=== PATIENT | male | born 1980 | race Caucasian/White ===

== ENCOUNTER 2019-05-16 14:43 | Emergency (ER) | payer MEDICAID, SELFPAY ==
[2019-05-16 14:51] VITALS: BP 101/88; PULSE 78; RESP 18; TEMP 36.2; O2SAT 99
--- NOTE | 2019-05-16 15:18 | W.ED.GENAD ---
Discharge Plan Disposition Patient Disposition: HOME Condition: Stable Discharge Details Chief Complaint: Laceration Clinical Impression: Avulsion of nail Primary Care Provider: Philipp Mcrae ED Provider: Raoul Nguyen Home Meds and New Rx's Prescriptions: No Action No Known Home Meds RF: 0 Discharge Instructions Additional Instructions: Remove dressing in 72 hours. Then may do daily soap and water gentle wash, pat dry and replace dressing. The nail may not grow back. Tylenol if needed for pain. Return to the ER for fever, redness, discharge from the wound or any other acute concern. Medical Decision Making 38-year-old male presents from home with complaint of left fifth digit nail avulsion when it was caught by the plate of the saws-all he was using. For x-ray which does not show displaced fracture. There is a subtle distal avulsion fracture. Placed in Xeroform gauze dressing with AlumaFoam splint for comfort. Discussed with him anticipated course of resolution. He is stable for discharge to home. HPI General Mode of arrival: ambulatory. Date/Time Provider Initiated Documentation: 05/16/19 15:01. Limitations to Documentation: no limitations. Information obtained by: patient. History of Present Illness 38 year old M presents to the emergency department with the chief complaint of Left fifth finger injury by saws all, described as moderate, and is localized to the upper extremity. Patient reports no radiation. Patient started experiencing this minute(s) and it has been constant. No relieving factors improve symptom(s), No exacerbating factors reported . Patient notes no other symptoms.. Patient did receive the following treatments prior to arrival, other (Tetanus up to date) Related Data Home Medications Medication Instructions Recorded Confirmed Unknown [No Known Home Meds] 05/16/19 05/16/19 Allergies Allergy/AdvReac Type Severity Reaction Status Date / Time No Known Allergies Allergy Unverified 05/16/19 14:52 General Stated Complaint: Laceration ANTONIO: 4 Review of Systems Narrative: 6 systems reviewed and otherwise negative [facility] Surgical History Repair, Tendon or Muscle right little and ring fingers Social History Smoking/Tobacco Use Status: Current every day Alcohol Intake: never Drug use: Occasionally Substance use type: marijuana Do you feel safe at home: Yes Do you feel safe in your relationship?: Yes Exam Narrative Exam Narrative: GEN: awake, alert, oriented 3. Pleasant, well groomed, interactive. HEAD: Normocephalic, atraumatic EYES: PERRL, EOMI NECK: Full ROM, no CORAL, no menigismus EXT: Full ROM, no edema, no rash. Left fifth digit with avulsed nail, tender and bloody, no laceration. Sensation is intact. Range of motion intact. Neuro: Grossly normal neurologic exam, conversant, interactive. Psych: Speech fluent, thoughts congruent, affect normal Course Vital Signs Vital signs: Vital Signs Temperature 36.2 C L 05/16/19 14:51 Pulse 78 05/16/19 14:51 Respiratory Rate 18 05/16/19 14:51 Blood Pressure 101/88 05/16/19 14:51 Pulse Oximetry 99 05/16/19 14:51 Temperature 36.2 C L 05/16/19 14:51 Temperature Source Temporal Artery Scan 05/16/19 14:51 Pulse 78 05/16/19 14:51 Respiratory Rate 18 05/16/19 14:51 Respiratory Effort Non-Labored 05/16/19 14:51 Blood Pressure 101/88 05/16/19 14:51 Pulse Oximetry 99 05/16/19 14:51 Oxygen Delivery Method Room Air 05/16/19 14:51 Oxygen Flow Rate 0 05/16/19 14:51 Pain Level 10 05/16/19 14:51
--- NOTE | 2019-05-16 15:53 | DI.RAD_ITS ---
EXAM: XR FINGER LT LITTLE INDICATION: pain and avulsed nail after trauma. COMPARISON: No exams were available for comparison TECHNIQUE: 2D digital imaging was performed. FINDINGS: There is a minimally displaced tiny fracture of the terminal tuft of the left little finger. Associa felicia soft tissue swelling is present. No radiopaque foreign bodies are seen in the soft tissues. IMPRESSION: Tiny, minimally displaced fracture of the terminal tuft of the left little finger.
[2019-05-16] MEDS: Acetaminophen 500 MG TAB 1000 MG PO (16:02)
--- NOTE | 2019-05-16 16:25 | DI.VRAD_ITS ---
PROCEDURE INFORMATION: Exam: XR Left Finger(s) Exam date and time: 05/16/2019 3:51 PM Clinical history: 38 years old, male; Other: Pain and avulsed nail after trauma TECHNIQUE: Imaging protocol: XR Left fingers. Views: Minimum 2 views. COMPARISON: No relevant prior studies available. FINDINGS: Bones/joints: There is a 3 x 1.5 mm chip fracture from the tip of the distal phalanx that appears to be acute. Soft tissues: There is irregularity near the base of the nail of the fifth digit. There is no radiopaque foreign body. IMPRESSION: Tiny acute chip fracture of the distal phalanx. Dictated and Authenticated by: Griffin Ruth MD. Ordering:RADHA Silveira MD
== END 2019-05-16 16:36 | disposition home or self-care (01) ==
PROVIDERS: Emergency Provider Emergency Medicine; PCP Family Medicine
DX: S61.307A Unspecified open wound of left little finger with damage to nail, initial encounter (principal); W31.2XXA Contact with powered woodworking and forming machines, initial encounter
CPT/HCPCS: 99283; 73140; 99282

== ENCOUNTER 2021-08-12 15:40 | Outpatient (CLI) | payer MEDICAID, SELFPAY ==
--- NOTE | 2021-08-12 | DI.RAD_ITS ---
Exam(s) XR HIP RT COMPLETE AP PELVIS EXAM: XR HIP RT COMPLETE AP PELVIS CLINICAL HISTORY: fall on rock. TECHNIQUE: 2D digital imaging was performed of the right hip. Two images were obtained. AP pelvis a nd lateral right hip views were obtained. COMPARISON: No exams were available for comparison FINDINGS: BONES: No acute fracture is present. No bony destructive lesion is seen. JOINTS: No dislocation present. SOFT TISSUE: Normal. IMPRESSION: Unremarkable radiographs of the right hip. Unremarkable radiographs of the pelvis. DATA REPOSITORY: RADIATION DOSE DELIVERED:
--- NOTE | 2021-08-12 16:06 | DI.VRAD_ITS ---
PROCEDURE INFORMATION: Exam: XR Right Hip Exam date and time: 08/12/2021 3:45 PM Age: 41 years old Clinical indication: Injury or trauma; Fall; Blunt trauma (contusions or hematomas); Right; Hip TECHNIQUE: Imaging protocol: XR Right hip. Views: 2 or 3 views hip with pelvis when performed. COMPARISON: No relevant prior studies available. FINDINGS: Bones/joints: Minimal Degenerative arthritis lower lumbar facets and sacroiliac joints. Soft tissues: Unremarkable. IMPRESSION: No acute findings Dictated and Authenticated by: Sarah Mensah MD. Ordering:RUSLAN Clements MD
== END 2021-08-12 16:00 ==
PROVIDERS: PCP Family Medicine; Visit Provider Nurse Practitioner Family
DX: M25.551 Pain in right hip (principal); W19.XXXA Unspecified fall, initial encounter
CPT/HCPCS: 73502

== ENCOUNTER 2022-05-18 15:23 | Outpatient (REF) | payer MEDICAID, SELFPAY ==
[2022-05-18 16:10] LABS: HCT 42.9 % (40.0-50.0); HGB 14.9 g/dL (13.5-17.5); MCH 32.5 pg (27.0-33.0); MCHC 34.7 % (32.0-36.0); MCV 94 fL (80-95); MPV 9.3 fL (8.0-11.0); Platelet Count 381 10^3/uL (130-400); RBC 4.58 10^6/uL (4.36-5.78); RDW 11.8 % (11.8-14.1); RDW-SD 40.9 fL; WBC 8.84 10^3/uL (4.4-10.8)
[2022-05-18 16:50] LABS: ALT 45 U/L (16-63); AST 30 U/L (15-37); Albumin 4.3 g/dL (3.4-5.0); Alkaline Phosphatase 66 U/L (46-116); Anion Gap 7.2 mmol/L (3-11); BUN 7 mg/dL (7-18); Bilirubin, Total 1.2 mg/dL (0.2-1.0); CO2 26.8 mmol/L (21.0-32.0); CREATININE 1.1 mg/dL (0.70-1.30); Calcium 9.3 mg/dL (8.5-10.1); Chloride 102 mmol/L (98-107); Estimated GFR 87.03 (mL/min/1.73m2); Glucose 102 mg/dL (74-106); Potassium 4.5 mmol/L (3.5-5.1); Sodium 136 mmol/L (136-145); Total Protein 7.6 g/dL (6.4-8.2)
== END 2022-05-18 15:24 | disposition home or self-care (01) ==
LOC: NCHCN 15:23
PROVIDERS: PCP Family Medicine; Visit Provider Nurse Practitioner Family
DX: Z13.0 Encounter for screening for diseases of the blood and blood-forming organs and certain disorders involving the immune mechanism (principal); Z13.228 Encounter for screening for other metabolic disorders; Z00.00 Encounter for general adult medical examination without abnormal findings
CPT/HCPCS: 80053; 85027

== ENCOUNTER 2023-02-07 17:21 | Outpatient (REF) | payer MEDICAID, SELFPAY ==
[2023-02-07 16:38] LABS: Abs Immature Grans 0.04 10^3/uL (0.0-0.06); Absolute Basophil Count 0.06 10^3/uL (0.0-0.2); Absolute Eosinophil Count 0.14 10^3/uL (0.0-0.7); Absolute Lymphocyte Count 2.24 10^3/uL (1.2-3.4); Absolute Monocyte Count 0.59 10^3/uL (0.1-0.8); Absolute Neutrophil Count 3.47 10^3/uL (1.2-6.7); Basophils % 0.9; Eosinophils % 2.1; HCT 42.6 % (40.0-50.0); HGB 14.6 g/dL (13.5-17.5); Immature Grans % 0.6; Lymphocytes % 34.3; MCH 31.7 pg (27.0-33.0); MCHC 34.3 % (32.0-36.0); MCV 92 fL (80-95); MPV 8.6 fL (8.0-11.0); Neutrophils % 53.1; Platelet Count 379 10^3/uL (130-400); RBC 4.61 10^6/uL (4.36-5.78); RDW 11.7 % (11.8-14.1); RDW-SD 39.8 fL; WBC 6.54 10^3/uL (4.4-10.8)
[2023-02-07 16:42] LABS: Prothrombin Time 9.9 sec (9.3-11.0)
[2023-02-07 16:58] LABS: Anion Gap 4.7 mmol/L (3-11); BUN 13 mg/dL (7-18); CO2 31.3 mmol/L (21.0-32.0); CREATININE 1.2 mg/dL (0.70-1.30); Calcium 8.8 mg/dL (8.5-10.1); Chloride 103 mmol/L (98-107); Estimated GFR 77.92 (mL/min/1.73m2); Glucose 95 mg/dL (74-106); Potassium 4.6 mmol/L (3.5-5.1); Sodium 139 mmol/L (136-145)
== END 2023-02-07 17:22 | disposition home or self-care (01) ==
LOC: LBN 17:21
PROVIDERS: PCP Family Medicine; Visit Provider Orthopaedic Surgery
DX: M50.13 Cervical disc disorder with radiculopathy, cervicothoracic region (principal)
CPT/HCPCS: 80048; 85025; 85610

== ENCOUNTER 2024-06-12 16:33 | Outpatient (REF) | payer MEDICAID, SELFPAY ==
[2024-06-12 19:12] LABS: Abs Immature Grans 0.02 10^3/uL (0.0-0.06); Absolute Basophil Count 0.07 10^3/uL (0.0-0.2); Absolute Eosinophil Count 0.08 10^3/uL (0.0-0.7); Absolute Lymphocyte Count 1.88 10^3/uL (1.2-3.4); Absolute Monocyte Count 0.65 10^3/uL (0.1-0.8); Absolute Neutrophil Count 5.53 10^3/uL (1.2-6.7); Basophils % 0.9 %; HCT 40.9 % (40.0-50.0); HGB 14.2 g/dL (13.5-17.5); Immature Grans % 0.2 %; Lymphocytes % 22.8 %; MCH 32.4 pg (27.0-33.0); MCHC 34.7 % (32.0-36.0); MCV 93 fL (80-95); MPV 8.6 fL (8.0-11.0); Monocytes % 7.9 %; Neutrophils % 67.2 %; Platelet Count 411 10^3/uL (130-400); RBC 4.38 10^6/uL (4.36-5.78); RDW 11.7 % (11.8-14.1); WBC 8.23 10^3/uL (4.4-10.8)
[2024-06-12 19:24] LABS: ALT 38 U/L (16-63); AST 24 U/L (15-37); Albumin 4.3 g/dL (3.4-5.0); Alkaline Phosphatase 76 U/L (46-116); Anion Gap 8.9 mmol/L (3-11); BUN 7 mg/dL (7-18); Bilirubin, Total 0.75 mg/dL (0.2-1.0); CO2 27.1 mmol/L (21.0-32.0); CREATININE 1.1 mg/dL (0.70-1.30); Calcium 9.1 mg/dL (8.5-10.1); Calculated LDL 107 mg/dL (<100); Chloride 100 mmol/L (98-107); Cholesterol 195 mg/dL (<200); Estimated GFR 85.95 (mL/min/1.73m2); Glucose 117 mg/dL (74-106); HDL Cholesterol 80 mg/dL (40-60); Potassium 4.3 mmol/L (3.5-5.1); Sodium 136 mmol/L (136-145); Total Protein 8.1 g/dL (6.4-8.2); Triglyceride 40 mg/dL (<150)
== END 2024-06-12 16:34 | disposition home or self-care (01) ==
LOC: NCHCN 16:33
PROVIDERS: PCP Family Medicine; Visit Provider Nurse Practitioner Family
DX: K92.0 Hematemesis (principal); Z13.220 Encounter for screening for lipoid disorders
CPT/HCPCS: 80053; 80061; 85025

== ENCOUNTER 2024-07-03 00:28 | Outpatient (CLI) | payer MEDICAID, SELFPAY ==
--- NOTE | 2024-07-03 | DI.CT_ITS ---
Exam(s) CT ABDOMEN PELVIS W EXAM: CT ABDOMEN PELVIS W CLINICAL HISTORY: LUQ PAIN R10.12. TECHNIQUE: Imaging Protocol: Axial computed tomography images with coronal and sagittal reformatted images were created and reviewed CONTRAST MATERIAL: Intravenous: Omnipaque 350 Contrast volume:75 ml Oral: yes COMPARISON: No exams were available for comparison FINDINGS: ABDOMEN and PELVIS: Lung Bases: No acute findings. Liver: Normal density. No suspicious mass. Gallbladder and biliary tract: No radiodense calculus. No biliary dilation. Pancreas: Normal density. No abnormal calcifications or inflammatory process. No evidence of mass. Spleen: Normal. Kidneys: Normal size, contour and axis. No radiodense stones. No obstructive uropathy. No suspicious masses seen. Adrenal glands: No masses seen. Vasculature: Abdominal aorta non-dilated. Soft tissues: Tiny fat containing umbilical hernia. Bladder: No gross wall thickening. No calculi.No focal mass. Bowel: The small bowel and colon are well opacified with the administered oral contrast. No obstruct ion. No bowel wall thickening. Appendix normal. Normal quantity of stool. Peritoneal cavity: No ascites. No focal collection. No mesenteric inflammatory response. No free air . Bones: Unremarkable for age. Reproductive organs: Unremarkable. Lymph nodes: No pathologically enlarged lymph nodes. IMPRESSION:: No acute abnormality in the abdomen or pelvis. RADIATION DOSE DELIVERED: Total DLP DATA REPOSITORY: All CT scans at this facility are submitted to the National Radiology Data Registry (NRDR) Dose Index Registry (DIR) with the [employer] (ACR). RADIATION OPTIMIZATION: All CT scans at this facility use at least one of these dose optimization te chniques: automated exposure control; mA and/or kV adjustment per patient size (includes targeted exa ms where dose is matched to clinical indication); or iterative reconstruction.
--- OUTSIDE RECORDS SUMMARY | 2024-07-03 00:31 | XMS_ITS | Encounter Summary ---
[facility] Organization [facility] [place] [address] Care Team Providers Care Pacs Specialist Name Role Phone Delaney Kwok APRN Primary Care Provider [phone] Reason for Visit * Reason Comments Follow-up S/P C4-C7 ACDF Encounter Details Date Type Department Care Team ([facility] Contact Info) Description 06/27/2023 11:30 AM EST Office Visit [place] [address] Chana Fields CORPORATE GENERAL MANAGER [facility] [place] [address] S/p C4-C7 ACDF 02/18/23 (Dr. Prince) Social History Tobacco Use Types Packs/Day Years Used Date Smoking Tobacco: Former Cigarettes 1.5 15 0 02/16/2008 - 02/15/2023 Smokeless Tobacco: Former Chew Alcohol Use Standard Drinks/Week Comments Yes 9 (1 standard drink = 0.6 oz pur e alcohol) last drink saturday [facility] Inpatient Questions Answer Date Recorded Does Anyone Try to Keep You From Having Contact with Others or Doing Things Outside Your Home? unable to answer (comment required) 02/18/2023 Feels Threatened by Someone unable to an swer (comment required) 02/18/2023 Feels Unsafe at Home or Work/School unab le to answer (comment required) 02/18/2023 Physical Signs of Abuse Present no 02/18/2023 Sex and Gender Information Value Date Recorded Sex Assigned at Not on file Gender Identity Not on file Sexual Orientation Not on file documented as of this encounter Last Filed Vital Signs Vital Sign Reading Time Taken Comments Blood Pressure - - Pulse - - Temperature - - Respiratory Rate - - Oxygen Saturation - - Inhaled Oxygen Concentration - - Weight 77.1 kg (170 lb) 06/27/2023 11:22 AM EST Height 185.4 cm (6' 1) 06/27/2023 11:22 AM EST Body Mass Index 22.43 06/27/2023 11:22 AM EST documented in this encounter Progress Notes * Chana Fields, CORPORATE GENERAL MANAGER - 06/27/2023 11:30 AM EST [facility] Medical Decision Making: Diallo Barker is a pleasant 42 y.o. male seen today about 6 months s/p ACDF spanning C4-7. He is doing well. I recommended continued use of the bone stimulator for the next 3 months as recommended. I would also recommend that he see us back for his 1 year post-op visit with repeat Xrays. Heis aware that he can return sooner if there are any concerns or issues. Diagnosis: ICD-10-CM 1. S/p C4-C7 ACDF 02/18/23 (Dr. Prince) Z98.1 XR Cervical Spine AP Flexion & Extension Only Plan Follow up 01/2024 for 1 year post-op visit with repeat Xrays HPI Surgery: ACDF C4-7 for bilateral upper extremity radiculopathy Date of Surgery: 02/08/2023 Surgeon: Dr. Arnoldo Prince MD Diallo Barker is a 42 y.o. male here for a routine 6 months post- operative visit. he was last seen by Dr. Arnoldo Prince MD on 04/25/2023 and at that time, he was 10 weeks out from surgery. He was doing well reporting minimal neck discomfort. He also reported resolution of his upper extremityradicular symptoms. Swallowing was back to normal. He was counseled at that time to wean from the cervical collar and advance activities as tolerated. He is following up with me today for a routine postop visit Today, he continues to report that he is doing well. He continue to report that his upper extremities are doing well and is slowly but surely improving. He has returned to work, working 20-30 hours per week. He continues to report that he is not smoking. He is using the cervical bone stimulator daily. ROS A five point review of systems was completed today and, of note, pertinent positives and negatives are indicated in the HPI reports that he quit smoking about 4 months ago. His smoking use included cigarettes. He has a 22.50 pack-year smoking history. He has quit using smokeless tobacco. His smokeless tobacco use includedchew. Physical Examination: Wt Readings from Last 1 Encounters: 06/27/23 77.1 kg (170 lb) BMI Readings from Last 1 Encounters: 06/27/23 22.43 kg/m?? Pain: 4 (last 7 days pain lvl at lowest 0, highest 4) General: Pleasant, cooperative, Mood and affect are appropriate Posture: upright Gait: Non-antalgic Palpation: There are no masses, lesions, or deformities. Skin: There is a healing left anterior cervical incision without redness, drainage or signs if infection. Sensation: Grossly intact throughout all dermatomes Neuro: Strength: 5/5 throughout all muscle groups Reflexes: 2+ at the biceps triceps brachioradialis bilaterally Imaging and Test Review: On the day of this encounter, I independently reviewed xrays of the cervical spine completed today demonstrating intact anterior hardware spanning C4-5 without evidence of loosening of hardware failure. Bone graft is not fully incorporated, but progressed from previous xrays CC: Delaney Kwok APRN Referring Provider: Delaney Fields APRN 06/27/2023 [facility] documented in this encounter Plan of Treatment Not on file documented as of this encounter Results * XR Cervical Spine AP Flexion & Extension Only (05/08/2024 1:00 PM EDT) WORKSTATION ID [id number] [facility] Anatomical Region Laterality Modality C-spine N/A Digital Radiogra phy Impressions 05/08/2024 2:27 PM EDT ACDF C4-C7. ??Similar degree of subsidence of intervertebral disc spacers. ??There is decreased conspicuity of disc spacers, which may indicate progressive incorporation. ??The hardware including the plate and screws alignment are unchanged. Thank you for letting us participate in the care of this patient. ??If you are a health care provider and have any questions regarding this report, please contact the number below. ??For patients who have questions please contact the health animal care attendant that requested your imaging first. ? Narrative 05/08/2024 2:27 PM EDT EXAMINATION: XR CERVICAL SPINE AP FLEXION AND EXTENSION ONLY CLINICAL HISTORY: Neck pain Z98.1, Arthrodesis status TECHNIQUE: AP lateral, flexion and extension COMPARISON: Radiographs 06/27/2023, 04/25/2023. FINDINGS: C1 through C7 are visualized on the lateral view. Status post ACDF C4-C7. ??Similar degree of subsidence of intervertebral disc spacers across these levels. ??The disc spacers are less distinct which may indicate incorporation. ??The cortical plate and screw alignment are unchanged. ?? Spinal listhesis or dynamic susceptibility.Vertebral body heights are preserved. Disc height loss at C3-C4. Unremarkable prevertebral soft tissues and lung apices. Procedure Note Pardeep Rudd MD - 05/08/2024 EXAMINATION: XR CERVICAL SPINE AP FLEXION AND EXTENSION ONLY CLINICAL HISTORY: Neck pain Z98.1, Arthrodesis status TECHNIQUE: AP lateral, flexion and extension COMPARISON: Radiographs 06/27/2023, 04/25/2023. FINDINGS: C1 through C7 are visualized on the lateral view. Status post ACDF C4-C7. Similar degree of subsidence of intervertebraldisc spacers across these levels. The disc spacers are less distinct whichmay indicate incorporation. The cortical plate and screw alignment areunchanged. Spinal listhesis or dynamic susceptibility.Vertebral body heights arepreserved. Disc height loss at C3-C4. Unremarkable prevertebral soft tissues and lung apices. IMPRESSION ACDF C4-C7. Similar degree of subsidence of intervertebral disc spacers.There is decreased conspicuity of disc spacers, which may indicate progressive incorporation. The hardware including the plate and screws alignmentare unchanged. Thank you for letting us participate in the care of this patient. If youare a health care provider and have any questions regarding this report,please contact the number below. For patients who have questions please contactthe health animal care attendant that requested your imaging first. Chana Fields APRN IMG DX ORDERABLES documented in this encounter Visit Diagnoses Diagnosis S/p C4-C7 ACDF 02/18/23 (Dr. Prince) Arthrodesis status S/p C4-C7 ACDF 02/18/23 (Dr. Prince) Arthrodesis status documented in this encounter Care Teams Pacs Specialist Relationship Specialty Start Date End Date Delaney Kwok APRN [address] [place] [address] PCP - General Family Medicine 02/18/23 documented as of this encounter
--- OUTSIDE RECORDS SUMMARY | 2024-07-03 00:31 | XMS_ITS | Encounter Summary ---
Author Organization [facility] [place] [address] Care Team Providers Care Horse Riding Coach Or Instructor Name Role Phone Delaney Kwok APRN Primary Care Provider [phone] Encounter Details Date Type Department Care Team (Latest Contact Info) Description 05/08/2024 Travel Social History Tobacco Use Types Packs/Day Years Used Date Smoking Tobacco: Former Cigarettes 1.5 15 0 02/16/2008 - 02/15/2023 Smokeless Tobacco: Former Chew Alcohol Use Standard Drinks/Week Comments Yes 9 (1 standard drink = 0.6 oz pur e alcohol) last drink saturday [facility] Inpatient Questions Answer Date Recorded Does Anyone [...] on file documented as of this encounter Plan of Treatment Not on file documented as of this encounter Visit Diagnoses Not on filedocumented in this encounter Care Teams Horse Riding Coach Or Instructor Relationship Specialty Start Date End Date Delaney Kwok [place] [address] [place] [address] PCP - General Family Medicine 02/18/23 documented as of this encounter
--- OUTSIDE RECORDS SUMMARY | 2024-07-03 00:31 | XMS_ITS | Encounter Summary ---
Author Organization [facility] Address [facility] [place] [address] Care Team Providers Care Cash Posting Representative Name Role Phone Delaney Kwok APRN Primary Care Provider [phone] Encounter Details Date Type Department Care Team (Latest Contact Info) Description 06/27/2023 10:27 AM EST - 06/27/2023 11:59 PM [facility] Hospital Encounter XRay at [facility] [place] [address] Arnoldo Prince MD [facility] [place] [address] Cervical disc disorder with radiculopathy of cervicothoracic region Discharge Disposition: Home Social History Tobacco Use Types Packs/Day Years Used Date Smoking Tobacco: Former Cigarettes 1.5 15 0 02/16/2008 - 02/15/2023 Smokeless Tobacco: Former Chew Alcohol Use Standard Drinks/Week Comments Yes 9 (1 standard drink = 0.6 oz pur e alcohol) last drink saturday [facility] Inpatient Questions Answer Date Recorded Does [...] on file documented as of this encounter Medications at Time of Discharge Medication Sig Dispensed Refills Start Date End Date acetaminophen (Tylenol) 500 mg tablet Take 2 tablets by mouth every 6 hours as needed for Pain. 30 tablet 1 02/19/2023 documented as of this encounter Plan of Treatment Not on file documented as of this encounter Procedures Procedure Name Priority Date/Time Associated Diagnosis Comments XR CERVICAL SPINE 1 VIEW Routine 06/27/2023 10:35 AM EST Cervical disc disorder with radiculopathy of cervicothoracic region documented in this encounter Results * XR Cervical Spine 1 View (06/27/2023 10:35 AM EST) Anatomical Region Laterality Modality C-spine N/A Digital Radiogra phy Impressions 06/27/2023 1:37 PM EST Status post C4-7 ACDF. Progressive subsidence of all of the intervertebral spacers. Otherwise, hardware is intact on this limited lateral projection. Thank you for letting us participate in the care of this patient. ??If you are a health care provider and have any questions regarding this report, please contact the number below. ??For patients who have questions please contact the health child care centre director that requested your imaging first. ? Electronically signed by: Joanna Luis MD, [facility] ([phone]), at 06/27/2023 1:37 PM Narrative 06/27/2023 1:37 PM EST EXAMINATION: XR CERVICAL SPINE 1 VIEW CLINICAL HISTORY: ??S/p ACDF follow up ?? (as entered by ordering provider in the order requisition) TECHNIQUE: ??Single lateral view of the cervical spine. COMPARISON: Cervical spine radiograph 04/25/2023. FINDINGS: On the lateral view, spinal levels are seen down to T1. Status post ACDF at C4-C7. Hardware is intact on this limited lateral projection. There has been progressive subsidence of the intervertebral spacers at all levels. The anterior atlantodental interval is normal. No focal vertebral body height loss. ??No listhesis. No prevertebral soft tissue swelling. Disc spaces at the unfused levels are preserved. Procedure Note Joanna Luis MD - 06/27/2023 EXAMINATION: XR CERVICAL SPINE 1 VIEW CLINICAL HISTORY: S/p ACDF follow up (as entered by orderingprovider in the order requisition) TECHNIQUE: Single lateral view of the cervical spine. COMPARISON: Cervical spine radiograph 04/25/2023. FINDINGS: On the lateral view, spinal levels are seen down to T1. Status post ACDF at C4-C7. Hardware is intact on this limited lateral projection. There has been progressive subsidence of the intervertebralspacers at all levels. The anterior atlantodental interval is normal. No focal vertebral body height loss. No listhesis. No prevertebral soft tissue swelling. Disc spaces at the unfused levels are preserved. IMPRESSION Status post C4-7 ACDF. Progressive subsidence of all of theintervertebral spacers. Otherwise, hardware is intact on this limited lateralprojection. Thank you for letting us participate in the care of this patient. If youare a health care provider and have any questions regarding this report,please contact the number below. For patients who have questions please contactthe health child care centre director that requested your imaging first. Electronically signed by: Joanna Luis MD, [facility]([phone]), at 06/27/2023 1:37 PM Arnoldo Prince MD IMG DX ORDERABLES documented in this encounter Visit Diagnoses Diagnosis Cervical disc disorder with radiculopathy of cervicothoracic region Brachial neuritis or radiculitis nos documented in this encounter Care Teams Cash Posting Representative Relationship Specialty Start Date End Date Delaney Kwok APRN [address] [place] [address] PCP - General Family Medicine 02/18/23 documented as of this encounter
--- OUTSIDE RECORDS SUMMARY | 2024-07-03 00:31 | XMS_ITS | Encounter Summary ---
[place] [address] Care Team Providers Care Field Counsel Name Role Phone Delaney Kwok APRN Primary Care Provider [phone] Encounter Details Date Type Department Care Team (Late st Contact Info) Description 04/05/2023 Telephone [facility] [place] [id number] Christine Levy Social History Tobacco Use Types Packs/Day Years [...] on file documented as of this encounter Miscellaneous Notes * Telephone Encounter - Christine Levy - 04/05/2023 12:03 PM EDT LVM on 04/05/23 in regards to rescheduling an appointment with Dr. Prince & xray prior from 03/18/23.Please call [phone]. documented in this encounter Plan of Treatment Not on file documented as of this encounter Visit Diagnoses Not on filedocumented in this encounter Care Teams Field Counsel Relationship Specialty Start Date End Date Delaney Kwok, N[place] [address] [place] [address] PCP - General Family Medicine 02/18/23 documented as of this encounter
--- OUTSIDE RECORDS SUMMARY | 2024-07-03 00:31 | XMS_ITS | Encounter Summary ---
Author Organization [facility] [place] [address] Care Team Providers Care Tape Calender Name Role Phone Delaney Kwok APRN Primary Care Provider [phone] Reason for Visit * Reason Comments Follow-up C4-7 ACDF Encounter Details Date Type Department Care Team (Latest Contact Info) Description 04/25/2023 4:40 PM EDT Office Visit [facility] [place] [address] Arnoldo Prince MD [facility] [place] [address] Cervical disc disorder with radiculopathy of cervicothoracic region Social History Tobacco Use Types Packs/Day Years Used Date Smoking Tobacco: Former Cigarettes 1.5 15 0 02/16/2008 - 02/15/2023 Smokeless Tobacco: Former Chew Alcohol Use Standard Drinks/Week Comments Yes 9 (1 standard drink = 0.6 oz pur e alcohol) last drink saturday [facility] Inpatient Questions Answer Date Recorded Does Anyone [...] - Inhaled Oxygen Concentration - - Weight 79.4 kg (175 lb) 04/25/2023 4:46 PM EDT Height 182.9 cm (6') 04/25/2023 4:46 PM EDT Body Mass Index 23.73 04/25/2023 4:46 PM EDT documented in this encounter Progress Notes * Arnoldo Prince MD - 04/25/2023 4:40 PM EDT Date of surgery: 02/08/2023 Surgery: C4-C7 ACDF for bilateral upper extremity pain Interval history: Mr. Barker returns today about 10 weeks out from surgery. He has been doing well. He reports mild neck pain and resolution of his upper extremity pain, numbness, weakness. He is taking Lyrica and Tylenol as needed. His swallowing is back to normal. He is continue to avoid any nicotine or cigarettes. He has not yet returned to work. He denies any fevers, chills, or drainage fromthe incision. Overall, he is quite pleased with how he is doing. Physical exam General: Patient is comfortable, no acute distress Neck: He has a well-healed anterior incision. There is no drainage surrounding erythema. Neurological exam: He has 5/5 strength of all upper extreme motors. He has a normal sensory exam. Assessment/plan: Mr. Barker is about 10 weeks out from his ACDF, and his radicular symptoms are resolved. I encouraged him to come out of the collar and gradually advance his activities as tolerated. He will let us know if he needs any note about return to work. He will follow-up with my PA or INTERNAL COMMUNICATIONS MANAGER in 2 months with repeat x-rays at that time. I sent him to x-ray today as he did not get an x-ray prior to his visit. documented in this encounter Plan of Treatment [...] who have questions please contact the health resident care assistant that requested your imaging first. ? Electronically signed by: Joanna Luis MD, [facility] ([phone]), at 06/27/2023 1:37 PM Narrative 06/27/2023 1:37 [...] patients who have questions please contactthe health resident care assistant that requested your imaging first. Electronically signed by: Joanna Luis MD, [facility]([phone]), at 06/27/2023 1:37 PM Arnoldo Prince MD IMG DX ORDERABLES * XR Cervical Spine 2 or 3 Views (04/25/2023 5:33 PM EDT) Anatomical Region Laterality Modality C-spine N/A Digital Radiogra phy Impressions 04/26/2023 12:34 PM EDT 1. ??Stable ACDF of C4-C7, with no hardware complication or malalignment 2. No acute osseous abnormality, or spinal malalignment Thank you for letting us participate in the care of this patient. ??If you are a health care provider and have any questions regarding this report, please contact the number below. ??For patients who have questions please contact the health resident care assistant that requested your imaging first. ? Electronically signed by: [facility] ([phone]), at 04/26/2023 12:34 PM Narrative 04/26/2023 12:34 PM EDT EXAMINATION: XR CERVICAL SPINE 2 OR 3 VIEWS CLINICAL HISTORY: Please do lat flex-ext films, s/p acdf TECHNIQUE: 4 views of the cervical spine, with flexion and extension. COMPARISON: 02/18/2023 cervical spine radiograph FINDINGS: Stable ACDF changes of C4-C7, with anterior cortical plate, and intervertebral disc spacers at C4-C5, C5-C6 and C6-C7. The orthopedic hardware are intact, and stable in alignment. No perihardware lucency. No periprosthetic fracture. Stable spinal alignment, with straightening of the cervical lordosis. No focal vertebral compression deformity. No evidence of spondylolisthesis. Additionally, no malalignment is detected on the extension and flexion maneuvers. The prevertebral soft tissues are unremarkable. The lung apices are clear. Procedure Note Pardeep Rudd MD - 04/26/2023 EXAMINATION: XR CERVICAL SPINE 2 OR 3 VIEWS CLINICAL HISTORY: Please do lat flex-ext films, s/p acdf TECHNIQUE: 4 views of the cervical spine, with flexion and extension. COMPARISON: 02/18/2023 cervical spine radiograph FINDINGS: Stable ACDF changes of C4-C7, with anterior cortical plate, andintervertebral disc spacers at C4-C5, C5-C6 and C6-C7. The orthopedic hardware areintact, and stable in alignment. No perihardware lucency. No periprostheticfracture. Stable spinal alignment, with straightening of the cervical lordosis. Nofocal vertebral compression deformity. No evidence of spondylolisthesis.Additionally, no malalignment is detected on the extension and flexion maneuvers. The prevertebral soft tissues are unremarkable. The lung apices are clear. IMPRESSION 1. Stable ACDF of C4-C7, with no hardware complication or malalignment 2. No acute osseous abnormality, or spinal malalignment Thank you for letting us participate in the care of this patient. If youare a health care provider and have any questions regarding this report,please contact the number below. For patients who have questions please contactthe health resident care assistant that requested your imaging first. Arnoldo Prince MD IMG DX ORDERABLES documented in this encounter Visit Diagnoses Diagnosis Cervical disc disorder with radiculopathy of cervicothoracic region Brachial neuritis or radiculitis nos Cervical disc disorder with radiculopathy of cervicothoracic region Brachial neuritis or radiculitis nos Cervical disc disorder with radiculopathy of cervicothoracic region Brachial neuritis or radiculitis nos documented in this encounter Care Teams Tape Calender Relationship Specialty Start Date End Date Delaney Kwok, NEVILLE [facility] [place] [address] PCP - General Family Medicine 02/18/23 documented as of this encounter
--- OUTSIDE RECORDS SUMMARY | 2024-07-03 00:31 | XMS_ITS | Encounter Summary ---
[place] [address] Care Team Providers Care Cage Cashier Name Role Phone Delaney Kwok APRN Primary Care Provider [phone] Encounter Details Date Type Department Care Team (Late st Contact Info) Description 03/27/2023 Telephone [facility] [place] [phone] Christine Levy Social History Tobacco Use Types [...] * Telephone Encounter - Christine Levy - 03/27/2023 10:11 AM EDT LVM on 03/27/23 on both lines in regards to scheduling an appointment with Dr. Prince from 03/18/23 with xray prior. Please call [phone]. documented in this encounter Plan of Treatment Not on file documented as of this encounter Visit Diagnoses Not on filedocumented in this encounter Care Teams Cage Cashier Relationship Specialty Start Date End Date Delaney Kwok, [place] [address] [place] [address] PCP - General Family Medicine 02/18/23 documented as of this encounter
--- OUTSIDE RECORDS SUMMARY | 2024-07-03 00:31 | XMS_ITS | Encounter Summary ---
[place] [address] Care Team Providers Care Appliance Repair Technician Name Role Phone Delaney Kwok APRN Primary Care Provider [phone] Encounter Details Date Type Department Care Team (Late st Contact Info) Description 03/11/2023 Telephone [facility] [place] [phone] Tatum Sunshine Social History Tobacco Use Types Packs/Day Years [...] encounter Miscellaneous Notes * Telephone Encounter - Tatum Sunshine - 03/11/2023 10:29 AM EDT Lvm for patient to call us to reschedule his appt with Dr. Prince on 03/18. Please schedule to nextavailable due to Dr. Prince will be in the OR. documented in this encounter Plan of Treatment Not on file documented as of this encounter Visit Diagnoses Not on filedocumented in this encounter Care Teams Appliance Repair Technician Relationship Specialty Start Date End Date Delaney Kwok, FOLDER TAPER [place] [address] [place] [address] PCP - General Family Medicine 02/18/23 documented as of this encounter
--- OUTSIDE RECORDS SUMMARY | 2024-07-03 00:31 | XMS_ITS | Encounter Summary ---
[place] [address] Care Team Providers Care Embossing Machine Operator Name Role Phone Delaney Kwok APRN Primary Care Provider Encounter Details Date Type Department Care Team (Late st Contact Info) Description 04/30/2023 Telephone [facility] [place] [phone] Doris Scott Social History Tobacco Use Types Packs/Day Years [...] encounter Miscellaneous Notes * Telephone Encounter - Doris Scott - 04/30/2023 4:18 PM EDT 04/30/2023 Per SC from [facility] LVM to schedule f/u 2 mo from 04/26 w/ AB or SLB Please sched Cervical XR's same day prior CB# [phone] Appt Note: 6 mo surg FU; s/p C4-C7 ACDF on 02/08/[address] Prince ( XR on arrival) documented in this encounter Plan of Treatment Not on file documented as of this encounter Visit Diagnoses Not on filedocumented in this encounter Care Teams Embossing Machine Operator Relationship Specialty Start Date End Date Delaney Kwok, NEVILLE [facility] [address] [place] [address] PCP - General Family Medicine 02/18/23 documented as of this encounter
--- OUTSIDE RECORDS SUMMARY | 2024-07-03 00:31 | XMS_ITS | Encounter Summary ---
[place] [address] Care Team Providers Care Chief Projectionist Name Role Phone Delaney Kwok APRN Primary Care Provider [phone] Encounter Details Date Type Department Care Team (Late st Contact Info) Description 03/15/2023 Telephone [facility] [place] [phone] Christine Levy Social History Tobacco Use Types [...] * Telephone Encounter - Christine Levy - 03/15/2023 2:57 PM EDT LVM on 03/15/23 in regards to rescheduling appointment on 03/18/[address] Prince with xray prior. Please call [phone]. documented in this encounter Plan of Treatment Not on file documented as of this encounter Visit Diagnoses Not on filedocumented in this encounter Care Teams Chief Projectionist Relationship Specialty Start Date End Date Delaney Kw[place] [address] [place] [address] PCP - General Family Medicine 02/18/23 documented as of this encounter
--- OUTSIDE RECORDS SUMMARY | 2024-07-03 00:31 | XMS_ITS | Encounter Summary ---
Author Organization [facility] [place] [place] [address] Care Team Providers Care Airline Managerial Supervisor Name Role Phone Delaney Kwok APRN Primary Care Provider [phone] Reason for Visit * Reason Comments Follow-up 1 year follow up C4- C7 ACDF Encounter Details Date Type Department Care Team (Late st Contact Info) Description 05/08/2024 2:45 PM EDT Office Visit [place] [address] Chana Fields LABEL REMOVER [facility] [place] [address] S/p C4-C7 ACDF 02/18/23 (Dr. Prince) Social History Tobacco Use Types Packs/Day Years Used Date Smoking Tobacco: Former Cigarettes 1.5 15 0 02/16/2008 - 02/15/2023 Smokeless Tobacco: Former Chew Alcohol Use Standard Drinks/Week Comments Yes 9 (1 standard drink = 0.6 oz pur e alcohol) last drink saturday [facility] Inpatient Questions Answer Date Recorded Does Anyone [...] - Inhaled Oxygen Concentration - - Weight 90.7 kg (200 lb) 05/08/2024 2:38 PM EDT Height 182.9 cm (6') 05/08/2024 2:38 PM EDT Body Mass Index 27.12 05/08/2024 2:38 PM EDT documented in this encounter Progress Notes * Chana Fields, LABEL REMOVER - 05/08/2024 2:45 PM EDT [facility] Medical Decision Making: Diallo Barker is a pleasant and straightforward 43 y.o. male seen today now over 1 year status post ACDF spanning C4-C7. He is doing reasonably well. He denies any radicular symptoms and reports resolution of the radicular complaints that were present preoperatively. He does feel occasionalthroat tightness when it is hot but this is improved when returning to a cooler climate. He also rep orts that he can feel residual thumbprints, inside his neck from the people doing his surgery which is more disconcerting than bothersome. Overall, symptoms are tolerable and he is happy with his surgical results. Subsequently, I counseled the patient that he does not need any further follow-up and can see us back on an as-needed basis. Diagnosis: ICD-10-CM 1. S/p C4-C7 ACDF 02/18/23 (Dr. Prince) Z98.1 Plan Follow-up as needed HPI Surgery: ACDF C4-7 for bilateral upper extremity radiculopathy Date of Surgery: 02/08/2023 Surgeon: Dr. Arnoldo Prince MD Diallo Barker is a 43 y.o. male here for a routine 1 year post-operative visit. he was lastseen by me on 06/27/2023 at which point, he was 6 months postop. He was doing well without any significant complaints and was counseled to follow-up here in January 2024 for a 1 year postop visit. He hasmissed several appointments since January 2024. Today, he reports that he continues to have resolution of the upper extremity radicular symptoms. He does have some neck stiffness generally when the weather is colder damp but this is overall, manageable. ROS A five point review of systems was completed today and, of note, pertinent positive and negatives are indicated in the HPI. reports that he quit smoking about 14 months ago. His smoking use included cigarettes. He started smoking about 16 years ago. He has a 22.5 pack-year smoking history. He has quit using smokeless tobacco. His smokeless tobacco use included chew. Physical Examination Wt Readings from Last 1 Encounters: 05/08/24 90.7 kg (200 lb) BMI Readings from Last 1 Encounters: 05/08/24 27.12 kg/m?? Pain: 0 - No pain General: Pleasant, cooperative, Mood and affect are appropriate Posture: Upright Gait: Nonantalgic Palpation: There are no masses, lesions, or deformities. Skin: There is a well-healed left anterior cervical incision without redness, drainage or signs of infection. Sensation: Grossly intact throughout all dermatomes Neuro: Strength: 5/5 throughout all muscle groups Imaging and Test Review: On the day of this encounter, I independently reviewed x-rays of the cervical spine completed on 05/08/2024 demonstrating intact anterior plate spanning C4-C7 without evidence of loosening or hardware failure. CC: Delaney Kwok APRN Referring Provider: Delaney Fields APRN 05/08/2024 [facility] documented in this encounter Plan of Treatment Not on file documented as of this encounter Visit Diagnoses Diagnosis S/p C4-C7 ACDF 02/18/23 (Dr. Prince) Arthrodesis status documented in this encounter Care Teams Airline Managerial Supervisor Relationship Specialty Start Date End Date Delaney Kwok [place] [address] PCP - General Family Medicine 02/18/23 documented as of this encounter
--- OUTSIDE RECORDS SUMMARY | 2024-07-03 00:31 | XMS_ITS | Encounter Summary ---
Author Organization [facility] [place] [address] Care Team Providers Care Insurance Customer Service Specialist Name Role Phone Delaney Kwok APRN Primary Care Provider [phone] Encounter Details Date Type Department Care Team (Latest Contact Info) Description 04/25/2023 Travel Social History Tobacco Use Types Packs/Day [...] on filedocumented in this encounter Care Teams Insurance Customer Service Specialist Relationship Specialty Start Date End Date Delaney Kwok [place] [address] [place] [address] PCP - General Family Medicine 02/18/23 documented as of this encounter
--- OUTSIDE RECORDS SUMMARY | 2024-07-03 00:31 | XMS_ITS | Encounter Summary ---
[place] [address] Care Team Providers Care Meter Reader Chief Name Role Phone Delaney Kwok APRN Primary Care Provider [phone] Encounter Details Date Type Department Care Team (Late st Contact Info) Description 03/14/2023 Telephone [place] [phone] Angelia Vera Social History Tobacco Use Types Packs/Day Years [...] encounter Miscellaneous Notes * Telephone Encounter - Angelia Vear - 03/14/2023 8:46 AM EDT LVM to reschedule appt with Dr. Prince on 03/19 as he is not avl that day. Please schedule to next avl time along with Xrays documented in this encounter Plan of Treatment Not on file documented as of this encounter Visit Diagnoses Not on filedocumented in this encounter Care Teams Meter Reader Chief Relationship Specialty Start Date End Date Delaney Kwok, DELPHI DEVELOPER [facility] [place] [address] PCP - General Family Medicine 02/18/23 documented as of this encounter
--- OUTSIDE RECORDS SUMMARY | 2024-07-03 00:31 | XMS_ITS | Encounter Summary ---
Author Organization [facility] Address [facility] [place] [address] Care Team Providers Care Learning Services Coordinator Name Role Phone Sundar Delaney Sifuentes APRN Primary Care Provider [phone] Encounter Details Date Type Department Care Team (Latest Contact Info) Description 04/25/2023 5:25 PM EDT - 04/25/2023 11:59 PM EDT Hospital Encounter XRay at [address] [place] [address] Arnoldo Prince MD [facility] [place] [address] Cervical disc disorder with radiculopathy of cervicothoracic [...] needed for Pain. 30 tablet 1 02/19/2023 oxyCODONE (Roxicodone) 5 mg tablet Take 1 tablet by mouth every 4 hours as needed for Pain. 40 tablet 02/19/2023 06/27/2023 polyethylene glycoL (Miralax) 17 gram oral powder packet Take 17 g by mouth 2 times daily. 14 each 02/19/2023 06/27/2023 senna-docusate (Pericolace) 8.6-50 mg Tablet Take 2 tablets by mouth 2 times daily. 60 tablet 02/19/2023 06/27/2023 pregabalin (Lyrica) 100 mg capsule Take 100 mg by mouth 3 times daily. 06/27/2023 documented as of this encounter Plan of Treatment Not on file documented as of this encounter Procedures Procedure Name Priority Date/Time Associated Diagnosis Comments XR CERVICAL SPINE 2 OR 3 VIEWS Routine 04/25/2023 5:33 PM EDT Cervical disc disorder with radiculopathy of cervicothoracic region documented in this encounter Results * XR Cervical Spine 2 or 3 [...] who have questions please contact the health patient care provider that requested your imaging first. ? Electronically signed by: Pardeep Rudd MD, [facility] ([phone]), at 04/26/2023 12:34 PM Narrative 04/26/2023 12:34 [...] patients who have questions please contactthe health patient care provider that requested your imaging first. Electronically signed by: Pardeep Rudd MD, [facility]([phone]), at 04/26/2023 12:34 PM Arnoldo Prince MD IMG DX ORDERABLES documented in this encounter Visit Diagnoses Diagnosis Cervical disc disorder with radiculopathy of cervicothoracic region Brachial neuritis or radiculitis nos documented in this encounter Care Teams Learning Services Coordinator Relationship Specialty Start Date End Date Delaney Kwok, SAMPLE MAKER [address] [place] [address] PCP - General Family Medicine 02/18/23 documented as of this encounter
--- OUTSIDE RECORDS SUMMARY | 2024-07-03 00:31 | XMS_ITS | Encounter Summary ---
Author Organization [facility] [place] [address] Care Team Providers Care Brick Stacker Name Role Phone Delaney Kwok APRN Primary Care Provider [phone] Encounter Details Date Type Department Care Team (Latest Contact Info) Description 06/27/2023 Travel Social History Tobacco Use Types Packs/Day [...] on filedocumented in this encounter Care Teams Brick Stacker Relationship Specialty Start Date End Date Delaney Kwok [place] [address] [place] [address] PCP - General Family Medicine 02/18/23 documented as of this encounter
--- OUTSIDE RECORDS SUMMARY | 2024-07-03 00:31 | XMS_ITS | Encounter Summary ---
Author Organization [facility] Address [facility] [place] [address] Care Team Providers Care Vb Net Developer Name Role Phone Delaney Kwok APRN Primary Care Provider [phone] Encounter Details Date Type Department Care Team (Latest Contact Info) Description 05/08/2024 12:44 PM EDT - 05/08/2024 11:59 PM EDT Hospital Encounter XRay at [address] [place] [address] Chana Fields APRN [facility] [place] [address] S/p C4-C7 ACDF 02/18/23 (Dr. Prince) Discharge Disposition: Home Social History Tobacco Use Types Packs/Day Years Used Date Smoking Tobacco: Former Cigarettes 1.5 15 0 02/16/2008 - 02/15/2023 Smokeless Tobacco: Former Chew Alcohol Use Standard Drinks/Week Comments Yes 9 (1 standard drink = 0.6 oz pur e alcohol) last drink saturday [facility] Inpatient Questions Answer Date Recorded Does Anyone [...] Date/Time Associated Diagnosis Comments XR CERVICAL SPINE AP FLEXION AND EXTENSION ONLY Routine 05/08/2024 1:00 PM EDT S/p C4-C7 ACDF 02/18/23 (Dr. Prince) documented in this encounter Results * XR Cervical Spine AP Flexion & Extension Only (05/08/2024 1:00 PM EDT) [facility] Signature WORKSTATION ID [id number] RAD Anatomical Region Laterality Modality C-spine N/A Digital [...] who have questions please contact the health hospice care consultant that requested your imaging first. ? Narrative [...] patients who have questions please contactthe health hospice care consultant that requested your imaging first. Chana Fields APRN IMG DX ORDERABLES documented in this encounter Visit Diagnoses Diagnosis S/p C4-C7 ACDF 02/18/23 (Dr. Prince) Arthrodesis status documented in this encounter Care Teams Vb Net Developer Relationship Specialty Start Date End Date Delaney Kwok APRN [address] [place] [address] PCP - General Family Medicine 02/18/23 documented as of this encounter
--- OUTSIDE RECORDS SUMMARY | 2024-07-03 00:31 | XMS_ITS | Clinical Summary ---
Author Organization [facility] Address [facility] [place] [address] Care Team Providers Care Statistical Typist Name Role Phone Delaney Kwok APRN Primary Care Provider [phone] Allergies Active Allergy Reactions Criticality Noted Date Comments Milk Diarrhea 07/04/2018 Upset stomach Medications Medication Sig Dispensed Refills Start Date End Date Status acetaminophen (Tylenol) 500 mg tablet Take 2 tablets by mouth every 6 hours as needed for Pain. 30 tablet 1 02/19/2023 Active Active Problems Problem Noted Date Diagnosed Date S/p C4-C7 ACDF 02/18/23 (Dr. 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 Prince) 05/08/2024 12:44 PM EDT - 05/08/2024 11:59 PM EDT Hospital Encounter XRay at [address] [place] [address] Chana Fields APRN S/p C4-C7 ACDF 02/18/23 (Dr. Prince) Discharge Disposition: Home 05/08/2024 Travel from Last 3 Months Social History Tobacco Use Types Packs/Day Years Used Date Smoking Tobacco: Former Cigarettes 1.5 15 0 02/16/2008 - 02/15/2023 Smokeless Tobacco: Former Chew Tobacco Cessation:Counseling Given: Not Answered Alcohol Use Standard Drinks/Week Comments Yes 9 [...] on file Sexual Orientation Not on file Last Filed Vital Signs Vital Sign Reading Time Taken Comments Blood Pressure 133/65 02/19/2023 11:21 AM EDT Pulse 75 02/18/2023 1:15 PM EDT Temperature 37 ??C (98.6 ??F) 02/19/2023 11:21 AM EDT Respiratory Rate 16 02/19/2023 11:21 AM EDT Oxygen Saturation 96% 02/19/2023 11:21 AM EDT Inhaled Oxygen Concentration - - Weight 90.7 kg (200 lb) 05/08/2024 2:38 PM EDT Height 182.9 cm (6') 05/08/2024 2:38 PM EDT Body Mass Index 27.12 05/08/2024 2:38 PM EDT Plan of Treatment Health Maintenance Due Date Last Done Comments Pneumococcal Vaccine: At-Ris k 5-64yrs (1 of 2 - PCV) 1987 HIV screen 1999 Hepatitis C Screening 1999 Lipid Screening 1999 Hepatitis B vaccine (0-59 yrs) (1) 2000 Tetanus/Diphtheria/Pertussis Vaccines (1 - Tdap) 2000 Covid-19 Vaccine (1 - 2024-25 season) 2024 Influenza (Flu) vaccine (1 o f 1 - Influenza standard series) 03/22/2024 Diabetes Screening (HgbA1C o r Glucose) 02/19/2026 02/19/2023, 02/18/2023, 01/19/2017 Medical Devices Implanted Type Area Speech Pathologist Assistant Device Identifier Shelf Expiration Date Model / Serial / Lot Graft Bone Block [id number] Lordotic Asr Cortical-Canc ellous ([id number]) (Autoreq) - [id number] Implanted:Qty : 1 on 02/18/[address] [facility] IMPLANTS Spine Cervical [employer] - [employer] 08/30/2025 [id number] / [id number] / Graft Bone Block [id number] Lordotic Asr Cortical-Canc ellous ([id number]) (Autoreq) - [id number] Implanted:Qty : 1 on 02/18/[address] [facility] IMPLANT[employer] Spine Cervical [employer] 09/03/2025 [id number] / [id number] / Graft Bone Block [id number] Lordotic Asr Cortical-Canc ellous ([id number]) (Autoreq) - [id number] Implanted:Qty : 1 on 02/18/[address] [facility] IMPLANTS Spine Cervical [employer] 07/30/2025 [id number] / [id number] / Screw Spinal 4.2x14mm Posterior Cervical St Sld Ti ([id number]) (Autoreq) - [id number] Implanted:Qty : 4 on 02/18/2023 by Arnoldo Prince MD at [facility] IMPLANTS Spine Cervical [employer] 150.814 / / Plate Spinal Anterior Cervical 51mm Level 3 Ti ([id number]) (Autoreq) - [id number] Implanted:Qty : 1 on 02/18/2023 by Arnoldo Prince MD at [facility] IMPLANTS Spine Cervical [employer] 150.351 / / Screw Spinal 4.2x16mm Posterior Cervical St Sld Ti ([id number]) (Autoreq) - [id number] Implanted:Qty : 4 on 02/18/2023 by Arnoldo Prince MD at [facility] IMPLANTS Spine Cervical [employer] 150.816 / / Explanted Type Area Speech Pathologist Assistant Device Identifier Shelf Expiration Date Model / Serial / Lot Pin Distraction 14mm Ant Cerv Fusn Ti ([id number]) - [id number] Explanted:Qty: 1 on 02/18/[address] [facility] IMPLANTS Spine Cervical [employer] - MEDICAL DP-14-TY / / Pin Distraction 14mm Ant Cerv Fusn Ti ([id number]) - [id number] Explanted:Qty: 1 on 02/18/[address] [facility] IMPLANTS Spine Cervical [employer] - MEDICAL DP-14-TY / / Procedures Procedure Name Priority Date/Time Associated Diagnosis Comments XR CERVICAL SPINE AP FLEXION AND EXTENSION ONLY Routine 05/08/2024 1:00 PM EDT S/p C4-C7 ACDF 02/18/23 (Dr. Prince) BASIC METABOLIC PANEL Routine 02/19/2023 2:10 AM EDT from Last 3 Months or Most Recently Relevant to Health Maintenance Results * XR Cervical Spine AP Flexion & Extension Only (05/08/2024 1:00 PM EDT) [facility] WORKSTATION ID [id number] RAD Anatomical Region Laterality Modality C-spine N/A [...] who have questions please contact the health clinical care leader that requested your imaging first. ? Electronically signed by: Pardeep Rudd MD, [facility] ([phone]), at 05/08/2024 2:27 PM Narrative 05/08/2024 2:27 PM EDT EXAMINATION: XR [...] patients who have questions please contactthe health clinical care leader that requested your imaging first. Electronically signed by: Pardeep Rudd MD, [facility]([phone]), at 05/08/2024 2:27 PM Chana Fields [place] IMG DX ORDERABLES * (ABNORMAL) Basic Metabolic Panel (non-fasting) (02/19/2023 2:10 AM EDT) Glucose 122 65 - 199 mg/dL [facility] Comment:Diabetes: >=200 mg/d L plus symptoms Blood Urea Nitrogen 6(L) 10 - 20 mg/dL [facility] Creatinine 0.86 0.80 - 1.50 mg/dL [facility] Sodium 137 135 - 145 mmol/L [facility] Potassium 4.0 3.5 - 5.0 mmol/L [facility] Comment: Please note: ??Patients with WBC >100,000 may have falsely elevated Potassium levels. ??For accurate Potassium quantification in these patients send serum separator tube (gold top) for subsequent determinations. ??Contact the Clinical Chemistry Laboratory if there are any questions. Chloride 101 98 - 107 mmol/L [facility] Carbon Dioxide 23 22 - 31 mmol/L [facility] Anion Gap 13 5 - 15 mmol/L [facility] Calcium 9.0 8.5 - 10.5 mg/dL [facility] Est Glomerular Filtration Rate 112 >=60 mL/min/1. 73 m?? [facility] Comment: This patient's estimated GFR was calculated using the 2020 CKD-EPI equation. The estimated GFR can vary from the measured GFR by up to 30% in the absence of rapidly changing kidney function. Assessment of the estimated GFR is not appropriate when creatinine concentrations are rapidly changing. For clinical situations in which a more precise estimate of GFR is necessary, consider alternative methods of GFR estimation such as a 24-hour urine creatinine clearance. Assignment of CKD stage 1-5 for patients with an eGFR near the transition point between stages may be based on clinical assessment of muscle mass and symptoms in addition to eGFR. Blood 02/19/2023 2:10 AM EDT 02/19/2023 2:43 AM EDT Narrative Resulting Agency Comment Spec In Lab Arnoldo Prince MD CHEMISTRY ORDERABLES [facility] [place] [address] from Last 3 Months or Most Recently Relevant to Health Maintenance Advance Directives * Attempt Cardiopulmonary Resuscitation - Inpatient (Latest Code Status on File) Date Activated Date Inactivated Comments 02/18/2023 12:33 PM 02/19/2023 3:48 PM Question Answer Comments Code Status decision made by: Patient * Full Code Date Activated Date Inactivated Comments 01/19/2017 12:59 AM 01/20/2017 6:37 PM Question Answer Comments Does patient have capacity to make decision: Yes Care Teams Statistical Typist Relationship Specialty Start Date End Date Delaney Kwok, ANESTHESIOLOGY PHYSICIAN ASSISTANT [place] [address] [place] [address] PCP - General Family Medicine 02/18/23
--- OUTSIDE RECORDS SUMMARY | 2024-07-03 00:32 | XMS_ITS | Encounter Summary ---
[place] [address] Care Team Providers Care Youth Nutritional Monitor Name Role Phone Melissa Gill APRN Primary Care Provider [phone] Reason for Referral * Consultation (Routine) - Closed Specialty Diagnoses / Procedures Referred By Oxana sewell Referred To Contact [facility] Diagnoses Cervical spondylosis with radiculopathy Cervical disc disorder with radiculopathy, cervicothoracic region Spine- neck pain/ now with LE sx/ MRI 2018 in [facility]/ has done PT in the past Melissa Gill APRN [address] [place] [address] [facility] [address] Referral ID Status Reason Start Date Expiration Date V isits Requested Visits Authorized [id number] Closed Consult, Test & Treat PCP Updated and/or Approved 03/28/2022 03/28/2023 1 1 Encounter Details Date Type Department Care Team (Latest Contact Info) Description 03/28/2022 Transcribe Orders [facility] Incoming Referrals [phone] Melissa Gill APRN [address] [place], [place] [id number] Cervical spondylosis with radiculopathy; Cervical disc disorder with radiculopathy, cervicothoracic region Social History Tobacco Use Types Packs/Day Years Used Date Smoking Tobacco: Every Day Cigarettes 2 15 Smokeless Tobacco: Former Chew Alcohol Use Standard Drinks/Week Comments Yes 0 (1 standard drink = 0.6 oz pur e alcohol) occasionally Sex and Gender Information Value Date Recorded Sex Assigned at Not on file Gender Identity Not on file Sexual Orientation Not on file documented as of this encounter Plan of Treatment Scheduled Referrals Name Type Priority Associated Diagnoses Orde r Schedule Referral to Spine Center Outpatient Referral Routine Cervical spondylosis with radiculopathy Cervical disc disorder with radiculopathy, cervicothoracic region Ordered: 03/28/2022 documented as of this encounter Visit Diagnoses Diagnosis Cervical spondylosis with radiculopathy Cervical spondylosis with myelopathy Cervical disc disorder with radiculopathy, cervicothoracic region documented in this encounter Care Teams Youth Nutritional Monitor Relationship Specialty Start Date End Date Melissa Gill APRN [address] [place] [address] PCP - General Family Medicine 08/13/17 02/11/23 documented as of this encounter
--- OUTSIDE RECORDS SUMMARY | 2024-07-03 00:32 | XMS_ITS | Encounter Summary ---
[place] [address] Care Team Providers Care International Relations Professor Name Role Phone Melissa Gill APRN Primary Care Provider [phone] Reason for Visit * Reason Onset Date Comments Pre Procedure Call 08/11/2018 Encounter Details Date Type Department Care Team ([facility] Contact Info) Description 08/11/2018 Telephone [place] [id number] Treasure Quijano LNA Pre Procedure Call Social History Tobacco Use Types Packs/Day Years [...] encounter Miscellaneous Notes * Telephone Encounter - Treasure Quijano LNA - 08/11/2018 10:40 AM EST Diallo Lopez Shonsincere :1980 Contact made with patient: I spoke to Mr. Barker at 10:40 AM regarding his upcoming Neither cervical epidural steroid injection scheduled on 08/13/18 (date) scheduled at 11:45 (time) with Dr. Amber Ford MD. Medication and Allergy reconciliation: 1. Changes were made in the telephone encounter per patient; marked as reviewed, and closed. 2. Patient confirmed no IVP dye allergy. 3. Have you had any steroid injections anywhere in your body within the last two weeks? no Arrival time: The patient was instructed to arrive at 11:15 (30 minutes prior to procedure start time - 60 minutes prior for RF patients with a pacemaker) on 08/13/18 (date of procedure). Yoga Coordinator: The patient was reminded that they need to have a semi driver accompany them to his procedure who will remain onsite. Antibiotics/Skin assessment/Illness symptoms/Pain level assessment : 1. The patient confirmed that he is not taking antibiotics at this time. 2. The patient confirmed that he does not have any rashes, blisters, or skin breakdown on their body. 3. The patient confirmed that he does not have any active infections. 4. The patient confirmed that he does not have any symptoms of illness: fever, chills, cold, flu, nausea, vomiting. 5. The patient confirmed that he isstill experiencing significant pain. (Significant pain is defined as interfering with performing ADL.) Pain and Anti-anxiety Medications: 1. Nerve Block Procedure Patients: Patient was instructed NOT to take their pain medications on theday of the procedure and anti-anxiety medications are part of their daily medication regiment; theycan and should continue taking that medication. 2. All Other Procedure Patients: The patient was instructed that if they take daily pain or anti-anxiety medications, they can and should continue taking on the day of the procedure. Does patient have history of any diagnosed bleeding disorders: No Anticoagulants: No NSAIDs: Does the patient take Aspirin/ASA? No Does the patient take an NSAID? Yes The patient confirmed that he discontinued taking ibuprofen (Motrin) on 08/11/18 (date). NPO instructions given to patient: 1. Last solid food intake until 5:45 (6 hours prior to procedure). 2. Clear liquids (catherine marcos, tea, black coffee, water, grape juice, apple juice, or cranberry juice) only intake until 9:45 (2 hours prior to procedure). Diabetic instructions: Patient was advised to inform their PCP regarding safe fasting and the NPO requirements for their upcoming procedure and given the [facility] Nurse Triage Line . Implant: Patient has pacemaker/defibrillator: No Prior to checking in at [facility], please be sure to empty your bladder. Patient confirmed understanding that if they do not follow the above their instructions, their procedure is likely to be cancelled. LUISITO Darling documented in this encounter Plan of Treatment Not on file documented as of this encounter Visit Diagnoses Not on filedocumented in this encounter Care Teams International Relations Professor Relationship Specialty Start Date End Date Melissa Gill, [place] [address] [place] [address] PCP - General Family Medicine 08/13/17 02/11/23 documented as of this encounter
--- OUTSIDE RECORDS SUMMARY | 2024-07-03 00:32 | XMS_ITS | Encounter Summary ---
[place] [address] Care Team Providers Care Mail Clerk Name Role Phone Delaney Kwok APRN Primary Care Provider [phone] Reason for Visit * Auth/Cert (Routine) Specialty Diagnoses / Procedures Referred By Felipaac t Referred To Contact Diagnoses Cervical radiculopathy Cervical radiculopathy Procedures PRO ARTHRODESIS, ANT INTERBODY,DECOMPRESSION; CERVICAL BELOW C2 PRO ARTHRD ANT INTERDY CERVCL BELW C2 EA ADDL NTRSPC PRO ANTERIOR INSTRUMENTATION 4-7 VERTEBRAL SEGMENTS PRO ALLOGRAFT FOR SPINE SURGERY ONLY STRUCTURAL OPTIME, INTERSPINOUS PROCESS DISTRACTION DEVICE (IMPLANTABLE) OPTIME, ANCHOR/SCREW FOR OPPOSING BN-TO-BN OR SOFT [id number]-MG-[id number] (IMPLANTABLE) ARTHRODESIS, ANT INTERBODY,DECOMPRESSION; CERVICAL BELOW C2 (WRVU 25) ARTHRODESIS ANT INTERBDY CERVCL BELOW C2 EA ADDL INTRSPACE (WRVU 6.5) @ANT. SPINAL INSTRUMENTATION 4 TO 7 VERT.SEG. (WRVU 12.4) ALLOGRAFT FOR SPINE SURGERY ONLY; STRUCTUAL (WRVU 1.81) MODIFIER GLOBUS PROVIDENCE MODIFIER CORNERSTONE MODIFIER C4 MODIFIER C5 MODIFIER C6 MODIFIER C7 Arnoldo Reeves MD [facility] [place] [address] [facility] Referral ID Status Reason Start Date Expiration Date Visits Re quested Visits Authorized [id number] 1 1 Encounter Details Date Type Department Care Team (Late st Contact Info) Description 02/18/2023 7:30 AM EDT - 02/18/2023 11:45 AM EDT Surgery [place] [id number] Arnoldo Reeves MD [facility] [place] [address] ARTHRODESIS, ANT INTERBODY,DECOMPRESSIO N; CERVICAL BELOW C2 (WRVU 25) Social History Tobacco Use Types Packs/Day Years [...] Sign Reading Time Taken Comments Blood Pressure 123/89 02/18/2023 7:00 AM EDT Pulse 66 02/18/2023 7:00 AM EDT Temperature 36.8 ??C (98.2 ??F) 02/18/2023 7:00 AM ED T Respiratory Rate 20 02/18/2023 7:00 AM EDT Oxygen Saturation 99% 02/18/2023 7:00 AM EDT Inhaled Oxygen Concentration - - Weight 80.9 kg (178 lb 4.8 oz) 02/18/2023 7:00 A M EDT Height 182.9 cm (6') 02/18/2023 7:00 AM EDT Body Mass Index 24.18 02/18/2023 7:00 AM EDT documented in this encounter Discharge Summaries * Marci James PA - 02/19/2023 1:41 PM EDT Discharge Summary Patient Name: Diallo Barker Patient Age: 42 y.o. Language: Turkish Race: White Ethnicity: Not nor Admit date: 02/18/2023 Discharge date and time: 02/19/2023 Attending Physician: Arnoldo Reeves MD Discharge Physician: Arnoldo Reeves MD Follow-up Recommendations for Providers: An appt with you PCP's office has been requested for next week. Please call [phone] if you do not hear from them. See discharge instructions for additional details. Future Appointments Date Time Provider Department Center 03/18/2023 10:00 AM [facility] DX ROOM 2 Xray [facility] Rad 03/18/2023 10:40 AM Arnoldo Reeves MD [facility] Pain Sp [facility] Inpatient Provider Contact Information: Arnoldo Reeves MD Spine Center: [phone] After hours and weekends, call [facility] Business Intelligence Reporting Analyst, , and have the Orthopedic resident paged. Discharge Diagnoses (Hospital Problems) and Secondary Diagnoses (Chronic Problems): Active Hospital Problems Diagnosis S/p C4-C7 ACDF 02/18/23 (Dr. Reeves) Resolved Hospital Problems No resolved problems to display. Active Non-Hospital Problems Diagnosis Cervical disc disorder with radiculopathy of cervicothoracic region Neck pain Scrotal hematoma Operations/Major Procedures: 02/18/2023 Surgeon(s) and Role: * Arnoldo Reeves MD - Primary * Almas Martinez MD - Resident - Assisting Procedure(s): ARTHRODESIS, ANT INTERBODY,DECOMPRESSION; CERVICAL BELOW C2 (WRVU 25) ARTHRODESIS ANT INTERBDY CERVCL BELOW C2 EA ADDL INTRSPACE (WRVU 6.5) @ANT. SPINAL INSTRUMENTATION 4 TO 7 VERT.SEG. (WRVU 12.4) ALLOGRAFT FOR SPINE SURGERY ONLY; STRUCTUAL (WRVU 1.81) MODIFIER GLOBUS PROVIDENCE MODIFIER CORNERSTONE MODIFIER C4 MODIFIER C5 MODIFIER C6 MODIFIER C7 History of Presentation: Diallo Barker is a 42 y.o. male who presented with longstanding neck pain radiating to his upper extremities in the setting of cervical spondylosis with nerve root compression from C4-C7. He failed to improve despite nonoperative treatment and elected undergo surgery after full discussion of the potential risks and benefits thereof. Hospital Course: Diallo Barker was admitted for the above operation. Preoperatively, the patient had a syncopal episode in the preoperative area. During the surgery, Anesthesia noted some irregular heartbeatsand recommended Cardiology evaluation. Postoperative EKG was without abnormalities. On POD#1 patient was asymptomatic and given benign EKG it was recommended the patient have close follow up with hisPCP for further evaluation. He was allowed out of bed ad tawana, with no bending or twisting. The patient was instructed to wear a [place] J at all times. These parameters were reinforced by physical therapy. POD#1 and was transitioned to oral pain medications and was comfortable. The patient's tripp was removed and he was voiding without difficulty. On POD#1 the dressing was dry and intact and the wound was benign. He did not have a bowel movement prior to discharge but was passing flatus and eating and drinking well. Prior to discharge THOMAS drain was pulled without issue. The patient was afebrile,with stable vital signs and on POD#1, was deemed stable for discharge to home. Vital Signs at Discharge: Weight: Wt Readings from Last 1 Encounters: 02/18/ 80.9 kg (178 lb 4.8 oz) Height: Ht Readings from Last 1 Encounters: 02/18/23 182.9 cm (6') HC: HC Readings from Last 1 Encounters: No data found for HC BMI: Body mass index is 24.18 kg/m??. Last value Range last 24 hrs Temperature Temp: 37 ??C (98.6 ??F) Temp: [36.5 ??C (97.7 ??F)-37 ??C (98.6 ??F)] Heart Rate Heart Rate: 75 Heart Rate: -- Blood Pressure BP: 133/65 BP: (122-135)/(65-87) Respiratory Rate Resp: 16 Resp: [16] SpO2 SpO2: 96 % SpO2: [95 %-96 %] Art BP BP (Arterial Line): -- Functional and Cognitive Status: Patient mobilizing without an assistive device, cognitively intactat baseline mental status at time of discharge. Important Lab Data: Last 3 wbc, hgb, hct plt Recent Labs 02/19/23 0210 02/18/23 1230 WBC 12.7* 11.8* HGB 13.8 13.5* HCT 39.7* 39.1* PLATELET 343 325 Last 3 Lytes Recent Labs 02/19/23 0210 02/18/23 1230 NA 137 130* K 4.0 4.6 CL 101 97* CO2 BUN 6* 5* CREATININE 0.86 0.80 Studies: XR Cervical Spine 1 View Result Date: 02/18/2023 EXAMINATION: XR CERVICAL SPINE 1 VIEW CLINICAL HISTORY: intraoperative level confirmation TECHNIQUE: 1 views of the cervical spine, portable in OR at 0908 COMPARISON: Radiographs 09/28/2022 FINDINGS: Intraoperative radiographs demonstrate marker projecting over the C4 vertebral body. Vertebral body heights are maintained. Similar disc height loss concentrated at C4-C6 with uncovertebral and facet arthropathy. An endotracheal tube and esophageal wall temperature probe are in place. Intraoperative marker at the level of C4. I have personally reviewed the image(s) and the resident's interpretation and agree with the findings, Michelle Andrade MD at 02/18/2023 11:16 AM Thank you for letting us participate in the care of this patient. If you are a health care provider and have anyquestions regarding this report, please contact the number below. For patients who have questions please contact the health long term acute care registered nurse that requested your imaging first. Electronically signed by: Michelle Andrade MD, [facility] ([phone]), at 02/18/2023 11:16 AM SCAN DOC: ECG Result Date: 02/07/2023 Ordered by an unspecified provider. SCAN DOC: TELEMETRY STRIPS Result Date: 02/18/2023 Ordered by an unspecified provider. Pending Studies and Lab Data at Discharge: * No orders in the log * Transfusions: No Discharge Conditions/Prognosis: Stable, awake, and alert. Mobilizing as noted above, pain controlled on oral medications. Discharge to: Home No services indicated. Updated Allergies/ADRs: Allergies Allergen Reactions Milk Diarrhea Upset stomach Immunizations Given this Hospitalization: There is no immunization history on file for this patient. Discharge Medications: Your Medications New Medications Dose Details oxyCODONE 5 mg tablet Commonly known as: Roxicodone Take 1 tablet by mouth every 4 hours as needed for Pain. 5 mg Quantity: 40 tablet Refills: 0 polyethylene glycoL 17 gram oral powder packet Commonly known as: Miralax Take 17 g by mouth 2 times daily. 17 g Quantity: 14 each Refills: 0 senna-docusate 8.6-50 mg Tablet Commonly known as: Pericolace Take 2 tablets by mouth 2 times daily. 2 tablet Quantity: 60 tablet Refills: 0 Continued medications with new dosing Dose Details acetaminophen 500 mg tablet Commonly known as: Tylenol Take 2 tablets by mouth every 6 hours as needed for Pain. What changed: when to take this additional instructions 1,000 mg Quantity: 30 tablet Refills: 1 Continued medications, unchanged Dose Details pregabalin 100 mg capsule Commonly known as: Lyrica Take 100 mg by mouth 3 times daily. 100 mg Refills: 0 STOPPED Medications ibuprofen 800 mg tablet Commonly known as: Advil Smoking Status at Discharge: Social History Tobacco Use Smoking Status Former Packs/day: 1.50 Years: 15.00 Pack years: 22.50 Types: Cigarettes Quit date: 02/15/2023 Years since quittin.0 Smokeless Tobacco Former Types: Chew Instructions for Rehab Providers or PCP: See below. Instructions Given to Patient at Discharge: Patient Instructions Orthopaedic Spine Surgery Discharge Instructions Activity: Wear your cervical collar at all times, including showers and while sleeping. We recommend taking several walks every day and gradually increasing your distance and duration over the next 2-4 weeks. Diet: Eat your normal diet, with adequate amounts of protein and fiber. Narcotic medicationscan cause constipation, so increase your intake of fluids and fiber if you are taking them. You should also take an czyh-yyx-iwqpocz stool softener or laxative, such as Judith-colace or Miralax, to facilitate a bowel movement. Driving: You are not allowed to drive if you are still requiring narcotic pain medication to manage your discomfort. Since you are being sent home in a cervical collar, do not drive until you have been cleared by your physician at your follow-up appointment. Call the Spine Center or your Primary Care Physician if you have questions or concerns. Medication: You are being discharged on a narcotic pain medication. Common side effects of this medication include drowsiness, nausea, and constipation. You should only take the smallest amount of pain medication that adequately controls your pain. You may take Tylenol (acetaminophen) around the clock as directed on the package to help reduce theamount of narcotic medication you need. Do not take more than 3,000mg of acetaminophen in a 24 hourperiod. You have had a spinal fusion surgery. DO NOT take any nonsteroidal anti- inflammatory medication (NSAID) such as Aleve, Ibuprofen, Motrin, Naprosyn, or Advil. If you need a renewal of your pain medication, please contact the Spine Center Nursing staff at [phone]. Nursing staff will need to talk with you directly prior to refilling any postoperative medications. PRESCRIPTION RENEWAL REQUESTS CAN TAKE UP TO 2 BUSINESS DAYS TO PROCESS SO PLEASE PLAN ACCORDINGLY. Most pharmacies can now accept electronic narcotic pain medications prescriptions, but some do not. [place] J Collar Instructions: You are being sent home with a hard cervical collar. If you are required to wear the collar at all times, you may shower as usual with the collar in place. After showering your collar will need to be removed to dry your skin, check your skin integrity,and change the pads. To remove collar: sit upright, keep your head and neck steady in a neutral position (looking straight ahead). Your head should be maintained in a neutral position until the collar is back in position. After showers you should take care to remove any residual soap from your neckand to replace the wet pads with a clean, dry pair. You will be sent home from the hospital with extra pads and instructions on how to change them. Do not put powder or lotion underneath the pads. You should inspect your skin daily for redness or irritation caused by the collar. If you notice irritation or you see areas where the hard plastic from the collar is pressing against the skin, please call the Spine Center Nursing Line at the number below. Wash the extra pads with mild soap, rinse well, and allow to air dry. Wound Care & Bathing: Absorbable - Tegaderm Dressing You have absorbable sutures under your skin that do not need to be removed. They are covered by steri-strips, gauze, and a clear plastic Tegaderm dressing. This dressing should stay in place until 3 days after your surgery. After removal, leave the incision uncovered as long as there is no continued drainage. If there is drainage, you should replace thedressing with a clean, dry gauze held in place with tape. If you replace the dressing, you will need to cover the dressing/incision with a waterproof dressing prior to showering. Any bandage over theincision should be dry at all times and should be replaced if wet. If the incision continues to drain after the initial surgical dressing is removed, please call the Spine Center at the number below. After the dressing is removed, 3 days after surgery, the paper strips (steri- strips) should be keptin place. After 14 days you can remove the remaining steri-strips if they have not fallen off already. For the first 3 days after surgery, shower with the clear plastic Tegaderm dressing covering your incision to keep it dry. Do not allow the shower to spray directly on your dressing. After showering check dressing to make sure it remains dry and intact. After 3 days, once the dressing has been removed, you may allow water to run over the incision when you shower but do not scrub the surrounding skin. Gently pat dry with a clean, dry towel after showering. Do not soak the incision underwater (i.e. lakes, pools, hot tubs, bath tubs, etc.) for at least 4 weeks until the incision has completely healed. PLEASE CALL US AT [phone] TO SPEAK WITH A SPINE CENTER NURSE IF YOU EXPERIENCE THE FOLLOWING: ?? Fevers greater than 101.5 degrees Fahrenheit ?? Chills or night sweats ?? Nausea or vomiting ?? Wound Redness or drainage after the initial surgical dressing is removed ?? New numbness or tingling in your hands or feet ?? Incontinence of bowel or bladder ?? Any questions or concerns Important Phone Numbers: Clinical issues, nurse questions, medication renewals: [phone] Appointments for ARNOLDO Harrison M: [phone] Evenings after 5pm and weekends you may contact the Orthopaedic resident concrete block mason: [phone], askthe dielectric testing machine operator to page the Orthopaedic resident Follow Up Appointments: 1. You will have follow-up appointments at [facility] as indicated in the ???Future Appointments and Orders?? section of your discharge summary. If X-rays have been ordered for you prior to this appointment you will need to report to the Radiology department, desk 3T, 1 hour prior to your spine center appointment. 2. If you do not have a scheduled follow-up appointment listed at the time of discharge, you will be notified of your scheduled appointment on the next business day. Please call [phone] if you do not hear from us by that time, as your timely follow-up is very important to us. Future Appointments Date Time Provider Department Center 03/18/2023 10:00 AM [facility] DX ROOM 2 MH Xray [facility] Rad 03/18/2023 10:40 AM Arnoldo Reeves MD [facility] Pain Sp [facility] General Instructions None Future Appointments and Orders Future Appointments and Orders Future Appointments Provider Department Dept Phone 03/18/2023 10:00 AM [facility] DX ROOM 2 XRay at [facility] Arrive at: [facility] [phone] Please go to [facility] ([place] Location). 03/18/2023 10:40 AM Arnoldo Reeves MD [facility] at [facility] Arrive at: [facility] [phone] Primary Care Provider: Delaney Kwok APRN [phone] Discharge References/Attachments None documented in this encounter Discharge Instructions * Patient Instructions* Marci James PA - 02/18/2023 12:44 PM EDT Orthopaedic Spine Surgery Discharge Instructions Activity: Wear your cervical collar at all times, including showers and while sleeping. We recommend taking several walks every day and gradually increasing your distance and duration over the next 2-4 weeks. Diet: Eat your normal diet, with adequate amounts of protein and fiber. Narcotic medicationscan cause constipation, so increase your intake of fluids and fiber if you are taking them. You should also take an mdyi-kdv-ypastjs stool softener or laxative, such as Judith-colace or Miralax, to facilitate a bowel movement. Driving: You are not allowed to drive if you are still requiring narcotic pain medication to manage your discomfort. Since you are being sent home in a cervical collar, do not drive until you have been cleared by your physician at your follow-up appointment. Call the Spine Center or your Primary Care Physician if you have questions or concerns. Medication: You are being discharged on a narcotic pain medication. Common side effects of this medication include drowsiness, nausea, and constipation. You should only take the smallest amount of pain medication that adequately controls your pain. You may take Tylenol (acetaminophen) around the clock as directed on the package to help reduce theamount of narcotic medication you need. Do not take more than 3,000mg of acetaminophen in a 24 hourperiod. You have had a spinal fusion surgery. DO NOT take any nonsteroidal anti- inflammatory medication (NSAID) such as Aleve, Ibuprofen, Motrin, Naprosyn, or Advil. If you need a renewal of your pain medication, please contact the Spine Center Nursing staff at [phone]. Nursing staff will need to talk with you directly prior to refilling any postoperative medications. PRESCRIPTION RENEWAL REQUESTS CAN TAKE UP TO 2 BUSINESS DAYS TO PROCESS SO PLEASE PLAN ACCORDINGLY. Most pharmacies can now accept electronic narcotic pain medications prescriptions, but some do not. [place] J Collar Instructions: You are being sent home with a hard cervical collar. If you are required to wear the collar at all times, you may shower as usual with the collar in place. After showering your collar will need to be removed to dry your skin, check your skin integrity,and change the pads. To remove collar: sit upright, keep your head and neck steady in a neutral position (looking straight ahead). Your head should be maintained in a neutral position until the collar is back in position. After showers you should take care to remove any residual soap from your neckand to replace the wet pads with a clean, dry pair. You will be sent home from the hospital with extra pads and instructions on how to change them. Do not put powder or lotion underneath the pads. You should inspect your skin daily for redness or irritation caused by the collar. If you notice irritation or you see areas where the hard plastic from the collar is pressing against the skin, please call the Spine Center Nursing Line at the number below. Wash the extra pads with mild soap, rinse well, and allow to air dry. Wound Care & Bathing: Absorbable - Tegaderm Dressing You have absorbable sutures under your skin that do not need to be removed. They are covered by steri-strips, gauze, and a clear plastic Tegaderm dressing. This dressing should stay in place until 3 days after your surgery. After removal, leave the incision uncovered as long as there is no continued drainage. If there is drainage, you should replace thedressing with a clean, dry gauze held in place with tape. If you replace the dressing, you will need to cover the dressing/incision with a waterproof dressing prior to showering. Any bandage over theincision should be dry at all times and should be replaced if wet. If the incision continues to drain after the initial surgical dressing is removed, please call the Spine Center at the number below. After the dressing is removed, 3 days after surgery, the paper strips (steri- strips) should be keptin place. After 14 days you can remove the remaining steri-strips if they have not fallen off already. For the first 3 days after surgery, shower with the clear plastic Tegaderm dressing covering your incision to keep it dry. Do not allow the shower to spray directly on your dressing. After showering check dressing to make sure it remains dry and intact. After 3 days, once the dressing has been removed, you may allow water to run over the incision when you shower but do not scrub the surrounding skin. Gently pat dry with a clean, dry towel after showering. Do not soak the incision underwater (i.e. lakes, pools, hot tubs, bath tubs, etc.) for at least 4 weeks until the incision has completely healed. PLEASE CALL US AT [phone] TO SPEAK WITH A SPINE CENTER NURSE IF YOU EXPERIENCE THE FOLLOWING: ?? Fevers greater than 101.5 degrees Fahrenheit ?? Chills or night sweats ?? Nausea or vomiting ?? Wound Redness or drainage after the initial surgical dressing is removed ?? New numbness or tingling in your hands or feet ?? Incontinence of bowel or bladder ?? Any questions or concerns Important Phone Numbers: Clinical issues, nurse questions, medication renewals: [phone] Appointments for ARNOLDO Harrison: [phone] Evenings after 5pm and weekends you may contact the Orthopaedic resident concrete block mason: [phone], askthe dielectric testing machine operator to page the Orthopaedic resident Follow Up Appointments: 1. You will have follow-up appointments at [facility] as indicated in the ???Future Appointments and Orders?? section of your discharge summary. If X-rays have been ordered for you prior to this appointment you will need to report to the Radiology department, desk 3T, 1 hour prior to your spine center appointment. 2. If you do not have a scheduled follow-up appointment listed at the time of discharge, you will be notified of your scheduled appointment on the next business day. Please call [phone] if you do not hear from us by that time, as your timely follow-up is very important to us. Future Appointments Date Time Provider Department Center 03/18/2023 10:00 AM [facility] DX ROOM 2 Xray [facility] Rad 03/18/2023 10:40 AM Arnoldo Reeves MD [facility] Pain Sp [facility] documented in this encounter Medications at Time of Discharge [...] daily. 06/27/2023 documented as of this encounter Progress Notes * Arnoldo Addison, RN - 02/19/2023 1:42 PM EDT [facility] Short Stay Unit Discharge Note All relevant discharge milestones have been met by the patent. After Visit Summary and discharge teaching reviewed with the patient and a family member. IV access has been discontinued. All personal belongings have been returned to the patient/family upon their departure from the unit. Patient has been discharged to home The patient has been discharged without VNA services. * Sheeba Ventura, PT - 02/19/2023 9:08 AM EDT Physical Therapy Evaluation Patient profile: Diallo Barker is a 42 y.o. male 1 Day Post-Op s/p C4-C7 ACDF. Patient with the following active problems: Past Medical History: Diagnosis Date Depression Active Non-Hospital Problems Diagnosis Cervical disc disorder with radiculopathy of cervicothoracic region Neck pain Scrotal hematoma Past Surgical History: Procedure Laterality Date FINGER SURGERY 4th and 5th digit R hand PRO ALLOGRAFT FOR SPINE SURGERY ONLY STRUCTURAL Bilateral 02/18/2023 ALLOGRAFT FOR SPINE SURGERY ONLY; STRUCTUAL (WRVU 1.81) performed by Arnoldo Reeves MD at [facility] MAIN OR PRO ANTERIOR INSTRUMENTATION 4-7 VERTEBRAL SEGMENTS Bilateral 02/18/2023 @ANT. SPINAL INSTRUMENTATION 4 TO 7 VERT.SEG. (WRVU 12.4) performed by Arnoldo Reeves MD at [facility] MAIN OR PRO ARTHRD ANT INTERDY CERVCL BELW C2 EA ADDL NTRSPC Bilateral 02/18/2023 ARTHRODESIS ANT INTERBDY CERVCL BELOW C2 EA ADDL INTRSPACE (WRVU 6.5) performed by Arnoldo Reeves MD at [facility] MAIN OR PRO ARTHRODESIS, ANT INTERBODY,DECOMPRESSION; CERVICAL BELOW C2 Bilateral 02/18/2023 ARTHRODESIS, ANT INTERBODY,DECOMPRESSION; CERVICAL BELOW C2 (WRVU 25) performed by Arnoldo Reeves MD at [facility] MAIN OR Social History: Home set-up: Pt lives with his girlfriend in a 2nd floor apartment. Stairs: FOS to enter with B rails Baseline Mobility: Pt is typically independent at baseline. 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 Equipment at home: none reported Fall history: none reported Precautions/Special Considerations: at risk to fall, no bending, lifting >5#, twisting. THOMAS drain, tripp catheter Mobility and Positioning Recommendations: Pt. to utilize supervision for ambulation and transfers with nursing. Please encourage up to chair for meal times as able. Pt encouraged to ambulate frequently with staff, getting into the bathroom for toileting and walking out in the perez >/= 3 times daily as able. Subjective: ???Yeah, I want to be sure I can do the stairs?? Objective: Pt seen for evaluation today. Pain: Reports 8-9/10 pain at incision site, typically baseline pain is 10+ Vital Signs: VSS throughout on RA Mental Status: alert, oriented to person, place, and time; pleasant and cooperative Skin: incision covered by c-collar placement, THOMAS drain in place Musculoskeletal: ROM: WFL with exception of C-spine Strength: WFL Sensation: paraesthesias B hands, baseline numbness to tops of B feet Bed Mobility: Supine to Sit: mod indep with VCs for log roll Sit to Supine: indep Transfers: Sit to Stand: indep Stand to Sit: indep Gait: Distance: 150' Device used: none Level of assist: indep Gait mechanics: demo's dec gait speed, reciprocal pattern, equal step length, no overt LOB Stairs: negotiated FOS with B rails, reciprocal pattern, SBA Balance: Sitting Static: good Sitting Dynamic: good Standing Static:good Standing Dynamic / Gait: good Education: patient has been educated on Bed mobility, Transfers, Assistive device/technique, Stairs, Positioning, Safety , Precautions/protocol, Gait , Activity pacing/Energy conservation, Role of therapy, Balance, and Discharge planning and verbalizes and demonstrates understanding. Patient status, treatment, and mobility recommendations discussed with nursing. Assessment: Diallo Barker was seen today for physical therapy evaluation. Pt presents POD1 s/p C4-C7 ACDF. He reports significant pain, but that it is actually improved from baseline, and waspleasant and agreeable to participate in mobility assessment. Upon evaluation, patient presents with decreased ROM, impaired sensation, impaired balance, impaired activity tolerance, and pain, resulting in functional limitation. At this time, pt has met all functional milestones and is cleared for d/c home with support from girlfriend as needed. No further skilled inpatient PT needs. Discharge Recommendations: Based on the current findings, Anticipated Discharge Disposition (PT): home with supervision when medically ready for hospital discharge. Discharge recommendation is based on the patient's current physical impairments, prior functional status, potential to return to prior level of function, patient motivation, reported home support, potential for functional gains, current level of endurance, reported home environment and anticipated trajectory of progress and may change based on patient progress during this hospitalization. Consult Recommendations: No other consults recommended at this time. Equipment needs: Anticipated Equipment Needs at Discharge (PT): None Plan: Therapy Frequency (PT): evaluation only. Patient/family understand and agree with plan as stated above. 2017 PT Evaluation Code Rationale: Diagnosis & Pertinent Co-Morbidities, personal factors, and present illness affecting Plan of Care: (see above); Additional personal factors or co- morbidities that impact plan: Total # of Factors: 0 1-2 3+ X Examination of body system impairments, functional limitations and behaviors, and/or participation restrictions. Addressing 1-2 elements Addressing 3 + elements X Addressing 4 + elements Clinical presentation: See assessment above. Stable/Uncomplicated Evolving/Fluctuating Symptoms Unstable/Unpredictable X Clinical decision making of low complexity based on pt's functional performance as outlined in thisevaluation. Time IN / OUT: 8240-6397 Total Minutes, Physical Therapy: 13 Billing Code: min complexity eval Sheeba Ventura, PT Pager: [phone] Physical Therapy Inpatient Rehabilitation Department * Leland Ramos, OT - 02/19/2023 8:54 AM EDT Occupational Therapy Evaluation Patient profile: Pt seen for evaluation s/p C4-C7 ACDF. Past Medical History: Diagnosis Date Depression Past Surgical History: Procedure Laterality Date FINGER SURGERY 4th and 5th digit R hand PRO ALLOGRAFT FOR SPINE SURGERY ONLY STRUCTURAL Bilateral 02/18/2023 ALLOGRAFT FOR SPINE SURGERY ONLY; STRUCTUAL (WRVU 1.81) performed by Arnoldo Reeves MD at [facility] MAIN OR PRO ANTERIOR INSTRUMENTATION 4-7 VERTEBRAL SEGMENTS Bilateral 02/18/2023 @[facility]. SPINAL INSTRUMENTATION 4 TO 7 VERT.SEG. (WRVU 12.4) performed by Arnoldo Reeves MD at [facility] MAIN OR PRO ARTHRD ANT INTERDY CERVCL BELW C2 EA ADDL NTRSPC Bilateral 02/18/2023 ARTHRODESIS ANT INTERBDY CERVCL BELOW C2 EA ADDL INTRSPACE (WRVU 6.5) performed by Arnoldo Reeves MD at [facility] MAIN OR PRO ARTHRODESIS, ANT INTERBODY,DECOMPRESSION; CERVICAL BELOW C2 Bilateral 02/18/2023 ARTHRODESIS, ANT INTERBODY,DECOMPRESSION; CERVICAL BELOW C2 (WRVU 25) performed by Arnoldo Reeves MD at [facility] MAIN OR Social History: Patient lives with his girlfriend on the 2nd floor (FOS to enter). DME: none Baseline ADL/Mobility: independent with ADL, ambulates without a device, drives. 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 Precautions/Special Considerations: AAT in c-collar, no bending/twisting/lifting >5# Subjective: I'm hoping to go home today. Objective: Seen today for OT evaluation and education re: ADL/IADL manage post op. Cognitive Status/Behavior: alert, oriented to person, place, and time Range of motion, strength, coordination: BUE grossly WFL, unable to flex R digits 4-5 d/t prior nerve injury BLE grossly WFL Sensation: paresthesias B hands, baseline numbness tops of feet Activities of Daily Living: Self-feeding: N/A-Independent with set up Hygiene/grooming: independent Upper and lower body dressing: educated pt on LB dressing via figure 4 and pt demonstrated Bathing: educated pt re: routine of showering with c-collar and pt verbalizes understanding Toileting: tripp in place, anticipate mod I based on overall status Functional Mobility: Supine to sit: mod I via log roll (planning to sleep in his recliner initially) Sit to stand: mod I Ambulation: mod I >100 ft Stand to sit: mod I Sit to supine: mod I Balance: steady with use of walker. IADL???s: Assistance available to patient. Pain: 8-9/10, reports his baseline is >10/10 Education: family and patient have been educated on Role of occupational therapy/rehabilitation, Transfers, ADL, Safety, Precautions/Protocol, Functional Mobility, Activity pacing/Energy conservation, Home Management, Recommendations and Discharge planning and verbalizes understanding. Patient status, treatment, and mobility recommendations discussed with nursing. Assessment: Pt has been seen for occupational therapy evaluation. Diallo Barker presents with the following performance skill deficits and client factors: increased pain and precautions/bracing. 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 However, despite the deficits listed above pt demonstrates the ability to perform bADL and ambulate a household distance mod I. He will have support from his GF for IADL and collar care. Anticipate that pt will return home with assistance once medically ready. Do not anticipate further OT needs while hospitalized. Equipment needs at discharge: none Anticipated Discharge Disposition (OT): home with supervision Plan: Monitor pt until formal d/c. Eval Date: 02/19/2023 Therapy Frequency (OT): evaluation only Total Minutes, Occupational Therapy: 13 (eval [id number]) 2017 OT Evaluation Code Rationale: Diagnosis & Pertinent Co-Morbidities affecting Plan of Care: see PMHx Occupational Profile & Client History: Brief Expanded Extensive X Assessment of Occupational Performance: 1-3 performance deficits X 3-5 performance deficits 5 + performance deficits Clinical Decision Making: Low Moderate High X Clinical decision making of low complexity using standardized patient assessment instrument and measurable assessment of functional outcome. Pager: [phone] LELAND RAMOS OT 02/19/2023 Occupational Therapy Rehabilitation Department * Arnoldo Reeves MD - 02/19/2023 5:59 AM EDT ORTHOPAEDIC SURGERY INPATIENT POST OP NOTE Patient Name: Diallo Barker Age: 42 y.o. Surgery/Issue: C4-C7 ACDF Attending: Dr. Reeves Date of surgery: 02/18/2023 SUBJECTIVE / INTERVAL HISTORY: VSS. Hgb 13.8 Cramping pain at the base of the neck is the patient's main complaint. Patient denies numbness/weakness, chest pain, shortness of breath, dizziness, headache, nausea, vomiting, hoarseness, difficulty swallowing. Pre-op symptoms: Neck pain Pre-op symptoms currently present: Neck pain, subjectively improved per patient FOCUSED REVIEW OF SYSTEMS: as above. Active Hospital Problems Diagnosis S/P cervical spinal fusion Resolved Hospital Problems No resolved problems to display. Active Non-Hospital Problems Diagnosis Cervical disc disorder with radiculopathy of cervicothoracic region Neck pain Scrotal hematoma MEDICATIONS: BUpivacaine-EPINEPHrine (Marcaine-epiNEPHrine) 0.25 %-1:200,000 injection thrombin (Bovine) (Thrombinar) kit gelatin adsorbable 100 (Gelfoam) sponge pregabalin (Lyrica) capsule 100 mg sodium chloride 0.9 % (flush) (BD PosiFlush Normal Saline 0.9) flush 5 mL sodium chloride 0.9 % (flush) (BD PosiFlush Normal Saline 0.9) flush 5-20 mL lidocaine (Xylocaine) 1% (10 mg/mL) injection 3 mg polyethylene glycoL (Miralax) packet 17 g senna-docusate (Pericolace) 8.6-50 mg per tablet 2 tablet ondansetron (pf) (Zofran) (2 mg/mL) injection 4 mg oxyCODONE (Roxicodone) tablet 5 mg OR oxyCODONE (Roxicodone) tablet 10 mg OR oxyCODONE (Roxicodone) tablet 15 mg acetaminophen (Tylenol) tablet 1,000 mg OBJECTIVE: Temp: [36.5 ??C (97.7 ??F)-37.3 ??C (99.1 ??F)] Heart Rate: [66-97] Resp: [16-22] BP: (100-135)/(65-89) Intake/Output Summary (Last 24 hours) at 02/19/2023 0559 Last data filed at 02/19/2023 0400 Gross per 24 hour Intake 2300 ml Output 6690 ml Net -4390 ml Body mass index is 24.18 kg/m??. Drain output: 40cc charted since OR yesterday, overnight output not yet charted, 10 cc in bulb currently Exam: General: NAD, awake/alert, responds to questions Neck: No evidence of hematoma, dressing c/d/I. CV: RRR Resp: Breathing comfortably, lungs CTAB Motor: Segment Muscle Action R L C5 Deltoid Shoulder Abd 5 5 C5 Biceps Elbow flexion 5 5 C6 ECRL, ECRB Wrist extension 5 5 C7 Triceps Elbow extension 5 5 C8 Hand Grasp 5 5 T1 Hand intrinsics Finger abd/adduction 5 5 L2 Iliopsoas Hip flexion 5 5 L3 Quadriceps Knee extension 5 5 L4,5 Hamstring Knee Flexion 5 5 L4 Tibialis anterior Dorsiflexion 5 5 L5 Extensor hallucis Great toe extension 5 5 S1 Gastrocnemius, FHL Plantar flexion 5 5 Sensory: Sensation (light touch) (0=absent, 1=impaired, 2=normal) Segment location Right Left C4 top of AC joint 2 2 C5 lat side antecub fossa 2 2 C6 dorsal thumb 2 2 C7 dorsal middle finger 2 2 C8 dorsal small finger 2 2 T1 med side antecub fossa 2 2 T2 apex axilla 2 2 T3 3rd IS (intercostal space) 2 2 T4 nipple line 2 2 T5 5th IS 2 2 T6 6th IS 2 2 T7 7th IS 2 2 T8 8th IS 2 2 T9 9th IS 2 2 T10 10th iS 2 2 T11 11th iS 2 2 T12 mid inguinal ligament 2 2 L1 upper inner thigh 2 2 L2 mid-ant thigh 2 2 L3 med femoral condyle 2 2 L4 medial mal 2 2 L5 dorsum foot, 3rd MT 2 2 S1 lat heal 2 2 S2 Popliteal fossa 2 2 Lab Results Component Value Date NA 137 02/19/2023 K 4.0 02/19/2023 CL 101 02/19/2023 CO2 23 02/19/2023 BUN 6 (L) 02/19/2023 CREATININE 0.86 02/19/2023 GLUCOSE 122 02/19/2023 CALCIUM 9.0 02/19/2023 Lab Results Component Value Date WBC 12.7 (H) 02/19/2023 HGB 13.8 02/19/2023 HCT 39.7 (L) 02/19/2023 MCV 90.8 02/19/2023 PLATELET 343 02/19/2023 IMAGING: Intra-op lateral shows instrumentation in place at C4-C7. ASSESSMENT / PLAN: Diallo Barker is a 42 y.o. male 1 Day Post-Op s/p C4- C7 ACDF. Strength and sensation are equal in b/l extremities. Discharge pending evaluation by PT/OT on POD1. Will pull drain once mobilized and if discharging today. Activity: AAT no b/t/l>5lbs Closure: Resorbable sutures Dressinx4, Tegaderm Drain: 7 holes unsutured (remove when <30cc/shift) Anticoagulation: hold 72 hours post-op Antibiotics: Judith-op Consults: PT/OT Dispo:PT/OT Follow-up: Niki 03/18 Almas Martinez MD 02/19/2023 Future Appointments Date Time Provider Department Center 03/18/2023 10:00 AM [facility] DX ROOM 2 MH Xray [facility] Rad 03/18/2023 10:40 AM Arnoldo Reeves MD [facility] Pain Sp [facility] Spine Attending I have seen and examined the patient and agree with the resident's findings and plan. He reports expected surgical site pain, no UE pain. Swallowing OK. Neuro intact on exam. X-rays show appropriate position of hardware. Will mobilize with PT, likely home later today. I reiterated need for continued smoking cessation. * Andres Mcnamara MD - 02/18/2023 2:02 PM EDT ORTHOPAEDIC SURGERY INPATIENT POST OP NOTE Patient Name: Diallo Barker Age: 42 y.o. Surgery/Issue: C4-C7 ACDF Attending: Dr. Reeves Date of surgery: 02/18/2023 SUBJECTIVE / INTERVAL HISTORY: VSS. Cramping pain at the base of the neck is the patient's main complaint. Patient denies numbness/weakness, chest pain, shortness of breath, dizziness, headache, nausea, vomiting, hoarseness, difficulty swallowing. Pre-op symptoms: Neck pain Pre-op symptoms currently present: Neck pain, subjectively improved per patient FOCUSED REVIEW OF SYSTEMS: as above. Active Hospital Problems Diagnosis S/P cervical spinal fusion Resolved Hospital Problems No resolved problems to display. Active Non-Hospital Problems Diagnosis Cervical disc disorder with radiculopathy of cervicothoracic region Neck pain Scrotal hematoma MEDICATIONS: BUpivacaine-EPINEPHrine (Marcaine-epiNEPHrine) 0.25 %-1:200,000 injection thrombin (Bovine) (Thrombinar) kit gelatin adsorbable 100 (Gelfoam) sponge oxyCODONE (Roxicodone) tablet 5 mg OR oxyCODONE (Roxicodone) tablet 10 mg OR oxyCODONE (Roxicodone) tablet 15 mg acetaminophen (Tylenol) tablet 1,000 mg OBJECTIVE: Temp: [36.7 ??C (98.1 ??F)-37.3 ??C (99.1 ??F)] Heart Rate: [66-97] Resp: [17-22] BP: (100-123)/(65-89) Intake/Output Summary (Last 24 hours) at 02/18/2023 1402 Last data filed at 02/18/2023 1300 Gross per 24 hour Intake 1700 ml Output 1000 ml Net 700 ml Body mass index is 24.18 kg/m??. Drain output: Approximately 30cc Exam: General: NAD, awake/alert, responds to questions Neck: No evidence of hematoma, dressing c/d/I. CV: RRR Resp: Breathing comfortably, lungs CTAB Motor: Segment Muscle Action R L C5 Deltoid Shoulder Abd 5 5 C5 Biceps Elbow flexion 5 5 C6 ECRL, ECRB Wrist extension 5 5 C7 Triceps Elbow extension 5 5 C8 Hand Grasp 5 5 T1 Hand intrinsics Finger abd/adduction 5 5 L2 Iliopsoas Hip flexion 5 5 L3 Quadriceps Knee extension 5 5 L4,5 Hamstring Knee Flexion 5 5 L4 Tibialis anterior Dorsiflexion 5 5 L5 Extensor hallucis Great toe extension 5 5 S1 Gastrocnemius, FHL Plantar flexion 5 5 Sensory: Sensation (light touch) (0=absent, 1=impaired, 2=normal) Segment location Right Left C4 top of AC joint 2 2 C5 lat side antecub fossa 2 2 C6 dorsal thumb 2 2 C7 dorsal middle finger 2 2 C8 dorsal small finger 2 2 T1 med side antecub fossa 2 2 T2 apex axilla 2 2 T3 3rd IS (intercostal space) 2 2 T4 nipple line 2 2 T5 5th IS 2 2 T6 6th IS 2 2 T7 7th IS 2 2 T8 8th IS 2 2 T9 9th IS 2 2 T10 10th iS 2 2 T11 11th iS 2 2 T12 mid inguinal ligament 2 2 L1 upper inner thigh 2 2 L2 mid-ant thigh 2 2 L3 med femoral condyle 2 2 L4 medial mal 2 2 L5 dorsum foot, 3rd MT 2 2 S1 lat heal 2 2 S2 Popliteal fossa 2 2 Lab Results Component Value Date NA 130 (L) 02/18/2023 K 4.6 02/18/2023 CL 97 (L) 02/18/2023 CO2 23 02/18/2023 BUN 5 (L) 02/18/2023 CREATININE 0.80 02/18/2023 GLUCOSE 151 02/18/2023 CALCIUM 8.6 02/18/2023 Lab Results Component Value Date WBC 11.8 (H) 02/18/2023 HGB 13.5 (L) 02/18/2023 HCT 39.1 (L) 02/18/2023 MCV 90.5 02/18/2023 PLATELET 325 02/18/2023 IMAGING: Intra-op lateral shows instrumentation in place at C4-C7. ASSESSMENT / PLAN: Diallo Barker is a 42 y.o. male Day of Surgery s/p C4-C7 ACDF. Strength and sensation are equal in b/l extremities. Patient subjectively reports numbness in the dorsum of his R foot at baseline, but this appears normal on exam. Discharge pending evaluation by PT/OT on POD1. Activity: AAT no b/t/l>5lbs Closure: Resorbable sutures Dressinx4, Tegaderm Drain: 7 holes unsutured (remove when <30cc/shift) Anticoagulation: hold 72 hours post-op Antibiotics: Judith-op Consults: PT/OT Dispo:PT/OT Follow-up: Niki 03/18 Andres Mcnamara MD 02/18/2023 Future Appointments Date Time Provider Department Center 03/18/2023 10:00 AM [facility] DX ROOM 2 Xray [facility] Rad 03/18/2023 10:40 AM Arnoldo Reeves MD [facility] Pain Sp [facility] * Giovanna Davidson RN - 02/18/2023 12:06 PM EDT 1158 Pt arrived to PACU23 from OR. Connected to monitor, alarms set and reviewed. Airway maintained. Anterior cervical neck incision covered with a silver impregnated dressing and CDI. THOMAS coming fromsurgical site and to bulb suction. Tripp in place draining yellow urine adequately. 1207 Report given to AMANUEL Roblero to assume care of pt. documented in this encounter H&P Notes * Arnoldo Reeves MD - 02/18/2023 6:51 AM EDT Patient Name: Diallo Barker Patient Age: 42 y.o. Birthdate: 1980 Admit date: 02/18/2023 Attending Physician: Arnoldo Reeves MD Patient seen and examined. Agree with assessment by PCP. He cont to have neck pain radiating to BUE. On exam, ctab, rrr. Will proceed with surgery as planned (C4-C7 ACDF). I reiterated need for continued smoking cessation. Patient is a full-code. documented in this encounter Miscellaneous Notes * Initial Assessments - Briseyda Juarez RN - 02/19/2023 10:26 AM EDT Office of Care Management Initial Assessment Briseyda Juarez RN reviewed record and discussed patient with Care Team. Source of Information: Team, bedside nurse, medical record, and Patient Introduced self/reviewed role; services accepted. Admitted From: Home Reason for Hospitalization: s/p C4-C7 ACDF Covid Vaccination Status: 1st, 2nd & booster Past medical History: Past Medical History: Diagnosis Date Depression Hospitalizations Within the Past 30 Days: no previous admission in last 30 days Current Decision-Making Capacity: Self If AD's have not been completed the following surrogate would be surrogate decision maker per [place] surrogate decision making law. (Only good for 180 days) Any patient receiving care in [place] must abide by [place] law. The hierarchy for surrogate decision making is: (a) Patient???s spouse or civil union partner unless there is a divorce proceeding, separation agreement, or restraining order limiting that person???s relationship with the patient. (b) Any adult son or daughter of the patient. (c) Either parent of the patient. (d) Any adult brother or sister of the patient. (e) Any adult grandchild of the patient. (f) Any grandparent of the patient. (g) Any adult aunt, uncle, niece, or nephew of the patient. (h) A close friend of the patient. (i) The agent with financial power of disability attorney or a conservator appointed in accordance with RSA 464-A. (j) The guardian of the patient???s estate. Advance Care Planning: Attempt Cardiopulmonary Resuscitation - Inpatient <no information> -Advanced Directive: No, declines (Jeana Carrera/mother) Current Coping/Education/Information Needs: Pt coping well Current Functional Ability: Independent Functional Status Prior to Admission: Independent Prior ADLs & IADLs: Independent with all ADLs & IADLs Home Environment: Others in the home: significant other (girlfriend). Current Living Arrangements: home/apartment/condo. Accessibility Concerns:apartment on 2nd floor, FOS to enter. Resource / Environmental Concerns: Resource/Environmental Concerns: financial Financial Concerns: rent or mortgage, unable to afford (pt states he will be calling [place] Medicaid for short term disability) Current DME: none Home Address confirmed as: [address] [place] [address] Social & Family Supports: All names listed below confirmed with patient as current and correct Extended Emergency Contact Information Primary Emergency Contact: Jeana Carrera Address: [address] [place] [address] Relation: Mother Current Care Provided by: self Provides Primary Care For: no one, unable/limited ability to care for self Caregiver if needed: friend(s), significant other Quality of Family relationships: helpful, supportive, involved Community Resources being provided currently: none Behavioral Health History: none Substance Use/Abuse confirmed: Pt states he has stopped smoking - x's 5days Social History Tobacco Use Smoking Status Former Packs/day: 1.50 Years: 15.00 Pack years: 22.50 Types: Cigarettes Quit date: 02/15/2023 Years since quittin.0 Smokeless Tobacco Former 0 No problems reported 1-2 Low level 3-5 Moderate level 6-8 Substantial level 9- 10 Severe level 0 to 7 points: Low risk 8 to 15 points: Medium risk 16 to 19 points: High risk 20 to 40 points: Addiction likely Health/Prescription Coverage: Primary Insurance: [place]ICAID [place] Payor: [place] / Plan: [place] PRIMARY CARE PLUS / Product Type: *No Product type* / Secondary Insurance: N/A ; Prescription Coverage: Preferred Pharmacy: [facility] - [facility], [place] - [address] [facility] [address] Status: Patient is a : No Primary Care Provider confirmed: Pt states PCP is Delaney Kwok [employer] [employer], [facility] Patient/Caregiver Goals of Treatment: Return to home with family Potential Needs for Transition of Care: none Agency Referrals: Not Applicable Transportation: no concerns Transportation Anticipated: family or friend will provide (Jeana/mother) Concerns to be Addressed: no discharge needs identified Assessment: Pt is a 42yo male admitted to [facility] for C4-C7 ACDF. Pt has [place] Medicaid and uses [facility] for his medications. Pt lives with his girlfriend in an apartment which he willbe returning to. PT/OT has cleared pt for discharged and has recommended no services needed. Plan: Discharge today with no services needed. A member of the Care Management team will continue to monitor progress, follow for continuity of care and assist with transition of care planning. Briseyda Juarez RN * Brief Op Note - Arnoldo Reeves MD - 02/18/2023 11:57 AM EDT Brief Operative Note Patient Name: Diallo Barker : [id number] MR#: [id number] Case Date: 02/18/2023 Surgeon: Surgeon(s) and Role: * Arnoldo Reeves MD - Primary * Almas Martinez MD - Resident - Assisting Preoperative diagnosis: Cervical radiculopathy Postoperative diagnosis: Cervical radiculopathy Procedure: C4-C7 ACDF with anterior plate and structural allografts (09040, 75788 x 2, 89000, 23827l 3) Anesthesia: General Findings: There was hard disk material causing bilateral foraminal stenosis at C4-C5 and C5-C6. At C6-C7, there was soft disk material compressing primarily the anterior aspect of the cord on the right. At the conclusion of the case, bilateral C5, C6, and C7 roots and the spinal cord were fully decompressed. No CSF. Complications: None Intake: 1.6 L crystalloid Output: Estimated Blood Loss: 50 mL Urine Output:: 525 mL Drains: Anterior cervical x 1 Specimens removed during surgery: None Disposition: awakened from anesthesia, extubated and taken to the recovery room in a stable condition, having suffered no apparent untoward event. Condition: doing well without problems Attestation: Case Date: 02/18/2023 I was present and I participated during the entire procedure (does not need to include opening and closing). * Op Note - Arnoldo Reeves MD - 02/18/2023 8:26 AM EDT [facility] Operative Note Patient Name: Diallo Barker : [id number] MR#: [id number] Case Date: 02/18/2023 Surgeon: Surgeon(s) and Role: * Arnoldo Reeves MD - Primary * Almas Martinez MD - Resident - Assisting Preoperative diagnosis: Cervical radiculopathy Postoperative diagnosis: Cervical radiculopathy Procedure: 1. C4-C7 anterior cervical discectomy and fusion 2. Anterior cervical plating C4-C7 3. Structural allograft placement C4-C5, C5-C6, and C6-C7 Implants: [place] Anesthesia: General Operative findings: There was hard disk material causing bilateral foraminal stenosis at C4-C5 and C5-C6. At C6-C7, there was soft disk material compressing primarily the anterior aspect of the cord on the right. At the conclusion of the case, bilateral C5, C6, and C7 roots and the spinal cord werefully decompressed. Indications for procedure: Mr. Barker is a 42-year-old male who presented with longstanding neck pain radiating to his upper extremities in the setting of cervical spondylosis with nerve root compression from C4-C7. He failed to improve despite nonoperative treatment and elected undergo surgery after full discussion of the potential risks and benefits thereof. Description of procedure: The patient was taken to the operating room, and general anesthesia was administered. He was positioned supine on the operating room table with his neck slightly extended and his arms tucked by his side. A timeout was performed to identify the patient and the planned procedure. He received preoperative antibiotics. The neck was prepped with Hibiclens and DuraPrep and draped in the usual sterile fashion. A transverse incision was made from midline to the medial border of the left sternocleidomastoid atapproximately the C5-C6 level. The electrocautery was used to dissect down to the level of the platysma, which was divided in line with the incision. Cranial and caudal platysmal flaps were raised. The deep cervical fascia was incised along the medial border of the left sternocleidomastoid, and theplane between the sternocleidomastoid laterally and the trachea and esophagus medially was developed. Deeper dissection between the carotid sheath laterally and the trachea and esophagus medially brought us to the prevertebral fascia. This was divided and bluntly elevated off the C4-C7 vertebrae. Adistraction pin was placed in C4, and a lateral x-ray was obtained demonstrating our level. The longus coli muscles were elevated from the C4-C7 vertebrae. The self- retaining retractor bladeswere placed. The endotracheal balloon was deflated and then reinflated to decrease pressure on the recurrent laryngeal nerve. Additional distraction pins were placed in C6 and C7. Distraction was initially applied across the C4-C6 vertebrae. We then turned our attention to the discectomies. We started at C4-C5. An annulotomy was created, and a complete discectomy was then performed using a combination of the curettes and pituitary. The posterior osteophytes were thinned with the high-speed bur. The PLL was divided in line with its fibers and taken down the [place]. The posterior osteophytes were removed. Foraminotomies were performed bilaterally. Following discectomy, we confirmed that the spinal cord and bilateral exiting nerve roots were fully decompressed. Hemostasis was achieved in the epidural space using Floseal. Similar discectomies were performed at C5-C6 and C6-C7. We found that a 5 mm lordotic trial was fit appropriately at C4-C5 and C5-C6 and a 6 mm lordotic trial fit appropriately at C6-C7. The wound was copiously irrigated. The allografts were positioned within the disc spaces. The distraction pins were removed, and the holes were bone waxed. An appropriate sized plate was placed along the anterior aspect of the spine. [employer] holes were created using drills, and self-tapping, variable angle screws were then placed and locked to the plate using the torque-limited screwdriver. A lateral x-ray was obtained and demonstrating appropriate position of the grafts and hardware. Hemostasis was achieved. A drain was placed on the anterior aspect of the spine, exiting through the incision. The platysma and subcutaneous tissues were closed using interrupted 3-0 Vicryl. The skinwas closed using a 4-0 Monocryl in a running, subcuticular fashion. The incision was dressed with Mastisol, Steri- Strips, sterile gauze, and a Tegaderm. A hard collar was applied. He was awakened from general anesthesia and taken to the recovery room in stable condition. There were no evident complications. Attestation: Case Date: 02/18/2023 I was present and I participated during the entire procedure (does not need to include opening and closing). ARNOLDO REEVES MD 02/18/2023 documented in this encounter Plan of Treatment Not on file documented as of this encounter Procedures Procedure Name Priority Date/Time Associated Diagnosis Comments HEMOGRAM Routine 02/19/2023 2:10 AM EDT DIFFERENTIAL, AUTOMATED Routine 02/19/2023 2:10 AM EDT CBC (WITH DIFF) Routine 02/19/2023 2:10 AM EDT BASIC METABOLIC PANEL Routine 02/19/2023 2:10 AM EDT XR CERVICAL SPINE 2 OR 3 VIEWS Routine 02/18/2023 2:05 PM EDT HEMOGRAM STAT 02/18/2023 12:30 PM EDT DIFFERENTIAL, AUTOMATED STAT 02/18/2023 12:30 PM EDT CBC (WITH DIFF) STAT 02/18/2023 12:30 PM EDT PHOSPHORUS STAT 02/18/2023 12:30 PM EDT MAGNESIUM STAT 02/18/2023 12:30 PM EDT BASIC METABOLIC PANEL STAT 02/18/2023 12:30 PM EDT EKG 12-LEAD STAT 02/18/2023 12:25 PM EDT Vasovagal syncope XR CERVICAL SPINE 1 VIEW Routine 02/18/2023 11:22 AM EDT XR CERVICAL SPINE 1 VIEW Routine 02/18/2023 9:09 AM EDT MODIFIER C7 02/18/2023 7:36 AM EDT Cervical disc disorder with radiculopathy of cervicothoracic region MODIFIER C6 02/18/2023 7:36 AM EDT Cervical disc disorder with radiculopathy of cervicothoracic region MODIFIER C5 02/18/2023 7:36 AM EDT Cervical disc disorder with radiculopathy of cervicothoracic region MODIFIER C4 02/18/2023 7:36 AM EDT Cervical disc disorder with radiculopathy of cervicothoracic region MODIFIER CORNERSTONE 02/18/2023 7:36 AM EDT Cervical disc disorder with radiculopathy of cervicothoracic region MODIFIER GLOBUS PROVIDENCE 02/18/2023 7:36 AM EDT Cervical disc disorder with radiculopathy of cervicothoracic region Allograft For Spine Surgery Only Structural ([id number]) 02/18/2023 7:36 AM EDT Cervical disc disorder with radiculopathy of cervicothoracic region Anterior Instrumentation 4-7 Vertebral Segments ([id number]) 02/18/2023 7:36 AM EDT Cervical disc disorder with radiculopathy of cervicothoracic region Arthrd Ant Interdy Cervcl Belw C2 Ea Addl Ntrspc ([id number]) 02/18/2023 7:36 AM EDT Cervical disc disorder with radiculopathy of cervicothoracic region Arthrodesis, Ant Interbody,Decompressio n; Cervical Below C2 ([id number]) 02/18/2023 7:36 AM EDT Cervical disc disorder with radiculopathy of cervicothoracic region POCT GLUCOSE Routine 02/18/2023 7:28 AM EDT ARTHRODESIS ANT INTERBDY CERVCL BELOW C2 EA ADDL INTRSPACE Routine 02/18/2023 6:36 AM EDT Cervical disc disorder with radiculopathy of cervicothoracic region ARTHRODESIS, ANT INTERBODY,DECOMPRESSIO N; CERVICAL BELOW C2 Routine 02/18/2023 6:36 AM EDT Cervical disc disorder with radiculopathy of cervicothoracic region ANT. SPINAL INSTRUMENTATION 4 TO 7 VERT.SEG. Routine 02/18/2023 6:36 AM EDT Cervical disc disorder with radiculopathy of cervicothoracic region ALLOGRAFT FOR SPINE SURGERY ONLY;STRUCTUAL Routine 02/18/2023 6:36 AM EDT Cervical disc disorder with radiculopathy of cervicothoracic region IMPLANTABLE DEVICES SCAN 02/18/2023 12:00 AM EDT documented in this encounter Results * (ABNORMAL) Differential, Automated (02/19/2023 2:10 AM EDT) Neutrophil % 74.8 % [facility] Neutrophil Absolute 9.52(H) 1.70 - 6.10 x10(3)/mc L [facility] Lymph % 15.0 % [facility] Lymphocytes Abs 1.9 0.9 - 3.2 x10(3)/mc L [facility] Monocyte % 9.6 % [facility] Monocyte Abs 1.2(H) 0.3 - 0.9 x10(3)/mc L [facility] Eos % 0.2 % [facility] Eosinophils Abs 0.0 0.0 - 0.4 x10(3)/mc L [facility] Basophil % 0.2 % [facility] Baso Absolute 0.0 0.0 - 0.1 x10(3)/mc L [facility] Immature Gran % 0.20 % [facility] Comment: Immature granulocytes(IG's)percentage and absolute count will include metamyelocytes, myelocytes, and promyelocytes. Blood smears from CBCs yielding IG's will be scanned manually for concordance. If this scan disagrees with the automated IG or if promyelocytes are noted, a manual differential will be performed. Immature Gran Absolute 0.03 0.00 - 0.04 x10(3)/mc L [facility] Blood 02/19/2023 2:10 AM EDT 02/19/2023 2:43 AM EDT Narrative Resulting Agency Comment Spec In Lab Almas Martinez MD HEMATOLOGY ORDERABLE S [facility] [place] [address] * (ABNORMAL) Hemogram (02/19/2023 2:10 AM EDT) White Blood Cell 12.7(H) 4.0 - 9.5 x10(3)/ L [facility] Red Blood Cell 4.37(L) 4.58 - 5.54 x10(6)/ L [facility] Hemoglobin 13.8 13.7 - 16.5 g/dL [facility] Hematocrit 39.7(L) 40.5 - 48.5 % [facility] Mean Cell Volume 90.8 82.9 - 93.1 fL [facility] Mean Cell Hemoglobin 31.6 27.5 - 32.1 pg [facility] Mean Cell Hemoglobin Concentration 34.8 32.0 - 35.7 g/dL [facility] Platelet 343 145 - 357 x10(3)/mc L [facility] RDW Standard Deviation 39.6 36.0 - 45.0 fL [facility] RDW coefficient of variation 11.9 11.4 - 13.8 % [facility] Mean Platelet Volume 8.9 7.6 - 12.9 fL [facility] NRBC% auto 0.0 % [facility] NRBC Absolute 0.000 0.000 - 0.000 x10(3)/mc L [facility] Blood 02/19/2023 2:10 AM EDT 02/19/2023 2:43 AM EDT Narrative Resulting Agency Comment Spec In Lab Almas Martinez MD HEMATOLOGY ORDERABLE S [facility] [place] [address] * (ABNORMAL) Basic Metabolic Panel (non-fasting) (02/19/2023 2:10 AM EDT) Glucose 122 65 - 199 mg/dL [facility] Comment:Diabetes: >=200 mg/d L plus symptoms Blood Urea Nitrogen 6(L) 10 - 20 mg/dL [facility] Creatinine 0.86 0.80 - 1.50 mg/dL [facility] Sodium 137 135 - 145 mmol/L [facility] Potassium 4.0 3.5 - 5.0 mmol/L [facility] Comment: Please note: ??Patients with WBC >100,000 may have falsely elevated Potassium levels. ??For accurate Potassium quantification in these patients send serum separator tube (gold top) for subsequent determinations. ??Contact the Clinical Chemistry Laboratory if there are any questions. Chloride 101 98 - 107 mmol/L [facility] Carbon Dioxide 23 22 - 31 mmol/L [facility] Anion Gap 13 5 - 15 mmol/L [facility] Calcium 9.0 8.5 - 10.5 mg/dL [facility] Est Glomerular Filtration Rate 112 >=60 mL/min/1. 73 m?? [facility] Comment: This patient's estimated GFR was [...] Resulting Agency Comment Spec In Lab Arnoldo Reeves MD CHEMISTRY ORDERABLES [facility] [place] [address] * XR Cervical Spine 2 or 3 Views (02/18/2023 2:05 PM EDT) Anatomical Region Laterality Modality C-spine N/A Digital Radiogra phy Impressions 02/19/2023 1:40 PM EDT Expected postoperative appearance status post C4-C7 ACDF without acute hardware complications. I have personally reviewed the image(s) and the resident's interpretation and agree with the findings, Joanna Luis MD at 02/19/2023 1:40 PM Thank you for letting us participate in the care of this patient. ??If you are a health care provider and have any questions regarding this report, please contact the number below. ??For patients who have questions please contact the health long term acute care registered nurse that requested your imaging first. ? Electronically signed by: Joanna Luis MD, [facility] ([phone]), at 02/19/2023 1:40 PM Narrative 02/19/2023 1:40 PM EDT EXAMINATION: XR CERVICAL SPINE 2 OR 3 VIEWS CLINICAL HISTORY: s/p ACDF C4-C7 (as entered by ordering provider in the order requisition) TECHNIQUE: AP and lateral views of the cervical spine. COMPARISON: Cervical spine radiograph dated 02/18/2023 at 11:15 AM FINDINGS: On the lateral projection, spinal levels are seen down to C7. There is been interval removal of multiple support lines and tubes with single remaining cervical drain. Status post C4-C7 ACDF as well as placement of C4-C5, C5-C6, C6-C7 intervertebral disc spacers. Hardware is in unchanged position without adjacent lucency or judith-hardware fracture. Vertebral body heights are unchanged. There is mild straightening of the normal cervical lordosis, but otherwise, alignment is normal. Multilevel degenerative changes throughout the cervical spine most prominent from C4 through C7 as evidenced by uncovertebral and facet arthropathy. Similar prevertebral soft tissue swelling and prevertebral soft tissue gas. Patient is a dentulous. Visualized lung apices are clear. Procedure Note Joanna Luis MD - 02/19/2023 EXAMINATION: XR CERVICAL SPINE 2 OR 3 VIEWS CLINICAL HISTORY: s/p ACDF C4-C7 (as entered by ordering provider in theorder requisition) TECHNIQUE: AP and lateral views of the cervical spine. COMPARISON: Cervical spine radiograph dated 02/18/2023 at 11:15 AM FINDINGS: On the lateral projection, spinal levels are seen down to C7. There is been interval removal of multiple support lines and tubes withsingle remaining cervical drain. Status post C4-C7 ACDF as well as placement of C4-C5, C5-C6, C6-C7 intervertebral disc spacers. Hardware is in unchanged position withoutadjacent lucency or judith-hardware fracture. Vertebral body heights are unchanged. There is mild straightening of thenormal cervical lordosis, but otherwise, alignment is normal. Multileveldegenerative changes throughout the cervical spine most prominent from C4 through C7as evidenced by uncovertebral and facet arthropathy. Similar prevertebralsoft tissue swelling and prevertebral soft tissue gas. Patient is a dentulous. Visualized lung apices are clear. IMPRESSION Expected postoperative appearance status post C4-C7 ACDF without acutehardware complications. I have personally reviewed the image(s) and the resident's interpretationand agree with the findings, Joanna Luis MD at 02/19/2023 1:40 PM Thank you for letting us participate in the care of this patient. If youare a health care provider and have any questions regarding this report,please contact the number below. For patients who have questions please contactthe health long term acute care registered nurse that requested your imaging first. Arnoldo Reeves MD IMG DX ORDERABLES * (ABNORMAL) Differential, Automated (02/18/2023 12:30 PM EDT) Neutrophil % 92.0 % [facility] Neutrophil Absolute 10.85(H) 1.70 - 6.10 x10(3)/mc L [facility] Lymph % 6.0 % [facility] Lymphocytes Abs 0.7(L) 0.9 - 3.2 x10(3)/mc L [facility] Monocyte % 1.2 % [facility] Monocyte Abs 0.1(L) 0.3 - 0.9 x10(3)/ L [facility] Eos % 0.1 % [facility] Eosinophils Abs 0.0 0.0 - 0.4 x10(3)/[facility] Basophil % 0.3 % [facility] Baso Absolute 0.0 0.0 - 0.1 x10(3)/ L [facility] Immature Gran % 0.40 % [facility] Comment: Immature granulocytes(IG's)percentage and absolute count will include metamyelocytes, myelocytes, and promyelocytes. Blood smears from CBCs yielding IG's will be scanned manually for concordance. If this scan disagrees with the automated IG or if promyelocytes are noted, a manual differential will be performed. Immature Gran Absolute 0.05(H) 0.00 - 0.04 x10(3)/ L [facility] Blood 02/18/2023 12:3 0 PM EDT 02/18/2023 12:48 PM EDT Narrative Resulting Agency Comment Spec In Lab Justen Quiros MD HEMATOLOGY ORDERABLE S [facility] [place] [address] * (ABNORMAL) Hemogram (02/18/2023 12:30 PM EDT) White Blood Cell 11.8(H) 4.0 - 9.5 x10(3)/ L [facility] Red Blood Cell 4.32(L) 4.58 - 5.54 x10(6)/ L [facility] Hemoglobin 13.5(L) 13.7 - 16.5 g/dL [facility] Hematocrit 39.1(L) 40.5 - 48.5 % [facility] Mean Cell Volume 90.5 82.9 - 93.1 fL [facility] Mean Cell Hemoglobin 31.3 27.5 - 32.1 pg [facility] Mean Cell Hemoglobin Concentration 34.5 32.0 - 35.7 g/dL [facility] Platelet 325 145 - 357 x10(3)/mc L [facility] RDW Standard Deviation 38.4 36.0 - 45.0 fL [facility] RDW coefficient of variation 11.6 11.4 - 13.8 % [facility] Mean Platelet Volume 8.5 7.6 - 12.9 fL [facility] NRBC% auto 0.0 % [facility] NRBC Absolute 0.000 0.000 - 0.000 x10(3)/mc L [facility] Blood 02/18/2023 12:3 0 PM EDT 02/18/2023 12:48 PM EDT Narrative Resulting Agency Comment Spec In Lab Justen Quiros MD HEMATOLOGY ORDERABLE S Performing Organization Address [facility] Co de Phone Number [facility] [place] [address] * Phosphorus (02/18/2023 12:30 PM EDT) Phosphorus 3.3 2.5 - 4.5 mg/dL [facility] Blood 02/18/2023 12:3 0 PM EDT 02/18/2023 12:48 PM EDT Narrative Resulting Agency Comment Spec In Lab Daniel Silverio MD CHEMISTRY ORDERABLES Performing Organization Address [facility] Co de Phone Number [facility] [place] [address] * Magnesium (02/18/2023 12:30 PM EDT) Magnesium 0.84 0.69 - 1.07 mmol/L [facility] Blood 02/18/2023 12:3 0 PM EDT 02/18/2023 12:48 PM EDT Narrative Resulting Agency Comment Spec In Lab Daniel Silverio MD CHEMISTRY ORDERABLES Performing Organization Address [facility] Co de Phone Number [facility] [place] [place] [address] * (ABNORMAL) Basic Metabolic Panel (non-fasting) (02/18/2023 12:30 PM EDT) Glucose 151 65 - 199 mg/dL [facility] Comment:Diabetes: >=200 mg/d L plus symptoms Blood Urea Nitrogen 5(L) 10 - 20 mg/dL [facility] Creatinine 0.80 0.80 - 1.50 mg/dL [facility] Sodium 130(L) 135 - 145 mmol/L [facility] Potassium 4.6 3.5 - 5.0 mmol/L [facility] Comment: Please note: ??Patients with WBC >100,000 may have falsely elevated Potassium levels. ??For accurate Potassium quantification in these patients send serum separator tube (gold top) for subsequent determinations. ??Contact the Clinical Chemistry Laboratory if there are any questions. Chloride 97(L) 98 - 107 mmol/L [facility] Carbon Dioxide 23 22 - 31 mmol/L [facility] Anion Gap 10 5 - 15 mmol/L [facility] Calcium 8.6 8.5 - 10.5 mg/dL [facility] Est Glomerular Filtration Rate 114 >=60 mL/min/1. 73 m?? [facility] Comment: This patient's estimated GFR was [...] and symptoms in addition to eGFR. Blood 02/18/2023 12:3 0 PM EDT 02/18/2023 12:48 PM EDT Narrative Resulting Agency Comment Spec In Lab Daniel Silverio MD CHEMISTRY ORDERABLES [facility] [place] [address] * EKG 12 Lead (02/18/2023 12:25 PM EDT) Ventricular rate 88 BPM MUSE SYSTEM Atrial Rate 88 BPM MUSE SYSTEM P-R Interval 138 ms MUSE SYSTEM QRS Duration 80 ms MUSE SYSTEM Q-T Interval 390 ms MUSE SYSTEM QTC Calculated (Bezet) 471 ms MUSE SYSTEM Calculated P Weems 73 degrees MUSE SYSTEM Calculated R Weems 66 degrees MUSE SYSTEM Calculated T Weems 61 degrees MUSE SYSTEM INTERPRETATION Normal sinus rhythm Normal ECG No previous ECGs available Confirmed by MD Angie, Gordy ([id number]) on 02/18/2023 2:26:41 PM MUSE SYSTEM 02/18/2023 12:2 5 PM EDT 02/18/2023 2:26 PM EDT Daniel Silverio MD ECG ORDERABLES MUSE SYSTEM * XR Cervical Spine 1 View (02/18/2023 11:22 AM EDT) Anatomical Region Laterality Modality C-spine N/A Digital Radiogra phy Impressions 02/18/2023 4:18 PM EDT Interval placement of anterior cervical fusion hardware extending from C4-C7. I have personally reviewed the image(s) and the resident's interpretation and agree with the findings, Michelle Andrade MD at 02/18/2023 4:18 PM Thank you for letting us participate in the care of this patient. ??If you are a health care provider and have any questions regarding this report, please contact the number below. ??For patients who have questions please contact the health long term acute care registered nurse that requested your imaging first. ? Electronically signed by: Michelle Andrade MD, [facility] ([phone]), at 02/18/2023 4:18 PM Narrative 02/18/2023 4:18 PM EDT EXAMINATION: XR CERVICAL SPINE 1 VIEW CLINICAL HISTORY: intraoperative level confirmation TECHNIQUE: AP views of the cervical spine COMPARISON: Cervical spine radiograph 02/18/2023 FINDINGS: Interval placement of anterior cervical fixation hardware. While the dens is excluded from the [id number], fixation hardware starts at the level of the hyoid bone, C4 on prior radiograph. By this convention fusion hardware extends from C4-C7 with interbody spacers. Normal alignment on single lateral view. Endotracheal tube, esophageal temperature probe and prevertebral soft tissue air are consistent with the ongoing surgery. Procedure Note Michelle Andrade MD - 02/18/2023 EXAMINATION: XR CERVICAL SPINE 1 VIEW CLINICAL HISTORY: intraoperative level confirmation TECHNIQUE: AP views of the cervical spine COMPARISON: Cervical spine radiograph 02/18/2023 FINDINGS: Interval placement of anterior cervical fixation hardware. While the densis excluded from the [id number], fixation hardware starts at the level ofthe hyoid bone, C4 on prior radiograph. By this convention fusion hardwareextends from C4-C7 with interbody spacers. Normal alignment on single lateralview. Endotracheal tube, esophageal temperature probe and prevertebral softtissue air are consistent with the ongoing surgery. IMPRESSION Interval placement of anterior cervical fusion hardware extending fromC4-C7. I have personally reviewed the image(s) and the resident's interpretationand agree with the findings, Michelle Andrade MD at 02/18/2023 4:18 PM Thank you for letting us participate in the care of this patient. If youare a health care provider and have any questions regarding this report,please contact the number below. For patients who have questions please contactthe health long term acute care registered nurse that requested your imaging first. Electronically signed by: Michelle Andrade MD, [facility]([phone]), at 02/18/2023 4:18 PM Arnoldo Reeves MD IMG DX ORDERABLES * XR Cervical Spine 1 View (02/18/2023 9:09 AM EDT) Anatomical Region Laterality Modality C-spine N/A Digital Radiogra phy Impressions 02/18/2023 11:16 AM EDT Intraoperative marker at the level of C4. I have personally reviewed the image(s) and the resident's interpretation and agree with the findings, Michelle Andrade MD at 02/18/2023 11:16 AM Thank you for letting us participate in the care of this patient. ??If you are a health care provider and have any questions regarding this report, please contact the number below. ??For patients who have questions please contact the health long term acute care registered nurse that requested your imaging first. ? Electronically signed by: Michelle Andrade MD, [facility] ([phone]), at 02/18/2023 11:16 AM Narrative 02/18/2023 11:16 AM EDT EXAMINATION: XR CERVICAL SPINE 1 VIEW CLINICAL HISTORY: intraoperative level confirmation TECHNIQUE: 1 views of the cervical spine, portable in OR at 0908 COMPARISON: Radiographs 09/28/2022 FINDINGS: Intraoperative radiographs demonstrate marker projecting over the C4 vertebral body. Vertebral body heights are maintained. ??Similar disc height loss concentrated at C4-C6 with uncovertebral and facet arthropathy. An endotracheal tube and esophageal wall temperature probe are in place. Procedure Note Michelle Andrade MD - 02/18/2023 EXAMINATION: XR CERVICAL SPINE 1 VIEW CLINICAL HISTORY: intraoperative level confirmation TECHNIQUE: 1 views of the cervical spine, portable in OR at 0908 COMPARISON: Radiographs 09/28/2022 FINDINGS: Intraoperative radiographs demonstrate marker projecting over the [id number] body. Vertebral body heights are maintained. Similar disc height loss concentrated at C4-C6 with uncovertebral and facet arthropathy. Anendotracheal tube and esophageal wall temperature probe are in place. IMPRESSION Intraoperative marker at the level of C4. I have personally reviewed the image(s) and the resident's interpretationand agree with the findings, Michelle Andrade MD at 02/18/2023 11:16 AM Thank you for letting us participate in the care of this patient. If youare a health care provider and have any questions regarding this report,please contact the number below. For patients who have questions please contactthe health long term acute care registered nurse that requested your imaging first. Arnoldo Reeves MD IMG DX ORDERABLES * POCT Glucose (02/18/2023 7:28 AM EDT) Glucose, POC 115 65 - 199 mg/dL [facility] Comment: Supplemental ranges: <140 mg/dL before meals <180 mg/dL all other times of the day Blood 02/18/2023 7:28 AM EDT 02/18/2023 7:28 AM EDT Arnoldo Reeves MD POINT OF CARE TEST O RDERABLES [facility] [place] [address] * SCAN DOC: IMPLANTABLE DEVICES (02/18/2023 12:00 AM EDT) Narrative 02/18/2023 12:00 AM EDT Ordered by an unspecified provider. Scanning Provider MEDIA MGR SCAN EXT O RDR/RSLT documented in this encounter Visit Diagnoses Diagnosis Cervical disc disorder with radiculopathy of cervicothoracic region Brachial neuritis or radiculitis nos Vasovagal syncope Syncope and collapse Cervical disc disorder with radiculopathy of cervicothoracic region Brachial neuritis or radiculitis nos documented in this encounter Admitting Diagnoses Diagnosis S/P cervical spinal fusion Arthrodesis status documented in this encounter Administered Medications Inactive Administered Medications - up to 3 most recent administrations Medication Order MAR Action Action Date Dose Rate Site acetaminophen (Tylenol) tablet 1,000 mg 1,000 mg, Oral, EVERY 6 HOURS PRN, Starting on Sat02/18/23 at 1645, Until Sat02/19/23 at 1548, Pain, Maximum dose of acetaminophen is 4,000 mg from all sources in 24 hours. When ordered for pain, acetaminophen should be given even when other ordered pain medications are indicated. , Routine Given 02/19/2023 9:31 AM EDT 1,000 mg Given 02/18/2023 6:30 PM EDT 1,000 mg BUpivacaine-EPINEPHrine (Marcaine-epiNEPHrine) 0.25 %-1:200,000 injection PRN, Starting on Sat02/18/23 at 0826, Until Sat02/19/23 at 1548, Intra-Operative (Intra-Procedure), Routine Given 02/18/2023 8:26 AM EDT 19 mLs 19- Surgical Site gelatin adsorbable 100 (Gelfoam) sponge PRN, Starting on Sat02/18/23 at 1000, Until Sat02/19/23 at 1548, Intra-Operative (Intra-Procedure), Routine Given 02/18/2023 10:00 AM EDT 1 each 19- Surgical Site oxyCODONE (Roxicodone) tablet 10 mg 10 mg, Oral, EVERY 4 HOURS PRN, Starting on Sat02/18/23 at 1237, Until Sat02/19/23 at 1548, Pain, moderate pain (4-6), For moderate pain (4-6). Do not exceed 15 mg in 4 hours. If pain not relieved, call provider., Routine Given 02/18/2023 4:26 PM EDT 10 mg Given 02/18/2023 12:59 PM EDT 10 mg oxyCODONE (Roxicodone) tablet 15 mg 15 mg, Oral, EVERY 4 HOURS PRN, Starting on Sat02/18/23 at 1237, Until Sat02/19/23 at 1548, Pain, severe pain (7-10), For severe pain (7-10). Do not exceed 15 mg in 4 hours. If pain not relieved, call provider., Routine Given 02/19/2023 12: 40 PM EDT 15 mg Given 02/19/2023 6:08 AM EDT 15 mg Given 02/19/2023 1:05 AM EDT 15 mg oxyCODONE (Roxicodone) tablet 5 mg 5 mg, Oral, EVERY 4 HOURS PRN, Starting on Sat02/18/23 at 1237, Until Sat02/19/23 at 1548, Pain, mild pain (1-3), For mild pain (1-3). Do not exceed 15 mg in 4 hours. If pain not relieved, call provider., Routine pregabalin (Lyrica) capsule 100 mg 100 mg, Oral, 3 TIMES DAILY, First dose on Sat02/18/23 at 1500, Until Discontinued, Routine Given 02/19/2023 8:17 AM EDT 100 mg Given 02/18/2023 8:40 PM EDT 100 mg Given 02/18/2023 2:33 PM EDT 100 mg senna-docusate (Pericolace) 8.6-50 mg per tablet 2 tablet 2 tablet, Oral, 2 TIMES DAILY, First dose on Sat02/18/23 at 2100, Until Discontinued, Routine Given 02/18/2023 8:40 PM EDT 2 tablets sodium chloride 0.9 % (flush) (BD PosiFlush Normal Saline 0.9) flush 5 mL 5 mL, Intravenous, 2 TIMES DAILY, First dose on Sat02/18/23 at 2100, Until Discontinued, Recovery (Recovery-Hospital Unit), Routine Given 02/19/2023 8:17 AM EDT 5 mLs Given 02/18/2023 8:41 PM EDT 5 mLs thrombin (Bovine) (Thrombinar) kit PRN, Starting on Sat02/18/23 at 1000, Until Sat02/19/23 at 1548, Intra-Operative (Intra-Procedure) Given 02/18/2023 10:00 AM EDT 20,000 Units 19- Surgical Site documented in this encounter Active and Recently Administered Medications Times are shown in EDT. Scheduled Medication Order 02/17/2023 02/18/2023 02/19/2023 acetaminophen (Tylenol) tablet 1,000 mg (CANCELED) 1,000 mg, Oral, EVERY 8 HOURS SCHEDULED, First dose on Sat02/18/23 at 1400, Until Discontinued, Maximum dose of acetaminophen is 4,000 mg from all sources in 24 hours. When ordered for pain, acetaminophen should be given even when other ordered pain medications are indicated. , Routine 1305 (Given - Provider: Annika Garrido RN) acetaminophen (Tylenol) tablet 975 mg (COMPLETED) 975 mg, Oral, ONCE, 1 dose, On Sat02/18/23 at 0715, Administer with a SIP of water only. Maximum dose of acetaminophen is 4,000 mg from all sources in 24 hours., Day of Surgery (Day of Procedure), Routine 0658 (Given - Provider: Laurita Castañeda RN) polyethylene glycoL (Miralax) packet 17 g 17 g, Oral, 2 TIMES DAILY, First dose on Sat02/18/23 at 2100, Until Discontinued, Routine 2100 (Not Given - Provider: Sheree Cameron RN - Reason: Patient/family refused) 0900 (Not Given - Provider: Arnoldo Addison RN - Reason: Patient/family refused) pregabalin (Lyrica) capsule 100 mg 100 mg, Oral, 3 TIMES DAILY, First dose on Sat02/18/23 at 1500, Until Discontinued, Routine 1433 (Given - Provider: Sheree Cameron RN)2040 (Given - Provider: Sheree Cameron RN) 0817 (Given - Provider: Arnoldo Addison, RN) senna-docusate (Pericolace) 8.6-50 mg per tablet 2 tablet 2 tablet, Oral, 2 TIMES DAILY, First dose on Sat02/18/23 at 2100, Until Discontinued, Routine 204 (Given - Provider: Sheree Cameron RN) 0900 (Not Given - Provider: Arnoldo Addison, AMANUEL - Reason: Patient/family refused) sodium chloride 0.9 % (flush) (BD PosiFlush Normal Saline 0.9) flush 5 mL 5 mL, Intravenous, 2 TIMES DAILY, First dose on Sat02/18/23 at 2100, Until Discontinued, Recovery (Recovery-Hospital Unit), Routine 204 (Given - Provider: Sheree Cameron RN) 0817 (Given - Provider: Arnoldo Addison, RN) Continuous Medication Order 02/17/2023 02/18/2023 02/19/2023 lactated ringers infusion (CANCELED) 1,000 mL, at 100 mL/hr, Intravenous, CONTINUOUS, Starting on Sat02/18/23 at 0715, Until Sat02/18/23 at 1343, Day of Surgery (Day of Procedure) 0718 (New Bag - Provider: Chica Castañeda RN)1002 (Paused - Provider: Justen Quiros MD - Comment: Switch to gravity)1003 (New Bag - Provider: Justen Quiros MD)1118 (Anesthesia Volume Adjustment - Provider: Justen Quiros MD)1206 (Anesthesia Volume Adjustment - Provider: Justen Quiros MD) PRN Medication Order 02/17/2023 02/18/2023 02/19/2023 acetaminophen (Tylenol) tablet 1,000 mg 1,000 mg, Oral, EVERY 6 HOURS PRN, Starting on Sat02/18/23 at 1645, Until Sat02/19/23 at 1548, Pain, Maximum dose of acetaminophen is 4,000 mg from all sources in 24 hours. When ordered for pain, acetaminophen should be given even when other ordered pain medications are indicated. , Routine 1830 (Given - Provider: Saira Mendez RN) 0931 (Given - Provider: Arnoldo Addison RN) BUpivacaine-EPINEPHrine (Marcaine-epiNEPHrine) 0.25 %-1:200,000 injection (CANCELED) PRN, Starting on Sat02/18/23 at 0826, Until Sat02/19/23 at 1548, Intra-Operative (Intra-Procedure), Routine 0826 (Given - Provider: Almas Martinez MD) gelatin adsorbable 100 (Gelfoam) sponge (CANCELED) PRN, Starting on Sat02/18/23 at 1000, Until Sat02/19/23 at 1548, Intra-Operative (Intra-Procedure), Routine 1000 (Given - Provider: Arnoldo Reeves MD - Comment: combined with 20,000 units of thrombin) lidocaine (Xylocaine) 1% (10 mg/mL) injection 3 mg 3 mg (0.3 mL), Subcutaneous, ONCE PRN, 1 dose, Starting on Sat02/18/23 at 1409, Until Sat02/19/23 at 1548, for discomfort with PIV insertion, Recovery (Recovery-Hospital Unit), Routine ondansetron (pf) (Zofran) (2 mg/mL) injection 4 mg 4 mg, Intravenous, EVERY 8 HOURS PRN, Starting on Sat02/18/23 at 1409, Until Sat02/19/23 at 1548, Nausea, If multiple antiemetics are ordered, use ondansetron first, prochlorperazine second, metoclopramide third. oxyCODONE (Roxicodone) tablet 10 mg(Linked Group 1) 10 mg, Oral, EVERY 4 HOURS PRN, Starting on Sat02/18/23 at 1237, Until Sat02/19/23 at 1548, Pain, moderate pain (4-6), For moderate pain (4-6). Do not exceed 15 mg in 4 hours. If pain not relieved, call provider., Routine 1259 (Given - Provider: Annika Garrido RN)1626 (Given - Provider: Cindy Velez RN - Comment: Per MD Munoz: Ok to give early)2039 (See Alternative - Provider: Sheree Cameron, AMANUEL) 0105 (See Alternative - Provider: Edil Tejada, AMANUEL)0608 (See Alternative - Provider: Angela Summers RN)1240 (See Alternative - Provider: Arnoldo Addison, AMANUEL) oxyCODONE (Roxicodone) tablet 15 mg(Linked Group 1) 15 mg, Oral, EVERY 4 HOURS PRN, Starting on Sat02/18/23 at 1237, Until Sat02/19/23 at 1548, Pain, severe pain (7-10), For severe pain (7-10). Do not exceed 15 mg in 4 hours. If pain not relieved, call provider., Routine 1259 (See Alternative - Provider: Annika Garrido RN)1626 (See Alternative - Provider: Cindy Velez RN)2039 (Given - Provider: Sheree Cameron, AMANUEL) 0105 (Given - Provider: Edil Tejada RN)0608 (Given - Provider: Angela Summers, AMANUEL)1240 (Given - Provider: Arnoldo Addison, AMANUEL) oxyCODONE (Roxicodone) tablet 5 mg(Linked Group 1) 5 mg, Oral, EVERY 4 HOURS PRN, Starting on Sat02/18/23 at 1237, Until Sat02/19/23 at 1548, Pain, mild pain (1-3), For mild pain (1-3). Do not exceed 15 mg in 4 hours. If pain not relieved, call provider., Routine 1259 (See Alternative - Provider: Annika Garrido RN)1626 (See Alternative - Provider: Cindy Velez RN)204 (See Alternative - Provider: Sheree Cameron, AMANUEL) 0105 (See Alternative - Provider: Edil Tejada, AMANUEL)0608 (See Alternative - Provider: Angela Summers RN)1240 (See Alternative - Provider: Arnoldo Addison RN) sodium chloride 0.9 % (flush) (BD PosiFlush Normal Saline 0.9) flush 5-20 mL 5-20 mL, Intravenous, EVERY 1 MIN PRN, Starting on Sat02/18/23 at 1409, Until Sat02/19/23 at 1548, flush, Flush pertains to all indwelling lines. Flush per protocol found in the job aid using the link provided on this medication record., Recovery (Recovery-Hospital Unit), Routine thrombin (Bovine) (Thrombinar) kit (CANCELED) PRN, Starting on Sat02/18/23 at 1000, Until Sat02/19/23 at 1548, Intra-Operative (Intra-Procedure) 1000 (Given - Provider: Arnoldo Reeves MD - Comment: combined with patties and gelfoam) Linked Groups Order Group 1: oxyCODONE (Roxicodone) tablet 5 mgJump to med 5 mg, Oral, EVERY 4 HOURS PRN, Starting on Sat02/18/23 at 1237, Until Sat02/19/23 at 1548, Pain, mild pain (1-3), For mild pain (1-3). Do not exceed 15 mg in 4 hours. If pain not relieved, call provider., Routine Or oxyCODONE (Roxicodone) tablet 10 mgJump to med 10 mg, Oral, EVERY 4 HOURS PRN, Starting on Sat02/18/23 at 1237, Until Sat02/19/23 at 1548, Pain, moderate pain (4-6), For moderate pain (4-6). Do not exceed 15 mg in 4 hours. If pain not relieved, call provider., Routine Or oxyCODONE (Roxicodone) tablet 15 mgJump to med 15 mg, Oral, EVERY 4 HOURS PRN, Starting on Sat02/18/23 at 1237, Until Sat02/19/23 at 1548, Pain, severe pain (7-10), For severe pain (7-10). Do not exceed 15 mg in 4 hours. If pain not relieved, call provider., Routine documented in this encounter Care Teams Mail Clerk Relationship Specialty Start Date End Date Delaney Kwok, [place] [address] PCP - General Family Medicine 02/18/23 documented as of this encounter
--- OUTSIDE RECORDS SUMMARY | 2024-07-03 00:32 | XMS_ITS | Encounter Summary ---
Author Organization [facility] [place] [address] Care Team Providers Care Economic Consultant Name Role Phone Melissa Gill APRN Primary Care Provider [phone] Reason for Visit * Reason Comments Neck And Arm Pain With Numbness * Physical Therapy (Routine) - Closed Specialty Diagnoses / Procedures Referred By Contact Referred To Contact Physical Therapy / Orthopaedics Diagnoses Cervical disc disorder with radiculopathy of cervicothoracic region Osteoarthritis of spine with radiculopathy, cervical region Sagar Jones MD [facility] [place] [address] [facility] [address] [place] [address] Referral ID Status Reason Start Date Expiration Date V isits Requested Visits Authorized [id number] Closed Evaluate and Treat 07/04/2018 07/04/2019 1 1 Encounter Details Date Type Department Care Team (Late st Contact Info) Description 07/21/2018 10:00 AM EST Office Visit [place] [address] [facility] Neck pain Social History Tobacco Use Types Packs/Day Years [...] on file documented as of this encounter Progress Notes * Sparkle Hanna, PT - 07/21/2018 10:00 AM EST PHYSICAL THERAPY INITIAL EXAMINATION Date of First Exam/ First Treatment: 07/21/2018 Referring Provider: Sagar Topete MD Diagnosis: 1. Neck pain 2. 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 He was seen with the expectation to see if there is anything that can be donefrom an exercise perspective to ease the pain and improve his ability to function. History of Present Illness: Mr. Barker reports 20 years ago while wrestling he was slammed into the ground landing on his neck and upper back and has struggled with gradually worsening neck pain since. He notes that the past 7 years the pain has been in tolerable. Past treatments directed to theneck have included physical therapy with traction, medications, and rest. He has an upcoming cervical epidural steroid injection on 08/13/2018. Recent imaging of the cervical spine has revealed C4-C5 and C5-C6 spondylosis with foraminal stenosis, left greater than right. Mr. Barker currently complains of neck pain radiating to bilateral shoulders and scapula and intermittently down the lateral and anterior aspect of the left arm to the dorsum of the forearm and hand, left greater than right, with intermittent occipital headaches. The pain is rated 6/10 at its least and 10/10 at its worst. He notes the left upper extremity feels weak and he has numbness in the center of the left upper extremity including all digits. Symptoms worsen when sitting looking down, looking up, turning, and lifting. Symptoms ease when keeping the neck in midline or lying in the supine position. Sleep is significantly disturbed due to his neck and left upper extremity symptoms. When asked about a gait or balance disturbance he reports feeling off balance at times. Mr. Barker's functional self care goal includes being able to turn and look over the shoulder. Diagnosis and Pertinent Co-morbidities affecting Plan of Care: History of EtOH abuse Patient Active Problem List Diagnosis Code ??? Scrotal hematoma S30.22XA ??? Neck pain M54.2 : Past Surgical History: Procedure Laterality Date ??? 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 He is vaping nicotine and is attempting to quit and is not using alcohol at the moment. He is not involved in a structured exercise program. Physical Exam: Mr. Barker is a very pleasant 38 y.o. male who moves about in the exam room withoutdifficulty keeping his neck in midline at all times. Sitting posture is poor and standing is good. Examination of the spine in a standing position reveals a protruded head posture with an exaggeratedupper thoracic kyphosis and rounded shoulders. Active range of motion of bilateral shoulder is fulland painless. Active range of motion of the cervical spine is limited to 60 degrees flexion, 50 degrees extension, 65 degrees right rotation, 70 degrees left rotation, 45 degrees right sidebending, and 50 degrees left sidebending. He has a 60% loss of retraction. Endrange flexion, extension, bilateral rotation, bilateral sidebending, and retraction all worsen the neck and upper extremity symptoms. Spurling maneuver to the right and left worsens the radicular pain. Slouched sitting worsens and peripheralizes the pain while sitting fully erect centralizes it. Repeated movement testing of the cervical spine did not seem to suggest a directional preference. His position of comfort is with that neck in retraction but he is no better when returning to neutral. Physical Therapy Assessment: Mr. Barker is a man with a long history of worsening neck and upper extremity pain which is interfering with his ability to function. The physical exam is significant for loss of cervical range of motion, poor sitting posture and no clear directional preference with movement testing. The history and exam is consistent with neck and upper extremity pain likely relatedto underlying spondylosis with foraminal narrowing. I believe that these deficits can improve with physical therapy treatments directed to the neck consisting of instruction in mechanical self-care, posture correction, and self mobilization exercises. Mr. Barker has a good rehabilitation potentialand I anticipate to meet with him for 6-8 additional visits over the next 6-8 weeks. Treatment Plan: The natural history of neck and upper extremity pain in the context of underlying spondylosis with foraminal stenosis and rational for exercise based treatment was reviewed. Mr. Barker was given a home exercise program consisting of sustained cervical retraction as needed throughout the day to relieve the pain. Along with the prescribed exercises, we discussed the principles of symptom self monitoring and posture correction of the sitting and lying position. Prior to leaving hewas given the Treat Your Own Neck booklet and encouraged to read it. He will call with any questions, concerns, or if the pain worsens. Mr. Barker will return to [facility] for a follow up appointment in 1 weeks time with the hope that he is ready to progress his home exercise program. Physical Therapy Goals in 4 weeks: 1. Independent with home exercise program 2. Able to sit without discomfort 3. Able to turn and look over the shoulder without discomfort The plan has been discussed with Diallo Lopez Shonsincere and he has agreed with the planned treatment. Expect with skilled physical therapy interventions he will be able to return to prior level of function. 50 minutes were spent interviewing, assessing, and instructing Diallo Barker in a home exercise program. Clinical Presentation: Stable Evolving Unstable x Notes: The patient's clinical presentation is Evolving due to gradually worsening neck and upper extremity pain. Clinical decision making of moderate complexity using standardized patient assessment instrument and measurable assessment of functional outcome. documented in this encounter Plan of Treatment Scheduled Referrals Name Type Priority Associated Diagnoses Orde r Schedule Referral to Physical Therapy Outpatient Referral Routine Cervical disc disorder with radiculopathy of cervicothoracic region Osteoarthritis of spine with radiculopathy, cervical region Ordered: 07/04/2018 documented as of this encounter Visit Diagnoses Diagnosis Neck pain Cervicalgia documented in this encounter Care Teams Economic Consultant Relationship Specialty Start Date End Date Melissa Gill, FILM TESTS CHECKER [address] [place] [address] PCP - General Family Medicine 08/13/17 02/11/23 documented as of this encounter
--- OUTSIDE RECORDS SUMMARY | 2024-07-03 00:32 | XMS_ITS | Encounter Summary ---
[place] [address] Care Team Providers Care City Route Driver Name Role Phone Delaney Kwok APRN Primary Care Provider [phone] Reason for Visit * Auth/Cert (Routine) Specialty [...] OPTIME, ANCHOR/SCREW FOR OPPOSING BN-TO-BN OR SOFT [id number] (IMPLANTABLE) ARTHRODESIS, ANT INTERBODY,DECOMPRESSION; CERVICAL BELOW C2 (WRVU 25) ARTHRODESIS ANT INTERBDY CERVCL BELOW C2 EA ADDL INTRSPACE (WRVU 6.5) @ANT. SPINAL INSTRUMENTATION 4 TO 7 VERT.SEG. (WRVU 12.4) ALLOGRAFT FOR SPINE SURGERY ONLY; STRUCTUAL (WRVU 1.81) MODIFIER GLOBUS PROVIDENCE MODIFIER CORNERSTONE MODIFIER C4 MODIFIER C5 MODIFIER C6 MODIFIER C7 Arnoldo Prince MD [facility] [place] [address] RUST Referral ID Status Reason Start Date Expiration Date Visits Re quested Visits Authorized [id number] 1 1 Encounter Details Date Type Department Care Team (Late st Contact Info) Description 02/18/2023 7:38 AM EDT Anesthesia Event [place] [address] Daniel Silverio MD [facility] [place] [address] Justen Quiros MD [facility] [place] [address] Anesthesia Record Procedure Summary Procedure Name Responsible Anesthesiologist Anesthesia Start Time Anesthesia Stop Time ARTHRODESIS, ANT INTERBODY,DECOMPRES JODI; CERVICAL BELOW C2 (WRVU 25) (Bilateral: Neck) Daniel Silverio MD 02/18/23 0738 02/18/23 1206 Events Date Time Event Comment 02/18/2023 0718 0733 Quick Note Prior to leavin g same-day patient experienced vagal-like episode without syncope but with +diaphoresis and nausea, vomiting x1 upon arrival to OR with improvement in symptoms. Small J-point elevation noted on city route driver, but unchanged when compared to EKG from earlier this month. Discussed concerns with patient and the need for RSI given recent vomiting episode, patient voiced understanding. 0738 AN Verify 0738 Start 0738 An Start Data 0751 An Induction 0755 An Intubation 0758 Anesthesia Ready 0824 Procedure Start local 0855 Quick Note Tracheal retrac tion in surgical field 0903 Break/Relief In I assumed ca re for Break Relief before which we: 1. Identified the patient 2. Identified the responsible provider(s) 3. Reviewed the pertinent medical history 4. Discussed the surgical plan and course 5. Reviewed intra-op anesthesia management and issues during anesthesia 6. Set expectations for the relief (and/or post-procedure) period 7. Allowed opportunity for questions and acknowledgement of understanding Hazel Landa, FUNDRAISING DIRECTOR 0910 An Data Art SedLine artifac t 0923 Break/Relief Out 1148 Procedure Stop 1150 Extubation/LMA Out 1151 an stop data 1206 Recovery or ICU Handoff Maria Alejandra ent care was transferred to the destination unit staff after review of the patient's medical history, current anesthetic/surgical status and plan, according to the Provider Handoff Checklist. 1206 Stop Meds Name Total fentaNYL 100 mcg Propofol 250 mg Rocuronium 120 mg PHENYLephrine 360 mcg ePHEDrine 5 mg Ondansetron 4 mg ceFAZolin (Ancef) 2 g vial a ttach to sodium chloride 0.9% 100 mL Mini-Bag Plus 0 g Succinylcholine 100 mg Dexmedetomidine 4 mcg Propofol INF 499.15 mg ceFAZolin 2 g PHENYLephrine INF 3,230 mcg Dexmedetomidine INF 87.64 mcg Glycopyrrolate 0.1 mg HYDROmorphone 2 mg/mL 1 mg Esmolol 80 mg lactated ringers infusion 1,700 mL * Agents Name O2 N2O * Blood No blood administrations on file. Lines, Drains, and Airways Type Details Placement Removal Closed/Suction Drain 02/18/23; Neck; 10 Bengali (1/8 inch silicone round drain. Drain sponge dressing.) 02/18/23 0000 by Christine Cornejo RN Incision 02/18/23; 08; anterior; neck 02/18/23 0826 by Catie Watt RN (RETIRED) Peripheral IV Line - Single Lumen 02/18/23; 717; basilic vein (medial side of arm), left; [id number] catheter system; Anatomical Landmarks; 18 gauge; distraction; removed per policy/procedure, catheter/device intact; 02/19/23; 1230 02/18/23 0718 by Laurita Castañeda RN 02/19/23 1230 by Trevon Lay, RN ETT Mask Ventilation: No t Attempted (0); ETT Type: Cuffed, Oral; ETT Size: 8 mm; Mac Blade: 4; Notes: Asleep; Attempts: 1; Laryngoscopy Grade: 1; ETT Placement Verified By: Capnometry, Visual; Secured at Teeth: 22 cm; Inserted by: guillermo quiros; Removal Date: 02/18/23; Removal Time: 1150 02/18/23 0800 by Justen Quiros MD 02/18/23 1150 by Justen Quiros MD Urethral Catheter 02/18/23; 0800; Surg letty longer than 2 hours, Physician order; indwelling double lumen catheter; latex, hydrophilic coated; 14; inserted at this facility; 1; 5; 10; other (see comments) (general anesthesia); urethral catheter removed, tubing intact; 02/19/23; 1241 02/18/23 0800 by Catie Watt RN 02/19/23 1241 by Trevon Lay, RN (RETIRED) Peripheral IV Line - Single Lumen 02/18/23; 08; basilic vein (medial side of arm), right; [id number] catheter system; Anatomical Landmarks; 16 gauge; removed per policy/procedure, catheter/device intact; 02/19/23; 1229 02/18/23 0806 by Justen Quiros MD 02/19/23 1229 by Trevon Lay, RN documented in this encounter Social History Tobacco Use Types Packs/Day Years [...] on file documented as of this encounter OR Notes * Anesthesia Postprocedure Evaluation - Justen Quiros MD - 02/18/2023 12:06 PM EDT Department of Anesthesiology Post-procedure Note Patient: Diallo Barker Procedure Summary Date: 02/18/23 Room / Location: [facility] OR [address] [place] [address] MAIN OR Anesthesia Start: 737 Anesthesia Stop: 1206 Procedures: ARTHRODESIS, ANT INTERBODY,DECOMPRESSION; CERVICAL BELOW C2 (WRVU 25) (Bilateral: Neck) ARTHRODESIS ANT INTERBDY CERVCL BELOW C2 EA ADDL INTRSPACE (WRVU 6.5) (Bilateral: Neck) @ANT. SPINAL INSTRUMENTATION 4 TO 7 VERT.SEG. (WRVU 12.4) (Bilateral: Neck) ALLOGRAFT FOR SPINE SURGERY ONLY; STRUCTUAL (WRVU 1.81) (Bilateral) MODIFIER GLOBUS PROVIDENCE MODIFIER CORNERSTONE MODIFIER C4 MODIFIER C5 MODIFIER C6 MODIFIER C7 Diagnosis: Cervical disc disorder with radiculopathy of cervicothoracic region (Cervical radiculopathy) Surgeons: Arnoldo Prince MD Responsible Provider: Daniel Silverio MD Anesthesia Type: general ASA Status: 2 All Anesthesia Providers: Anesthesiologist: Daniel Silverio MD Historical Manuscripts Curator: Justen Quiros MD Vitals Value Taken Time BP 100/70 02/18/23 1200 Temp 36.7 ??C (98.1 ??F) 02/18/23 1158 Pulse 100 02/18/23 1206 Resp 21 02/18/23 1206 SpO2 98 % 02/18/23 1206 Pain Level 0 02/18/23 1158 Vitals shown include unvalidated device data. Patient Location: PACU/[facility] Level of Consciousness: Awake and Alert Pain Management: Satisfactory Analgesia PONV: None Cardiovascular Status: At Baseline and Hemodynamically Stable Respiratory Status: At Baseline and Supplemental O2 (NC or FM) Postoperative Fluid Status: Possible Anesthetic Complications: NONE apparent at time of evaluation Final Primary Anesthesia Type: General (The anesthetic type performed was the same as planned.) Comments: Vasovagal syncope in same day prior to surgery. Normotensive, normocardic and without typical or atypical chest pain. Vasovagal episode has broad differential including worse than normal neck pain. Never had an episode like this prior. Dr. Silverio and I elected to proceed with surgery. Emesis in OR prior to induction. V5 lead J point elevation, amplitude dependent on HR consistent with element of demand ischemia. Tight hemodynamic control during surgery HR goal 50-70, MAP goal >75 mm Hg, SpO2 goal >96. Extubated and brought in PACU in comfortable condition. Vitals stable. [id number] lead EKG and basic labs for initial workup. Low to intermediate risk mostly undoctored patient who may benefit from cardiology consultation if EKG is positive for new ischemic changes. If no new changes detected, would benefit from PCP outpatient follow up for evaluation and treatment of risk factors. Page if new symptoms or telemetry findings in recovery. Justen Quiros MD Associated attestation - Daniel Silverio MD - 02/18/2023 12:29 PM EDT POCUS performed in PACU for further evaluation of ?demand ischemia without evidence of WMAs, EF approximately 60-65%. 12-lead EKG to be performed shortly, patient remains asymptomatic. * Anesthesia Preprocedure Evaluation - Daniel Silverio MD - 02/15/2023 4:46 PM EDT Pre-Anesthesia Evaluation for: Diallo Barker a 42 y.o. male. Procedure(s): ARTHRODESIS, ANT INTERBODY,DECOMPRESSION; CERVICAL BELOW C2 (WRVU 25) ARTHRODESIS ANT INTERBDY CERVCL BELOW C2 EA ADDL INTRSPACE (WRVU 6.5) @ANT. SPINAL INSTRUMENTATION 4 TO 7 VERT.SEG. (WRVU 12.4) ALLOGRAFT FOR SPINE SURGERY ONLY; STRUCTUAL (WRVU 1.81) MODIFIER GLOBUS PROVIDENCE MODIFIER CORNERSTONE MODIFIER C4 MODIFIER C5 MODIFIER C6 MODIFIER C7 Patient Active Problem List Diagnosis Date Noted ??? Cervical disc disorder with radiculopathy of cervicothoracic region 11/17/2018 ??? Neck pain 07/21/2018 ??? Scrotal hematoma 01/19/2017 Past Medical History: Diagnosis Date ??? Depression Past Surgical History: Procedure Laterality Date ??? FINGER SURGERY 4th and 5th digit R hand Social History Tobacco Use ??? Smoking status: Every Day Packs/day: 1.50 Years: 15.00 Pack years: 22.50 Types: Cigarettes ??? Smokeless tobacco: Former Types: Chew Substance Use Topics ??? Alcohol use: Yes Comment: occasionally Social History Substance and Sexual Activity Drug Use Yes ??? Types: Marijuana Allergies Allergen Reactions ??? Milk Diarrhea Upset stomach Medications: MAR and/or home medications have been reviewed. Physical Exam: Preprocedure Vitals Current as of 02/15/23 1646 No BP, pulse, respiration, SpO2, or temperature recorded. Height: 190.5 cm (6' 3) (10/04/22) Weight: 79.4 kg (175 lb) (10/04/22) BMI: 21.87 IBW: 84.5 kg (186 lb 4.6 oz) Airway Assessment: Mallampati: I TM distance: >3 FB Neck ROM: full Cardiovascular Assessment: system normal Pulmonary Assessment: unlabored breathing Dental Assessment: Misc Assessment: Last Filed Perioperative Cognitive Screening None Anesthesia Plan: ASA 2 general, with a(n) intravenous induction 42 yo male undergoing 4 level cervical ACDF with orthopedic surgery Pmhx: current smoker, otherwise unremarkable PMH Relevant home meds: none Anesthesia hx: not on file No cardiopulm hx Appropriately NPO No relevant allergies Plan: GETA Supine anesthesia Standard monitors 2x PIV Guillermo quiros md Pager [phone] Region - Other Informed Consent: Anesthetic plan and risks discussed with patient. Plan discussed with resident and attending. Anesthesia Screening documented in this encounter Plan of Treatment Not on file documented as of this encounter Visit Diagnoses Not on filedocumented in this encounter Administered Medications Inactive Administered Medications - up to 3 most recent administrations Medication Order MAR Action Action Date Dose Rate Site ceFAZolin (Ancef) 1 g in dextrose 5% 50 mL infusion Intravenous, PRN, Starting on Sat02/18/23 at 0808, Until Sat02/18/23 at 1206, Administer over 30 Minutes, Anesthesia Intra-op Given 02/18/2023 8:08 AM EDT 2 g dexmedeTOMIDine (Precedex) (4 mcg/mL) bolus injection (Anesthsia) Intravenous, PRN, Starting on Sat02/18/23 at 0758, Until Sat02/18/23 at 1206, Anesthesia Intra-op, Routine Given 02/18/2023 7:58 AM EDT 4 mcg dexmedeTOMIDine (Precedex) (4 mcg/mL) in sodium chloride 0.9% 50 mL infusion Intravenous, CONTINUOUS PRN, Starting on Sat02/18/23 at 0757, Until Sat02/18/23 at 1206, Anesthesia Intra-op Rate/Dose Change 02/18/2023 11:03 AM EDT 0.2 mcg/kg/hr 4.045 mL/hr Rate/Dose Change 02/18/2023 10:00 AM EDT 0.6 mcg/kg/hr 12. 135 mL/hr New Bag 02/18/2023 7:57 AM EDT 0.2 mcg/kg/hr 4.045 mL/h r ePHEDrine sulfate (5 mg/mL) multi-dose injection Intravenous, PRN, Starting on Sat02/18/23 at 0824, Until Sat02/18/23 at 1206, Anesthesia Intra-op, Routine Given 02/18/2023 8:24 AM EDT 5 mg esmoloL (Brevibloc) (10 mg/mL) injection Intravenous, PRN, Starting on Sat02/18/23 at 1009, Until Sat02/18/23 at 1206, Anesthesia Intra-op, Routine Given 02/18/2023 11:44 AM EDT 20 mg Given 02/18/2023 10:48 AM EDT 20 mg Given 02/18/2023 10:32 AM EDT 20 mg fentaNYL (pf) (50 mcg/mL) multi-dose injection Intravenous, PRN, Starting on Sat02/18/23 at 0751, Until Sat02/18/23 at 1206, Anesthesia Intra-op, Routine Given 02/18/2023 9:33 AM EDT 25 mcg Given 02/18/2023 8:55 AM EDT 50 mcg Given 02/18/2023 7:51 AM EDT 25 mcg glycopyrrolate (Robinul) (0.2 mg/mL) multi-dose injection Intravenous, PRN, Starting on Sat02/18/23 at 0827, Until Sat02/18/23 at 1206, Anesthesia Intra-op, Routine Given 02/18/2023 8:27 AM EDT 0.1 mg HYDROmorphone (Dilaudid) (2 mg/mL) multi-dose injection solution Intravenous, PRN, Starting on Sat02/18/23 at 0936, Until Sat02/18/23 at 1206, Anesthesia Intra-op, Routine Given 02/18/2023 11:40 AM EDT 0.2 mg Given 02/18/2023 11:23 AM EDT 0.2 mg Given 02/18/2023 11:19 AM EDT 0.2 mg lactated ringers infusion 1,000 mL, at 100 mL/hr, Intravenous, CONTINUOUS, Starting on Sat02/18/23 at 0715, Until Sat02/18/23 at 1343, Day of Surgery (Day of Procedure) New Bag 02/18/2023 10:03 AM EDT New Bag 02/18/2023 7:18 AM EDT 1,000 mLs 100 mL/hr ondansetron (pf) (Zofran) (2 mg/mL) injection Intravenous, PRN, Starting on Sat02/18/23 at 1119, Until Sat02/18/23 at 1206, Anesthesia Intra-op, Routine Given 02/18/2023 11:19 AM EDT 4 mg PHENYLephrine (Yobany-Synephrine) (80 mcg/mL) in sodium chloride 0.9% 250 mL infusion Intravenous, CONTINUOUS PRN, Starting on Sat02/18/23 at 0807, Until Sat02/18/23 at 1206, Anesthesia Intra-op, Routine Rate/Dose Change 02/18/2023 10:37 AM EDT 20 mcg/min 15 mL/hr Restarted 02/18/2023 8:48 AM EDT 10 mcg/min 7.5 mL/hr Rate/Dose Change 02/18/2023 8:27 AM EDT 30 mcg/min 22.5 mL /hr PHENYLephrine in NS (PF) (YOBANY-SYNEPHRINE) 0.8 mg/10 mL (80 mcg/mL) multi-dose injection Syringe Intravenous, PRN, Starting on Sat02/18/23 at 0753, Until Sat02/18/23 at 1206, Anesthesia Intra-op, Routine Given 02/18/2023 11:19 AM EDT 80 mcg Given 02/18/2023 11:01 AM EDT 40 mcg Given 02/18/2023 8:11 AM EDT 80 mcg propofoL (Diprivan) (10 mg/mL) infusion Intravenous, CONTINUOUS PRN, Starting on Sat02/18/23 at 0757, Until Sat02/18/23 at 1206, Anesthesia Intra-op, Routine Rate/Dose Change 02/18/2023 11:36 AM EDT 25 mcg/kg/min 12.135 mL/hr Rate/Dose Change 02/18/2023 11:10 AM EDT 125 mcg/kg/min 60 .675 mL/hr New Bag 02/18/2023 7:57 AM EDT 15 mcg/kg/min 7.281 mL/h r propofoL (Diprivan) 10 mg/mL bolus injection (Anesthesia) Intravenous, PRN, Starting on Sat02/18/23 at 0752, Until Sat02/18/23 at 1206, Anesthesia Intra-op Given 02/18/2023 8:03 AM EDT 50 mg Given 02/18/2023 7:52 AM EDT 200 mg rocuronium (Zemuron) (10 mg/mL) multi-dose injection Intravenous, PRN, Starting on Sat02/18/23 at 0805, Until Sat02/18/23 at 1206, Anesthesia Intra-op, Routine Given 02/18/2023 10:45 AM EDT 20 mg Given 02/18/2023 10:17 AM EDT 20 mg Given 02/18/2023 10:03 AM EDT 10 mg succinylcholine (Anectine;Quelicin) (20 mg/mL) injection Intravenous, PRN, Starting on Sat02/18/23 at 0753, Until Sat02/18/23 at 1206, Anesthesia Intra-op, Routine Given 02/18/2023 7:53 AM EDT 100 mg documented in this encounter Care Teams City Route Driver Relationship Specialty Start Date End Date Delaney Kwok, LATHE OPERATOR [address] [facility] [address] PCP - General Family Medicine 02/18/23 documented as of this encounter
--- OUTSIDE RECORDS SUMMARY | 2024-07-03 00:32 | XMS_ITS | Encounter Summary ---
[place] [address] Care Team Providers Care Project Scheduler Name Role Phone Melissa Gill APRN Primary Care Provider Encounter Details Date Type Department Care Team (Latest Contact Info) Description 09/28/2022 Travel Social History Tobacco Use Types Packs/Day Years Used Date Smoking Tobacco: Every Day Cigarettes 1.5 15 Smokeless Tobacco: Former Chew Alcohol Use [...] on filedocumented in this encounter Care Teams Project Scheduler Relationship Specialty Start Date End Date Melissa Gill APRN [address] [place], [place] [phone] PCP - General Family Medicine 08/13/17 02/11/23 documented as of this encounter
--- OUTSIDE RECORDS SUMMARY | 2024-07-03 00:32 | XMS_ITS | Encounter Summary ---
[place] [address] Care Team Providers Care Cutting Machine Operator Helper Name Role Phone Delaney Kwok APRN Primary Care Provider Reason for Visit * Auth/Cert (Routine) Specialty Diagnoses / Procedures Referred By Contac t Referred To Contact Diagnoses Cervical radiculopathy Cervical radiculopathy Procedures PRO ARTHRODESIS, ANT INTERBODY,DECOMPRESSION; CERVICAL BELOW C2 PRO ARTHRD ANT INTERDY CERVCL BELW C2 EA ADDL NTRSPC PRO ANTERIOR INSTRUMENTATION 4-7 VERTEBRAL SEGMENTS PRO ALLOGRAFT FOR SPINE SURGERY ONLY STRUCTURAL OPTIME, INTERSPINOUS PROCESS DISTRACTION DEVICE (IMPLANTABLE) OPTIME, ANCHOR/SCREW FOR OPPOSING BN-TO-BN OR SOFT EBUNOX-HD-GG (IMPLANTABLE) ARTHRODESIS, ANT INTERBODY,DECOMPRESSION; CERVICAL BELOW C2 (WRVU 25) ARTHRODESIS ANT INTERBDY CERVCL BELOW C2 EA ADDL INTRSPACE (WRVU 6.5) @ANT. SPINAL INSTRUMENTATION 4 TO 7 VERT.SEG. (WRVU 12.4) ALLOGRAFT FOR SPINE SURGERY ONLY; STRUCTUAL (WRVU 1.81) MODIFIER GLOBUS PROVIDENCE MODIFIER CORNERSTONE MODIFIER C4 MODIFIER C5 MODIFIER C6 MODIFIER C7 Arnoldo Reeves MD [facility] [address] [facility] Referral ID Status Reason Start Date Expiration Date Visits Re quested Visits Authorized [id number] 1 1 Encounter Details Date Type Department Care Team (Latest Contact Info) Description 02/18/2023 6:33 AM EDT - 02/19/2023 1:47 PM EDT Hospital Encounter [place] [address] Arnoldo Reeves MD [facility] [place] [address] Cervical disc disorder with radiculopathy of cervicothoracic region; Vasovagal syncope Discharge Disposition: Home Social History Tobacco Use [...] Diallo Barker Patient Age: 42 y.o. Language: Bruneian Race: White Ethnicity: Not nor Admit date: 02/18/2023 Discharge date and time: 02/19/2023 Attending Physician: Arnoldo Reeves MD Discharge Physician: Arnoldo Reeves MD Follow-up Recommendations for Providers: An appt with you PCP's office has been requested for next week. Please call [phone] if you do not hear from them. See discharge instructions for additional details. Future Appointments Date Time Provider Department Center 03/18/2023 10:00 AM [facility] DX ROOM 2 Xray [facility] Rad 03/18/2023 10:40 AM Arnoldo Reeves MD [facility] Pain Sp [facility] Inpatient Provider Contact Information: rAnoldo Reeves MD Spine Center: [phone] After hours and weekends, call [facility] Wet Pour Supervisor, , and have the Orthopedic resident paged. [...] The patient was instructed to wear a [place] at all times. These parameters were [...] who have questions please contact the health healthcare customer service that requested your imaging first. Electronically signed by: Michelle Andrade MD, [facility] ([phone]), at 02/18/2023 11:16 AM SCAN DOC: ECG [...] taking them. You should also take an mirh-nnp-yoexggb stool softener or laxative, such as Judith-colace [...] contact the Spine Center Nursing staff at [phone]. Nursing staff will need to talk with you directly prior to refilling any postoperative medications. PRESCRIPTION RENEWAL REQUESTS CAN TAKE UP TO 2 BUSINESS DAYS TO PROCESS SO PLEASE PLAN ACCORDINGLY. Most pharmacies can now accept electronic narcotic pain medications prescriptions, but some do not. [place] Collar Instructions: You are being sent [...] has completely healed. PLEASE CALL US AT [phone] TO SPEAK WITH A SPINE CENTER NURSE [...] Numbers: Clinical issues, nurse questions, medication renewals: [phone] Appointments for ARNOLDO Harrison M: [phone] Evenings after 5pm and weekends you may contact the Orthopaedic resident corrosion control engineer: [phone], askthe embossograph operator to page the Orthopaedic resident Follow Up Appointments: 1. You will have follow-up appointments at [facility] as indicated in the ???Future Appointments and [...] on the next business day. Please call [phone] if you do not hear from us by that time, as your timely follow-up is very important to us. Future Appointments Date Time Provider Department Center 03/18/2023 10:00 AM [facility] DX ROOM 2 MH Xray [facility] Rad 03/18/2023 10:40 AM Arnoldo Reeves MD [facility] Pain Sp [facility] General Instructions None Future Appointments and Orders Future Appointments and Orders Future Appointments Provider Department Dept Phone 03/18/2023 10:00 AM [facility] DX ROOM 2 XRay at [facility] Arrive at: Precipitator Supervisor Area 3T [phone] Please go to Precipitator Supervisor Area 3T ([place] Location). 03/18/2023 10:40 AM Arnoldo Reeves MD [facility] Spine Center at [facility] Arrive at: Precipitator Supervisor Area 3D [phone] Primary Care Provider: Delaney Kwok APRN [phone] Discharge References/Attachments None documented in this encounter [...] taking them. You should also take an pfoc-usr-aprarhs stool softener or laxative, such as Judith-colace [...] contact the Spine Center Nursing staff at [phone]. Nursing staff will need to talk with you directly prior to refilling any postoperative medications. PRESCRIPTION RENEWAL REQUESTS CAN TAKE UP TO 2 BUSINESS DAYS TO PROCESS SO PLEASE PLAN ACCORDINGLY. Most pharmacies can now accept electronic narcotic pain medications prescriptions, but some do not. [place] Collar Instructions: You are being sent [...] has completely healed. PLEASE CALL US AT [phone] TO SPEAK WITH A SPINE CENTER NURSE [...] Numbers: Clinical issues, nurse questions, medication renewals: [phone] Appointments for ARNOLDO Harrison: [phone] Evenings after 5pm and weekends you may contact the Orthopaedic resident corrosion control engineer: [phone], askthe embossograph operator to page the Orthopaedic resident Follow Up Appointments: 1. You will have follow-up appointments at [facility] as indicated in the ???Future Appointments and [...] on the next business day. Please call [phone] if you do not hear from us by that time, as your timely follow-up is very important to us. Future Appointments Date Time Provider Department Center 03/18/2023 10:00 AM [facility] DX ROOM 2 Xray [facility] Rad 03/18/2023 10:40 AM Arnoldo Reeves MD [facility] Pain Sp [facility] documented in this encounter Medications at Time [...] of this encounter Progress Notes * Arnoldo Addsion, RN - 02/19/2023 1:42 PM EDT [facility] Short Stay Unit Discharge Note All relevant [...] 1.81) performed by Arnoldo Reeves MD at [facility] MAIN OR PRO ANTERIOR INSTRUMENTATION 4-7 VERTEBRAL SEGMENTS Bilateral 02/18/2023 @ANT. SPINAL INSTRUMENTATION 4 TO 7 VERT.SEG. (WRVU 12.4) performed by Arnoldo Reeves MD at [facility] MAIN OR PRO ARTHRD ANT INTERDY CERVCL BELW C2 EA ADDL NTRSPC Bilateral 02/18/2023 ARTHRODESIS ANT INTERBDY CERVCL BELOW C2 EA ADDL INTRSPACE (WRVU 6.5) performed by Arnoldo Reeves MD at [facility] MAIN OR PRO ARTHRODESIS, ANT INTERBODY,DECOMPRESSION; CERVICAL BELOW C2 Bilateral 02/18/2023 ARTHRODESIS, ANT INTERBODY,DECOMPRESSION; CERVICAL BELOW C2 (WRVU 25) performed by Arnoldo Reeves MD at [facility] MAIN OR Social History: Home set-up: Pt [...] outlined in thisevaluation. Time IN / OUT: 0218-7665 Total Minutes, Physical Therapy: 13 Billing Code: min complexity eval Sheeba Ventura, PT Pager: [phone] Physical Therapy Inpatient Rehabilitation Department * Leland [...] 1.81) performed by Arnoldo Reeves MD at [facility] MAIN OR PRO ANTERIOR INSTRUMENTATION 4-7 VERTEBRAL SEGMENTS Bilateral 02/18/2023 @ANT. SPINAL INSTRUMENTATION 4 TO 7 VERT.SEG. (WRVU 12.4) performed by Arnoldo Reeves MD at [facility] MAIN OR PRO ARTHRD ANT INTERDY CERVCL BELW C2 EA ADDL NTRSPC Bilateral 02/18/2023 ARTHRODESIS ANT INTERBDY CERVCL BELOW C2 EA ADDL INTRSPACE (WRVU 6.5) performed by Arnoldo Reeves MD at [facility] MAIN OR PRO ARTHRODESIS, ANT INTERBODY,DECOMPRESSION; CERVICAL BELOW C2 Bilateral 02/18/2023 ARTHRODESIS, ANT INTERBODY,DECOMPRESSION; CERVICAL BELOW C2 (WRVU 25) performed by Arnoldo Reeves MD at [facility] MAIN OR Social History: Patient lives with [...] only Total Minutes, Occupational Therapy: 13 (eval [id number]) 2017 OT Evaluation Code Rationale: Diagnosis & [...] and measurable assessment of functional outcome. Pager: [phone] LELAND RAMOS OT 02/19/2023 Occupational Therapy Rehabilitation [...] Time Provider Department Center 03/18/2023 10:00 AM [facility] DX ROOM 2 MH Xray [facility] Rad 03/18/2023 10:40 AM Arnoldo Reeves MD [facility] Pain Sp [facility] Spine Attending I have seen and examined [...] Time Provider Department Center 03/18/2023 10:00 AM [facility] DX ROOM 2 Xray [facility] Rad 03/18/2023 10:40 AM Arnoldo Reeves MD [facility] Pain Sp [facility] * Giovanna Davidson RN - 02/18/2023 12:06 [...] surrogate would be surrogate decision maker per [place] surrogate decision making law. (Only good for 180 days) Any patient receiving care in [place] must abide by [place] law. The hierarchy for surrogate decision making [...] (i) The agent with financial power of civil litigation attorney or a conservator appointed in accordance [...] afford (pt states he will be calling [place] Medicaid for short term disability) Current DME: none Home Address confirmed as: [address] [place] [address] [facility] [address] Social & Family Supports: All names listed below confirmed with patient as current and correct Extended Emergency Contact Information Primary Emergency Contact: Jeana Carrera Address: [address] [place] [address] Relation: Mother Current Care Provided by: self [...] Insurance: N/A ; Prescription Coverage: Preferred Pharmacy: [id number] - [place], [place] - [address] [place] [address] [facility] [address] Status: Patient is a : No Primary Care Provider confirmed: Pt states PCP is Delaney JUDD, [facility] Patient/Caregiver Goals of Treatment: Return to home with family Potential Needs for Transition of Care: none Agency Referrals: Not Applicable Transportation: no concerns Transportation Anticipated: family or friend will provide (Jeana/mother) Concerns to be Addressed: no discharge needs identified Assessment: Pt is a 42yo male admitted to [facility] for C4-C7 ACDF. Pt has [place] Medicaid and uses [employer] [facility] [employer] [facility] for his medications. Pt lives with his [...] Operative Note Patient Name: Diallo Barker : [id number] MR#: [id number] Case Date: 02/18/2023 Surgeon: Surgeon(s) and Role: * Arnoldo Reeves MD - Primary * Almas Martinez MD - Resident - Assisting Preoperative diagnosis: Cervical radiculopathy Postoperative diagnosis: Cervical radiculopathy Procedure: C4-C7 ACDF with anterior plate and structural allografts (23553, 33573 x 2, 48771, 99389l 3) Anesthesia: General Findings: There was hard [...] Reeves MD - 02/18/2023 8:26 AM EDT [facility] Operative Note Patient Name: Diallo Barker : [id number] MR#: [id number] Case Date: 02/18/2023 Surgeon: Surgeon(s) and Role: * Arnoldo Reeves MD - Primary * Almas Martinez MD - Resident - Assisting Preoperative diagnosis: Cervical radiculopathy Postoperative diagnosis: Cervical radiculopathy Procedure: 1. C4-C7 anterior cervical discectomy and fusion 2. Anterior cervical plating C4-C7 3. Structural allograft placement C4-C5, C5-C6, and C6-C7 Implants: [employer] [place] Anesthesia: General Operative findings: There was hard [...] along the anterior aspect of the spine. Bridge Attacher holes were created using drills, and self-tapping, [...] region Allograft For Spine Surgery Only Structural ([id number]) 02/18/2023 7:36 AM EDT Cervical disc disorder with radiculopathy of cervicothoracic region Anterior Instrumentation 4-7 Vertebral Segments (36711) 02/18/2023 7:36 AM EDT Cervical disc disorder with radiculopathy of cervicothoracic region Arthrd Ant Interdy Cervcl Belw C2 Ea Addl Ntrspc ([id number]) 02/18/2023 7:36 AM EDT Cervical disc disorder with radiculopathy of cervicothoracic region Arthrodesis, Ant Interbody,Decompressio n; Cervical Below C2 (88981) 02/18/2023 7:36 AM EDT Cervical disc disorder [...] 2:10 AM EDT) Neutrophil % 74.8 % [facility] Neutrophil Absolute 9.52(H) 1.70 - 6.10 x10(3)/mc L [facility] Lymph % 15.0 % [facility] Lymphocytes Abs 1.9 0.9 - 3.2 x10(3)/mc L [facility] Monocyte % 9.6 % [facility] Monocyte Abs 1.2(H) 0.3 - 0.9 x10(3)/mc L [facility] Eos % 0.2 % [facility] Eosinophils Abs 0.0 0.0 - 0.4 x10(3)/mc L [facility] Basophil % 0.2 % [facility] Baso Absolute 0.0 0.0 - 0.1 x10(3)/mc L [facility] Immature Gran % 0.20 % [facility] Comment: Immature granulocytes(IG's)percentage and absolute count will include metamyelocytes, myelocytes, and promyelocytes. Blood smears from CBCs yielding IG's will be scanned manually for concordance. If this scan disagrees with the automated IG or if promyelocytes are noted, a manual differential will be performed. Immature Gran Absolute 0.03 0.00 - 0.04 x10(3)/mc L [facility] Blood 02/19/2023 2:10 AM EDT 02/19/2023 2:43 AM EDT Narrative Resulting Agency Comment Spec In Lab Almas Martinez MD HEMATOLOGY ORDERABLE S [facility] [place] [address] * (ABNORMAL) Hemogram (02/19/2023 2:10 AM EDT) White Blood Cell 12.7(H) 4.0 - 9.5 x10(3)/mc L [facility] Red Blood Cell 4.37(L) 4.58 - 5.54 x10(6)/ L [facility] Hemoglobin 13.8 13.7 - 16.5 g/dL [facility] Hematocrit 39.7(L) 40.5 - 48.5 % [facility] Mean Cell Volume 90.8 82.9 - 93.1 fL [facility] Mean Cell Hemoglobin 31.6 27.5 - 32.1 pg [facility] Mean Cell Hemoglobin Concentration 34.8 32.0 - 35.7 g/dL [facility] Platelet 343 145 - 357 x10(3)/mc L [facility] RDW Standard Deviation 39.6 36.0 - 45.0 fL [facility] RDW coefficient of variation 11.9 11.4 - 13.8 % [facility] Mean Platelet Volume 8.9 7.6 - 12.9 fL [facility] NRBC% auto 0.0 % [facility] NRBC Absolute 0.000 0.000 - 0.000 x10(3)/mc L [facility] Blood 02/19/2023 2:10 AM EDT 02/19/2023 2:43 AM EDT Narrative Resulting Agency Comment Spec In Lab Almas Martinez MD HEMATOLOGY ORDERABLE S [facility] [place] [address] * (ABNORMAL) Basic Metabolic Panel (non-fasting) (02/19/2023 2:10 AM EDT) Glucose 122 65 - 199 mg/dL [facility] Comment:Diabetes: >=200 mg/d L plus symptoms Blood Urea Nitrogen 6(L) 10 - 20 mg/dL [facility] Creatinine 0.86 0.80 - 1.50 mg/dL [facility] Sodium 137 135 - 145 mmol/L [facility] Potassium 4.0 3.5 - 5.0 mmol/L [facility] Comment: Please note: ??Patients with WBC >100,000 may have falsely elevated Potassium levels. ??For accurate Potassium quantification in these patients send serum separator tube (gold top) for subsequent determinations. ??Contact the Clinical Chemistry Laboratory if there are any questions. Chloride 101 98 - 107 mmol/L [facility] Carbon Dioxide 23 22 - 31 mmol/L [facility] Anion Gap 13 5 - 15 mmol/L [facility] Calcium 9.0 8.5 - 10.5 mg/dL [facility] Est Glomerular Filtration Rate 112 >=60 mL/min/1. 73 m?? [facility] Comment: This patient's estimated GFR was [...] In Lab Arnoldo Reeves MD CHEMISTRY ORDERABLES [facility] [place] [address] * XR Cervical Spine 2 or 3 [...] who have questions please contact the health healthcare customer service that requested your imaging first. ? Narrative 02/19/2023 1:40 PM EDT EXAMINATION: XR [...] patients who have questions please contactthe health healthcare customer service that requested your imaging first. Arnoldo Reeves MD IMG DX ORDERABLES * (ABNORMAL) Differential, Automated (02/18/2023 12:30 PM EDT) Neutrophil % 92.0 % [facility] Neutrophil Absolute 10.85(H) 1.70 - 6.10 x10(3)/mc L [facility] Lymph % 6.0 % [facility] Lymphocytes Abs 0.7(L) 0.9 - 3.2 x10(3)/ L [facility] Monocyte % 1.2 % [facility] Monocyte Abs 0.1(L) 0.3 - 0.9 x10(3)/ L [facility] Eos % 0.1 % [facility] Eosinophils Abs 0.0 0.0 - 0.4 x10(3)/[facility] Basophil % 0.3 % [facility] Baso Absolute 0.0 0.0 - 0.1 x10(3)/[facility] Immature Gran % 0.40 % [facility] Comment: Immature granulocytes(IG's)percentage and absolute count will include metamyelocytes, myelocytes, and promyelocytes. Blood smears from CBCs yielding IG's will be scanned manually for concordance. If this scan disagrees with the automated IG or if promyelocytes are noted, a manual differential will be performed. Immature Gran Absolute 0.05(H) 0.00 - 0.04 x10(3)/ L [facility] Blood 02/18/2023 12:3 0 PM EDT 02/18/2023 12:48 PM EDT Narrative Resulting Agency Comment Spec In Lab Justen Quiros MD HEMATOLOGY ORDERABLE S [facility] [place] [address] * (ABNORMAL) Hemogram (02/18/2023 12:30 PM EDT) White Blood Cell 11.8(H) 4.0 - 9.5 x10(3)/ L [facility] Red Blood Cell 4.32(L) 4.58 - 5.54 x10(6)/[facility] Hemoglobin 13.5(L) 13.7 - 16.5 g/dL [facility] Hematocrit 39.1(L) 40.5 - 48.5 % [facility] Mean Cell Volume 90.5 82.9 - 93.1 fL [facility] Mean Cell Hemoglobin 31.3 27.5 - 32.1 pg [facility] Mean Cell Hemoglobin Concentration 34.5 32.0 - 35.7 g/dL [facility] Platelet 325 145 - 357 x10(3)/mc L [facility] RDW Standard Deviation 38.4 36.0 - 45.0 fL [facility] RDW coefficient of variation 11.6 11.4 - 13.8 % [facility] Mean Platelet Volume 8.5 7.6 - 12.9 fL [facility] NRBC% auto 0.0 % [facility] NRBC Absolute 0.000 0.000 - 0.000 x10(3)/mc L [facility] Blood 02/18/2023 12:3 0 PM EDT 02/18/2023 12:48 PM EDT Narrative Resulting Agency Comment Spec In Lab Justen Quiros MD HEMATOLOGY ORDERABLE S Performing Organization Address [facility] Co de Phone Number [facility] [place] [address] * Phosphorus (02/18/2023 12:30 PM EDT) Phosphorus 3.3 2.5 - 4.5 mg/dL [facility] Blood 02/18/2023 12:3 0 PM EDT 02/18/2023 12:48 PM EDT Narrative Resulting Agency Comment Spec In Lab Daniel Silverio MD CHEMISTRY ORDERABLES Performing Organization Address [facility] Co de Phone Number [facility] [place] [address] * Magnesium (02/18/2023 12:30 PM EDT) Magnesium 0.84 0.69 - 1.07 mmol/L [facility] Blood 02/18/2023 12:3 0 PM EDT 02/18/2023 12:48 PM EDT Narrative Resulting Agency Comment Spec In Lab Daniel Silverio MD CHEMISTRY ORDERABLES Performing Organization Address [facility] Co de Phone Number [facility] [place] [address] * (ABNORMAL) Basic Metabolic Panel (non-fasting) (02/18/2023 12:30 PM EDT) Glucose 151 65 - 199 mg/dL [facility] Comment:Diabetes: >=200 mg/d L plus symptoms Blood Urea Nitrogen 5(L) 10 - 20 mg/dL [facility] Creatinine 0.80 0.80 - 1.50 mg/dL [facility] Sodium 130(L) 135 - 145 mmol/L [facility] Potassium 4.6 3.5 - 5.0 mmol/L [facility] Comment: Please note: ??Patients with WBC >100,000 may have falsely elevated Potassium levels. ??For accurate Potassium quantification in these patients send serum separator tube (gold top) for subsequent determinations. ??Contact the Clinical Chemistry Laboratory if there are any questions. Chloride 97(L) 98 - 107 mmol/L [facility] Carbon Dioxide 23 22 - 31 mmol/L [facility] Anion Gap 10 5 - 15 mmol/L [facility] Calcium 8.6 8.5 - 10.5 mg/dL [facility] Est Glomerular Filtration Rate 114 >=60 mL/min/1. 73 m?? [facility] Comment: This patient's estimated GFR was [...] In Lab Daniel Silverio MD CHEMISTRY ORDERABLES [facility] [place] [address] * EKG 12 Lead (02/18/2023 12:25 PM EDT) Ventricular rate 88 BPM MUSE SYSTEM Atrial Rate 88 BPM MUSE SYSTEM P-R Interval 138 ms MUSE SYSTEM QRS Duration 80 ms MUSE SYSTEM Q-T Interval 390 ms MUSE SYSTEM QTC Calculated (Bezet) 471 ms MUSE SYSTEM Calculated P Garfield 73 degrees MUSE SYSTEM Calculated R Garfield 66 degrees MUSE SYSTEM Calculated T Garfield 61 degrees MUSE SYSTEM INTERPRETATION Normal sinus [...] who have questions please contact the health healthcare customer service that requested your imaging first. ? Electronically signed by: Michelle Andrade MD, [facility] ([phone]), at 02/18/2023 4:18 PM Narrative 02/18/2023 4:18 PM EDT EXAMINATION: XR CERVICAL SPINE 1 VIEW CLINICAL HISTORY: intraoperative level confirmation TECHNIQUE: AP views of the cervical spine COMPARISON: Cervical spine radiograph 02/18/2023 FINDINGS: Interval placement of anterior cervical fixation hardware. While the dens is excluded from the [id number], fixation hardware starts at the level of [...] hardware. While the densis excluded from the pjvcv-[id number], fixation hardware starts at the level ofthe [...] patients who have questions please contactthe health healthcare customer service that requested your imaging first. Electronically signed by: Michelle Andrade MD, [facility]([phone]), at 02/18/2023 4:18 PM Arnoldo Reeves MD [...] who have questions please contact the health healthcare customer service that requested your imaging first. ? Electronically signed by: Michelle Andrade MD, [facility] ([phone]), at 02/18/2023 11:16 AM Narrative 02/18/2023 11:16 [...] Intraoperative radiographs demonstrate marker projecting over the [id number] body. Vertebral body heights are maintained. Similar [...] patients who have questions please contactthe health healthcare customer service that requested your imaging first. Arnoldo Reeves MD IMG DX ORDERABLES * POCT Glucose (02/18/2023 7:28 AM EDT) Glucose, POC 115 65 - 199 mg/dL [facility] Comment: Supplemental ranges: <140 mg/dL before meals <180 mg/dL all other times of the day Blood 02/18/2023 7:28 AM EDT 02/18/2023 7:28 AM EDT Arnoldo Reeves MD POINT OF CARE TEST O RDERABLES [facility] [place] [address] * SCAN DOC: IMPLANTABLE DEVICES (02/18/2023 12:00 AM EDT) Narrative 02/18/2023 12:00 AM EDT Ordered by an unspecified provider. Scanning Provider MEDIA MGR SCAN EXT O RDR/RSLT documented in this encounter Visit Diagnoses Diagnosis Cervical disc disorder with radiculopathy of cervicothoracic region Brachial neuritis or radiculitis nos Vasovagal syncope Syncope and collapse S/p C4-C7 ACDF 02/18/23 (Dr. Reeves) Arthrodesis status documented in this encounter Admitting Diagnoses Diagnosis S/P cervical spinal fusion Arthrodesis status documented in this encounter Administered Medications Inactive Administered Medications - up to 3 most recent administrations Medication Order MAR Action Action Date Dose Rate Site acetaminophen (Tylenol) tablet 1,000 mg 1,000 mg, Oral, EVERY 8 HOURS SCHEDULED, First dose on Sat02/18/23 at 1400, Until Discontinued, Maximum dose of acetaminophen is 4,000 mg from all sources in 24 hours. When ordered for pain, acetaminophen should be given even when other ordered pain medications are indicated. , Routine Given 02/18/2023 1:05 PM EDT 1,000 mg acetaminophen (Tylenol) tablet 1,000 mg 1,000 mg, [...] Given 02/18/2023 6:30 PM EDT 1,000 mg acetaminophen (Tylenol) tablet 975 mg 975 mg, Oral, ONCE, 1 dose, On Sat02/18/23 at 0715, Administer with a SIP of water only. Maximum dose of acetaminophen is 4,000 mg from all sources in 24 hours., Day of Surgery (Day of Procedure), Routine Given 02/18/2023 6:58 AM EDT 9 75 mg lactated ringers infusion 1,000 mL, at 100 mL/hr, Intravenous, CONTINUOUS, Starting on Sat02/18/23 at 0715, Until Sat02/18/23 at 1343, Day of Surgery (Day of Procedure) New Bag 02/18/2023 10:03 AM EDT New Bag 02/18/2023 7:18 AM EDT 1,000 mLs 100 mL/hr oxyCODONE (Roxicodone) tablet 10 mg 10 mg, [...] Given 02/18/2023 8:41 PM EDT 5 mLs documented in this encounter Active and Recently [...] Routine 1433 (Given - Provider: Sheree Cameron RN)204 (Given - Provider: Sheree Cameron RN) 0817 (Given - Provider: Arnoldo Addison, RN) senna-docusate (Pericolace) 8.6-50 mg per tablet 2 tablet 2 tablet, Oral, 2 TIMES DAILY, First dose on Sat02/18/23 at 2100, Until Discontinued, Routine 2039 (Given - Provider: Sheree Cameron RN) 0900 (Not Given - Provider: Arnoldo Addison RN - Reason: Patient/family refused) sodium chloride 0.9 % (flush) (BD PosiFlush Normal Saline 0.9) flush 5 mL 5 mL, Intravenous, 2 TIMES DAILY, First dose on Sat02/18/23 at 2100, Until Discontinued, Recovery (Recovery-Hospital Unit), Routine 2040 (Given - Provider: Sheree Cameron RN) 0817 (Given - Provider: Arnoldo Addison, AMANUEL) Continuous Medication Order 02/17/2023 02/18/2023 02/19/2023 lactated [...] , Routine 1830 (Given - Provider: Saira Mendez, RN) 0931 (Given - Provider: Arnoldo Addison [...] Cindy Velez RN)2039 (Given - Provider: Sheree Cameron RN) 0105 (Given - Provider: Edil Tejada RN)0608 (Given - Provider: Angela Summers RN)1240 (Given - Provider: Arnoldo Addison RN) oxyCODONE (Roxicodone) tablet 5 mg(Linked Group 1) 5 mg, Oral, EVERY 4 HOURS PRN, Starting on Sat02/18/23 at 1237, Until Sat02/19/23 at 1548, Pain, mild pain (1-3), For mild pain (1-3). Do not exceed 15 mg in 4 hours. If pain not relieved, call provider., Routine 1259 (See Alternative - Provider: Annika Garrido RN)1626 (See Alternative - Provider: Cindy R Beausoleil, RN)2040 (See Alternative - Provider: Sheree Cameron, AMANUEL) 0105 (See Alternative - Provider: Edil Tejada, RN)0608 (See Alternative - Provider: Angela Summers, RN)1240 (See Alternative - Provider: Arnoldo Addison, RN) sodium chloride 0.9 % (flush) (BD [...] Routine documented in this encounter Care Teams Cutting Machine Operator Helper Relationship Specialty Start Date End Date Delaney Kwok, [place] [address] PCP - General Family Medicine 02/18/23 documented as of this encounter
--- OUTSIDE RECORDS SUMMARY | 2024-07-03 00:32 | XMS_ITS | Encounter Summary ---
Author Organization [facility] [place] [address] Care Team Providers Care Manager Security Name Role Phone Melissa Gill APRN Primary Care Provider [phone] Reason for Referral * Consultation (Routine) - Closed Specialty Diagnoses / Procedures Referred By Oxana sewell Referred To Contact Orthopaedics Diagnoses Cervical radiculopathy/ MRI 06/23/18 in [facility] Sterling Preston MD [facility] [place] [address] [address] [place] [address] [address] Referral ID Status Reason Start Date Expiration Date V isits Requested Visits Authorized [id number] Closed Consult, Test & Treat 06/25/2018 06/25/2019 1 1 Encounter Details Date Type Department Care Team (Late st Contact Info) Description 06/24/2018 Telephone [place] [address] Pilar Melendez, RN Social History Tobacco Use Types Packs/Day Years [...] as of this encounter Miscellaneous Notes * Addendum Note - Pilar Melendez RN - 06/25/2018 2:54 PM ESTAddended by: PILAR MELENDEZ on: 06/25/2018 02:54 PM Modules accepted: Orders * Telephone Encounter - Pilar Melendez RN - 06/24/2018 2:03 PM EST Diallo can be reached on his cell phone [phone]. Not the # listed from the call center noted below. 06/25/18 Call to Diallo's cell # ,unable to leave voice message as this is not an option. Call to Diallo,per Dr Preston,discussed results of MRI (Multilevel degenerative changes in the cervical spine ) and recommendation to refer him to spine Center . Referral entered . * Telephone Encounter - Pilar Melendez RN - 06/24/2018 1:55 PM EST ----- Message from Willa Hadley sent at 06/24/2018 1:10 PM EST ----- Regarding: CT Results Contact: He would like to get the results from the CT scan. documented in this encounter Plan of Treatment Scheduled Referrals Name Type Priority Associated Diagnoses Orde r Schedule Referral to Spine Center Outpatient Referral Routine Bilateral arm pain Ordered: 06/25/2018 documented as of this encounter Visit Diagnoses Diagnosis Bilateral arm pain Pain in limb documented in this encounter Care Teams Manager Security Relationship Specialty Start Date End Date Melissa Gill, [place] [address] [place] [address] PCP - General Family Medicine 08/13/17 02/11/23 documented as of this encounter
--- OUTSIDE RECORDS SUMMARY | 2024-07-03 00:32 | XMS_ITS | Encounter Summary ---
[place] [address] Care Team Providers Care Crosscutter Name Role Phone Melissa Gill APRN Primary Care Provider [phone] Encounter Details Date Type Department Care Team (Late st Contact Info) Description 01/28/2023 Orders Only [facility] [place] [address] Joy Green RN Cervical disc disorder with radiculopathy of cervicothoracic [...] as of this encounter Progress Notes * Joy Green RN - 01/28/2023 7:59 AM EDT Updated cervical bone stimulator pended to Dr Mclaughlin to replace the earlier order. New order needed by Vendor. Order and [place] Medicaid [facility] documented in this encounter Plan of Treatment Not on file documented as of this encounter Visit Diagnoses Diagnosis Cervical disc disorder with radiculopathy of cervicothoracic region Brachial neuritis or radiculitis nos documented in this encounter Care Teams Crosscutter Relationship Specialty Start Date End Date Melissa Gill, MANAGER [facility] HOME [address] [facility] [place] [address] PCP - General Family Medicine 08/13/17 02/11/23 documented as of this encounter
--- OUTSIDE RECORDS SUMMARY | 2024-07-03 00:32 | XMS_ITS | Encounter Summary ---
[facility] [place] [address] Care Team Providers Care Floor Surfacer Name Role Phone Melissa Gill APRN Primary Care Provider [phone] Reason for Visit * Auth/Cert Specialty Diagnoses / Procedures Referred By Oxana sewell Referred To Contact Diagnoses Cervical disc disorder with radiculopathy of cervicothoracic region Procedures PRO INJECTION DX/THER SBST INTRLMNR CRV/THRC W/IMG GDN INJECTION, EPIDURAL, CERVICAL OR THORACIC, WITH IMAGING GUIDANCE (WRVU 1.95) Referral ID Status Reason Start Date Expiration Date Visits Re quested Visits Authorized [id number] 1 1 Encounter Details Date Type Department Care Team (Late st Contact Info) Description 11/18/2018 11:45 AM EDT - 11/18/2018 12:30 PM EDT [place] [address] Amber Ford MD [facility] [place] [address] INJECTION, EPIDURAL, CERVICAL OR THORACIC, WITH IMAGING GUIDANCE (WRVU 1.95) Social History Tobacco Use Types Packs/Day Years [...] Sign Reading Time Taken Comments Blood Pressure 130/76 11/18/2018 12:20 PM EDT Pulse - - Temperature - - Respiratory Rate - - Oxygen Saturation 100% 11/18/2018 12:25 PM EDT Inhaled Oxygen Concentration - - Weight 77.1 kg (170 lb) 11/18/2018 12:06 PM EDT Height 185.4 cm (6' 1) 11/18/2018 12:06 PM EDT Body Mass Index 22.43 11/18/2018 12:06 PM EDT documented in this encounter Discharge Instructions * Discharge Instructions* Tracey Sher RN - 11/18/2018 12:35 PM EDT Pain Management Center Discharge Instructions: You were seen by Dr. Amber Ford MD and Jack Christopher MD who performed cervical epidural steroid injection. It is normal that the injection site will be sore for up to 48 hours. You may also experience mild stiffness in the joint near the injection site. [x] You may resume your normal activities: tomorrow. You may shower today. DO NOT tub bathe, use whirlpools, hot tubs or pool therapy for 2 days. RemoveBand-Aid(s) later today/tomorrow. Do not drive until tomorrow. Use caution walking/climbing stairs as you may be unsteady on your feet. You may use your usual medications, including pain medications, as directed, unless otherwise instructed. You may use an ice pack as needed for the first 24 hours, on for 20 minutes then off for 20 minutes. Do not apply heat today. [x] You received Midazolam 1 mg through an intravenous line, to lessen the anxiety/pain of your procedure. DO NOT operate heavy or dangerous equipment/tools, or sign important papers today. Attempt to empty your bladder 4-6 hours after your procedure. You received the following medications: Lidocaine, Omnipaque (contrast dye) and Dexamethasone Sodium Phosphate 10 mg. During regular business hours, please phone the Pain Management Center at with any questions or if the following or other troubling symptoms develop: 1) Prolonged dizziness or weakness (more than 1 day). 2) Localized swelling, redness or drainage at the injection site(s). 3) Temperature of 101 degrees that lasts for more than 4 hours. After 5 PM or on weekends, call and ask for Pain Clinic provider on-call. If you are unable to reach the Pain Management Center and have a complication, please call your Primary Care Provider or proceed to your local emergency department. Tracey Sher RN Special instructions IV anxiolysis: Yes IV placement: ??? Location of IV Insertion: left [ x ] hand [ ] anterior forearm [ ] posterior forearm [ ] AC [ ] upper arm [ ] other: ??? IV Gauge: [ x ??? x] 24G [ ] 22G [ ] 20G After IV insertion completed, IV was secured with occlusive transparent dressing. IV site is patentand intact. Patient is without complaint upon completion of IV insertion. ??? Started by: Tracey Sher RN ? Initiated by John Sher RN ??? IV Solution: LR 1000ml - rate as directed by proceduralist ??? Total Volume Intravenous Fluid infused documented in the Medication Administration Record (MAR) Site condition at IV removal: [ x ] Clear [ ] Bruised [ ] other: Administration of IV anxiolysis procedural medications documented in MAR as ordered by proceduralist documented in this encounter Medications at Time of Discharge Medication Sig Dispensed Refills Start Date End Date gabapentin (NEURONTIN) 100 mg Capsule Take 200 mg by mouth as needed. Patient takes 6-12 tablets daily prn 09/07/2022 acetaminophen (TYLENOL) 500 mg Tablet Take 2 tablets by mouth every 6 hours as needed for Pain. 30 tablet 1 01/20/2017 02/19/2023 ibuprofen (ADVIL;MOTRIN) 800 mg Tablet Take 1 tablet by mouth every 6 hours as needed for Pain. 30 tablet 3 01/20/2017 02/19/2023 documented as of this encounter H&P Notes * Jack Christopher MD - 11/17/2018 3:56 PM EDT PREPROCEDURE HISTORY AND PHYSICAL Date of Visit: November 18, 2018 Chief Complaint: Neck and BUE pain, L>R HPI: Subjective Diallo Barker is a 38 y.o. male who presents today for cervical epidural steroid injection.He underwent prior STACEY at T1-T2 with catheter to the C4-5 towards the left. He reports about 10% relief for approx 2 weeks. We've elected to proceed with interlaminar STACEY at C7-T1. The history is obtained from the patient, and I have reviewed medical records provided by the referring physician and located in the electronic medical record to fill in gaps in the patient's recollection of events, treatments and outcomes. LOCATION: Neck and bilateral upper extremities, L>R PAIN LEVEL AT REST 02/28 PAST MEDICAL HISTORY: Past Medical History: Diagnosis Date ??? Depression PAST SURGICAL HISTORY: Past Surgical History: Procedure Laterality Date ??? FINGER SURGERY 4th and 5th digit R hand FAMILY HISTORY: No family history on file. SOCIAL HISTORY: Social History Socioeconomic History ??? Marital status: Single Spouse name: Not on file ??? Number of children: Not on file ??? Years of education: Not on file ??? Highest education level: Not on file Occupational History ??? Not on file Social Needs ??? Financial resource strain: Not on file ??? Food insecurity: Worry: Not on file Inability: Not on file ??? Transportation needs: Medical: Not on file Non-medical: Not on file Tobacco Use ??? Smoking status: Current Every Day Smoker Packs/day: 2.00 Years: 15.00 Pack years: 30.00 ??? Smokeless tobacco: Former User Types: Chew Substance and Sexual Activity ??? Alcohol use: Yes Comment: occasionally ??? Drug use: Yes Types: Marijuana ??? Sexual activity: Not Currently Lifestyle ??? Physical activity: Days per week: Not on file Minutes per session: Not on file ??? Stress: Not on file Relationships ??? Social connections: Talks on phone: Not on file Gets together: Not on file Attends pentecostal service: Not on file Active member of club or organization: Not on file Attends meetings of clubs or organizations: Not on file Relationship status: Not on file ??? Intimate partner violence: Fear of current or ex partner: Not on file Emotionally abused: Not on file Physically abused: Not on file Forced sexual activity: Not on file Other Topics Concern ??? Do You live alone? Not Asked ??? Tobacco in Home Not Asked Social History Narrative ??? Not on file ALLERGIES: Milk MEDICATIONS: No current facility-administered medications on file prior to encounter. Current Outpatient Medications on File Prior to Encounter Medication Sig Dispense Refill ??? gabapentin (NEURONTIN) 100 mg Capsule Take 200 mg by mouth as needed. Patient takes 6-12 tablets daily prn ??? acetaminophen (TYLENOL) 500 mg Tablet Take 2 tablets by mouth every 6 hours as needed for Pain.30 tablet 1 ??? ibuprofen (ADVIL;MOTRIN) 800 mg Tablet Take 1 tablet by mouth every 6 hours as needed for Pain.(Patient taking differently: Take 800 mg by mouth every 4 hours as needed for Pain. Patient takes up to 5 tablets) 30 tablet 3 ROS: Pt denies recent fever, chills, infection, wounds, hospitalizations, ED visits, use of antibiotics.Otherwise, as described above. PHYSICAL EXAM: BP 130/76 Ht 185.4 cm (6' 1) Wt 77.1 kg (170 lb) SpO2 100% BMI 22.43 kg/m?? General: patient well developed and is non-distressed Head: normocephalic and atraumatic CV: normal rate, normal rhythm Pulmonary: effort and breath sounds normal, no wheezing Skin: non-diaphoretic and no rashes noted MSK: neck and bilateral upper extremity pain, L>R RADIOLOGIC DATA: MRI reviewed LABS/DX RESULTS: No new labs pertinent to today's procedure. ASSESSMENT: Left cervical radiculopathy Assessment Diallo Barker is a 38 y.o. male who presents today for the above procedure. Risks and benefits were discussed with the patient and all questions answered. There are no contraindications to proceed. PLAN: Proceed with STACEY. Jack Christopher MD Pain Medicine Fellow documented in this encounter Miscellaneous Notes * Op Note - Amber Ford MD - 11/18/2018 12:11 PM EDT Pain Management Operative Note Patient Name: Diallo Barker : [id number] MR#: [id number] Case Date: 11/18/2018 Surgeon: Surgeon(s) and Role: * Amber Ford MD - Primary Present on Admission: ??? Cervical disc disorder with radiculopathy of cervicothoracic region Postoperative diagnosis: SAME Procedure(s) (LRB): INJECTION, EPIDURAL, CERVICAL OR THORACIC, WITH IMAGING GUIDANCE (WRVU 1.95) (N/A) Diallo Barker is a 38 y.o. male who presents today for STACEY referred by Dr. Jones. The patient had about 10% relief for 2 weeks after STACEY 08/13/18. PROCEDURE NOTE: Cervical Epidural Steroid Injection with Fluoroscopic Guidance C7-T1 Chief Complaint: NECK PAIN , LEFT UE PAIN Diallo Barker has been referred to the Pain Management Center for cervical epidural steroidinjection. Mr. Barker was interviewed and the medical record reviewed. MRI was reviewed. There were no medical, pharmacologic, radiographic or other structural contraindications to attempting fluoroscopically guided epidural steroid injection. Risks and expected side effects as well as potential benefit of the procedure were reviewed with Mr. Barker, and his voiced concerns were addressed. The printed consent form was signed and witnessed. Standard time-out procedure was performed. Diallo Barker was greeted by the nurse who verified patients name and . Patient was thentaken to the fluoroscopy suite. Technique After informed written consent was obtained, the patient was placed in the prone position. The cervical spine was prepped with chloraprep and draped. Sterile technique was used, vital signs (blood pressure cuff and pulse oximeter) were monitored,cap, glove, mask were worn ,time out was done. Using fluoroscopic guidance, the C7-T1 interspace was identified. The skin and subcutaneous structures were anesthetized with lidocaine 1% to a total volume of 5_ml. An 18 g tuohy needle was advancedto the medial aspect of the lamina of T1 until os was contacted. The needle was then advanced toward midiline to the epidural space using the loss of resistance technique with saline and fluoroscopicguidance. The needle was advanced into the epidural space under 55 DEGREE OFFSET with spot checks to AP view. There was no blood or CSF. Under 55 degree offset view and AP view 1 cc's of Omnipaque 240 while visualized with digital subtraction. There was no evidence of intravascular uptake, the epidural space was delineated. The patient then received Decadron (preservative free, non particulate) 10 mg to a total volume of 1 ml after negative aspiration for blood or CSF. There was not any unusual discomfort expressed by Diallo Barker. If given, dosages of intravenous drugs for anxiolysis and analgesia were documented in MAR. Radiographs were archived in radiology. Outcome: The patient tolerated the procedure well and had stable vital signs. Follow up plans and appointments were discussed with Diallo Barker. The patient was observed in the pain clinic and then discharged after having met discharge criteria to the care of a powder truck driver. The patient receivedwritten instructions as documented in nursing records. COMMENTS: Jack Christopher MD, Pain Fellow I was the attending physician supervising the fellow or resident in the above care and I was present with the resident for the entire procedure. Amber Ford MD Director Index of Anesthesiology [facility] [address] [address] / [facility] CC: Melissa Gill APRN @[email or web address]@ documented in this encounter Plan of Treatment Scheduled Orders Name Type Priority Associated Diagnoses Order Schedule Film Library- Storage Only Pain Clinic Ultrasound Imaging Storage Only Routine Once PRN (for Radiant use) for 1 Occurrences starting 11/18/2018 until 11/18/2018 documented as of this encounter Visit Diagnoses Not on filedocumented in this encounter Administered Medications Inactive Administered Medications - up to 3 most recent administrations Medication Order MAR Action Action Date Dose Rate Site dexamethasone(PF) (DECADRON) 10 mg/mL injection ONCE PRN, Starting on Sat11/18/18 at 1236, Until Sat11/18/18 at 1442, Intra-Operative (Intra-Procedure), Routine Given 11/18/2018 12:36 PM EDT 10 mg iohexol (OMNIPAQUE) 240 mg/mL solution ONCE PRN, Starting on Sat11/18/18 at 1236, Until Sat11/18/18 at 1442, Intra-Operative (Intra-Procedure), Routine Given 11/18/2018 12:36 PM EDT 1 mL documented in this encounter Active and Recently Administered Medications Times are shown in EDT. PRN Medication Order 11/16/2018 11/17/2018 11/18/2018 dexamethasone(PF) (DECADRON) 10 mg/mL injection (CANCELED) ONCE PRN, Starting on Sat11/18/18 at 1236, Until Sat11/18/18 at 1442, Intra-Operative (Intra-Procedure), Routine 1236 (Given - Provid er: Amber Ford MD) iohexol (OMNIPAQUE) 240 mg/mL solution (CANCELED) ONCE PRN, Starting on Sat11/18/18 at 1236, Until Sat11/18/18 at 1442, Intra-Operative (Intra-Procedure), Routine 1236 (Given - Provid er: Amber Ford MD) documented in this encounter Care Teams Floor Surfacer Relationship Specialty Start Date End Date Melissa Gill APRN [address] [place] [address] PCP - General Family Medicine 08/13/17 02/11/23 documented as of this encounter
--- OUTSIDE RECORDS SUMMARY | 2024-07-03 00:32 | XMS_ITS | Encounter Summary ---
[place] [address] Care Team Providers Care Help Desk Support Specialist Name Role Phone Melissa Gill APRN Primary Care Provider [phone] Encounter Details Date Type Department Care Team (Late st Contact Info) Description 07/28/2018 2:00 PM EST Office [place] [address] Sparkle Hanna, PT [facility] Neck pain Social History [...] this encounter Progress Notes * Sparkle Hanna, ERICA - 07/28/2018 2:00 PM EST [facility] Physical Therapy Note Referring Provider: Sagar Topete MD Diagnosis: 1. Neck pain 2. 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 Barker reports his neck pain has improved by 5-10%. The home exercise program has been going well. Mr. Barker currently complains of neck pain [...] extremity including all digits. Symptoms worsen when sitting, looking down, looking up, turning, and lifting. Symptoms ease when keeping the neck in midline orlying in the supine position. Sleep continues to be significantly disturbed due to his neck and left upper extremity symptoms. Objective: Mr. Barker returns today for a scheduled follow up appointment. He moves about in the exam room without difficulty and tends to keep the neck in midline at all times. Sitting and standingposture is good. Active range of motion of bilateral shoulder full and painless. Active range of motion of the cervical spine is limited to 60 degrees flexion, 70 degrees extension, 65 degrees right rotation, 70 degrees left rotation, 45 degrees right sidebending, and 45 degrees left sidebending. He has a 50% loss of retraction. Endrange flexion, extension, bilateral rotation, bilateral side bending, and retraction all worsen the neck and upper extremity symptoms. Spurling maneuver to the right and left worsens the radicular pain. Repeated movement testing of the cervical spine once again didnot suggest a directional preference. His position of comfort is with the neck in retraction but heis no better once returning to neutral. Treatment Received: Discussed the natural history of neck and upper extremity pain in the context of foraminal stenosis and the rational for exercise based treatment. Patient Education/ Home Exercise Program: Reviewed and modified Mr. Barker's home exercise program. The home exercise program now includes sustained cervical retraction as needed throughout the day to relieve the pain. Assessment: Mr. Neal pain continues to interfere with his ability to function. He wishes to proceed with a cervical epidural steroid injection as discussed with Dr. Jones. Goals: 1. Independent with home exercise program 2. Able to sit without discomfort 3. Able to turn and look over the shoulder without discomfort Plan: Follow up 1 week after the cervical epidural steroid injection with the hope that Mr. Arechiga be ready to progress the home exercise program. He was encouraged to call with any questions or concerns regarding todays visit or the home exercise program. Length of visit: A total of 25 minutes was spent re-assessing, treating, and instructing Christopher J Newhook in a home exercise program. documented in this encounter Plan of Treatment Not on file documented as of this encounter Visit Diagnoses Diagnosis Neck pain Cervicalgia documented in this encounter Care Teams Help Desk Support Specialist Relationship Specialty Start Date End Date Melissa Gill, [employer] [address] [place] [address] PCP - General Family Medicine 08/13/17 02/11/23 documented as of this encounter
--- OUTSIDE RECORDS SUMMARY | 2024-07-03 00:32 | XMS_ITS | Encounter Summary ---
[place] [address] Care Team Providers Care Bi Tri Operator Name Role Phone Melissa Gill APRN Primary Care Provider [phone] Encounter Details Date Type Department Care Team (Latest Contact Info) Description 09/07/2022 Travel Social History Tobacco Use Types Packs/Day [...] on filedocumented in this encounter Care Teams Bi Tri Operator Relationship Specialty Start Date End Date Melissa Gill APRN [address] [place], [place] [id number] PCP - General Family Medicine 08/13/17 02/11/23 documented as of this encounter
--- OUTSIDE RECORDS SUMMARY | 2024-07-03 00:32 | XMS_ITS | Encounter Summary ---
[place] [address] Care Team Providers Care Layer Up Name Role Phone Melissa Gill APRN Primary Care Provider Encounter Details Date Type Department Care Team (Late st Contact Info) Description 07/25/2018 Telephone [place] [phone] Joanna Buckley Social History Tobacco Use Types Packs/Day Years [...] encounter Miscellaneous Notes * Telephone Encounter - Joanna Buckley - 07/25/2018 9:09 AM EST Patient called stating that [facility] requested another transportation referral. Physician referral for medicaid transportation faxed to [phone]. Confirmation received and filed at exit desk. documented in this encounter Plan of Treatment Not on file documented as of this encounter Visit Diagnoses Not on filedocumented in this encounter Care Teams Layer Up Relationship Specialty Start Date End Date Melissa Gill APRN [address] [place], [place] [id number] PCP - General Family Medicine 08/13/17 02/11/23 documented as of this encounter
--- OUTSIDE RECORDS SUMMARY | 2024-07-03 00:32 | XMS_ITS | Encounter Summary ---
[place] [address] Care Team Providers Care Tire Finisher Name Role Phone Melissa Gill APRN Primary Care Provider Encounter Details Date Type Department Care Team (Late st Contact Info) Description 08/31/2022 Telephone [facility] [place] [id number] Vicenta Reed LNA Social History Tobacco Use Types Packs/Day Years [...] encounter Miscellaneous Notes * Telephone Encounter - Vicenta Reed LNA - 08/31/2022 8:02 AM EST LVM to call us back to [facility] his appt documented in this encounter Plan of Treatment Not on file documented as of this encounter Visit Diagnoses Not on filedocumented in this encounter Care Teams Tire Finisher Relationship Specialty Start Date End Date Melissa Gill APRN [address] [place], [place] [phone] PCP - General Family Medicine 08/13/17 02/11/23 documented as of this encounter
--- OUTSIDE RECORDS SUMMARY | 2024-07-03 00:32 | XMS_ITS | Encounter Summary ---
[place] [address] Care Team Providers Care Knocker Off Name Role Phone Melissa Gill APRN Primary Care Provider [phone] Reason for Referral * Diagnostic Test (Routine) - Closed Specialty Diagnoses / Procedures Referred By Oxana sewell Referred To Contact Radiology Diagnoses Neck pain Radiculopathy of cervical region Procedures MRI Cervical Spine wo Contrast (Generic) Lars Montenegro PA [facility] [place] [address] [place] [address] Referral ID Status Reason Start Date Expiration Date V isits Requested Visits Authorized [id number] Closed Specialty Service Requested 09/07/2022 03/07/2024 1 1 Reason for Visit * Reason Comments Pain Neck pain/ LE sx * Consultation (Routine) - Closed Specialty Diagnoses / Procedures Referred By Contac t Referred To Contact [facility] Diagnoses Cervical spondylosis with radiculopathy Cervical disc disorder with radiculopathy, cervicothoracic region Spine- neck pain/ now with LE sx/ MRI 2018 in [facility]/ has done PT in the past Melissa Gill APRN [address] [place] [address] [facility] [place] [address] Referral ID Status Reason Start Date Expiration Date V isits Requested Visits Authorized [id number] Closed Consult, Test & Treat PCP Updated and/or Approved 03/28/2022 03/28/2023 1 1 Encounter Details Date Type Department Care Team (Late st Contact Info) Description 09/07/2022 9:30 AM EST Office Visit [facility] [place] [phone] Lars Montenegro PA [facility] [place] [address] Neck pain; Radiculopathy of cervical region Social History Tobacco Use Types Packs/Day [...] - - Weight 79.4 kg (175 lb) 09/07/2022 9:32 AM EST Height 190.5 cm (6' 3) 09/07/2022 9:32 AM EST Body Mass Index 21.87 09/07/2022 9:32 AM EST documented in this encounter Progress Notes * Lars Montenegro PA - 09/07/2022 9:30 AM EST Images from the original note were not included. [facility] Lars Montenegro PA-C Dear Colleagues, I had the pleasure of seeing this patient at the [facility] for evaluation. Chief Complaint: Neck pain HPI: Nabor is a 42 year old male who presents to clinic for evaluation of neck pain. [facility] with Dr. Ford without any relief. He reports that his symptoms remain similar but worsened. He reports primarily neck pain that radiates down to hisscapula bilaterally with occasional pain numbness and tingling that will travel down the left upperextremity to the elbow and occasionally to the fingers. He also reports new right leg numbness and tingling that involves the dorsum of the right foot. He feels that his hands are at times clumsy andhis balance has changed. He was prescribed Lyrica but he stopped taking this due to side effects. He has been using marijuana and OTC medications for pain control. He does not report bowel/bladder changes or constitutional symptoms. Medications and allergies: reviewed and can be found in [facility] Social: Tobacco use: current 1.5 ppd and uses vape Alcohol use: daily 6 pack per day. Occupation: manual labor Review of systems: As above in HPI Physical exam: Resting comfortably in no acute distress. Ambulates without assistive device. Able to toe, heel, and tandem gait. He has good functional ROM of the cervical spine with minor limitations with rightward rotation and side-bending. He has normal sensation throughout bilateral upper extremities. Motor exam shows 5/5 strength throughout bilateral upper extremities. Reflexes are 1+ bilateral biceps, brachioradialis, and triceps. 1+ patella. No clonus. Negative mcgee. Imaging: No new imaging available for review. Prior XR and MRI of cervical spine from 2018 demonstrate significant degenerative changes of the cervical spine which results in central stenosis and foramina stenosis worst at C4-5 and C5-6. No definitive cord signal change is appreciated. Assessment Diagnosis: -Cervical spondylosis with radiculopathy Diallo is a 42 year old male who presents to clinic for evaluation of neck pain with intermittent radicular symptoms in what is more of C6 pattern. A dated MRI shows extensive degenerative changes with central and foraminal stenosis at C4-5 and C5-6. We discussed possible causes of his symptoms and next steps for evaluation and treatment. He has done PT without significant relief. He has had side effects to medications. We discussed obtaining an updated MRI and XR films to help dictate next steps. He does not have myelopathic symptoms and is generally neuro intact. We will follow up after imaging. Plan: 1) MRI cervical spine 2) Follow up after MRI completed. XR to be obtained prior to follow up visit.. Thank you for letting me participate in this patient's care. Sincerely, Lars Montenegro PA-C [facility] documented in this encounter Plan of Treatment Not on file documented as of this encounter Results * XR Cervical Spine AP Flexion & Extension Only (09/28/2022 9:10 AM EST) Anatomical Region Laterality Modality C-spine N/A Digital Radiogra phy Impressions 09/28/2022 1:35 PM EST 1. ??New right paracentral disc extrusion at C6-C7 focally effaces the ventral CSF space and mildly flattens the spinal cord. 2. ??Worsening neural foraminal narrowing at C4-C5 and C5-C6 as described above. 3. ??Slight interval worsening of spinal canal narrowing at C5-C6. 4. ??Flexion and extension x-ray views unchanged compared to prior x-rays dated 07/04/2018. Thank you for letting us participate in the care of this patient. ??If you are a health care provider and have any questions regarding this report, please contact the number below. ??For patients who have questions please contact the health special needs child caregiver that requested your imaging first. ? Electronically signed by: Vinny Martinez [facility] ([phone]), at 09/28/2022 1:35 PM Narrative 09/28/2022 1:35 PM EST EXAMINATION: MRI CERVICAL SPINE WO CONTRAST (GENERIC), XR CERVICAL SPINE AP FLEXION AND EXTENSION ONLY CLINICAL HISTORY: Neck pain, chronic; Neck pain, chronic, degenerative changes on xray TECHNIQUE: MRI of the cervical spine performed without intravenous contrast administration. Radiculopathy protocol. Extensive flexion x-ray views of the cervical spine. COMPARISON: Cervical spine x-rays 07/04/2018 and cervical spine MRI 06/23/2018. FINDINGS: Cervical spine MRI: Mild disc space narrowing at C4-C5 and C5-C6 with trace retrolisthesis. Normal craniocervical junction. No aggressive marrow lesions. Visualized posterior fossa structures are unremarkable. Following disc levels are outlined below: At C2-C3 spinal canal and neural foramen are patent. At C3-C4 small posterior disc osteophyte complex with patency of the spinal canal. Uncovertebral and facet arthropathy result in worsening mild to moderate left-sided neural foraminal narrowing. The right-sided foramen is patent. At C4-C5 is a posterior disc osteophyte complex that partially effaces the ventral CSF space similar compared to prior. Uncovertebral and facet arthropathy with worsening moderate right and stable severe left-sided neural foraminal narrowing. At C5-C6 a posterior disc osteophyte complex effaces the ventral CSF space slightly worse compared to prior. Uncovertebral and facet arthropathy result in worsening severe bilateral neural foraminal narrowing. At C6-7 is a new right paracentral disc extrusion that focally effaces the ventral CSF space and minimally flattens the spinal cord. Neural foramen are patent. At C7-T1 no significant canal or neural foraminal narrowing. Cervical spine x-rays: The several millimeters of retrolisthesis at C4-C5 and C5-C6 reduces with flexion. The predental interval widens to approximately 3 mm with flexion similar compared to prior study. Mild disc space narrowing at C4-C5 and C5-C6 as described above. Procedure Note Vinny Martinez MD - 09/28/2022 EXAMINATION: MRI CERVICAL SPINE WO CONTRAST (GENERIC), XR CERVICAL SPINEAP FLEXION AND EXTENSION ONLY CLINICAL HISTORY: Neck pain, chronic; Neck pain, chronic, degenerativechanges on xray TECHNIQUE: MRI of the cervical spine performed without intravenous contrastadministration. Radiculopathy protocol. Extensive flexion x-ray views of the cervicalspine. COMPARISON: Cervical spine x-rays 07/04/2018 and cervical spine MRI 06/23/2018. FINDINGS: Cervical spine MRI: Mild disc space narrowing at C4-C5 and C5-C6 withtrace retrolisthesis. Normal craniocervical junction. No aggressive marrowlesions. Visualized posterior fossa structures are unremarkable. Following disc levels are outlined below: At C2-C3 spinal canal and neural foramen are patent. At C3-C4 small posterior disc osteophyte complex with patency of thespinal canal. Uncovertebral and facet arthropathy result in worsening mild tomoderate left-sided neural foraminal narrowing. The right-sided foramen ispatent. At C4-C5 is a posterior disc osteophyte complex that partially effacesthe ventral CSF space similar compared to prior. Uncovertebral and facetarthropathy with worsening moderate right and stable severe left-sided neuralforaminal narrowing. At C5-C6 a posterior disc osteophyte complex effaces the ventral CSFspace slightly worse compared to prior. Uncovertebral and facet arthropathyresult in worsening severe bilateral neural foraminal narrowing. At C6-7 is a new right paracentral disc extrusion that focally effacesthe ventral CSF space and minimally flattens the spinal cord. Neural foramenare patent. At C7-T1 no significant canal or neural foraminal narrowing. Cervical spine x-rays: The several millimeters of retrolisthesis at C4-C5and C5-C6 reduces with flexion. The predental interval widens to approximately3 mm with flexion similar compared to prior study. Mild disc space narrowing atC4-C5 and C5-C6 as described above. IMPRESSION 1. New right paracentral disc extrusion at C6-C7 focally effaces theventral CSF space and mildly flattens the spinal cord. 2. Worsening neural foraminal narrowing at C4-C5 and C5-C6 as describedabove. 3. Slight interval worsening of spinal canal narrowing at C5-C6. 4. Flexion and extension x-ray views unchanged compared to prior x-raysdated 07/04/2018. Thank you for letting us participate in the care of this patient. If youare a health care provider and have any questions regarding this report,please contact the number below. For patients who have questions please contactthe health special needs child caregiver that requested your imaging first. Electronically signed by: Vinny Martinez [facility]([phone]), at 09/28/2022 1:35 PM Sagar Jones MD IMG DX ORDERABLES * MRI Cervical Spine wo Contrast (Generic) (09/28/2022 8:05 AM EST) Anatomical Region Laterality Modality C-spine Magnetic Resonan ce Impressions 09/28/2022 1:35 PM EST 1. ??New right paracentral disc extrusion at C6-C7 focally effaces the ventral CSF space and mildly flattens the spinal cord. 2. ??Worsening neural foraminal narrowing at C4-C5 and C5-C6 as described above. 3. ??Slight interval worsening of spinal canal narrowing at C5-C6. 4. ??Flexion and extension x-ray views unchanged compared to prior x-rays dated 07/04/2018. Thank you for letting us participate in the care of this patient. ??If you are a health care provider and have any questions regarding this report, please contact the number below. ??For patients who have questions please contact the health special needs child caregiver that requested your imaging first. ? Electronically signed by: Vinny Martinez [facility] ([phone]), at 09/28/2022 1:35 PM Narrative 09/28/2022 1:35 PM EST EXAMINATION: MRI CERVICAL SPINE WO CONTRAST (GENERIC), XR CERVICAL SPINE AP FLEXION AND EXTENSION ONLY CLINICAL HISTORY: Neck pain, chronic; Neck pain, chronic, degenerative changes on xray TECHNIQUE: MRI of the cervical spine performed without intravenous contrast administration. Radiculopathy protocol. Extensive flexion x-ray views of the cervical spine. COMPARISON: Cervical spine x-rays 07/04/2018 and cervical spine MRI 06/23/2018. FINDINGS: Cervical spine MRI: Mild disc space narrowing at C4-C5 and C5-C6 with trace retrolisthesis. Normal craniocervical junction. No aggressive marrow lesions. Visualized posterior fossa structures are unremarkable. Following disc levels are outlined below: At C2-C3 spinal canal and neural foramen are patent. At C3-C4 small posterior disc osteophyte complex with patency of the spinal canal. Uncovertebral and facet arthropathy result in worsening mild to moderate left-sided neural foraminal narrowing. The right-sided foramen is patent. At C4-C5 is a posterior disc osteophyte complex that partially effaces the ventral CSF space similar compared to prior. Uncovertebral and facet arthropathy with worsening moderate right and stable severe left-sided neural foraminal narrowing. At C5-C6 a posterior disc osteophyte complex effaces the ventral CSF space slightly worse compared to prior. Uncovertebral and facet arthropathy result in worsening severe bilateral neural foraminal narrowing. At C6-7 is a new right paracentral disc extrusion that focally effaces the ventral CSF space and minimally flattens the spinal cord. Neural foramen are patent. At C7-T1 no significant canal or neural foraminal narrowing. Cervical spine x-rays: The several millimeters of retrolisthesis at C4-C5 and C5-C6 reduces with flexion. The predental interval widens to approximately 3 mm with flexion similar compared to prior study. Mild disc space narrowing at C4-C5 and C5-C6 as described above. Procedure Note Vinny Martinez MD - 09/28/2022 EXAMINATION: MRI CERVICAL SPINE WO CONTRAST (GENERIC), XR CERVICAL SPINEAP FLEXION AND EXTENSION ONLY CLINICAL HISTORY: Neck pain, chronic; Neck pain, chronic, degenerativechanges on xray TECHNIQUE: MRI of the cervical spine performed without intravenous contrastadministration. Radiculopathy protocol. Extensive flexion x-ray views of the cervicalspine. COMPARISON: Cervical spine x-rays 07/04/2018 and cervical spine MRI 06/23/2018. FINDINGS: Cervical spine MRI: Mild disc space narrowing at C4-C5 and C5-C6 withtrace retrolisthesis. Normal craniocervical junction. No aggressive marrowlesions. Visualized posterior fossa structures are unremarkable. Following disc levels are outlined below: At C2-C3 spinal canal and neural foramen are patent. At C3-C4 small posterior disc osteophyte complex with patency of thespinal canal. Uncovertebral and facet arthropathy result in worsening mild tomoderate left-sided neural foraminal narrowing. The right-sided foramen ispatent. At C4-C5 is a posterior disc osteophyte complex that partially effacesthe ventral CSF space similar compared to prior. Uncovertebral and facetarthropathy with worsening moderate right and stable severe left-sided neuralforaminal narrowing. At C5-C6 a posterior disc osteophyte complex effaces the ventral CSFspace slightly worse compared to prior. Uncovertebral and facet arthropathyresult in worsening severe bilateral neural foraminal narrowing. At C6-7 is a new right paracentral disc extrusion that focally effacesthe ventral CSF space and minimally flattens the spinal cord. Neural foramenare patent. At C7-T1 no significant canal or neural foraminal narrowing. Cervical spine x-rays: The several millimeters of retrolisthesis at C4-C5and C5-C6 reduces with flexion. The predental interval widens to approximately3 mm with flexion similar compared to prior study. Mild disc space narrowing atC4-C5 and C5-C6 as described above. IMPRESSION 1. New right paracentral disc extrusion at C6-C7 focally effaces theventral CSF space and mildly flattens the spinal cord. 2. Worsening neural foraminal narrowing at C4-C5 and C5-C6 as describedabove. 3. Slight interval worsening of spinal canal narrowing at C5-C6. 4. Flexion and extension x-ray views unchanged compared to prior x-raysdated 07/04/2018. Thank you for letting us participate in the care of this patient. If youare a health care provider and have any questions regarding this report,please contact the number below. For patients who have questions please contactthe health special needs child caregiver that requested your imaging first. Electronically signed by: Vinny Martinez [facility]([phone]), at 09/28/2022 1:35 PM Sagar Jones MD IMG MRI ORDERABLES documented in this encounter Visit Diagnoses Diagnosis Neck pain Cervicalgia Radiculopathy of cervical region Brachial neuritis or radiculitis nos Neck pain Cervicalgia Radiculopathy of cervical region Brachial neuritis or radiculitis nos Neck pain Cervicalgia Radiculopathy of cervical region Brachial neuritis or radiculitis nos documented in this encounter Care Teams Knocker Off Relationship Specialty Start Date End Date Melissa Gill, NEVILLE [address] [place] [address] PCP - General Family Medicine 08/13/17 02/11/23 documented as of this encounter
--- OUTSIDE RECORDS SUMMARY | 2024-07-03 00:32 | XMS_ITS | Encounter Summary ---
[place] [address] Care Team Providers Care Director Of Casework Department Name Role Phone Melissa Gill APRN Primary Care Provider Reason for Referral * Diagnostic Test (Routine) - Closed Specialty Diagnoses / Procedures Referred By Contac t Referred To Contact Radiology Diagnoses Neck pain Radiculopathy of cervical region Procedures MRI Cervical Spine wo Contrast (Generic) Lars Montenegro PA [facility] [place] [address] [place] [address] [place] [address] Referral ID Status Reason Start Date Expiration Date V isits Requested Visits Authorized [id number] Closed Specialty Service Requested 09/07/2022 03/07/2024 1 1 Reason for Visit * Diagnostic Test (Routine) - Closed Specialty Diagnoses / Procedures Referred By Contac t Referred To Contact Radiology Diagnoses Neck pain Radiculopathy of cervical region Procedures MRI Cervical Spine wo Contrast (Generic) Lars Montenegro PA [facility] [place] [address] [place] [address] Referral ID Status Reason Start Date Expiration Date V isits Requested Visits Authorized [id number] Closed Specialty Service Requested 09/07/2022 03/07/2024 1 1 Encounter Details Date Type Department Care Team (Latest Contact Info) Description 09/28/2022 7:17 AM EST - 09/28/2022 8:59 AM EST Hospital Encounter MRI at [facility] [place] [address] Sagar Jones MD [facility] [place] [address] Neck pain; Radiculopathy of cervical region Discharge Disposition: Home Social History Tobacco [...] Dispensed Refills Start Date End Date acetaminophen (TYLENOL) 500 mg Tablet Take 2 tablets by mouth every 6 hours as needed for Pain. 30 tablet 1 01/20/2017 02/19/2023 ibuprofen (ADVIL;MOTRIN) 800 mg Tablet Take 1 tablet by mouth every 6 hours as needed for Pain. 30 tablet 3 01/20/2017 02/19/2023 documented as of this encounter Plan of Treatment Not on file documented as of this encounter Procedures Procedure Name Priority Date/Time Associated Diagnosis Comments MRI CERVICAL SPINE WO CONTRAST Routine 09/28/2022 8:05 AM EST Neck pain Radiculopathy of cervical region documented in this encounter Results * MRI Cervical Spine wo Contrast (Generic) [...] who have questions please contact the health critical care specialist that requested your imaging first. ? Electronically signed by: Vinny Martinez [facility] ([phone]), at 09/28/2022 1:35 PM Narrative 09/28/2022 1:35 [...] patients who have questions please contactthe health critical care specialist that requested your imaging first. Electronically signed by: Vinny Martinez [facility]([phone]), at 09/28/2022 1:35 PM Sagar Jones MD IMG MRI ORDERABLES documented in this encounter Visit Diagnoses Diagnosis Neck pain Cervicalgia Radiculopathy of cervical region Brachial neuritis or radiculitis nos documented in this encounter Care Teams Director Of Casework Department Relationship Specialty Start Date End Date Melissa Gill, NATURAL RESOURCE TECHNICIAN [address] [place] [address] PCP - General Family Medicine 08/13/17 02/11/23 documented as of this encounter
--- OUTSIDE RECORDS SUMMARY | 2024-07-03 00:32 | XMS_ITS | Encounter Summary ---
Author Organization Formerly [facility] [place] [address] Care Team Providers Care Artificial Log Machine Operator Name Role Phone Melissa Gill APRN Primary Care Provider [phone] Reason for Visit * Auth/Cert Specialty Diagnoses / Procedures Referred By Oxana t Referred To Contact Diagnoses Cervical disc disorder with radiculopathy of cervicothoracic region Procedures PRO INJECTION DX/THER SBST INTRLMNR CRV/THRC W/IMG GDN INJECTION, EPIDURAL, CERVICAL OR THORACIC, WITH IMAGING GUIDANCE (WRVU 1.95) Referral ID Status Reason Start Date Expiration Date Visits Re quested Visits Authorized [id number] 1 1 Encounter Details Date Type Department Care Team (Latest Contact Info) Description 11/18/2018 11:07 AM EDT - 11/18/2018 12:42 PM EDT Hospital [place] [address] Amber Ford MD [facility] [place] [address] Discharge Disposition: Home Social History Tobacco Use [...] upper extremities, L>R PAIN LEVEL AT REST 8/10 PAST MEDICAL HISTORY: Past Medical History: Diagnosis [...] file Gets together: Not on file Attends quaker service: Not on file Active member of [...] Operative Note Patient Name: Diallo Barker : [id number] MR#: [id number] Case Date: 11/18/2018 Surgeon: Surgeon(s) and Role: [...] was not any unusual discomfort expressed by Christopher J Newhook. If given, dosages of intravenous drugs for anxiolysis and analgesia were documented in MAR. Radiographs were archived in radiology. Outcome: The patient tolerated the procedure well and had stable vital signs. Follow up plans and appointments were discussed with Diallo Barker. The patient was observed in the pain clinic and then discharged after having met discharge criteria to the care of a reefer truck driver. The patient receivedwritten instructions as documented in nursing records. COMMENTS: Jack Christopher MD, Pain Fellow I was the attending physician supervising the fellow or resident in the above care and I was present with the resident for the entire procedure. Amber Ford MD Reinforced Ironworker of Anesthesiology [facility] [address] [address] / [email or web address] CC: Melissa Gill APRN @[email or web address] documented in [...] or radiculitis nos documented in this encounter Active and Recently Administered Medications Times are shown in EDT. PRN Medication Order 11/16/2018 11/17/2018 11/18/2018 dexamethasone(PF) (DECADRON) 10 mg/mL injection (CANCELED) ONCE PRN, Starting on 11/18/18 at 1236, Until Sat11/18/18 at 1442, Intra-Operative (Intra-Procedure), Routine 1236 (Given - Provid er: Amber Ford MD) iohexol (OMNIPAQUE) 240 mg/mL solution (CANCELED) ONCE PRN, Starting on 11/18/18 at 1236, Until 11/18/18 at 1442, Intra-Operative (Intra-Procedure), Routine 1236 (Given - Provid er: Amber Ford MD) documented in this encounter Care Teams Artificial Log Machine Operator Relationship Specialty Start Date End Date Melissa Gill, CLASSROOM AIDE [address] [place] [address] PCP - General Family Medicine 08/13/17 02/11/23 documented as of this encounter
--- OUTSIDE RECORDS SUMMARY | 2024-07-03 00:32 | XMS_ITS | Encounter Summary ---
[place] [address] Care Team Providers Care Amf Mechanic Name Role Phone Melissa Gill APRN Primary Care Provider Encounter Details Date Type Department Care Team (Late st Contact Info) Description 07/16/2018 Telephone [place] [phone] Joanna Buckley Social History Tobacco Use Types [...] * Telephone Encounter - Joanna Buckley - 07/16/2018 2:36 PM EST Physician referral for medicaid transportation faxed to [phone]. Confirmation received and filed at exit desk. documented in this encounter Plan of Treatment Not on file documented as of this encounter Visit Diagnoses Not on filedocumented in this encounter Care Teams Amf Mechanic Relationship Specialty Start Date End Date Melissa Gill APRN [address] [place], [place] [id number] PCP - General Family Medicine 08/13/17 02/11/23 documented as of this encounter
--- OUTSIDE RECORDS SUMMARY | 2024-07-03 00:32 | XMS_ITS | Encounter Summary ---
[place] [address] Care Team Providers Care Certified Master Safe Technician Name Role Phone Melissa Glil APRN Primary Care Provider [phone] Encounter Details Date Type Department Care Team (Late st Contact Info) Description 02/11/2023 Telephone [facility] [place] [phone] Joy Green, RN Social History Tobacco Use Types Packs/Day [...] encounter Miscellaneous Notes * Telephone Encounter - Joy Green RN - 02/11/2023 10:01 AM EDT Received call from Juanita who was prepping for upcoming surgery. Diallo is scheduled for surgery with Dr Prince Saturday02/18/23. Caller reports that she can see the preoperative H&P has been scanned but there is no record of the requested pre-op labs or EKG. Caller indicated they could perform the labs the day of surgery if need be, but the EKG order has . Called Mary Kay OR production planner scheduler; left detailed VM asking her to call PCP's office to seek the lab results. Explained in VM message that Cristofer had understood he had them scheduled for a separate day (possiblythis past Saturday) so there might just be a delay in them being faxed and uploaded tot he chart. Requested Mary Kay notify us if there was any testing outstanding so we could pend any orders to Dr Prince (if not active) to be used day of surgery. documented in this encounter Plan of Treatment Not on file documented as of this encounter Visit Diagnoses Not on filedocumented in this encounter Care Teams Certified Master Safe Technician Relationship Specialty Start Date End Date Melissa Gill, FRESH FOODS TECHNICIAN [address] [place] [address] PCP - General Family Medicine 08/13/17 02/11/23 documented as of this encounter
--- OUTSIDE RECORDS SUMMARY | 2024-07-03 00:32 | XMS_ITS | Encounter Summary ---
[place] [address] Care Team Providers Care Urban Forester Name Role Phone Delaney Kwok APRN Primary Care Provider [phone] Encounter Details Date Type Department Care Team (Late st Contact Info) Description 02/11/2023 Telephone [facility] [place] [phone] Joy Green, RN Social History Tobacco Use Types Packs/Day Years Used Date Smoking Tobacco: Every Day Cigarettes 1.5 15 Smokeless Tobacco: Former Chew Alcohol Use Standard Drinks/Week Comments Yes 0 (1 standard drink = 0.6 oz pur e alcohol) occasionally [facility] Inpatient Questions Answer Date Recorded [...] on filedocumented in this encounter Care Teams Urban Forester Relationship Specialty Start Date End Date Delaney Kw[place] [address] [place] [address] PCP - General Family Medicine 02/18/23 documented as of this encounter
--- OUTSIDE RECORDS SUMMARY | 2024-07-03 00:32 | XMS_ITS | Encounter Summary ---
Author Organization [facility] Address [facility] [place] [address] Care Team Providers Care Chicken Handler Name Role Phone Melissa Gill APRN Primary Care Provider [phone] Reason for Referral * Routine Exam (Routine) - Specialty Diagnoses / Procedures Referred By Oxana sewell Referred To Contact Diagnoses Cervical disc disorder with radiculopathy of cervicothoracic region Procedures Epidural steroid injection Amber Ford MD [facility] [place] [address] Referral ID Status Reason Start Date Expiration Date Visits Requested Visits Authorized [id number] Specialty Service Requested 08/13/2018 08/13/2019 1 1 Reason for Visit * Reason Comments Neck Pain Left shoulder pain * Consultation (Routine) - Closed Specialty Diagnoses / Procedures Referred By Oxana sewell Referred To Contact Pain Management Diagnoses Cervical disc disorder with radiculopathy of cervicothoracic region Osteoarthritis of spine with radiculopathy, cervical region Procedures PRO INJECTION DX/THER SBST INTRLMNR CRV/THRC W/IMG Sagar Vaughan MD [facility] [place] [address] [facility] [address] [place] [address] Referral ID Status Reason Start Date Expiration Date V isits Requested Visits Authorized [id number] Closed Consult, Test & Treat 07/04/2018 07/04/2019 1 1 Encounter Details Date Type Department Care Team (Latest Contact Info) Description 08/13/2018 11:45 AM EST Procedure visit Pain Management at [facility] [place] [address] Amber Ford MD [facility] [place] [address] Cervical disc disorder with radiculopathy of cervicothoracic [...] Sign Reading Time Taken Comments Blood Pressure 124/73 08/13/2018 11:46 AM EST Pulse 64 08/13/2018 11:46 AM EST Temperature - - Respiratory Rate 16 08/13/2018 11:46 AM EST Oxygen Saturation 95% 08/13/2018 11:46 AM EST Inhaled Oxygen Concentration - - Weight 77.1 kg (170 lb) 08/13/2018 11:08 AM EST Height 190.5 cm (6' 3) 08/13/2018 11:08 AM EST Body Mass Index 21.25 08/13/2018 11:08 AM EST documented in this encounter Patient Instructions * Patient Instructions* Natalie Pollack LPN - 08/13/2018 11:45 AM EST Pain Management Center Discharge Instructions: You were seen by Dr. Amber Ford MD and Frankie Melendez MD who performed cervical epidural steroid injection. [...] 20 minutes. Do not apply heat today. Attempt to empty your bladder 4-6 hours after your procedure. You received the following medications: Depo-Medrol 80 mg, Lidocaine and Omnipaque (contrast dye). During regular business hours, please phone the [...] or proceed to your local emergency department. Natalie Pollack LPN Special instructions documented in this encounter Progress Notes * Natalie Pollack LPN - 08/13/2018 11:45 AM EST Pre-Procedure Screening Questions: 1. Status: No 2. 3. Patient states they have a nascar driver to transport after procedure? Yes 4. Patient taking antibiotics at present? No 5. NPO per Pain Management Center protocol? No 6. 7. Patient diabetic: No __ borderline (not treated with medications) __ managed with oral medications __ managed with injected medications 8. Patient routinely taking anticoagulants ? No Date stopped Current INR Patient Vital Signs documented in Doc Flowsheets associated with this encounter. Patient Discharge Instructions were reviewed with patient and copy provided to patient. * Frankie Melendez MD - 08/13/2018 11:45 AM EST PREPROCEDURE HISTORY AND PHYSICAL Date of Visit: August 13, 2018 Chief Complaint: Neck and bilateral L>R shoulder pain HPI: Subjective Diallo Barker is a 38 y.o. male who presents today for cervical interlaminar epidural steroid injection with catheter. [facility] by Dr. Jones and referred for this procedure The history is obtained from the patient, and I have reviewed medical records provided by the referring physician and located in the electronic medical record to fill in gaps in the patient's recollection of events, treatments and outcomes. LOCATION: Neck and bilateral L>R shoulder PAIN LEVEL AT REST 01/28 PAST MEDICAL HISTORY: Past Medical History: Diagnosis Date ??? Depression PAST SURGICAL HISTORY: Past Surgical History: Procedure Laterality Date ??? FINGER SURGERY 4th and 5th digit R hand FAMILY HISTORY: History reviewed. No pertinent family history. SOCIAL HISTORY: Social History Socioeconomic History ??? Marital status: Single Spouse name: Not on file ??? Number of children: Not on file ??? Years of education: Not on file ??? Highest education level: Not on file Social Needs ??? Financial resource strain: Not on file ??? Food insecurity - worry: Not on file ??? Food insecurity - inability: Not on file ??? Transportation needs - medical: Not on file ??? Transportation needs - non-medical: Not on file Occupational History ??? Not on file Tobacco Use ??? Smoking status: Current Every Day Smoker Packs/day: 2.00 Years: 15.00 Pack years: 30.00 ??? Smokeless tobacco: Former User Types: Chew Substance and Sexual Activity ??? Alcohol use: Yes Comment: occasionally ??? Drug use: Yes Types: Marijuana ??? Sexual activity: Not Currently Other Topics Concern ??? Do You live alone? Not Asked ??? Tobacco in Home Not Asked Social History Narrative ??? Not on file ALLERGIES: Milk MEDICATIONS: Medications 08/13/18 1104 Medication Sig Taking? gabapentin (NEURONTIN) 100 mg Capsule Take 200 mg by mouth as needed. Patient takes 6-12 tablets daily prn acetaminophen (TYLENOL) 500 mg Tablet Take 2 tablets by mouth every 6 hours as needed for Pain. ibuprofen (ADVIL;MOTRIN) 800 mg Tablet Take 1 tablet by mouth every 6 hours as needed for Pain. Patient taking differently: Take 800 mg by mouth every 4 hours as needed for Pain. Patient takes upto 5 tablets ROS: Pt denies recent fever, chills, infection, wounds, hospitalizations, ED visits, use of antibiotics.Otherwise, as described above. PHYSICAL EXAM: There were no vitals taken for this visit. General: patient well developed and is non-distressed Head: normocephalic and atraumatic CV: normal rate, normal rhythm Pulmonary: effort and breath sounds normal, no wheezing Skin: non-diaphoretic and no rashes noted Physical Exam RADIOLOGIC DATA: MRI reviewed LABS/DX RESULTS: Labs reviewed and no new labs pertinent to today's procedure. ASSESSMENT: 1. Cervical disc disorder with radiculopathy of cervicothoracic region PLAN: Proceed with cervical interlaminar epidural steroid injection with catheter. Frankie Melendez MD Pain Management Fellow [address] [phone] / [facility] documented in this encounter Procedure Notes * Amber Ford MD - 08/13/2018 11:45 AM ESTAssociated Order(s): EPIDURAL STEROID INJECTION Procedure(s): EPIDURAL STEROID INJECTION Pre-Procedure Diagnose(s): Cervical disc disorder with radiculopathy of cervicothoracic region PROCEDURE NOTE: Cervical Epidural Steroid Injection with Fluoroscopic Guidance T1-2 (entry) with catheter Chief Complaint: neck, left greater than right shoulder pain Diallo Barker has been referred to the [...] ,time out was done. Using fluoroscopic guidance, a 19 g tuohy needle was advanced to the medial aspect of the lamina ofT2.. The needle was then advanced toward midiline to the epidural space using the loss of resistance technique with saline and fluoroscopic guidance. The needle was advanced into the epidural space under (55 degree offset view) with spot checks to AP view. There was no blood or CSF. Under Lateral and AP view 1 cc's of Omnipaque 240 while visualized with live fluoroscopy. There wasno evidence of intravascular uptake, the epidural space was delineated. A 19 g catheter was threaded toward the left to C4-5. Under AP view 1 cc's of Omnipaque 240 while visualized with live fluoroscopy. There was no evidence of intravascular uptake, the epidural space was delineated.The patient then received Decadron (preservative free, non particulate) 10 mg followed by preservative free normal saline to a total volume of 2 ml There was not any unusual discomfort expressed by Diallo Barker. The patient's HR decreasedinto the 50's immediately after the epidural injection. He moved onto his back and was placed in trendelenberg position. His HR promptly increased. If given, dosages of intravenous drugs for anxiolysis and analgesia were documented in MAR. Radiographs were archived in radiology. Outcome: The patient tolerated the procedure well and had stable vital signs. Follow up plans and appointments were discussed with Diallo Barker. The patient was observed in the pain clinic and then discharged after having met discharge criteria to the care of a nascar driver. The patient receivedwritten instructions as documented in nursing records. Preprocedure pain level: 7/10 Postprocedure pain level: 7/10 COMMENTS: The patient did not wish to receive anxiolysis. RECOMMEND THAT PATIENT HAVE AN IV WITH FUTURE PROCEDURES AND BE PRETREATED WITH GLYCOPYRROLATE. Contact Dr. Jones for follow up plans. Frankie Melendez MD Pain Fellow I was the attending physician supervising the fellow or resident in the above care and I was present with the resident for the entire procedure. Amber Ford MD [facility] Spot[facility] of Anesthesiology [facility] [address] [phone] / [facility] CC: Melissa Enriquezuk [employer] [email or web address] documented in this encounter Plan of Treatment Not on file documented as of this encounter Procedures Procedure Name Priority Date/Time Associated Diagnosis Comments EPIDURAL STEROID INJECTION Routine 08/13/2018 11:45 AM EST Cervical disc disorder with radiculopathy of cervicothoracic region documented in this encounter Results * EPIDURAL STEROID INJECTION (08/13/2018 11:45 AM EST) Narrative Amber Ford MD - 08/13/2018 11:45 AM EST Amber Ford MD ? 08/13/2018 ??5:13 PM ?? PROCEDURE NOTE: Cervical Epidural Steroid Injection with Fluoroscopic Guidance T1-2 (entry) with catheter Chief Complaint: neck, left greater than right shoulder pain Diallo Barker has been referred to the Pain Management Center for cervical epidural steroid injection. Mr. Barker was interviewed and the medical record reviewed. ??MRI was reviewed. There were no medical, pharmacologic, radiographic or other structural contraindications to attempting fluoroscopically guided epidural steroid injection. ??Risks and expected side effects as well as potential benefit of the procedure were reviewed with Mr. Barker, and his voiced concerns were addressed. ??The printed consent form was signed and witnessed. ??Standard time-out procedure was performed. Diallo Barker was greeted by the nurse who verified patients name and . ??Patient was then taken to the fluoroscopy suite. Technique After informed written consent was obtained, the patient was placed in the prone position. The cervical spine was prepped with chloraprep and draped. ??Sterile technique was used, ??vital signs (blood pressure cuff and pulse oximeter) were monitored,cap, glove, mask were worn ,time out was done. Using fluoroscopic guidance, a 19 g tuohy needle was advanced to the medial aspect of the lamina of T2.. ??The needle was then advanced toward midiline ??to the epidural space using the loss of resistance technique with saline and fluoroscopic guidance. The needle was advanced into the epidural space under (55 degree offset view) with spot checks to AP view. There was no blood or CSF. ?? Under Lateral and AP view ??1 cc's of Omnipaque 240 while visualized with live fluoroscopy. ??There was no evidence of intravascular uptake, the epidural space was delineated. ??A 19 g catheter was threaded toward the left to C4-5. Under ??AP view ??1 cc's of Omnipaque 240 while visualized with live fluoroscopy. ?? There was no evidence of intravascular uptake, the epidural space was delineated.The patient then received Decadron (preservative free, non particulate) ??10 mg ?? followed by preservative free normal saline to a total volume of 2 ml ?? There was not any unusual discomfort expressed by Diallo Barker. The patient's HR decreased into the 50's immediately after the epidural injection. He moved onto his back and was placed in trendelenberg position. His HR promptly increased. If given, dosages of intravenous drugs for anxiolysis and analgesia were documented in MAR. Radiographs were archived in radiology. Outcome: The patient tolerated the procedure well and had stable vital signs. ??Follow up plans and appointments were discussed with Diallo Barker. The patient was observed in the pain clinic and then discharged after having met discharge criteria ?? to the care of a nascar driver. ??The patient received written instructions as documented in nursing records. ?? Preprocedure pain level: 7/10 Postprocedure pain level: 7/10 COMMENTS: The patient did not wish to receive anxiolysis. RECOMMEND THAT PATIENT HAVE AN IV WITH FUTURE PROCEDURES AND BE PRETREATED WITH GLYCOPYRROLATE. Contact ??Robert for follow up plans. Frankie Melendez MD Pain Fellow I was the attending physician supervising the fellow or resident in the above care and I was present with the resident for the entire procedure. Amber Ford MD [facility] Anesthes[facility] [address] [phone] / [facility] CC: Melissa Gill APRN [email or web address]@ Amber Ford MD NEUROLOGY ORDERABLES documented in this encounter Visit Diagnoses Diagnosis Cervical disc disorder with radiculopathy of cervicothoracic region Brachial neuritis or radiculitis nos documented in this encounter Administered Medications Inactive Administered Medications - up to 3 most recent administrations Medication Order MAR Action Action Date Dose Rate Site dexamethasone(PF) (DECADRON) 10 mg/mL injection 10 mg 10 mg, Epidural, ONCE, 1 dose, On Sat08/13/18 at 1130, Routine Given 08/13/2018 11:30 AM EST 10 mg iohexol (OMNIPAQUE) 240 mg/mL solution 1 mL 1 mL, Epidural, ONCE, 1 dose, On Sat08/13/18 at 1130, Wasted 49 ml, Routine Given 08/13/2018 11:30 AM EST 1 mL documented in this encounter Care Teams Chicken Handler Relationship Specialty Start Date End Date Melissa Gill APRN [address] [place] [address] PCP - General Family Medicine 08/13/17 02/11/23 documented as of this encounter
--- OUTSIDE RECORDS SUMMARY | 2024-07-03 00:32 | XMS_ITS | Encounter Summary ---
[place] [address] Care Team Providers Care Laborer Prestressed Concrete Name Role Phone Melissa Gill APRN Primary Care Provider [phone] Encounter Details Date Type Department Care Team (Late st Contact Info) Description 09/24/2018 Telephone [place] [id number] Sarah Adkins, RN Social History Tobacco Use Types Packs/Day [...] encounter Miscellaneous Notes * Telephone Encounter - Sarah Adkins RN - 09/24/2018 11:03 AM EST Fluoroscopy Procedure Request Procedure Requested: cervical epidural steroid injection Date(s) of Last Procedure: 08/13/18 Did requested procedure relieve pain? __X_ Yes - For how long 2 weeks ? 10 % of relief received from previous injection. What is your current Pain Score (1-10 range)? 8/10 Have you had any steroid injections anywhere in your body within the last two weeks? no Patient taking any NSAIDs? __X_ Yes Patient taking Aspirin? _X__ No Patient taking anticoagulants? _X__ No Patient has pacemaker/defibrillator: No Changes in usual pain pattern or pertinent recent trauma or surgery? __X_ No, patient transferred or will be contacted by window decorator to make appointment for requested procedure. Patient's questions regarding requested procedure were answered and patient verbalized understanding. Patient knows how to contact the Pain Management Center and understands that they may do so at any time should they have further questions or concerns. Sarah Adkins RN documented in this encounter Plan of Treatment Not on file documented as of this encounter Visit Diagnoses Not on filedocumented in this encounter Care Teams Laborer Prestressed Concrete Relationship Specialty Start Date End Date Melissa Gill, [place] [address] [place] [address] PCP - General Family Medicine 08/13/17 02/11/23 documented as of this encounter
--- OUTSIDE RECORDS SUMMARY | 2024-07-03 00:32 | XMS_ITS | Encounter Summary ---
[place] [address] Care Team Providers Care Physician Coder Name Role Phone Melissa Gill APRN Primary Care Provider [phone] Reason for Visit * Reason Onset Date Comments Pre Procedure Call 10/04/2022 Collar fittin g, pre/post op teaching, pdmp, ort, opioid consent, non opioid pain mgmt, refill practices Encounter Details Date Type Department Care Team (Late st Contact Info) Description 10/04/2022 Telephone [place] [id number] Joy Green RN Pre Procedure Call (Collar fitting, pre/post op teaching, pdmp, ort, opioid consent, non opioid pain mgmt, refill practices) Social History Tobacco Use Types Packs/Day Years [...] Miscellaneous Notes * Telephone Encounter - Joy Grene RN - 10/04/2022 9:34 AM EDT Images from the original note were not included. Met with today following the surgical evaluation for purpose of providing pre and post operative instructions and to plan for any pre/post- operative discharge needs. Patient is being scheduled for an ACDF C4-7 on 02/18/[address] Niki Saldana Info: Fit patient for Craig J collar; Size needed: MJ 400 Reviewed expectations re collar provision and use postoperatively. Provided education & reviewed importance of daily skin assessment, and pad changes as needed. Advised pt that he could share information that I demonstrated about pad changes with the person that will be responsible, or alternatively, he could inform that individual that they could come down to clinic once he's taken to the OR; to ask to meet with spine nursing for a personal demonstration/education anabel. External Bone Stimulator Order pended to Dr Sandra to sign. Order and corresponding documents faxed to Devi Keller, to process. Kwaku to correspond directly with pt following insurancereview; authorization and to discuss provision plans. 10/11/22 ~ 3pm Order for cervical external bone stimulator and corresponding documents faxed to wang Keller fx at fax # [phone] Preop Medication Holds: Advised pt of need to hold anticoagulants, NSAIDs, ASA products, and Fish Oil for ~10 days preoperatively. Reviewed medication list. Pt agreed to hold NSAIDS for 10 days pre-op. Pt also advised that he will need to hold NSAIDS for multiple months postoperatively to facilitate a solid fusion. is not noted to be taking any prescription anticoagulants or biologics. Opioid Risks and Pain Management: Signed Consent Form passed to the [place] OR funeral prearrangement counselor for scanning. Reviewed with that he is likely to experience some incisional pain as well as throat discomfort and difficulty swallowing postoperatively. Reviewed some strategies to ease swallowing during the acute recovery period. Discussed with pt expectations re postoperative incisional and extremity pain, to include expectations re potential new or increased N/T. See PDMP query below. Reviewed current and historical opioid use. is not noted to be on opioids currently. Acute post-operative pain mgmt is expected to be ordered by Dr Sandra and his surgical team. Reviewed in detail non-opioid pain mgmt strategies that should be put in place. postoperatively to minimize opioid use. Strategies discussed included: rest and relaxation, activity modification, regular repositioning, regular Acetaminophen use, hourly ice application for local analgesia/inflammation. Explained that the non-opioid pain mgmt strategies are intended to be the first line of treatmentto assist with his postop pain. Instructed to Initiate the regular use of ice and OTC medication immediately upon return home, even if this was not documented in his discharge instructions. Reinforced with pt that he should contiue the non- opioid pain mgmt treatments for as long as he is requiring any opioids; that the opioid is the first treatment that should be discontinued. Advised that the opioid pain medication that will be prescribed is to be used to supplement the non-opioid methods. Advised pt that he is to take the least amt of opioid possible, and the expectation is that he will reduce use as the postoperative pain subsides. Advised pt that he shouldnever exceed the prescribed amt without obtaining authorization from someone on the surgical care team. Provided instructions and general expectations re prescription refill practices/timing. Acute Opioid Prescribin10/04/2022 01/19/2017 Opioid PDMP [place] PDMP Query Date 10/04/2022 01/20/2017 Comment 10/04/22 2 yr [place] performed, pt found but no report found. [place] Query Date 01/20/2017 [place] PD[place] Query Date 01/20/2017 Multiple values from one day are sorted in reverse-chronological order View : No data to display. 10/04/2022 Acute Opioid Specific Questions Date Acute Consent signed 10/04/2022 Comment 10/04/22 Acute opioid consent reviewed and signed. Signed consent passed to OR funeral prearrangement counselor to be scanned. Considered the risk of opioid misuse, abuse, diversion? Yes Comment 10/04/22 Considered options for non-pharmacological modalities and non-opioid therapy? Yes Comment 10/04/22 Reviewed in detail non opioid pain mgmt options/strategies. Discussed typical taperand refill process. Multiple values from one day are sorted in reverse-chronological order Activity: Reviewed with our expectations re activity postoperatively, to include use of good body mechanics, to relax when moving rather than tensing/guarding, and our expectations re progressive walking upon return home. Advised that he would not be able to drive while taking opioid pain medication and while wearing a cervical collar. Pt lives on a second story;; in a building with very shallow steep stairs. Climbing stairs in collar will be a safety hazard; so pt is expecting to virtually be homebound unless there is someone with him who could aid him in navigating the stairs maria e is required to heath down; position heal almost on his shoulders to visualize the shallow stairs. Informed pt to advise the inpt physical therapist of his stair situation so that caould be considered as part of inpt PT/discharge planing. Home Support/Services Expected: Discussed home environment and support available following discharge. Pt does not have transportation concerns. He has access to crutches and shower chair if needed postop. Patient does not live alone. He lives with his girlfriend who works outside the home. It's anticipated that pt will go home with the support of his girlfriend. She can check in with pt prior to goingto work. Pt understands now is the time to call on friends/favors- to have company and check-ins during the day while his girlfriend is working. Pt stated his mother lives locally and could be available to check-in and help as needed. The need for VNA services will be assessed and arranged when inpt. 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 Expected first day of disability: the day of surgery Length of time pt is expecting to be OOW: Unknown; pt does not have FMLA or disability benefits. 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 Given pt will loose access to his income for an unknown period of time; advised pt that I would askPatricia our SW to call him to discuss if there is any financial assitance/programs that might be available to him. Pt mentioned being on food stamps in the past but had given those up when working. A copy of Spine Center Pre/Post-Operative Reference sheet provided to pt; reviewed the content. Encouraged to review these instructions prior to coming into the hospital and then again upon return home so that the instructions will be recalled easily. verbalized understanding of the information reviewed. was given the contact information for the Spine Center Nursing staff; he was encouraged to call pre or postoperatively withany questions or concerns. 10/11/22 ~ 4pm Optimizatrion letter initiated and pended to Mary Kay mendieta to complete and process. documented in this encounter Plan of Treatment Not on file documented as of this encounter Visit Diagnoses Not on filedocumented in this encounter Care Teams Physician Coder Relationship Specialty Start Date End Date Melissa Gill, SALES CLERK SUPERVISOR [address] [facility] [address] PCP - General Family Medicine 08/13/17 02/11/23 documented as of this encounter
--- OUTSIDE RECORDS SUMMARY | 2024-07-03 00:32 | XMS_ITS | Encounter Summary ---
[place] [address] Care Team Providers Care Industrial Electrical Engineer Name Role Phone Melissa Gill APRN Primary Care Provider [phone] Reason for Visit * Reason Comments Neck And Arm Pain With Numbness Encounter Details Date Type Department Care Team (Late st Contact Info) Description 08/20/2018 10:00 AM EST Office [place] [address] Sparkle Hanna, PT [facility] Neck pain [...] of this encounter Progress Notes * Sparkle Hanna PT - 08/20/2018 10:00 AM EST Spine Center Physical Therapy Note Referring Provider: Sagar Topete MD Diagnosis: 1. Neck pain 2. 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 Barker reports his neck and upper extremity pain has improved by 10% since his recent STACEY on 08/13/2018. The home exercise program has been going well. Mr. Barker currently complains of neck pain radiating to bilateral shoulders and scapula and intermittently down the lateral and anterior aspect of the left arm to the dorsum of the forearm and hand, left greater than right, withintermittent occipital headaches. The pain is rated 5/10 at its least and 10/10 at its worst. He notes the left upper extremity sill feels weak and he has numbness in the center of the left upper extremity including all digits. Symptoms worsen when sitting, looking down, looking up, turning, and lifting. Symptoms ease when keeping the neck in midline or lying in the supine position. Sleep continues to [...] upper extremity symptoms. Spurling maneuver to the left worsens the left upper extremity radicular pain. Repeated movement testing of the cervical spine once again did not suggest a directional preference. His position of comfort is with the neck in retraction but he is no better once returning to neutral. Treatment [...] day to relieve the pain. Assessment: Mr. Tims pain continues to interfere with his ability to function. He wishes to proceed with a second cervical epidural steroid injection with the hope he will obtain further pain relief. Goals: 1. Independent with home exercise program 2. Able to sit without discomfort 3. Able to turn and look over the shoulder without discomfort Plan: Follow up 1 week after the next cervical epidural steroid injection with the hope that Mr. Barker will be ready to progress the home exercise program. He will also be scheduled for a WRAP to clarify his work capacity. He was encouraged to call with any questions or concerns regarding todays visit or the home exercise program. Length of visit: A total of 20 minutes was spent re-assessing, treating, and instructing Diallo Barker in a home exercise program. documented in this encounter Plan of Treatment Not on file documented as of this encounter Visit Diagnoses Diagnosis Neck pain Cervicalgia documented in this encounter Care Teams Industrial Electrical Engineer Relationship Specialty Start Date End Date Melissa Gill, VENEER GLUE SPREADER [address] [place] [address] PCP - General Family Medicine 08/13/17 02/11/23 documented as of this encounter
--- OUTSIDE RECORDS SUMMARY | 2024-07-03 00:32 | XMS_ITS | Encounter Summary ---
Author Organization [facility] Address [facility] [place] [address] Care Team Providers Care Pneumatic Tester Name Role Phone Melissa Gill APRN Primary Care Provider [phone] Encounter Details Date Type Department Care Team (Latest Contact Info) Description 09/28/2022 9:00 AM EST - 09/28/2022 11:59 PM [facility] Encounter XRay at [address] [place] [address] Sagar Jones MD [facility] [place] [address] Neck pain; Radiculopathy of cervical region Discharge [...] SPINE AP FLEXION AND EXTENSION ONLY Routine 09/28/2022 9:10 AM EST Neck pain Radiculopathy of cervical [...] who have questions please contact the health childcare attendant that requested your imaging first. ? Electronically signed by: Vinny Martinez [facility] ([phone]), at 09/28/2022 1:35 PM Narrative 09/28/2022 1:35 [...] patients who have questions please contactthe health childcare attendant that requested your imaging first. Electronically signed by: Vinny Martinez [facility]([phone]), at 09/28/2022 1:35 PM Sagar Jones MD IMG DX ORDERABLES documented in this encounter Visit Diagnoses Diagnosis Neck pain Cervicalgia Radiculopathy of cervical region Brachial neuritis or radiculitis nos documented in this encounter Care Teams Pneumatic Tester Relationship Specialty Start Date End Date Melissa Gill APRN [address] [place] [address] PCP - General Family Medicine 08/13/17 02/11/23 documented as of this encounter
--- OUTSIDE RECORDS SUMMARY | 2024-07-03 00:32 | XMS_ITS | Encounter Summary ---
Author Organization [facility] Address [facility] [place] [address] Care Team Providers Care Nailer Hand Name Role Phone Melissa Gill APRN Primary Care Provider [phone] Encounter Details Date Type Department Care Team (Latest Contact Info) Description 07/04/2018 8:39 AM EST - 07/04/2018 11:59 PM [facility] Encounter XRay at [address] [place] [address] Sagar Jones MD [facility] [place] [address] Cervical radiculopathy Discharge Disposition: Home Social History Tobacco Use [...] CERVICAL SPINE 2 OR 3 VIEWS Routine 07/04/2018 8:50 AM EST Cervical radiculopathy documented in this encounter Results * XR Cervical Spine 2 Or 3 Views (07/04/2018 8:50 AM EST) Anatomical Region Laterality Modality C-spine N/A Digital Radiogra phy Impressions 07/04/2018 9:40 AM EST 1. ??Degenerative disc disease of the cervical spine at C4-5 and C5-6. 2. ??2 mm retrolisthesis of C4 on C5 in extension reduces with flexion. 3. ??Less than 1 mm measurement of the predental interval on extension is borderline increased in flexion, measuring 3 mm. Narrative 07/04/2018 9:40 AM EST EXAMINATION: XR CERVICAL SPINE 2 OR 3 VIEWS CLINICAL HISTORY: AP, lat flex/ext (3 views) to evaluate cervical radiculopathy TECHNIQUE: 3 view(s) of the cervical spine. ??AP view the cervical spine. Flexion and extension views of cervical spine. COMPARISON: MR of the cervical spine 06/23/2018. FINDINGS: On the lateral view, cervical levels are seen down to the C7-T1 level. In extension, the predental interval measures less than 1 mm and increases to 3 mm in flexion. There is 2 mm retrolisthesis of C4 on C5 in extension which reduces with flexion. Vertebral body heights are maintained. There is disc space narrowing at C4-5 and C5-6. There is uncovertebral hypertrophy on the left at C4-5. No prevertebral soft tissue swelling. Procedure Note Joanna Luis MD - 07/04/2018 EXAMINATION: XR CERVICAL SPINE 2 OR 3 VIEWS CLINICAL HISTORY: AP, lat flex/ext (3 views) to evaluate cervicalradiculopathy TECHNIQUE: 3 view(s) of the cervical spine. AP view the cervical spine. Flexionand extension views of cervical spine. COMPARISON: MR of the cervical spine 06/23/2018. FINDINGS: On the lateral view, cervical levels are seen down to the C7-T1 level.In extension, the predental interval measures less than 1 mm and increases to3 mm in flexion. There is 2 mm retrolisthesis of C4 on C5 in extension whichreduces with flexion. Vertebral body heights are maintained. There is disc space narrowing at C4-5 and C5-6. There is uncovertebral hypertrophy on the leftat C4-5. No prevertebral soft tissue swelling. IMPRESSION 1. Degenerative disc disease of the cervical spine at C4-5 and C5-6. 2. 2 mm retrolisthesis of C4 on C5 in extension reduces with flexion. 3. Less than 1 mm measurement of the predental interval on extension is borderline increased in flexion, measuring 3 mm. Sagar Jones MD IMG DX ORDERABLES documented in this encounter Visit Diagnoses Diagnosis Cervical radiculopathy Brachial neuritis or radiculitis nos documented in this encounter Care Teams Nailer Hand Relationship Specialty Start Date End Date Melissa Gill, NEVILLE [address] [facility] [place] [address] PCP - General Family Medicine 08/13/17 02/11/23 documented as of this encounter
--- OUTSIDE RECORDS SUMMARY | 2024-07-03 00:32 | XMS_ITS | Encounter Summary ---
Author Organization [facility] Address [place] [id number] Care Team Providers Care Pole Peeling Machine Operator Name Role Phone Melissa Gill APRN Primary Care Provider [phone] Reason for Referral * Consultation (Routine) - Closed Specialty Diagnoses / Procedures Referred By Contac t Referred To Contact Pain Management Diagnoses Cervical disc disorder with radiculopathy of cervicothoracic region Osteoarthritis of spine with radiculopathy, cervical region Procedures PRO INJECTION DX/THER SBST INTRLMNR CRV/THRC W/IMG GDN Sagar Jones MD [facility] [place] [address] [facility] [address] [place] [address] Referral ID Status Reason Start Date Expiration Date V isits Requested Visits Authorized [id number] Closed Consult, Test & Treat 07/04/2018 07/04/2019 1 1 * Physical Therapy (Routine) - Closed Specialty Diagnoses / Procedures Referred By Contact Referred To Contact Physical Therapy / Orthopaedics Diagnoses Cervical disc disorder with radiculopathy of cervicothoracic region Osteoarthritis of spine with radiculopathy, cervical region Sagar Jones MD [facility] [place] [place] [address] [facility] [address] [place] [phone] Referral ID Status Reason Start Date Expiration Date V isits Requested Visits Authorized [id number] Closed Evaluate and Treat 07/04/2018 07/04/2019 1 1 Reason for Visit * Reason Comments Neck Pain Bilateral Shoulder Pain * Consultation (Routine) - Closed Specialty Diagnoses / Procedures Referred By Oxana sewell Referred To Contact Orthopaedics Diagnoses Cervical radiculopathy/ MRI 06/23/18 in [facility] Sterling Preston MD [facility] [place] [address] [facility] [address] [place] [phone] Referral ID Status Reason Start Date Expiration Date V isits Requested Visits Authorized [id number] Closed Consult, Test & Treat 06/25/2018 06/25/2019 1 1 Encounter Details Date Type Department Care Team (Latest Contact Info) Description 07/04/2018 9:40 AM EST Office [place] [address] Sagar Jones MD [facility] [place] [address] Cervical disc disorder with radiculopathy of cervicothoracic region; Osteoarthritis of spine with radiculopathy, cervical region Social History Tobacco Use Types [...] as of this encounter Progress Notes * Sagar Jones MD - 07/04/2018 9:40 AM EST Spine Center @ [facility] Sagar Jones MD, MS. Director Sterling Preston MD [facility] [place] [address] Melissa Gill, CHEMICAL SUPERVISOR [address] [facility] [address] Dear Colleagues, I had the pleasure of seeing this patient at the [facility] for surgical evaluation. Chief complaint: Neck pain bilateral shoulder pain with radiation into the arms variable worse withactivity. Diagnosis: 1. C4-5 C5-6 spondylosis with left greater than right foraminal stenosis. Prognostic factors BMI 22.51.Heavy smoker. Significant alcohol use. Prior treatments: PT with traction formal as well as shoulder PT > 6 weeks. Medications including NSAIDs. Currently on Neurontin. Imaging: MRI was reviewed which shows findings as noted above. X-rays do not show significant degenerative changes. However CT of the chest does show posterior osteophytes. Symptoms: Worse with raising his arms. However thoracic outlet has been ruled out. Has numbness andweakness distally. Worse with activity and lifting. Duration of symptoms 2 years progressive. Physical examination: Alert and oriented male affect normal limits. Not hyper flexes. Negative shoulder exam. 5 out of 5 strength in bilateral upper and lower extremities. Romberg is negative. 1+ reflexes. Positive Spurling's negative Lhermitte's. No skin changes. Plan: The patient with foraminal stenosis and degenerative spondylosis at C4-5 and C5-6 with associated C5 radiculopathy primarily. The risks and benefits of surgical intervention were discussed onlybriefly as he has a high risk for nonunion given the amount of smoking he does. I think conservative options are better option at this point. He is done physical therapy as well as Neurontin other medications such as anti-inflammatories and Tylenol is been managed quite well. At this point cervicalepidural steroid injection would be warranted. Proceed with cervical epidural steroid injection. If patient does not have any long-term relief combining his physical therapy activities with that in consideration for surgical intervention but enough to significantly decrease his smoking. Patient request a work limitations letter. I requested a WRAP to determine his limitations. Sincerely, Sagar Jones MD MS Black Top Spreader Machine Operator - Orthopedic Spine Surgery / [facility] Blow Molding Machine Tender - Department of Orthopedic Surgery / [employer] Nuclear Waste Management Engineer - [facility] [employer] [employer] 07/04/2018 Spine Center Response Trends Patient-reported scores: No flowsheet data found. documented in this encounter Miscellaneous Notes * Addendum Note - Fallon Parsons LPN - 07/04/2018 9:40 AM ESTAddended by: FALLON PARSONS on: 07/04/2018 10:38 AM Modules accepted: Orders * Addendum Note - Fallon Parsons LPN - 07/04/2018 9:40 AM ESTAddended by: FALLON PARSONS on: 07/04/2018 10:52 AM Modules accepted: Orders documented in this encounter Plan of Treatment Scheduled Referrals Name Type Priority Associated Diagnoses Orde r Schedule Referral to Physical Therapy Outpatient Referral Routine Cervical disc disorder with radiculopathy of cervicothoracic region Osteoarthritis of spine with radiculopathy, cervical region Ordered: 07/04/2018 Referral to Pain Clinic Outpatient Referral Routine Cervical disc disorder with radiculopathy of cervicothoracic region Osteoarthritis of spine with radiculopathy, cervical region Ordered: 07/04/2018 documented as of this encounter Visit Diagnoses Diagnosis Cervical disc disorder with radiculopathy of cervicothoracic region Brachial neuritis or radiculitis nos Osteoarthritis of spine with radiculopathy, cervical region documented in this encounter Care Teams Pole Peeling Machine Operator Relationship Specialty Start Date End Date Melissa Gill APRN [address] [place] [address] PCP - General Family Medicine 08/13/17 02/11/23 documented as of this encounter
--- OUTSIDE RECORDS SUMMARY | 2024-07-03 00:32 | XMS_ITS | Encounter Summary ---
Author Organization [facility] [place] [address] Care Team Providers Care Independent Living Instructor Name Role Phone ZoeMelissa lockwood APRN Primary Care Provider [phone] Reason for Referral * Consultation (Routine) - Closed Specialty Diagnoses / Procedures Referred By Contkelvin t Referred To Contact [facility] Sp[facility] Diagnoses Neck pain Radiculopathy of cervical region Lars Montenegro PA [facility] [place] [address] [facility] [place] [address] Referral ID Status Reason Start Date Expiration Date V isits Requested Visits Authorized [id number] Closed Surgical 09/28/2022 09/28/2023 1 1 Reason for Visit * Reason Comments Follow-up F/U to MRI and Xray Encounter Details Date Type Department Care Team (Late st Contact Info) Description 09/28/2022 11:00 AM EST Office Visit [facility] [place] [address] Lars Montenegro PA [facility] [place] [address] Neck pain; Radiculopathy of cervical region Social History Tobacco Use Types Packs/Day Years Used Date Smoking Tobacco: Every Day Cigarettes 1.5 15 Smokeless Tobacco: Former Chew Tobacco Cessation:Ready to Q uit: Not Asked; Counseling Given: Not Answered Alcohol Use Standard Drinks/Week Comments Yes 0 [...] - - Weight 79.4 kg (175 lb) 09/28/2022 10:53 AM EST Height 190.5 cm (6' 3) 09/28/2022 10:53 AM EST Body Mass Index 21.87 09/28/2022 10:53 AM EST documented in this encounter Progress Notes * Lasr Montenegro PA - 09/28/2022 11:00 AM EST Images from the original note were not included. [facility] Lars Montenegro PA-C Dear Colleagues, I had the pleasure of seeing this patient at the [facility] for evaluation. Chief Complaint: F/u to review MRI HPI: Diallo is a 42 year old male who returns to clinic to review MRI and XR which was obtained to further assess neck pain radiating into right>left upper extremity. Patient was last seen by me on 09/07/22; see that note for more specifics. In brief summary: 42 year old male with chronic neck pain radiating into primarily left upper extremity who has had similar symptoms since 2019 where he had STACEY with no relief of symptoms. Pain begins at the neck andtravels to bilateral scapula and radiates down into the left shoulder, radial forearm and into the 1st-3rd digits. Social: Tobacco use: 1.5 ppd Alcohol use: 6 ppd Occupation: manual labor Review of systems: As above in HPI Imaging: Personally reviewed MRI and XR obtained today and compared to prior. There has been interval progression of foraminal narrowing at C4-5 and C5-6 bilaterally. At C6-7 there is new right paracentral disc extrusion focally effaceing ventral CSF. Slight worsening of central canal stenosis at C5-6. Assessment Diagnosis: -Cervical spondylosis with radiculopathy Diallo is a 42 year old male who presents to clinic in follow up to review imaging and discussnext steps. His MRI shows some progression of the spondylotic changes with worsening left C4-5 and C5-6 foraminal stenosis. His symptoms do follow more of a C6 pattern with pattern traveling to the radial digits. We discussed options including trial of repeat injection and surgical intervention. Hehad no relief with injection and would like to meet with surgeon for further discussion. We discussed smoking cessation which he is working on cutting back on. Explained this may impact ability to undergo surgery or impact his recovery and should continue to work towards complete cessation. We willhave him follow up with a surgeon for further discussion. Plan: 1) Follow up with surgeon for further discussion. Thank you for letting me participate in this patient's care. Sincerely, Lars Montenegro PA-C [facility] documented in this encounter Plan of Treatment Scheduled Referrals Name Type Priority Associated Diagnoses Orde r Schedule Referral to Pain and Spine Center (Internal only) Outpatient Referral Routine Neck pain Radiculopathy of cervical region Ordered: 09/28/2022 documented as of this encounter Visit Diagnoses Diagnosis Neck pain Cervicalgia Radiculopathy of cervical region Brachial neuritis or radiculitis nos documented in this encounter Care Teams Independent Living Instructor Relationship Specialty Start Date End Date Melissa Gill APRN [address] [place] [address] PCP - General Family Medicine 08/13/17 02/11/23 documented as of this encounter
--- OUTSIDE RECORDS SUMMARY | 2024-07-03 00:32 | XMS_ITS | Encounter Summary ---
[place] [address] Care Team Providers Care Supervising Architect Name Role Phone Melissa Gill APRN Primary Care Provider [phone] Reason for Visit * Reason Comments Neck Pain * Consultation (Routine) - Closed Specialty Diagnoses / Procedures Referred By Contac t Referred To Contact [facility] and Sp[facility] Center Diagnoses Neck pain Radiculopathy of cervical region Lars Montenegro PA [facility] [place] [address] [facility] [place] [address] Referral ID Status Reason Start Date Expiration Date V isits Requested Visits Authorized [id number] Closed Surgical 09/28/2022 09/28/2023 1 1 Encounter Details Date Type Department Care Team (Latest Contact Info) Description 10/04/2022 8:00 AM EDT Office Visit [place] [address] Arnoldo Prince MD [facility] [place] [address] Cervical disc disorder with radiculopathy of cervicothoracic [...] - - Weight 79.4 kg (175 lb) 10/04/2022 8:03 AM EDT Height 190.5 cm (6' 3) 10/04/2022 8:03 AM EDT Body Mass Index 21.87 10/04/2022 8:03 AM EDT documented in this encounter Progress Notes * Arnoldo Prince MD - 10/04/2022 8:00 AM EDT Chief complaint: Neck pain radiating to left greater than right upper extremity History of present illness: Mr. Barker is a 42-year-old raaow-lsdw-arofilyo male whom I am seeing in consultation for Lars Montenegro in regards to his neck pain that radiates to his left greaterthan right shoulder, lateral arm and forearm into the radial side of his hand. The symptoms came oninsidiously about 5 years ago. He describes some numbness predominantly in the radial side of his hands, though occasionally into the ulnar side as well. She also reports numbness on the dorsum of both feet. His hands feel weak to have. His neck pain is worse with neck motion and activity. Nothing gives him relief. It keeps him up at night. He describes mild changes in his gait and fine motor skills. He denies constitutional symptoms or change in his bowel or bladder function. He has taken ibuprofen, Tylenol, gabapentin, and Lyrica without much improvement. He has done over 3 months of physical therapy and continues to do home exercises with no improvement. He had 3 cervical epidural steroid injections that did not help. He has not had prior spinal surgery. Past medical history: None Past surgical history: Right hand surgery for laceration Medications and allergies were reviewed and are in E DH. 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 He has had to cut back his work some. He stopped sarah beth due to the symptoms. He quit smoking 6 weeks ago. He has a few beers at night. Review of systems: All negative except musculoskeletal as above. Physical exam Patient is 6 foot 3, 175 pounds, with a BMI of 21.9 General: Patient is comfortable, no acute distress Neck: His neck is tender to palpation in the midline. He can flex 40 degrees, extend 20 degrees, rotate 40 degrees, and side bend 20 degrees. Neurological exam: He walks with a normal gait. He can perform tandem gait. Motor exam reveals 5/5 strength in all upper extremity motors. He has normal upper extremity sensory exam. Reflexes are 1/4in the upper extremities and 2/4 in the lower extremities. He has a positive Spurling sign bilaterally, more pronounced on the left than the right. Cassia's negative bilaterally. He has no clonus. Shoulder exam: He has normal, painless range of motion of both shoulders. Vascular exam: He has palpable radial pulses bilaterally. Imaging: AP and lateral flexion/extension x-rays of the cervical spine from 09/28/2022 were reviewed. These show marked degenerative changes at C4-C5 and C5- C6. There is no instability. MRI of the cervical spine from 09/28/2022 was reviewed. This showed degenerative changes most pronounced from C4-C6. At C4-C5, there is mild central with severe left and moderate to severe right foraminal narrowing. At C5-C6, there is moderate central with severe bilateral foraminal narrowing. At C6-C7, there is a right paracentral disc herniation is compressing the right side of the cord. This does not cause much foraminal stenosis. Assessment/plan: Mr. Barker is a 42-year-old male who presents with approximately 5 years of cervical radiculopathy affecting his left greater than right upper extremity. He has cervical spondylosiswith varying degrees of spinal cord and nerve root compression from C4-C7. We discussed treatment options for this and that include continued medication, further physical therapy, repeat injection, and surgery. He feels as though he has failed to improve despite extensive nonoperative treatment andthat this is markedly compromising his quality of life. He wants to proceed with surgery. Surgery in his case will involve a C4-C7 ACDF. The planned surgery was demonstrated on the spinal. Consent was obtained. Risks were document on the consent form. The typical recovery was reviewed. He will needa history and physical from his primary care physician and preadmission testing. I told him to avoid any aspirin, anti- inflammatory medication, or fish oil within 1 week of surgery. I reinforced the need for continued smoking cessation to reduce the risk of pseudarthrosis. We will schedule surgery at his convenience. documented in this encounter Plan of Treatment Not on file documented as of this encounter Visit Diagnoses Diagnosis Cervical disc disorder with radiculopathy of cervicothoracic region Brachial neuritis or radiculitis nos documented in this encounter Care Teams Supervising Architect Relationship Specialty Start Date End Date Melissa Gill, STORE OPERATIONS MANAGER [address] [place] [address] PCP - General Family Medicine 08/13/17 02/11/23 documented as of this encounter
--- OUTSIDE RECORDS SUMMARY | 2024-07-03 00:32 | XMS_ITS | Encounter Summary ---
Author Organization [facility] [place] [address] Care Team Providers Care Appian Developer Name Role Phone Melissa Gill APRN Primary Care Provider [phone] Encounter Details Date Type Department Care Team (Late st Contact Info) Description 06/26/2018 Telephone [place] [id number] Jessica Russell MSW [facility] [place] [address] Social History Tobacco Use Types Packs/Day Years [...] encounter Miscellaneous Notes * Telephone Encounter - Jessica Russell MSW - 06/26/2018 2:12 PM EST In State out of Area Out of State Medicaid Physician Referral form completed and faxed to [place] [employer] fax [phone]. Copy held in Spine Center documented in this encounter Plan of Treatment Not on file documented as of this encounter Visit Diagnoses Not on filedocumented in this encounter Care Teams Appian Developer Relationship Specialty Start Date End Date Melissa Gill, CERTIFIED NURSES AIDE [address] [place] [address] PCP - General Family Medicine 08/13/17 02/11/23 documented as of this encounter
--- OUTSIDE RECORDS SUMMARY | 2024-07-03 00:32 | XMS_ITS | Encounter Summary ---
Author Organization [facility] [place] [address] Care Team Providers Care Frame Gate Mortiser Operator Name Role Phone Melissa Gill APRN Primary Care Provider [phone] Reason for Visit * Auth/Cert Specialty Diagnoses / Procedures Referred By Oxana sewell Referred To Contact Diagnoses Cervical disc disorder with radiculopathy of cervicothoracic region Procedures PRO INJECTION DX/THER SBST INTRLMNR CRV/THRC W/IMG GDN INJECTION, EPIDURAL, CERVICAL OR THORACIC, WITH IMAGING GUIDANCE (WRVU 1.95) Referral ID Status Reason Start Date Expiration Date Visits Re quested Visits Authorized [id number] 1 1 Encounter Details Date Type Department Care Team (Late st Contact Info) Description 11/18/2018 11:45 AM EDT Ancillary [place] [address] Amber Ford MD [facility] [place] [address] Pain Social History Tobacco Use Types Packs/Day Years [...] Procedure Name Priority Date/Time Associated Diagnosis Comments FILM LIBRARY STORAGE ONLY PAIN CLINIC C ARM Routine 01/13/2019 5:07 PM EDT Pain documented in this encounter Results * Film Library- Storage Only pain Clinic C-Arm (01/13/2019 5:07 PM EDT) Narrative [facility] - 01/13/2019 5:07 PM EDT See PACS for result report. Amber Ford MD IMG FILM LIBRARY ORD ERABLES Performing Organization Address City/State/[facility] Co de Phone Number [place], [place] documented in this encounter Visit Diagnoses Diagnosis Pain Generalized pain documented in this encounter Care Teams Frame Gate Mortiser Operator Relationship Specialty Start Date End Date Melissa Gill, NEVILLE [address] [place] [address] PCP - General Family Medicine 08/13/17 02/11/23 documented as of this encounter
--- OUTSIDE RECORDS SUMMARY | 2024-07-03 00:32 | XMS_ITS | Encounter Summary ---
[place] [address] Care Team Providers Care Dog Show Judge Name Role Phone Melissa Gill APRN Primary Care Provider [phone] Encounter Details Date Type Department Care Team (Late st Contact Info) Description 10/04/2022 Orders Only [facility] [place] [address] Joy Green RN Cervical disc disorder with radiculopathy of cervicothoracic region; Neck pain Social History Tobacco Use Types [...] Progress Notes * Joy Green RN - 10/04/2022 11:23 AM EDT [employer] External Bone Stim order pended to Dr Prince. Upon signature, will send order and corresponding documents to Kwaku Owen [employer] Rep to process. 10/11/22 ~ 3pm Order for cervical external bone stimulator and corresponding documents faxed to [facility] at fax # documented in this encounter Plan of Treatment Not on file documented as of this encounter Visit Diagnoses Diagnosis Cervical disc disorder with radiculopathy of cervicothoracic region Brachial neuritis or radiculitis nos Neck pain Cervicalgia documented in this encounter Care Teams Dog Show Judge Relationship Specialty Start Date End Date Melissa Gill, NEVILLE [address] [place] [address] PCP - General Family Medicine 08/13/17 02/11/23 documented as of this encounter
--- OUTSIDE RECORDS SUMMARY | 2024-07-03 00:32 | XMS_ITS | Encounter Summary ---
[place] [address] Care Team Providers Care A P Supervisor Name Role Phone Melsisa Gill APRN Primary Care Provider Encounter Details Date Type Department Care Team (Latest Contact Info) Description 10/04/2022 Travel Social History Tobacco Use Types Packs/Day [...] on filedocumented in this encounter Care Teams A P Supervisor Relationship Specialty Start Date End Date Melissa Gill APRN [address], [place] [id number] PCP - General Family Medicine 08/13/17 02/11/23 documented as of this encounter
--- OUTSIDE RECORDS SUMMARY | 2024-07-03 00:32 | XMS_ITS | Encounter Summary ---
Author Organization [facility] [place] [address] Care Team Providers Care Media Coordinator Name Role Phone Melissa Gill APRN Primary Care Provider [phone] Encounter Details Date Type Department Care Team (Late st Contact Info) Description 08/13/2018 11:45 AM EST Ancillary Procedure [place] [address] Amber Ford MD [facility] [place] [address] Pain Social History Tobacco Use Types Packs/Day [...] STORAGE ONLY PAIN CLINIC C ARM Routine 01/27/2019 5:17 PM EDT Pain documented in this encounter Results * Film Library- Storage Only pain Clinic C-Arm (01/27/2019 5:17 PM EDT) Narrative [facility] - 01/27/2019 5:17 PM EDT See PACS for result report. Amber Ford MD IMG FILM LIBRARY ORD ERABLES [place], [place] documented in this encounter Visit Diagnoses Diagnosis Pain Generalized pain documented in this encounter Care Teams Media Coordinator Relationship Specialty Start Date End Date Melissa Gill, WOOL FLEECE SORTER [address] [place] [address] PCP - General Family Medicine 08/13/17 02/11/23 documented as of this encounter
--- OUTSIDE RECORDS SUMMARY | 2024-07-03 00:32 | XMS_ITS | Encounter Summary ---
[place] [address] Care Team Providers Care Chicken Fancier Name Role Phone Melissa Gill APRN Primary Care Provider [phone] Reason for Visit * Reason Onset Date Comments Questions 06/26/2018 Referral to Spin e Center Encounter Details Date Type Department Care Team (Late st Contact Info) Description 06/26/2018 Telephone [place] [address] Deneen Hussein Questions (Referral to Spine Center) Social History Tobacco Use Types Packs/Day Years [...] encounter Miscellaneous Notes * Telephone Encounter - Deneen Campbell V RN - 06/26/2018 1:22 PM EST TC from [place] - questions about the Referral to Spine Center. MARYANA on 06/23/18. - Plan: Follow-up MRI results, likely image guided right anterior scalene block, smoking cessation Referral to Spine Center on 06/25/[address] & MRI done on 06/23/18. - Orders placed by Sagar Jones MD for Cervical Spine xray's and appointment in Spine Clinic on 07/04/18. 10/14/17 Initial visit -.Thoracic Outlet Syndrome. Bilateral arm pain - Referral to Physical Therapy. Questions about MRI results - Multilevel Degenerative Changes in Cervical Spine. Requesting information concerning the severity of these findings. Is it something that I should beworried about? IS THERE ANY ACTIVITY THAT WILL BE DANGEROUS FOR ME TO DO? Asking if there are any activity limitations that her should be aware of. Requesting a telephone call from Dr Preston. If able to call before 4:30 PM today, the call should be made to his cell phone # [phone]. If unable to call until after 4:30 PM today, the call may go to his Home phone # [phone]. Diallo is also requesting a letter or documentation form Dr Preston to show that he has been seen in Thoracic Surgery and had testing done. He has been out of work lately because of pain and numbness in his arms. [facility].His Court Date is scheduled for 07/03/18. He is scheduled to be seen in [facility] on 07/04/18. I'm afraid that I won't make it to the appointment because I'll be in Retirement for not paying Child Support. Request for phone call and letter or documentation from Dr Preston sent to his In Basket. * Telephone Encounter - Deneen Hussein - 06/26/2018 12:55 PM EST Diallo called to speak to either Dr. Preston himself or his nurse regarding the referral [facility]. He has more questions regarding the CT scan diagnosis. Please call him back at [phone]. Thank you documented in this encounter Plan of Treatment Not on file documented as of this encounter Visit Diagnoses Not on filedocumented in this encounter Care Teams Chicken Fancier Relationship Specialty Start Date End Date Melissa Gill, DIRECTOR FIELD SERVICES [address] [place] [address] PCP - General Family Medicine 08/13/17 02/11/23 documented as of this encounter
--- OUTSIDE RECORDS SUMMARY | 2024-07-03 00:32 | XMS_ITS | Encounter Summary ---
[place] [address] Care Team Providers Care Medical Dir Name Role Phone Melissa Gill APRN Primary Care Provider [phone] Encounter Details Date Type Department Care Team (Late st Contact Info) Description 08/26/2018 Notes Only [place] [address] Faith Morrissey Social History Tobacco Use Types Packs/Day Years [...] as of this encounter Progress Notes * Faith Morrissey - 08/26/2018 1:38 PM EST Medicaid transportation form filled out and faxed to [phone] per patient's request for his appointment with [facility] on , 08/28 and filed at exit desk. documented in this encounter Plan of Treatment Not on file documented as of this encounter Visit Diagnoses Not on filedocumented in this encounter Care Teams Medical Dir Relationship Specialty Start Date End Date Melissa Gill APRN [address] [place], [place] [id number] PCP - General Family Medicine 08/13/17 02/11/23 documented as of this encounter
--- OUTSIDE RECORDS SUMMARY | 2024-07-03 00:33 | XMS_ITS | Encounter Summary ---
Author Organization [facility] Address [facility] [place] [address] Care Team Providers Care Rim Roller Operator Name Role Phone Philipp Mcrae MD Primary Care Provider [phone] Encounter Details Date Type Department Care Team (Late st Contact Info) Description 04/22/2017 1:30 PM EDT - 04/22/2017 11:59 PM EDT Hospital Encounter [place] [address] Jessica Yoder MD [facility] [place] [address] Scrotal hematoma Discharge Disposition: Home Social History Tobacco Use [...] for Pain. 30 tablet 3 01/20/2017 02/19/2023 ketorolac (TORADOL) 10 mg Tablet Take 1 tablet by mouth every 6 hours as needed for Pain. Take for the first 1-4 days, then stop and switch to ibuprofen. 20 tablet 01/20/2017 07/04/2018 penicillin v potassium (VEETID) 500 mg tablet 500MG, PO, Four times daily 04/01/2005 07/04/2018 CIS Free Text Med - MSIR 30mg, PO, Q4-6H,PRN 05/06/2003 07/04/20 18 nicotine (NICODERM CQ) 21 mg/24 hr 21mg/24h, TD, QD 05/06/2003 07/04/2018 documented as of this encounter Plan of Treatment Not on file documented as of this encounter Procedures Procedure Name Priority Date/Time Associated Diagnosis Comments US SCROTUM Routine 04/22/2017 2:48 PM EDT Scrotal hematoma documented in this encounter Results * US Scrotum (04/22/2017 2:48 PM EDT) Anatomical Region Laterality Modality Pelvis Ultrasound 04/22/2017 2:49 PM EDT Impressions 04/22/2017 3:16 PM EDT ??1. ??Interval decrease in size of left scrotal hematoma.2. Normal appearance of the left testicle. No evidence of torsion.I have personally reviewed the image(s) and the residents interpretation andagree with the findings, Keerthi Mars at 04/22/2017 3:09 PM ?Keerthi Mars MD Electronically Signed Final Report ?? 04/22/2017 03:16 pm Narrative 04/22/2017 3:16 PM EDT Scrotal ? (Signed Final 04/22/2017 03:16 pm) PATIENT INFO: ID #: ? [id number] ?: ??[birth year] (36 yrs) Name: ? LOY Lopez ?Visit Date: 04/22/2017 02:49 pm ? YONG PERFORMED BY: Performed By: ? Brennan Bowling RDMS Attending: ?Jerad SARAVIA, Keerthi Pruitt Resident: ? Ruperto Thompson MD, Alondra Liu Referred By: ?JESSICA YODER Location: ? [place] SERVICE(S) PROVIDED: ??[facility] - Scrotum and Contents with Vascular - ?[id number], [id number] ??[id number] INDICATIONS: ??patient s/p injury to scrotum, large left ??hematoma, eval for testicular health/scrotal ??contents at 3 months COMPARISON: Ultrasound: SCROTAL 01/19/17 RIGHT TESTICLE: Measurement(cm) ? L: ??5.1 ?AP: ?? 2.8 ? TV: ??3.2 Vol (ml): ?23.9 Vascularity: ?Normal Doppler: Arterial: Visualized Venous: ?? Visualized Comment: ?Normal texture, no intratesticular mass. Arterial ? and venous doppler waveforms demonstrated. RIGHT EPIDIDYMIS: Head: ?Normal Body: ?Normal Tail: ?Normal Vascularity: ?? Normal Comment: ?Normal texture RIGHT OTHER: Hydrocele: ? No hydrocele seen Varicocele: ?Not visualized LEFT TESTICLE: Measurement(cm) ? L: ??4.2 ?AP: ?? 2.2 ? TV: ??3.2 Vol (ml): ?15.5 Vascularity: ?Mild hyperemia Doppler: Arterial: Visualized Venous: ?? Visualized Comment: ?Normal texture, no intratesticular mass.. Arterial ? and venous doppler waveforms demonstrated. LEFT EPIDIDYMIS: Head: ?Normal Body: ?Normal Tail: ?Normal Vascularity: ?? Normal Comment: ?Normal texture LEFT OTHER: Hydrocele: ? No hydrocele seen Varicocele: ?Not visualized ADDITIONAL FINDINGS: Complex collection seen lat/inf to left testicle measuring approx. 6.5 x 4.7 x 3.6 cm. Procedure Note Keerthi Mars MD - 04/22/2017 Scrotal (Signed Final 04/22/2017 03:16 pm) PATIENT INFO: ID #: [id number] : [birth year] (36 yrs) Name: LOY Lopez Visit Date: 04/22/2017 02:49 pm YONG PERFORMED BY: Performed By: Brennan Bowling RDMS Attending: Keerthi Mars MD Resident: Alondra Huerta MD Referred By: JESSICA YODER Location: [facility] [place] SERVICE(S) PROVIDED: [facility] - Scrotum and Contents with Vascular - [id number], [id number] INDICATIONS: patient s/p injury to scrotum, large left hematoma, eval for testicular health/scrotal contents at 3 months COMPARISON: Ultrasound: SCROTAL 01/19/17 RIGHT TESTICLE: Measurement(cm) L: 5.1 AP: 2.8 TV: 3.2 Vol (ml): 23.9 Vascularity: Normal Doppler: Arterial: Visualized Venous: Visualized Comment: Normal texture, no intratesticular mass. Arterial and venous doppler waveforms demonstrated. RIGHT EPIDIDYMIS: Head: Normal Body: Normal Tail: Normal Vascularity: Normal Comment: Normal texture RIGHT OTHER: Hydrocele: No hydrocele seen Varicocele: Not visualized LEFT TESTICLE: Measurement(cm) L: 4.2 AP: 2.2 TV: 3.2 Vol (ml): 15.5 Vascularity: Mild hyperemia Doppler: Arterial: Visualized Venous: Visualized Comment: Normal texture, no intratesticular mass.. Arterial and venous doppler waveforms demonstrated. LEFT EPIDIDYMIS: Head: Normal Body: Normal Tail: Normal Vascularity: Normal Comment: Normal texture LEFT OTHER: Hydrocele: No hydrocele seen Varicocele: Not visualized ADDITIONAL FINDINGS: Complex collection seen lat/inf to left testicle measuring approx. 6.5 x 4.7 x 3.6 cm. IMPRESSION 1. Interval decrease in size of left scrotal hematoma.2. Normal appearance of the left testicle. 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
--- OUTSIDE RECORDS SUMMARY | 2024-07-03 00:33 | XMS_ITS | Encounter Summary ---
[place] [address] Care Team Providers Care Fly Frame Tender Name Role Phone Melissa Gill APRN Primary Care Provider [phone] Reason for Visit * Reason Onset Date Comments Procedure 08/20/2017 Encounter Details Date Type Department Care Team (Late st Contact Info) Description 08/20/2017 Telephone [place] [id number] Leila Simpson Procedure Social History Tobacco Use Types Packs/Day Years [...] encounter Miscellaneous Notes * Telephone Encounter - Leila Simpson - 08/20/2017 2:46 PM EST Pt cancelled the am of his procedure on 05/02/17. Lola had left messages x3 then I have left message 05/09 and 06/20 and 07/09. Pt has not returned any calls. Removed from list to schedule. documented in this encounter Plan of Treatment Not on file documented as of this encounter Visit Diagnoses Not on filedocumented in this encounter Care Teams Fly Frame Tender Relationship Specialty Start Date End Date Melissa Gill APRN [address] [place] [address] PCP - General Family Medicine 08/13/17 02/11/23 documented as of this encounter
--- OUTSIDE RECORDS SUMMARY | 2024-07-03 00:33 | XMS_ITS | Encounter Summary ---
Author Organization [facility] [place] [address] Care Team Providers Care Android Platform Developer Name Role Phone Melissa Gill APRN Primary Care Provider [phone] Encounter Details Date Type Department Care Team (Late st Contact Info) Description 10/18/2017 Telephone [place] [address] Twila Ashraf Social History Tobacco Use Types Packs/Day Years [...] encounter Miscellaneous Notes * Telephone Encounter - Twila Ashraf - 10/18/2017 1:15 PM EDT Prior Authorization for Chest with Contrast & MRI Cervical Spine w/wo contrast ID# [id number] Call placed to [facility] ([phone]) for PA of CT of Chest with Contrast & MRI Cervical Spine w/wo contrast Rationale: Thoracic outlet syndrome (G54.0) Spoke w/ Catarino who states both scan need a proir auth through [employer] ([phone]) spoke w/Sheree state this prior auth need to go to review. I am faxing Dr. Preston note to ([phone]) with reference number [id number] Sheree states that the approval will take up to two business days PA Valid through: PA# documented in this encounter Plan of Treatment Not on file documented as of this encounter Visit Diagnoses Not on filedocumented in this encounter Care Teams Android Platform Developer Relationship Specialty Start Date End Date Melissa Gill, MANAGER OF DIGITAL [address] [place] [address] PCP - General Family Medicine 08/13/17 02/11/23 documented as of this encounter
--- OUTSIDE RECORDS SUMMARY | 2024-07-03 00:33 | XMS_ITS | Encounter Summary ---
[place] [address] Care Team Providers Care Law Professor Name Role Phone Melissa Gill APRN Primary Care Provider [phone] Reason for Visit * Reason Onset Date Comments Letter for School/Work 10/24/2017 Request f or out of work letter Encounter Details Date Type Department Care Team (Late Contact Info) Description 10/24/2017 Telephone [place] [phone] Tiffany Levine RN Letter for School/Work (Request for out of work letter) Social History Tobacco Use Types Packs/Day Years [...] encounter Miscellaneous Notes * Telephone Encounter - Tiffany Levine RN - 10/24/2017 3:20 PM EDT 10/24/2017 1:50PM Message from Willa Hadley, [facility]: Joaquinangelo Lucero called and requested a letter explaining why he can???t go to work. He would like one copy sent to his home addressand another sent to [facility] in [facility]. Call to patient to communicate response from Dr. Preston. States he has been in contact with other providers and is unable to get a note from them. Understands why we are unable to provide him with one. * Telephone Encounter - Tiffany Levine RN - 10/24/2017 3:20 PM EDT ----- Message from Sterling Preston MD sent at 10/24/2017 2:57 PM EDT ----- Regarding: RE: Out of work letter? I don't have a diagnosis for him and can't really say why he can't work. I guess his PCP? ----- Message ----- From: Tiffany Levine RN Sent: 10/24/2017 1:51 PM To: LUISITO Jaimes, # Subject: Out of work letter? 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 Would you like me to have him contact his referring provider for this note? Thank You, Tiffany documented in this encounter Plan of Treatment Not on file documented as of this encounter Visit Diagnoses Not on filedocumented in this encounter Care Teams Law Professor Relationship Specialty Start Date End Date Melissa Gill APRN [address] [place] [address] PCP - General Family Medicine 08/13/17 02/11/23 documented as of this encounter
--- OUTSIDE RECORDS SUMMARY | 2024-07-03 00:33 | XMS_ITS | Encounter Summary ---
[place] [address] Care Team Providers Care Analysis Specialist Name Role Phone Melissa Gill APRN Primary Care Provider [phone] Encounter Details Date Type Department Care Team (Late st Contact Info) Description 01/09/2018 Telephone [place] [phone] Twila Ashraf Social History Tobacco Use Types [...] * Telephone Encounter - Twila Ashraf - 01/09/2018 3:12 PM EDT Referral was faxed to [facility] in [facility] ([phone]) documented in this encounter Plan of Treatment Not on file documented as of this encounter Visit Diagnoses Not on filedocumented in this encounter Care Teams Analysis Specialist Relationship Specialty Start Date End Date Melissa Gill APRN [address] [place], [place] [id number] PCP - General Family Medicine 1/23/18 7/24/23 documented as of this encounter
--- OUTSIDE RECORDS SUMMARY | 2024-07-03 00:33 | XMS_ITS | Encounter Summary ---
Author Organization [facility] [place] [address] Care Team Providers Care Mechatronics Technologist Name Role Phone Melissa Gill APRN Primary Care Provider [phone] Reason for Visit * Reason Comments Follow-up Encounter Details Date Type Department Care Team (Late st Contact Info) Description 06/23/2018 11:15 AM EST Office Visit Thoracic [place] [address] Sterling Preston MD [facility] [place] [address] Pain in both upper extremities Social History Tobacco Use Types Packs/Day Years [...] Sign Reading Time Taken Comments Blood Pressure 133/75 06/23/2018 11:35 AM EST Pulse 71 06/23/2018 11:35 AM EST Temperature 36.4 ??C (97.5 ??F) 06/23/2018 11:[address] Respiratory Rate 17 06/23/2018 11:35 AM EST Oxygen Saturation 100% 06/23/2018 11:35 AM EST Inhaled Oxygen Concentration - - Weight 77.3 kg (170 lb 6.4 oz) 06/23/2018 11:35 AM EST Height 185.3 cm (6' 0.95) 06/23/2018 11:[address] Body Mass Index 22.51 06/23/2018 11:35 AM EST documented in this encounter Patient Instructions * Patient Instructions* Pilar Melendez RN - 06/23/2018 11:15 AM EST Thank you for visiting Dr. Murray in clinic 06/23/18 will be contacting you after assessing there results of your MRI. ?? Exercise each day for 30 minutes or longer. Daily aerobic exercise for at least 30 minutes will help improve your endurance and improve the breathing capacity of your lungs. This means that you are breathing hard, your heart is beating fast and that you are sweating. Examples of this include walking, biking, swimming, and using a treadmill or stationary bike. Please call Thoracic surgery at with any questions or concerns. documented in this encounter Progress Notes * Kellee Nava PA - 06/23/2018 11:15 AM EST Thoracic Surgery Attending Outpatient Follow Up Note MD Kellee Jameson PA [place] [address] FAX: ?? Chief complaint: Bilateral shoulder, neck and arm pain and extremity paresthesias; suspicion for thoracic outlet syndrome HPI: Mr. Barker is a 37 y.o. male with no significant past medical history who was initially referred to the thoracic surgery clinic on 10/14/17 for evaluation of possible thoracic outlet syndrome. He was last seen on 04/14/18, however did not undergo the recommended imaging for further evaluation. He presents today for re-evaluation. He reports his complaints including global hand paresthesias, significant neck pain and bilateral shoulder and arm pain have been worsening over the past 3 weeks. He describes recent inability to bend fingers at time, dropping items, and numbness. He is taking Mortin 800mg TID and admits to taking 15-20 tabs of 500mg Tylenol per day with mild relief. He denies f/c/n/v/SOB. Medications: Current Outpatient Medications on File Prior to Visit Medication Sig Dispense Refill ??? ibuprofen (ADVIL;MOTRIN) 800 mg Tablet Take 1 tablet by mouth every 6 hours as needed for Pain.30 tablet 3 ??? acetaminophen (TYLENOL) 500 mg Tablet Take 2 tablets by mouth every 6 hours as needed for Pain.(Patient not taking: Reported on 06/23/2018) 30 tablet 1 ??? ketorolac (TORADOL) 10 mg Tablet Take 1 tablet by mouth every 6 hours as needed for Pain. Take for the first 1-4 days, then stop and switch to ibuprofen. (Patient not taking: Reported on 10/08/2017) 20 tablet 0 ??? penicillin v potassium (VEETID) 500 mg tablet 500MG, PO, Four times daily (Patient not taking: No sig reported) ??? CIS Free Text Med - MSIR 30mg, PO, Q4-6H,PRN ??? nicotine (NICODERM CQ) 21 mg/24 hr 21mg/24h, TD, QD (Patient not taking: No sig reported) No current facility-administered medications on file prior to visit. Physical Exam: BP 133/75 (Patient Position: Sitting) Pulse 71 Temp 36.4 ??C (97.5 ??F) (Temporal) Resp 17 Ht 185.3 cm (6' 0.95) Wt 77.3 kg (170 lb 6.4 oz) SpO2 100% BMI 22.51 kg/m?? General Appearance: Alert, cooperative, no distress, appears stated age Nk: Supple, symmetrical, trachea midline Lungs: respirations unlabored Heart: Regular rate Abdomen: Soft, non-tender Extremities: Extremities normal, atraumatic, no cyanosis or edema Imaging: I have independently visualized the following studies: MRI Brachial plexus (06/23/18): pending MRI cervical spine (06/23/18): pending CTA Chest (06/23/18): Mild bilateral compression of the subclavian arteries in the axial plane with normal appearance on the coronal, in the craniocaudal dimension, images. ?? Assessment: Diallo Barker is a 37 y.o. male with complaints of global hand paresthesias, significant neck pain and bilateral shoulder and arm pain that is not fully consistent with neurogenic TOS. Plan: 1. Follow up on MRI reads 2. 30 minutes of exercise daily at a minimum 3. Scheduled right scalene block 4. Smoking cessation 5. Call with any questions JURGEN Mcclain 06/23/2018 Thoracic Surgery [facility] * Sterling Preston MD - 06/23/2018 11:15 AM EST Thoracic surgery follow-up visit I saw and examined Mr. Barker with JURGEN Hills, and agree with her findings, assessment and plan. In brief: Chief complaint: Bilateral shoulder, neck and arm pain with associated weakness and paresthesias History of present illness: Mr. Barker is a 37-year-old man without significant medical history initially referred to me in September for possible thoracic outlet syndrome. He comes in today having completed the recommended imaging workup including CT and MRI. He continues to complain of bilateral global hand paresthesias, somewhat favoring the ulnar aspect of the hand. He describes episodes of clumsiness and numbness leading to dropping objects. He also has significant neck, shoulder and arm painand is taking large amounts of Motrin and Tylenol. Physical exam: He is alert, oriented and in no distress. He has mild tenderness to deep palpation of the supraclavicular fossa bilaterally. His strength appears relatively symmetric bilaterally, but he does endorse subjective sensory derangement in the fingertips And ulnar aspect of the forearm bilaterally. Imaging: CT of the chest was obtained today which demonstrates relatively normal appearance of the subclavian vasculature. There is no cervical rib or apical lesion appreciated. MRI of the cervical spine and brachial plexus have been obtained but have not yet been interpreted. Assessment: 37-year-old man with paresthesias of the hands bilaterally as well as neck and shoulderpain. His presentation is not clear-cut evidence of neurologic thoracic outlet syndrome. We will follow-up on the reads for his MRI, and most likely proceed with a scalene block. He will also need towork on smoking cessation. Plan: Follow-up MRI results, likely image guided right anterior scalene block, smoking cessation documented in this encounter Plan of Treatment Not on file documented as of this encounter Visit Diagnoses Diagnosis Pain in both upper extremities documented in this encounter Care Teams Mechatronics Technologist Relationship Specialty Start Date End Date Melissa Gill APRN [address] [place] [address] PCP - General Family Medicine 08/13/17 02/11/23 documented as of this encounter
--- OUTSIDE RECORDS SUMMARY | 2024-07-03 00:33 | XMS_ITS | Encounter Summary ---
Author Organization [facility] [place] [address] Care Team Providers Care Manager Appointment Name Role Phone Melissa Gill APRN Primary Care Provider Encounter Details Date Type Department Care Team (Late st Contact Info) Description 06/03/2018 Telephone [place] [phone] Chana Simms MSW Social History Tobacco Use Types Packs/Day Years [...] encounter Miscellaneous Notes * Telephone Encounter - Chana Simms MSW - 06/03/2018 1:17 PM EST [facility]TER Update Received call back from Nabor and message following up from my previous message. Attempted to reach him again to offer support and guidance re Transportation. Requested call back to discuss. documented in this encounter Plan of Treatment Not on file documented as of this encounter Visit Diagnoses Not on filedocumented in this encounter Care Teams Manager Appointment Relationship Specialty Start Date End Date Melissa Gill APRN [address] [place], [place] [phone] PCP - General Family Medicine 08/13/17 02/11/23 documented as of this encounter
--- OUTSIDE RECORDS SUMMARY | 2024-07-03 00:33 | XMS_ITS | Encounter Summary ---
[place] [address] Care Team Providers Care Audio Visual Technician Name Role Phone Philipp Mcrae MD Primary Care Provider [phone] Encounter Details Date Type Department Care Team (Late st Contact Info) Description 01/21/2017 [place] [phone] Claudy Aburto MD [facility] [place] [address] Social History Tobacco Use Types Packs/Day Years [...] on filedocumented in this encounter Care Teams Audio Visual Technician Relationship Specialty Start Date End Date Philipp Mcrae MD PCP - General Family Medicine 01/18/17 08/12/17 documented as of this encounter
--- OUTSIDE RECORDS SUMMARY | 2024-07-03 00:33 | XMS_ITS | Encounter Summary ---
[place] [address] Care Team Providers Care Inspector Experimental Assembly Name Role Phone Melissa Gill APRN Primary Care Provider Encounter Details Date Type Department Care Team (Late st Contact Info) Description 03/25/2018 Telephone [place] [address] Rashmi Green Social History Tobacco Use Types Packs/Day Years [...] encounter Miscellaneous Notes * Telephone Encounter - Rashmi Green - 03/25/2018 1:57 PM EDT Safety questions documented in this encounter Plan of Treatment Not on file documented as of this encounter Visit Diagnoses Not on filedocumented in this encounter Care Teams Inspector Experimental Assembly Relationship Specialty Start Date End Date Melissa Gill APRN [address] [place], [place] [address] PCP - General Family Medicine 08/13/17 02/11/23 documented as of this encounter
--- OUTSIDE RECORDS SUMMARY | 2024-07-03 00:33 | XMS_ITS | Encounter Summary ---
[place] [address] Care Team Providers Care Antenna Specialist Name Role Phone Melissa Gill APRN Primary Care Provider Encounter Details Date Type Department Care Team (Late st Contact Info) Description 10/29/2017 Telephone [place] [phone] Twila Ashraf Social History Tobacco Use Types [...] * Telephone Encounter - Twila Ashraf - 10/29/2017 9:38 AM EDT Call made to Diallo to inform him that his insurance has denied imaging ordered by Dr. Preston. We will work on getting this approved documented in this encounter Plan of Treatment Not on file documented as of this encounter Visit Diagnoses Not on filedocumented in this encounter Care Teams Antenna Specialist Relationship Specialty Start Date End Date Melissa Gill APRN [address] [place], [place] [id number] PCP - General Family Medicine 08/13/17 02/11/23 documented as of this encounter
--- OUTSIDE RECORDS SUMMARY | 2024-07-03 00:33 | XMS_ITS | Encounter Summary ---
[place] [address] Care Team Providers Care General Manager Food Name Role Phone Melissa Gill APRN Primary Care Provider [phone] Reason for Referral * Diagnostic Test (Routine) - Closed Specialty Diagnoses / Procedures Referred By Contac t Referred To Contact Radiology Diagnoses Thoracic outlet syndrome Procedures MRI Brachial Plexus wo Contrast Right MRI Brachial Plexus wwo Contrast Right Jarvis Ventura PA [facility] [place] [address] [place] [address] Referral ID Status Reason Start Date Expiration Date V isits Requested Visits Authorized [id number] Closed Specialty Service Requested 04/11/2018 07/08/2018 1 1 * Diagnostic Test (Routine) - Specialty Diagnoses / Procedures Referred By Contac t Referred To Contact Radiology Diagnoses Thoracic outlet syndrome Procedures MRI Brachial Plexus wo Contrast Left MRI Brachial Plexus wwo Contrast Left Jarvis Ventura PA [facility] [place] [place] [address] [place] [address] Referral ID Status Reason Start Date Expiration Date Visits Requested Visits Authorized [id number] Specialty Service Requested 04/14/2018 07/13/2018 1 1 Encounter Details Date Type Department Care Team (Late st Contact Info) Description 04/11/2018 Orders Only [place] [address] Jarvis Ventura PA [facility] [place] [address] Thoracic outlet syndrome (Primary Dx) Social History Tobacco Use Types Packs/Day Years [...] documented as of this encounter Results * MRI Brachial Plexus wo Contrast Right (06/23/2018 9:28 AM EST) Anatomical Region Laterality Modality Neuro Plexus Right Magnetic Resonan ce Impressions 06/23/2018 5:49 PM EST 1. Multilevel degenerative changes in the cervical spine including moderate contouring of the ventral spinal cord at C4-5 and mild contouring of the spinal cord at C5-6, without definite cord compression at these levels. Normal cord signal. 2. Moderate to severe bilateral neural foraminal stenosis and nerve root compression as discussed at C4-5 and C5-6. 3. Aside from the neural foraminal portions of the brachioplexus, the remainder of the supraclavicular, retroclavicular, and infraclavicular portions of the brachial plexus show no abnormality. I have personally reviewed the image(s) and the residents interpretation and agree with the findings, Ronak Mariscal at 06/23/2018 5:49 PM Narrative 06/23/2018 5:49 PM EST EXAMINATION: MRI CERVICAL SPINE WO CONTRAST (GENERIC), MRI BRACHIAL PLEXUS WO CONTRAST RIGHT, MRI BRACHIAL PLEXUS WO CONTRAST LEFT CLINICAL HISTORY: thoracic outlet syndrome workup, bilateral hand/arm numbness, pain, tingling TECHNIQUE: MRI of the cervical spine and bilateral brachial plexus performed without intravenous contrast administration. COMPARISON: None. FINDINGS: MRI cervical spine: No spondylolisthesis in the cervical spine. Endplate edema and sclerosis at C4-C5, otherwise normal bone marrow signal. Decreased T2 bright disc signal in the C2-3 through C5-6 discs with mild loss of height of the C4-5 and C5-6 discs. No abnormal signal changes within the spinal cord. Soft tissues are unremarkable. Visualized part of the posterior fossa is within normal limits. C2-C3: No significant canal or foraminal stenosis. C3-C4: ??Left paracentral disc protrusion results in minimal narrowing of the spinal canal. No significant neural foraminal stenosis C4-C5: Disc osteophyte complex with posterior disc extrusion with minimal inferior migration. This results in moderate contouring of the ventral spinal cord without definite cord compression, moderate right neural foraminal stenosis with mild nerve root compression, and severe left neural foraminal stenosis with nerve root compression. C5-C6: Disc osteophyte complex with disc extrusion with inferior migration resulting in mild contouring of the ventral spinal cord, [id number] left neural foraminal stenosis, and moderate right neural foraminal stenosis with bilateral nerve root compression. C6-C7: No significant spinal canal or foraminal stenosis. C7-T1: Uncovertebral osteoarthropathy results in moderate left foraminal and mild right neural foraminal stenosis without nerve root compression bilaterally. No significant spinal canal stenosis. MRI left brachial plexus: Aside from the neural foraminal component of the brachioplexus dictated under the cervical spine MRI, the remainder of the supraclavicular, retroclavicular, and infraclavicular brachioplexus appears normal in signal. There is no extrinsic or intrinsic mass. Incidental edema in the medial aspect of the left humeral head, and moderate acromioclavicular joint arthropathy. MRI right brachial plexus: Aside from the neural foraminal component of the brachioplexus dictated under the cervical spine MRI, the remainder of the supraclavicular, retroclavicular, and infraclavicular brachioplexus appears normal in signal. There is no extrinsic or intrinsic mass. Incidental edema in the lateral aspect of the humeral head and moderate acromioclavicular joint arthropathy. Procedure Note Mariscal, Rihan, MD - 06/23/2018 EXAMINATION: MRI CERVICAL SPINE WO CONTRAST (GENERIC), MRI BRACHIAL PLEXUSWO CONTRAST RIGHT, MRI BRACHIAL PLEXUS WO CONTRAST LEFT CLINICAL HISTORY: thoracic outlet syndrome workup, bilateral hand/armnumbness, pain, tingling TECHNIQUE: MRI of the cervical spine and bilateral brachial plexus performedwithout intravenous contrast administration. COMPARISON: None. FINDINGS: MRI cervical spine: No spondylolisthesis in the cervical spine. Endplate edema and sclerosisat C4-C5, otherwise normal bone marrow signal. Decreased T2 bright discsignal in the C2-3 through C5-6 discs with mild loss of height of the C4-5 and C5-6discs. No abnormal signal changes within the spinal cord. Soft tissues are unremarkable. Visualized part of the posterior fossa is within normallimits. C2-C3: No significant canal or foraminal stenosis. C3-C4: Left paracentral disc protrusion results in minimal narrowing ofthe spinal canal. No significant neural foraminal stenosis C4-C5: Disc osteophyte complex with posterior disc extrusion withminimal inferior migration. This results in moderate contouring of the ventralspinal cord without definite cord compression, moderate right neural foraminalstenosis with mild nerve root compression, and severe left neural foraminalstenosis with nerve root compression. C5-C6: Disc osteophyte complex with disc extrusion with inferiormigration resulting in mild contouring of the ventral spinal cord,[id number] left neural foraminal stenosis, and moderate right neural foraminal stenosiswith bilateral nerve root compression. C6-C7: No significant spinal canal or foraminal stenosis. C7-T1: Uncovertebral osteoarthropathy results in moderate left foraminaland mild right neural foraminal stenosis without nerve root compressionbilaterally. No significant spinal canal stenosis. MRI left brachial plexus: Aside from the neural foraminal component of the brachioplexus dictatedunder the cervical spine MRI, the remainder of the supraclavicular,retroclavicular, and infraclavicular brachioplexus appears normal in signal. There is no extrinsic or intrinsic mass. Incidental edema in the medial aspect of the left humeral head, andmoderate acromioclavicular joint arthropathy. MRI right brachial plexus: Aside from the neural foraminal component of the brachioplexus dictatedunder the cervical spine MRI, the remainder of the supraclavicular,retroclavicular, and infraclavicular brachioplexus appears normal in signal. There is no extrinsic or intrinsic mass. Incidental edema in the lateral aspect of the humeral head and moderate acromioclavicular joint arthropathy. IMPRESSION 1. Multilevel degenerative changes in the cervical spine includingmoderate contouring of the ventral spinal cord at C4-5 and mild contouring of thespinal cord at C5-6, without definite cord compression at these levels. Normalcord signal. 2. Moderate to severe bilateral neural foraminal stenosis and nerve root compression as discussed at C4-5 and C5-6. 3. Aside from the neural foraminal portions of the brachioplexus, theremainder of the supraclavicular, retroclavicular, and infraclavicular portions ofthe brachial plexus show no abnormality. I have personally reviewed the image(s) and the residents interpretationand agree with the findings, Ronak Mariscal at 06/23/2018 5:49 PM Sterling Preston MD IMG MRI ORDERABL ES * MRI Brachial Plexus wo Contrast Left (06/23/2018 9:28 AM EST) Anatomical Region Laterality Modality Neuro Plexus Left Magnetic Resonan ce Impressions 06/23/2018 5:49 PM EST 1. Multilevel degenerative changes in the cervical spine including moderate contouring of the ventral spinal cord at C4-5 and mild contouring of the spinal cord at C5-6, without definite cord compression at these levels. Normal cord signal. 2. Moderate to severe bilateral neural foraminal stenosis and nerve root compression as discussed at C4-5 and C5-6. 3. Aside from the neural foraminal portions of the brachioplexus, the remainder of the supraclavicular, retroclavicular, and infraclavicular portions of the brachial plexus show no abnormality. I have personally reviewed the image(s) and the residents interpretation and agree with the findings, Ronak Mariscal at 06/23/2018 5:49 PM Narrative 06/23/2018 5:49 PM EST EXAMINATION: MRI CERVICAL SPINE WO CONTRAST (GENERIC), MRI BRACHIAL PLEXUS WO CONTRAST RIGHT, MRI BRACHIAL PLEXUS WO CONTRAST LEFT CLINICAL HISTORY: thoracic outlet syndrome workup, bilateral hand/arm numbness, pain, tingling TECHNIQUE: MRI of the cervical spine and bilateral brachial plexus performed without intravenous contrast administration. COMPARISON: None. FINDINGS: MRI cervical spine: No spondylolisthesis in the cervical spine. Endplate edema and sclerosis at C4-C5, otherwise normal bone marrow signal. Decreased T2 bright disc signal in the C2-3 through C5-6 discs with mild loss of height of the C4-5 and C5-6 discs. No abnormal signal changes within the spinal cord. Soft tissues are unremarkable. Visualized part of the posterior fossa is within normal limits. C2-C3: No significant canal or foraminal stenosis. C3-C4: ??Left paracentral disc protrusion results in minimal narrowing of the spinal canal. No significant neural foraminal stenosis C4-C5: Disc osteophyte complex with posterior disc extrusion with minimal inferior migration. This results in moderate contouring of the ventral spinal cord without definite cord compression, moderate right neural foraminal stenosis with mild nerve root compression, and severe left neural foraminal stenosis with nerve root compression. C5-C6: Disc osteophyte complex with disc extrusion with inferior migration resulting in mild contouring of the ventral spinal cord, [id number] left neural foraminal stenosis, and moderate right neural foraminal stenosis with bilateral nerve root compression. C6-C7: No significant spinal canal or foraminal stenosis. C7-T1: Uncovertebral osteoarthropathy results in moderate left foraminal and mild right neural foraminal stenosis without nerve root compression bilaterally. No significant spinal canal stenosis. MRI left brachial plexus: Aside from the neural foraminal component of the brachioplexus dictated under the cervical spine MRI, the remainder of the supraclavicular, retroclavicular, and infraclavicular brachioplexus appears normal in signal. There is no extrinsic or intrinsic mass. Incidental edema in the medial aspect of the left humeral head, and moderate acromioclavicular joint arthropathy. MRI right brachial plexus: Aside from the neural foraminal component of the brachioplexus dictated under the cervical spine MRI, the remainder of the supraclavicular, retroclavicular, and infraclavicular brachioplexus appears normal in signal. There is no extrinsic or intrinsic mass. Incidental edema in the lateral aspect of the humeral head and moderate acromioclavicular joint arthropathy. Procedure Note Ronak Mariscal MD - 06/23/2018 EXAMINATION: MRI CERVICAL SPINE WO CONTRAST (GENERIC), MRI BRACHIAL PLEXUSWO CONTRAST RIGHT, MRI BRACHIAL PLEXUS WO CONTRAST LEFT CLINICAL HISTORY: thoracic outlet syndrome workup, bilateral hand/armnumbness, pain, tingling TECHNIQUE: MRI of the cervical spine and bilateral brachial plexus performedwithout intravenous contrast administration. COMPARISON: None. FINDINGS: MRI cervical spine: No spondylolisthesis in the cervical spine. Endplate edema and sclerosisat C4-C5, otherwise normal bone marrow signal. Decreased T2 bright discsignal in the C2-3 through C5-6 discs with mild loss of height of the C4-5 and C5-6discs. No abnormal signal changes within the spinal cord. Soft tissues are unremarkable. Visualized part of the posterior fossa is within normallimits. C2-C3: No significant canal or foraminal stenosis. C3-C4: Left paracentral disc protrusion results in minimal narrowing ofthe spinal canal. No significant neural foraminal stenosis C4-C5: Disc osteophyte complex with posterior disc extrusion withminimal inferior migration. This results in moderate contouring of the ventralspinal cord without definite cord compression, moderate right neural foraminalstenosis with mild nerve root compression, and severe left neural foraminalstenosis with nerve root compression. C5-C6: Disc osteophyte complex with disc extrusion with inferiormigration resulting in mild contouring of the ventral spinal cord,[id number] left neural foraminal stenosis, and moderate right neural foraminal stenosiswith bilateral nerve root compression. C6-C7: No significant spinal canal or foraminal stenosis. C7-T1: Uncovertebral osteoarthropathy results in moderate left foraminaland mild right neural foraminal stenosis without nerve root compressionbilaterally. No significant spinal canal stenosis. MRI left brachial plexus: Aside from the neural foraminal component of the brachioplexus dictatedunder the cervical spine MRI, the remainder of the supraclavicular,retroclavicular, and infraclavicular brachioplexus appears normal in signal. There is no extrinsic or intrinsic mass. Incidental edema in the medial aspect of the left humeral head, andmoderate acromioclavicular joint arthropathy. MRI right brachial plexus: Aside from the neural foraminal component of the brachioplexus dictatedunder the cervical spine MRI, the remainder of the supraclavicular,retroclavicular, and infraclavicular brachioplexus appears normal in signal. There is no extrinsic or intrinsic mass. Incidental edema in the lateral aspect of the humeral head and moderate acromioclavicular joint arthropathy. IMPRESSION 1. Multilevel degenerative changes in the cervical spine includingmoderate contouring of the ventral spinal cord at C4-5 and mild contouring of thespinal cord at C5-6, without definite cord compression at these levels. Normalcord signal. 2. Moderate to severe bilateral neural foraminal stenosis and nerve root compression as discussed at C4-5 and C5-6. 3. Aside from the neural foraminal portions of the brachioplexus, theremainder of the supraclavicular, retroclavicular, and infraclavicular portions ofthe brachial plexus show no abnormality. I have personally reviewed the image(s) and the residents interpretationand agree with the findings, Ronak Mariscal at 06/23/2018 5:49 PM Sterling Preston MD IMG MRI ORDERABL ES documented in this encounter Visit Diagnoses Diagnosis Thoracic outlet syndrome- Primary Brachial plexus lesions Thoracic outlet syndrome Brachial plexus lesions documented in this encounter Care Teams General Manager Food Relationship Specialty Start Date End Date Melissa Gill, RADIO REPAIRMAN [phone] [facility] [place] [address] PCP - General Family Medicine 08/13/17 02/11/23 documented as of this encounter
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
--- OUTSIDE RECORDS SUMMARY | 2024-07-03 00:33 | XMS_ITS | Encounter Summary ---
[place] [address] Care Team Providers Care Dryer And Washer Mechanic Name Role Phone Philipp Mcrae MD Primary Care Provider Encounter Details Date Type Department Care Team (Late st Contact Info) Description 01/18/2017 [place] [address] Claudy Aburto MD [facility] [place] [address] Scrotal pain Social History Tobacco Use Types Packs/Day Years Used Date Smoking Tobacco: Never Assessed Sex and Gender Information Value Date Recorded Sex Assigned at Not on file Gender Identity Not on file Sexual Orientation Not on file documented as of this encounter Plan of Treatment Not on file documented as of this encounter Visit Diagnoses Diagnosis Scrotal pain Unspecified disorder of male genital organs documented in this encounter Care Teams Dryer And Washer Mechanic Relationship Specialty Start Date End Date Philipp Mcrae MD PCP - General Family Medicine 01/18/17 08/12/17 documented as of this encounter
--- OUTSIDE RECORDS SUMMARY | 2024-07-03 00:33 | XMS_ITS | Encounter Summary ---
[place] [address] Care Team Providers Care [employer] Name Role Phone Melissa Gill APRN Primary Care Provider [phone] Reason for Referral * Diagnostic Test (Routine) - Closed Specialty Diagnoses / Procedures Referred By Oxana sewell Referred To Contact Radiology Diagnoses Thoracic outlet syndrome Procedures CT Angiogram Chest (Non-Coronary) CT Chest w Contrast Sterling Preston MD [facility] [place] [address] [facility] [place] [address] Referral ID Status Reason Start Date Expiration Date V isits Requested Visits Authorized [id number] Closed Specialty Service Requested 06/11/2018 09/09/2018 1 1 Encounter Details Date Type Department Care Team (Late st Contact Info) Description 04/14/2018 10:00 AM EDT Office [place] [address] Sterling Preston MD [facility] [place] [address] Thoracic outlet syndrome Social History Tobacco Use Types Packs/Day Years [...] Sign Reading Time Taken Comments Blood Pressure 149/90 04/14/2018 10:38 AM EDT Pulse 75 04/14/2018 10:38 AM EDT Temperature 36.3 ??C (97.3 ??F) 04/14/2018 10:38 AM E DT Respiratory Rate 17 04/14/2018 10:38 AM EDT Oxygen Saturation 100% 04/14/2018 10:38 AM EDT Inhaled Oxygen Concentration - - Weight 79.6 kg (175 lb 6.4 oz) 04/14/2018 10:38 AM EDT Height 191 cm (6' 3.2) 04/14/2018 10:38 AM EDT Body Mass Index 21.81 04/14/2018 10:38 AM EDT documented in this encounter Patient Instructions * Patient Instructions* Tiffany Levine RN - 04/14/2018 10:00 AM EDT Thank you for visiting Dr. Preston in clinic 04/14/18 Dr. Preston would like to see you back in clinic on 05/12/18 after completing your MRI and CT scans. These scans were rescheduled during your visit today. ?? Exercise each day for 30 minutes [...] Progress Notes * Jarvis Ventura PA - 04/14/2018 10:00 AM EDT Thoracic Surgery Attending Outpatient Follow Up Note MD Jarvis Jameson PA-C [place] [address] FAX: Reason for Visit: Follow up for evaluation of possible thoracic outlet syndrome HPI: Diallo Barker is a 37 y.o. male with no significant past medical history who was initially referred to the thoracic surgery clinic on 10/14/17 for evaluation of possible thoracic outlet syndrome. He was scheduled to have MRI cervical spine and bilateral brachial plexus today, however hereports he was not informed of those appointments and just got a call yesterday saying to be here at 10:00. Patient reports that since his last visit his symptoms have remained essentially unchanged. He has been working with PT, however he feels that this only provides relief for about 30 minutesafterwards, then he resumes having his baseline symptoms. These symptoms include bilateral neck, shoulder, arm and hand pain, tingling, numbness and weakness. Medications: Current Outpatient Prescriptions on File Prior to [...] file prior to visit. Physical Exam: BP 149/90 (Patient Position: Sitting) Pulse 75 Temp 36.3 ??C (97.3 ??F) (Temporal) Resp 17 Ht 191 cm (6' 3.2) Wt 79.6 kg (175 lb 6.4 oz) SpO2 100% BMI 21.81 kg/m2 General Appearance: Alert, cooperative, no distress, appears stated age Nk: Supple, symmetrical, trachea midline Lungs: Clear to auscultation bilaterally, respirations unlabored, no wheezes, crackles or ronchi. Heart: Regular rate and rhythm, S1 and S2 normal, no murmur, rub, or gallop Abdomen: Soft, non-tender, non-distended, BS+ Extremities/ Musculoskeletal: Extremities normal, no cyanosis or edema, 5/5 strength throughout Imaging: No pertinent imaging to review at this visit. Assessment: Diallo Barker is a 37 y.o. male with no significant past medical history who was referred to the thoracic surgery clinic for evaluation of possible thoracic outlet syndrome. Will need to follow up after imaging is performed. Plan: 1. Our clinic will assist with rescheduling imaging studies for further evaluation and to rule out any prior injury, particularly considering the bilateral nature of his symptoms. 2. Pending imaging results will consider referring patient for botox injection to determine whetherit helps ameliorate his symptoms. 3. Recommend continuing to work with PT. 4. Return to clinic once imaging studies are completed. 5. Please call with any questions or concerns. JURGEN Velasco 04/14/2018 Thoracic Surgery [facility] * Sterling Preston MD - 04/14/2018 10:00 AM EDT Thoracic surgery follow-up visit I saw and examined Mr. Barker with JURGEN Calvo, and agree with his findings, assessment and plan. In brief: Chief complaint: Bilateral shoulder, neck and arm pain and extremity paresthesias; suspicion for thoracic outlet syndrome History of present illness: Mr. Barker is a 37-year-old man without past medical history who I initially saw on October 14 for suspicion of thoracic outlet syndrome. He has diffuse complaints including global hand paresthesias, significant neck pain and bilateral shoulder and arm pain which appearedto make a clinical diagnosis of neurogenic thoracic outlet syndrome less likely. We referred him for physical therapy, but he had only very transient improvement lasting less than an hour after physical therapy sessions. We scheduled imaging of the cervical spine and brachial plexus, but due to a communication mishap the patient did not present for these imaging studies this morning. BP 149/90 (Patient Position: Sitting) Pulse 75 Temp 36.3 ??C (97.3 ??F) (Temporal) Resp 17 Ht 191 cm (6' 3.2) Wt 79.6 kg (175 lb 6.4 oz) SpO2 100% BMI 21.81 kg/m2 Physical exam: This is unchanged. He is alert, oriented and in no distress. He endorses subjective tenderness in the neck, supraclavicular fossa, shoulders and arms. He has paresthesias but not loss of sensation globally on the hands bilaterally. Imaging: This was not obtained at today's visit Assessment: 37-year-old man with significant neck shoulder and arm pain, and paresthesias of the hand. The global location of his symptoms and the fact that they do not favor a C8/T1 distribution to me argue against neurogenic thoracic outlet syndrome. I would like to obtain the scheduled MRI imaging and we will try to reschedule this. Plan: MRI of neck and cervical spine, further plans to be determined STERLING PRESTON MD documented in this encounter Plan of Treatment Not on file documented as of this encounter Results * CT Angiogram Chest (Non-Coronary) (06/23/2018 11:14 AM EST) Anatomical Region Laterality Modality Chest Computed Tomogra phy Impressions 06/23/2018 11:44 AM EST Mild bilateral compression of the subclavian arteries in the axial plane with normal appearance on the coronal, in the craniocaudal dimension, images. Narrative 06/23/2018 11:44 AM EST EXAMINATION: CT ANGIOGRAM CHEST (NON-CORONARY) CLINICAL HISTORY: thoracic outlet syndrome workup, bilateral arm/hand numbness, tingling, and pain. Please follow thoracic outlet protocol. TECHNIQUE: Helical CT angiogram?of the chest was performed following intravenous administration of 120ml of Omnipaque 350.? 3D images were generated on an independent workstation. COMPARISON: None FINDINGS: VASCULAR Heart: Normal size. Aorta: No stenosis or aneurysm. Great vessels: On the axial images there is mild bilateral compression of the subclavian arteries (series 6, images 150 through 165). No evidence of aneurysm. However, on the coronal images the craniocaudal dimension is normal (series 19, image 92). NON-VASCULAR Lungs and large airways: Within normal limits, as visualized. Pleura: Within normal limits. Mediastinum and elder: Within normal limits. Osseous structures: Within normal limits. Procedure Note Griffin Vergara MD - 06/23/2018 EXAMINATION: CT ANGIOGRAM CHEST (NON-CORONARY) CLINICAL HISTORY: thoracic outlet syndrome workup, bilateral arm/handnumbness, tingling, and pain. Please follow thoracic outlet protocol. TECHNIQUE: Helical CT angiogram?of the chest was performed followingintravenous administration of 120ml of Omnipaque 350.? 3D images were generated cindy independent workstation. COMPARISON: None FINDINGS: VASCULAR Heart: Normal size. Aorta: No stenosis or aneurysm. Great vessels: On the axial images there is mild bilateral compression ofthe subclavian arteries (series 6, images 150 through 165). No evidence ofaneurysm. However, on the coronal images the craniocaudal dimension is normal(series 19, image 92). NON-VASCULAR Lungs and large airways: Within normal limits, as visualized. Pleura: Within normal limits. Mediastinum and elder: Within normal limits. Osseous structures: Within normal limits. IMPRESSION Mild bilateral compression of the subclavian arteries in the axial planewith normal appearance on the coronal, in the craniocaudal dimension, images. 11:44 AM Sterling Preston MD IMG CT ORDERABLE S documented in this encounter Visit Diagnoses Diagnosis Thoracic outlet syndrome Brachial plexus lesions Thoracic outlet syndrome Brachial plexus lesions documented in this encounter Care Teams [employer] Relationship Specialty Start Date End Date JairoMelissa, LOSS PREVENTION ASSOCIATE [address] [place] [place] [address] PCP - General Family Medicine 08/13/17 02/11/23 documented as of this encounter
--- OUTSIDE RECORDS SUMMARY | 2024-07-03 00:33 | XMS_ITS | Encounter Summary ---
Author Organization [facility] [place] [address] Care Team Providers Care Sales Representative Groceries Name Role Phone Melissa Gill APRN Primary Care Provider [phone] Encounter Details Date Type Department Care Team (Late st Contact Info) Description 06/16/2018 [place]phone [place] [phone] Chana Simms MSW Social History Tobacco Use [...] Telephone Encounter - Chana Simms MSW - 06/16/2018 3:48 PM EST [facility] [employer] DEVELOPER Update Called and spoke with Nabor about his transportation for his upcoming appointments on 06/23.He shared that he would like help arranging a ride. Called [facility] at and requested a ride. They shared that a physician referral needs to be sent to Medicaid office to cover this transportation. Called [facility] at and requested that they send referral to Medicaid office. Spoke with Mary Kay Pierre, triage nurse, and she shared she would send the referral over. I called Nabor and gave a verbal update and requested he let me know if there are any concerns/questions. Suggested he might want to call [facility] on Sat to make sure the referral went through okay. documented in this encounter Plan of Treatment Not on file documented as of this encounter Visit Diagnoses Not on filedocumented in this encounter Care Teams Sales Representative Groceries Relationship Specialty Start Date End Date Melissa Gill, MAGISTRATE JUDGE [address] [place] [address] PCP - General Family Medicine 08/13/17 02/11/23 documented as of this encounter
--- OUTSIDE RECORDS SUMMARY | 2024-07-03 00:33 | XMS_ITS | Encounter Summary ---
Author Organization [place] [address] Care Team Providers Care Market Gardener Name Role Phone Melissa Gill APRN Primary Care Provider [phone] Encounter Details Date Type Department Care Team (Late st Contact Info) Description 05/16/2018 [place] [phone] Chana Simms MSW Social History Tobacco Use [...] Telephone Encounter - Chana Simms MSW - 05/16/2018 1:29 PM EDT Attempted to reach pt on mobile and home number to Introduce myself and offer assistance with transportation. Message left on home number, mobile unable to leave message. Will attempt to contact again next week. documented in this encounter Plan of Treatment Not on file documented as of this encounter Visit Diagnoses Not on filedocumented in this encounter Care Teams Market Gardener Relationship Specialty Start Date End Date Melissa Gill APRN [address] [place], [place] [id number] PCP - General Family Medicine 08/13/17 02/11/23 documented as of this encounter
--- OUTSIDE RECORDS SUMMARY | 2024-07-03 00:33 | XMS_ITS | Encounter Summary ---
[place] [address] Care Team Providers Care Frequency Checker Name Role Phone Melissa Gill APRN Primary Care Provider [phone] Reason for Referral * Diagnostic Test (Routine) - Specialty Diagnoses / Procedures Referred By Contac t Referred To Contact Radiology Diagnoses Thoracic outlet syndrome Procedures MRI Brachial Plexus wo Contrast Left MRI Brachial Plexus wwo Contrast Left Jarvis Ventura PA [facility] [place] [address] [place] [address] Referral ID Status Reason Start Date Expiration Date Visits Requested Visits Authorized [id number] Specialty Service Requested 04/14/2018 07/13/2018 1 1 * Diagnostic Test (Routine) - Closed Specialty Diagnoses / Procedures Referred By Contac t Referred To Contact Radiology Diagnoses Thoracic outlet syndrome Procedures MRI Brachial Plexus wo Contrast Right MRI Brachial Plexus wwo Contrast Right Jarvis Ventura PA [facility] [place] [address] [place] [address] Referral ID Status Reason Start Date Expiration Date V isits Requested Visits Authorized [id number] Closed Specialty Service Requested 04/11/2018 07/08/2018 1 1 * Diagnostic Test (Routine) - Specialty Diagnoses / Procedures Referred By Contac t Referred To Contact Thoracic Diagnoses Thoracic outlet syndrome Procedures MRI Cervical Spine wo Contrast (Generic) MRI Cervical Spine wwo Contrast Sterling Preston MD [facility] [place]ACIC [place] [address] Sterling Preston MD [facility] [place]AC[place] [address] Referral ID Status Reason Start Date Expiration Date Visits Requested Visits Authorized [id number] Specialty Service Requested 04/10/2018 07/09/2018 1 1 Reason for Visit * Diagnostic Test (Routine) - Closed Specialty Diagnoses / Procedures Referred By Contac t Referred To Contact Radiology Diagnoses Thoracic outlet syndrome Procedures MRI Brachial Plexus wo Contrast Right MRI Brachial Plexus wwo Contrast Right Jarvis Ventura PA [facility] [place] [address] [place] [address] Referral ID Status Reason Start Date Expiration Date V isits Requested Visits Authorized [id number] Closed Specialty Service Requested 04/11/2018 07/08/2018 1 1 Encounter Details Date Type Department Care Team (Latest Contact Info) Description 06/23/2018 7:26 AM EST - 06/23/2018 9:59 AM EST [place] [phone] Sterling Preston MD [facility] [place]AC[place] [address] Thoracic outlet syndrome Discharge Disposition: Home Social History Tobacco Use [...] Name Priority Date/Time Associated Diagnosis Comments MRI BRACHIAL PLEXUS RIGHT WO CONTRAST Routine 06/23/2018 9:28 AM EST Thoracic outlet syndrome MRI BRACHIAL PLEXUS LEFT WO CONTRAST Routine 06/23/2018 9:28 AM EST Thoracic outlet syndrome MRI CERVICAL SPINE WO CONTRAST Routine 06/23/2018 9:28 AM EST Thoracic outlet syndrome documented in this encounter Results * MRI Brachial Plexus wo Contrast Left [...] mild contouring of the ventral spinal cord, topgxdwi-ni-[id number] left neural foraminal stenosis, and moderate right [...] in mild contouring of the ventral spinal cord,pujjdgic-dm-vlxfah left neural foraminal stenosis, and moderate right [...] at 06/23/2018 5:49 PM Sterling Preston MD [facility] * MRI Brachial Plexus wo Contrast Right [...] mild contouring of the ventral spinal cord, zwyjmnow-rs-zjyjto left neural foraminal stenosis, and moderate right [...] in mild contouring of the ventral spinal cord,ycuburnm-ml-tgcynb left neural foraminal stenosis, and moderate right [...] MD [facility] * MRI Cervical Spine wo Contrast (Generic) [...] mild contouring of the ventral spinal cord, hgwffxul-yt-[id number] left neural foraminal stenosis, and moderate right [...] in mild contouring of the ventral spinal cord,uhohmcun-sz-gzsppz left neural foraminal stenosis, and moderate right [...] Diagnosis Thoracic outlet syndrome Brachial plexus lesions documented in this encounter Care Teams Frequency Checker Relationship Specialty Start Date End Date Melissa Gill, AUTO MACHINIST [address] [facility] [place] [address] PCP - General Family Medicine 08/13/17 02/11/23 documented as of this encounter
--- OUTSIDE RECORDS SUMMARY | 2024-07-03 00:33 | XMS_ITS | Encounter Summary ---
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 Phone Philipp Mcrae MD Primary Care Provider [phone] Reason for Visit * Reason Comments Testicle Pain Left * Auth/Cert Specialty Diagnoses / Procedures Referred By Contac t Referred To Contact Diagnoses Scrotal hematoma Procedures EMERGENCY OBSVO Referral ID Status Reason Start Date Expiration Date Visits Re quested Visits Authorized [id number] 1 1 Encounter Details Date Type Department Care Team (Late st Contact Info) Description 01/19/2017 12:00 AM EDT - 01/20/2017 4:30 PM EDT Emergency [address] [place] [address] Susi Valle MD [facility] [place] [address] Jessica Yoder MD [facility] [place] [address] Scrotal hematoma Discharge Disposition: Home Social History [...] Sign Reading Time Taken Comments Blood Pressure 130/91 01/20/2017 12:08 PM EDT Pulse 76 01/20/2017 12:08 PM EDT Temperature 36.6 ??C (97.8 ??F) 01/20/2017 12:08 PM E DT Respiratory Rate 18 01/20/2017 12:08 PM EDT Oxygen Saturation 100% 01/20/2017 12:08 PM EDT Inhaled Oxygen Concentration - - Weight 83.9 kg (185 lb) 01/19/2017 2:50 AM EDT Height 190.5 cm (6' 3) 01/19/2017 2:50 AM EDT Body Mass Index 23.12 01/19/2017 2:50 AM EDT documented in this encounter Discharge Summaries * Claudy Crockett MD - 01/20/2017 1:48 PM EDT Discharge Summary Patient Name: Loy Barker Patient Age: 36 y.o. Language: Sri Lankan Race: White Ethnicity: Not nor Admit date: 01/19/2017 Discharge date: 01/20/17 Attending Physician: Jessica Yoder, * Discharge Diagnoses (Hospital Problems) and Secondary Diagnoses (Chronic Problems): Active Hospital Problems Diagnosis ??? Scrotal hematoma Resolved Hospital Problems Diagnosis Date Resolved No resolved problems to display. There are no active non-hospital problems to display for this patient. History of Presentation: Loy Barker is a 36 y.o. year old male who suffered a direct blow (2x4) at work to his left scrotum. This happened at about 3pm this afternoon. He originally felt pain but continued working. As the day went on he began to notice increasing pain and tremendous swelling. He waited for his ride to take him to [facility] and they were concerned for rupture. They did not have U/S capabilities so he was sent to [facility]. ?? He has had some orthopedic surgeries on his hand but otherwise has no medical or significant surgical history. Hospital Course: Patient was admitted electively to [facility] via the Emergency Department. He had an emergent ultrasoundwhich showed a hematoma but otherwise healthy testicles. He did not undergo surgery but was admitted for pain control. Patient's hospital course was uncomplicated. He remained afebrile, with stable vital signs throughout his hospital stay. Today, on HD#2 he has met all criteria for discharge home: his pain is well controlled with medications by mouth, he is tolerating a regular diet, is voiding spontaneously without difficulties, and is up and ambulating without complications. He has been deemed safe for discharge. Vital Signs at Discharge: Weight: Wt Readings from Last 1 Encounters: 01/19/17 83.9 kg (185 lb) Height: Ht Readings from Last 1 Encounters: 01/19/17 (!) 190.5 cm (6' 3) BMI: Body mass index is 23.12 kg/(m^2). Last value Range last 24 hrs Temperature Temp: 36.6 ??C (97.9 ??F) Temp: [36.4 ??C (97.5 ??F)-36.7 ??C (98.1 ??F)] Heart Rate Heart Rate: 62 Heart Rate: [56-81] Blood Pressure BP: 127/77 BP: (107-145)/(51-91) Respiratory Rate Resp: 18 Resp: [16-18] SpO2 SpO2: 100 % SpO2: [98 %-100 %] Exam at Discharge: General: NAD, resting comfortably CV: Regular rate Resp: Non labored breathing Abd: soft, non-tender : right testicle remains high-riding but normal, left scrotum remains edematous, black and blue, tender - bruising starting to track along shaft of penis Ext: warm and well perfused Functional and Cognitive Status: Ambulating and cognitively intact. Important Studies and Lab Data: Labs: Last 3 wbc, hgb, hct plt Recent Labs 01/20/17 1128 01/19/17 0035 WBC 9.3 15.8* HGB 14.4 13.3* HCT 43.9 38.5* PLATELET 338 316 Last 3 Lytes Recent Labs 01/19/17 0035 NA 139 K 4.0 CL 102 CO2 22 BUN 10 CREATININE 1.04 Studies: Scrotal Ultrasound 01/19 IMPRESSION Large left scrotal hematoma with small LEFT testicular laceration and/or possible small hematoma although the capsule appears to be intact and no evidence of devascularization. Pending Studies and Lab Data: The patient will need the following 3 tests completed on: 01/18/2017 1. CBC (with Diff) 3. Hemogram 2. Differential, Automated Diagnosis: Authorizing Provider: Jessica Yoder MD Discharge Conditions/Prognosis: stable Outpatient Services/Studies: No discharge procedures on file. Discharge to: Home Updated Allergies/ADRs: No Known Allergies Immunizations Given this Hospitalization: There is no immunization history on file for this patient. Discharge Medications: Your Medications New Medications Dose Details acetaminophen 500 mg Tab Commonly known as: TYLENOL Take 2 tablets by mouth every 6 hours as needed for Pain. 1000 mg Quantity: 30 tablet Refills: 1 docusate sodium 100 mg Cap Commonly known as: COLACE Take 1 capsule by mouth 2 times daily for 10 days. 100 mg Quantity: 20 capsule Refills: 0 HYDROmorphone 4 mg Tab Commonly known as: DILAUDID Take 1 tablet by mouth every 4 hours as needed for Pain. 4 mg Quantity: 30 tablet Refills: 0 ketorolac 10 mg Tab Commonly known as: TORADOL Take 1 tablet by mouth every 6 hours as needed for Pain. Take for the first 1-4 days, then stop andswitch to ibuprofen. 10 mg Quantity: 20 tablet Refills: 0 Continued medications with new dosing Dose Details ibuprofen 800 mg Tab Commonly known as: ADVIL;MOTRIN Take 1 tablet by mouth every 6 hours as needed for Pain. What changed: See the new instructions. 800 mg Quantity: 30 tablet Refills: 3 Continued medications, unchanged Dose Details CIS FREE TEXT MED 30mg, PO, Q4-6H,PRN Refills: 0 nicotine 21 mg/24 hr Pt24 Commonly known as: NICODERM CQ 21mg/24h, TD, QD Refills: 0 penicillin v potassium 500 mg Tab Commonly known as: VEETID 500MG, PO, Four times daily Refills: 0 STOPPED Medications NEURONTIN 600 mg Tab Generic drug: gabapentin nortriptyline 25 mg Cap Commonly known as: PAMELOR Smoking Status at Discharge: History Smoking Status ??? Current Every Day Smoker ??? Packs/day: 2.00 ??? Years: 15.00 Smokeless Tobacco ??? Former User ??? Types: Chew Instructions Given to Patient at Discharge: Patient Instructions Instructions following Scrotal Hematoma Wound Care: Your scrotum will appear bruised and enlarged for the next couple of weeks, maybe even months. Your body will absorb the blood clot and you will notice it getting softer and smaller as time goes on. You should ice your scrotum every 2 hours for 30min for the next 24hrs. Wear tight fitting underwear during the day. At night, place a wash cloth or towel under your scrotum to elevate. If you develop fevers, chills, or uncontrollable pain please contact the urology department. You should wear scrotal support for the next several weeks. Activity/Diet: As tolerated by your comfort level. Avoid lifting anything heavier than a gallon of milk for the next 5-7days. Please resume a regular healthy diet as suggested by your physician. Pain Medication: No driving for 8 hours after any dose of opioid pain medication if one was prescribed for you. For pain control you should take: 10mg of toradol every 6-8 hours. Do this for the first few days. 1000mg of tylenol every 6-8 hours as needed on top of the toradol. After a few days, decrease this dose to 650mg. Do not take more than 4000mg of tylenol in one 24 hour period. A 4mg hydromorphone (dilaudid) tablet for severe pain after the toradol and tylenol. Stool Stimulants: If you are requiring narcotic medications, please be sure to take a stool stimulant such as Senokot or Bisacodyl to help have a regular bowel movement without straining. Driving: No driving while still taking opioid pain medications (wait at least 6- 8 hours since last dose). Follow-Up: We will schedule you to come to our clinic in about 3 months with a scrotal ultrasound. We will call you with the date and time. If you have questions, our office can be reached at [phone]. You may be given a prescription for a narcotic medication immediately following your surgery. Narcotics are prescribed for short-term use to help treat your pain. Surgical pain requiring narcotics will usually be greatly decreased 2-3 days after surgery & should be mild to absent by 10-14 days. We will prescribe a narcotic pain reliever for no longer than 2 weeks following your surgery. This will be determined by your surgeon. Narcotics do not reduce inflammation and it is inflammation that is usually a major cause of pain after surgery. Narcotics have many side effects such as constipation, lightheadedness, dizziness, sedation, confusion, nausea and vomiting. Driving and the use of alcohol are not recommended while you are using narcotic pain medications. Non-steroidal anti-inflammatories (NSAIDS) such as aspirin, Aleve and ibuprofen (Advil, Motrin) aremedications that reduce pain and inflammation. If you find your pain is not adequately controlled with the prescribed dose of your narcotic pain medication, NSAIDS may be used 48 hours after surgery with your narcotic to help alleviate the pain caused by inflammation. As you progress through your post-operative period, your pain should decrease and the use of narcotic medications should be less necessary. To reduce your chance of side effects, it is recommended that you save your narcotic medication for nighttime use and switch to NSAIDS or Acetaminophen (Tylenol) during the day. Alternative means of pain relief such as rest and relaxation, positioning, as well as decreasing stimulants such as coffee, tea, soft drinks, and nicotine may also help to alleviate pain. If you continue to experience significant pain 4-5 days after your procedure, it may be necessary to be re-evaluated by your physician. PRESCRIPTION RENEWALS: Renewal requests should be called in to our prescription line at [phone]. Narcotic renewals may be requested from 8am-4pm Saturday through Saturday. Due to patient safety, narcotic renewals will not be honored after hours or on weekends. It is best to make your request 2-3 days before you run out of your medication as it will take at least 24 hours for physician approval and nurse follow-up. Note that certain prescriptions, such as Percocet, Oxycodone, Vicodin, & Hydrocodone can not becalled in to a pharmacy and must be picked up or mailed to you. If mailed to you, expect 2-5 business days prior to arrival. General Instructions None Follow-Up: No future appointments. Primary Care Provider: Philipp Mcrae MD [phone] Follow-up Recommendations for Providers: See discharge instructions Call your doctor if: Please call your doctor immediately or go to an Emergency Department if you notice worsening pain not controlled by pain medications, uncontrolled headache, vision changes, chest pain, difficulty breathing, persistent nausea and vomiting, new redness or swelling in any extremities, new onset weakness or changes in sensation, or for any fevers greater than 101.3 F. Your care was managed by the Urology Team at [facility]. If you have any questions or concerns, please feel free to contact us. Provider Contact Information: Urology Clinic: [facility] (after business hours): Discharge References/Attachments None documented in this encounter Discharge Instructions * Patient Instructions* Claudy Crockett MD - 01/20/2017 10:03 AM EDT Instructions following Scrotal Hematoma Wound Care: Your scrotum will appear bruised and enlarged for the next couple of weeks, maybe even months. Your body will absorb the blood clot and you will notice it getting softer and smaller as time goes on. You should ice your scrotum every 2 hours for 30min for the next 24hrs. Wear tight fitting underwear during the day. At night, place a wash cloth or towel under your scrotum to elevate. If you develop fevers, chills, or uncontrollable pain please contact the urology department. You should wear scrotal support for the next several weeks. Activity/Diet: As tolerated by your comfort level. Avoid lifting anything heavier than a gallon of milk for the next 5-7days. Please resume a regular healthy diet as suggested by your physician. Pain Medication: No driving for 8 hours after any dose of opioid pain medication if one was prescribed for you. For pain control you should take: 10mg of toradol every 6-8 hours. Do this for the first few days. 1000mg of tylenol every 6-8 hours as needed on top of the toradol. After a few days, decrease this dose to 650mg. Do not take more than 4000mg of tylenol in one 24 hour period. A 4mg hydromorphone (dilaudid) tablet for severe pain after the toradol and tylenol. Stool Stimulants: If you are requiring narcotic medications, please be sure to take a stool stimulant such as Senokot or Bisacodyl to help have a regular bowel movement without straining. Driving: No driving while still taking opioid pain medications (wait at least 6- 8 hours since last dose). Follow-Up: We will schedule you to come to our clinic in about 3 months with a scrotal ultrasound. We will call you with the date and time. If you have questions, our office can be reached at [phone]. You may be given a prescription for a narcotic medication immediately following your surgery. Narcotics are prescribed for short-term use to help treat your pain. Surgical pain requiring narcotics will usually be greatly decreased 2-3 days after surgery & should be mild to absent by 10-14 days. We will prescribe a narcotic pain reliever for no longer than 2 weeks following your surgery. This will be determined by your surgeon. Narcotics do not reduce inflammation and it is inflammation that is usually a major cause of pain after surgery. Narcotics have many side effects such as constipation, lightheadedness, dizziness, sedation, confusion, nausea and vomiting. Driving and the use of alcohol are not recommended while you are using narcotic pain medications. Non-steroidal anti-inflammatories (NSAIDS) such as aspirin, Aleve and ibuprofen (Advil, Motrin) aremedications that reduce pain and inflammation. If you find your pain is not adequately controlled with the prescribed dose of your narcotic pain medication, NSAIDS may be used 48 hours after surgery with your narcotic to help alleviate the pain caused by inflammation. As you progress through your post-operative period, your pain should decrease and the use of narcotic medications should be less necessary. To reduce your chance of side effects, it is recommended that you save your narcotic medication for nighttime use and switch to NSAIDS or Acetaminophen (Tylenol) during the day. Alternative means of pain relief such as rest and relaxation, positioning, as well as decreasing stimulants such as coffee, tea, soft drinks, and nicotine may also help to alleviate pain. If you continue to experience significant pain 4-5 days after your procedure, it may be necessary to be re-evaluated by your physician. PRESCRIPTION RENEWALS: Renewal requests should be called in to our prescription line at [phone]. Narcotic renewals may be requested from 8am-4pm Saturday through Saturday. Due to patient safety, narcotic renewals will not be honored after hours or on weekends. It is best to make your request 2-3 days before you run out of your medication as it will take at least 24 hours for physician approval and nurse follow-up. Note that certain prescriptions, such as Percocet, Oxycodone, Vicodin, & Hydrocodone can not becalled in to a pharmacy and must be picked up or mailed to you. If mailed to you, expect 2-5 business days prior to arrival. documented in this encounter Medications at Time of Discharge Medication Sig Dispensed Refills Start Date End Date acetaminophen (TYLENOL) 500 mg Tablet Take 2 tablets by mouth every 6 hours as needed for Pain. 30 tablet 1 01/20/2017 02/19/2023 ibuprofen (ADVIL;MOTRIN) 800 mg Tablet Take 1 tablet by mouth every 6 hours as needed for Pain. 30 tablet 3 01/20/2017 02/19/2023 docusate sodium (COLACE) 100 mg Capsule Take 1 capsule by mouth 2 times daily for 10 days. 20 capsule 01/20/2017 01/30/2017 ketorolac (TORADOL) 10 mg Tablet Take 1 [...] 05/06/2003 07/04/2018 documented as of this encounter Progress Notes * Delaney Rios RN - 01/20/2017 4:36 PM EDT Patient discharged off the floor at 1630 to meet friend to go home at [facility]. Able to ambulate without assistance. * Jessica Yoder MD - 01/20/2017 10:00 AM EDT Urology Inpatient Progress Note ID: Loy Barker is a 36 y.o. male admitted to Urology for scrotal hematoma. 24 hr Events/Subjective: - Still requiring IV pain medication - Otherwise ambulated x 1, tolerating diet - Voiding independently Objective: Last value Range last 24hrs Temperature Temp: 36.6 ??C (97.9 ??F) Temp: [36.4 ??C (97.5 ??F)-36.7 ??C (98.1 ??F)] Heart Rate Heart Rate: 62 Heart Rate: [56-81] Blood Pressure BP: 127/77 BP: (107-145)/(51-91) Respiratory Rate Resp: 18 Resp: [16-18] SpO2 SpO2: 100 % SpO2: [98 %-100 %] Body mass index is 23.12 kg/(m^2). I/O last 3 completed shifts: In: 668.2 [I.V.:668.2] Out: 6525 [Urine:6525] I/O this shift: In: 561 [P.O.:400; I.V.:161] Out: 900 [Urine:900] Physical Exam General: NAD, resting comfortably CV: Regular rate Resp: Non labored breathing Abd: soft, non-tender : right testicle remains high-riding but normal, left scrotum remains edematous, black and blue, tender - bruising starting to track along shaft of penis Ext: warm and well perfused Labs Recent Labs 01/19/17 0035 WBC 15.8* HGB 13.3* HCT 38.5* PLATELET 316 NA 139 K 4.0 CL 102 CO2 22 BUN 10 CREATININE 1.04 GLUCOSE 118 Lab Results Component Value Date CALCIUM 8.7 01/19/2017 No results for input(s): ALBUMIN in the last 168 hours. No results for input(s): INR in the last 168 hours. Imaging Scrotal U/S 01/19/17 IMPRESSION Large left scrotal hematoma with small LEFT testicular laceration and/or possible small hematoma although the capsule appears to be intact and no evidence of devascularization. Microbiology None Assessment/Management/Plan: Loy Barker is a 36 y.o. male admitted to Urology 01/19/17 for scrotal hematoma. He is doing well, pain control still an issue but improving. This is non-operative and he understands the treatment course is: scrotal support, NSAIDs, temporary use of narcotics, and outpatient u/s for monitoring Neuro: [employer], po pain meds with IV for breakthrough - d/c [employer] today CV: currently stable Resp: stable on room air GI: Bowel meds : Continue monitoring UOP FEN: HLIV, regular Diet Endo: glucose well controlled Heme: no issues ID: afebrile Prophylaxis: SCDs, no pharmacologic ppx indicated Dispo: goal is home this afternoon Claudy Crockett MD 01/20/17 [id number] I saw the patient with the resident on morning rounds. I examined his scrotum and there is a large hematoma on the Lt I agree with the above assessment and plan. documented in this encounter H&P Notes * Claudy Crockett MD - 01/19/2017 12:55 AM EDT See Consult Note. Admitting to Urology Service for scrotal hematoma. documented in this encounter ED Notes * Flor Lee MD - 01/19/2017 11:15 AM EDT ED Transfer Note: Patient accepted in transfer by urology due to concern for testicular torsion. A brief history was elicited from the patient and the transfer documents. Briefly, Loy Barker is a 36 y.o. male who presented to outside hospital for testicular pain. 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 On my examination, his left testicle is significantly enlarged, approximately the size of a grapefruit. It is purple and discolored. There are no obvious abrasions, and his tetanus is up-to-date. He is not having difficulty urinating and he denies blood in his urine. His right testicle is fine. I contacted the accepting team, and have ordered a scrotal ultrasound per their request. Additional lab work / imaging/ medications was ordered. They will evaluate the patient, please see their notes. ED Course and Disposition: Scrotal ultrasound: Large left scrotal hematoma with small LEFT testicular laceration and/or possible small hematoma although the capsule appears to be intact and no evidence of devascularization. Patient received 1 L LR bolus due to NPO status as well as 1 mg of Dilaudid with good relief of hispain.Urinalysis without blood. Urology to admit for pain control. Flor Lee MD 01/19/2017 Flor Lee MD Resident 01/19/17 1120 Associated attestation - Susi Valle MD - 02/06/2017 12:39 PM EDT ED ATTENDING ATTESTATION The patient was seen in conjunction with the resident physician. I have independently performed thekey portions of the history and physical exam. I have personally reviewed nursing notes, vital signs, and diagnostic studies including labs, imaging studies and EKGs. I have discussed the details of the case with the resident and agree with the assessment and plan as described in the resident's note, unless stated otherwise in my separate note. * Izabella Fernández RN - 01/19/2017 1:55 AM EDT Report given to floor Dr Pope informed of increasing pain level * Izabella Fernández RN - 01/19/2017 1:47 AM EDT Report given to Anjel VITAL. Patient pending transport * Izabella Fernández RN - 01/19/2017 1:42 AM EDT Patient reports pain increasing testicles elevated MD to be notified. Patient requesting nicotine patch * Izabella Fernández RN - 01/19/2017 12:38 AM EDT Patient sent for US documented in this encounter Miscellaneous Notes * Plan of Care - [place] RN - 01/19/2017 11:09 PM EDT Problem: Patient Care Overview Goal: Plan of Care Review Outcome: Ongoing (Interventions Implemented as Appropriate) 01/19/17 0647 01/19/172003 Coping/Psychosocial Plan Of Care Reviewed With -- patient Plan of Care Review Progress improving -- OUTCOME EVALUATION NOTE: OUTCOME SUMMARY: Patient A&O x4. VSS. Pain controlled w/ [employer], PO dilaudid, Ibuprofen, and ice. Patient voiding independently. No worsening pain or symptoms. Will CTM and notify of any changes. PLAN MOVING FORWARD: -Pain management -I/O -Bladder scan for no urine output in 4 hrs INDIVIDUALIZED FALL PREVENTION INTERVENTIONS: Patient-specific fall risk factors per assessment: [current deficits]: Iv tubing, pain Assistance [level of assistance required for transfers and ambulation]: SBA Supervision [direct monitoring required during toileting and ADLs]: SBA Surveillance [continuous indirect monitoring]: [place], purposeful rounding Patient-specific fall prevention interventions for sensory deficits provided, if applicable: N/a CPG GOAL OUTCOME EVALUATION: Goal: Fall Prevention-Safe Patient Handling Outcome: Ongoing (Interventions Implemented as Appropriate) 01/19/172003 Sunshine Fall Risk History of Falling 0 Secondary Diagnosis 0 Ambulatory Aids 0 Intravenous Therapy/Heparin/Saline Lock 20 Gait/Transferring 0 Mental Status 0 Score 20 OTHER [place] Fall Risk Low Restraint Interventions Safety Promotion/Fall Prevention safety round/check completed Positioning Body Position independent Goal: Infection Control Outcome: Ongoing (Interventions Implemented as Appropriate) 01/19/172003 Safety Interventions Isolation Precautions standard precautions maintained Infection Prevention single patient room provided Coping Strategies Supportive Measures verbalization of feelings encouraged Goal: Discharge Needs Assessment Outcome: Ongoing (Interventions Implemented as Appropriate) 01/19/17 0356 01/19/17 3929 Discharge Needs Assessment Concerns To Be Addressed -- no discharge needs identified Equipment Needed After Discharge -- none Activity/Self Care Review of Systems Equipment Currently Used at Home -- none Living Environment Transportation Available family or friend will provide -- * Plan of Care - Juanita Nicholas RN - 01/19/2017 4:57 PM EDT Problem: Patient Care Overview Goal: Plan of Care Review Outcome: Ongoing (Interventions Implemented as Appropriate) 01/19/17 0647 01/19/17 0743 Coping/Psychosocial Plan Of Care Reviewed With -- patient Plan of Care Review Progress improving -- OUTCOME EVALUATION NOTE: OUTCOME SUMMARY: 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 Cold compression maintained. Vitals stable. Will continue to monitor. PLAN MOVING FORWARD: D/C when able to tolerate just PO pain meds INDIVIDUALIZED FALL PREVENTION INTERVENTIONS: Patient-specific fall risk factors per assessment: [current deficits]: Medium risk related to IV therapy Assistance [level of assistance required for transfers and ambulation]: Independent Supervision [direct monitoring required during toileting and ADLs]: Eyes on Surveillance [continuous indirect monitoring]: Purposeful hourly rounding, Masimo Patient-specific fall prevention interventions for sensory deficits provided, if applicable: [X] N/A CPG GOAL OUTCOME EVALUATION: * Plan of Care - Anjel Cannon RN - 01/19/2017 6:51 AM EDT Problem: Patient Care Overview Goal: Plan of Care Review Outcome: Ongoing (Interventions Implemented as Appropriate) 01/19/17 0647 Coping/Psychosocial Plan Of Care Reviewed With patient Plan of Care Review Progress improving OUTCOME EVALUATION NOTE: OUTCOME SUMMARY: Pt AO, VSS. Able to make needs known appropriately. Up in room w/ standby assist. Repositioning independently in bed. 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 Ice packs utilized for pain control as well. Maintenance fluids infusing as ordered, NPO maintained. Will continue to monitor and notify MD of acute changes. PLAN MOVING FORWARD: Pain control Monitor scrotal edema INDIVIDUALIZED FALL PREVENTION INTERVENTIONS: Patient-specific fall risk factors per assessment: [current deficits]: Pain medication, Masimo Assistance [level of assistance required for transfers and ambulation]: none Supervision [direct monitoring required during toileting and ADLs]: Independent/standby Surveillance [continuous indirect monitoring]: Room near nurses station, hourly rounding, call light w/ in reach Patient-specific fall prevention interventions for sensory deficits provided, if applicable: N/A CPG GOAL OUTCOME EVALUATION: * Consult Note - Jessica Yoder MD - 01/19/2017 12:31 AM EDT UROLOGY CONSULTATION H&P I have been asked to see the patient by SUSI Terrazas for evaluation and recommendations of possible testicular injury. HPI: Loy Barker is a 36 y.o. year old male who suffered a direct blow (2x4) at work to his left scrotum. This happened at about 3pm this afternoon. He originally felt pain but continued working. As the day went on he began to notice increasing pain and tremendous swelling. He waited for his ride to take him to [facility] and they were concerned for rupture. They did not have U/S capabilities so he was sent to [facility]. He has had some orthopedic surgeries on his hand but otherwise has no medical or significant surgical history. Past Medical History Past Medical History: Diagnosis Date ??? Depression Past Surgical History Past Surgical History: Procedure Laterality Date ??? FINGER SURGERY 4th and 5th digit R hand Social History Social History Social History ??? Marital status: Single Spouse name: N/A ??? Number of children: N/A ??? Years of education: N/A Occupational History ??? Not on file. Social History Main Topics ??? Smoking status: Current Every Day Smoker Packs/day: 2.00 Years: 15.00 ??? Smokeless tobacco: Not on file ??? Alcohol use Not on file Comment: occasionally ??? Drug use: Yes Special: Marijuana ??? Sexual activity: Not on file Other Topics Concern ??? Not on file Social History Narrative ??? No narrative on file Family History No family history on file. Allergies No Known Allergies Home Medications Nortriptyline Review of Systems ROS: As above and GEN: No fevers, chills, malaise, night sweats NEURO: No headache, change in vision CARDS: No chest pain, palpitations PULM: No SOB,URI GI: No nausea, vomiting, constipation, diarrhea : See HPI MSK: No back/spine pain ENDO: No increased thirst SKIN: No new rashes EXT: No numbness/tingling in extremities, No swelling EXAMINATION: Temp: [37.1 ??C (98.8 ??F)] Heart Rate: [93] Resp: [14] BP: (138)/(90) General: Oriented to person, place and time. NAD Cardio: Regular rate and rhythm Pulm: Non labored breathing Abdomen: benign without masses, rebound, guarding, or tenderness Genitalia: Circumcised penis; right testicle and scrotum normal - testicle shifted due to significant edema of left brenna-scrotum; left brenna-scrotum exquisitely tender, black and blue, size of a grapefruit - testicle not palpable Musculoskeletal: good strength in bilateral upper and lower extremities Neurologic: grossly normal EXT: moves all 4, no edema, no calf tenderness Labs No results for input(s): WBC, HGB, HCT, PLATELET, NA, K, CL, CO2, BUN, CREATININE, INR in the last 72 hours. Imaging: Scrotal Ultrasound 01/19/17 - formal read pending; I observed and reviewed the images as they were obtained - both testicles are healthy, viable, tunica intact; large left sided scrotal hematoma Assessment: Loy Barker is a 36 y.o. male with blunt force trauma to the left brenna-scrotum resulting in a large hematoma but no testicular damage. Recommendations - No need for OR as both testicles are healthy; large hematoma will resorb on its own - Will admit to Urology for observation and pain control, NPO in case anything happens in the next few hours Discussed with the resident. I personally reviewed the images which show a Large Lt scrotal hematoma with an intact testicle. Agree with assessment and plan. * ED Triage - Izabella Fernández RN - 01/19/2017 12:17 AM EDT L testicle swollen and ecchymotic documented in this encounter Plan of Treatment Not on file documented as of this encounter Procedures Procedure Name Priority Date/Time Associated Diagnosis Comments HEMOGRAM Routine 01/20/2017 11:28 AM EDT DIFFERENTIAL, AUTOMATED Routine 01/20/2017 11:28 AM EDT CBC (WITH DIFF) Routine 01/20/2017 11:28 AM EDT US SCROTUM STAT 01/19/2017 1:46 AM EDT URINE HOLD STAT 01/19/2017 1:23 AM EDT URINALYSIS WITH REFLEX CULTURE STAT 01/19/2017 1:23 AM EDT HEMOGRAM STAT 01/19/2017 12:35 AM EDT DIFFERENTIAL, AUTOMATED STAT 01/19/2017 12:35 AM EDT GOLD TUBE HOLD STAT 01/19/2017 12:35 AM EDT CBC (WITH DIFF) STAT 01/19/2017 12:35 AM EDT BASIC METABOLIC PANEL STAT 01/19/2017 12:35 AM EDT documented in this encounter Results * US [...] 03:16 pm) PATIENT INFO: ID #: ? [id number] ?: ??[birth year] (36 yrs) Name: ? ASHANTIQAMAR John ?Visit Date: 04/22/2017 02:49 pm ? [facility] PERFORMED BY: Performed By: ? Brennan Bowling RDMS Attending: ?Jerad SARAVIA, Keerthi Pruitt Resident: ? Ruperto Thompson MD, Alondra Liu Referred By: ?JESSICA YODER Location: ? [place] SERVICE(S) PROVIDED: ??[facility] - Scrotum and Contents with Vascular - ?[id number], [id number] ??[id number] INDICATIONS: ??patient s/p injury to scrotum, large [...] 04/22/2017 03:16 pm) PATIENT INFO: ID #: [id number] : [birth year] (36 yrs) Name: LOY Lopez Visit Date: 04/22/2017 02:49 pm [facility] PERFORMED BY: Performed By: Brennan Bowling RDMS Attending: Keerthi Mars MD Resident: Alondra Huerta MD Referred By: JESSICA YODER Location: [place] SERVICE(S) PROVIDED: [facility] - Scrotum and Contents with Vascular - [id number] INDICATIONS: patient s/p injury to scrotum, large [...] Report 04/22/2017 03:16 pm Jessica Yoder MD [facility] GEN ALYSSA KENDRICK * Differential, Automated (01/20/2017 11:28 AM EDT) Neutrophil % 62.5 % [facility] Neutrophil Absolute 5.78 1.70 - 6.10 x10(3)/[facility] Lymph % 26.2 % [facility] Lymphocytes Abs 2.4 0.9 - 3.2 x10(3)/[facility] Monocyte % 9.1 % [facility] Monocyte Abs 0.8 0.3 - 0.9 x10(3)/[facility] Eos % 1.5 % [facility] Eosinophils Abs 0.1 0.0 - 0.4 x10(3)/[facility] Basophil % 0.5 % [facility] Baso Absolute 0.0 0.0 - 0.1 x10(3)/[facility] Immature Gran % 0.20 % [facility] Comment: Immature granulocytes(IG's)percentage and absolute count will include metamyelocytes, myelocytes, and promyelocytes. Blood smears from CBCs yielding IG's will be scanned manually for concordance. If this scan disagrees with the automated IG or if promyelocytes are noted, a manual differential will be performed. Immature Gran Absolute 0.02 0.00 - 0.04 x10(3)/[facility] Blood specimen (specimen) 01/20/2017 11:28 AM EDT 01/20/2017 11:45 AM EDT Narrative Resulting Agency Comment Spec In Lab Jessica Yoder MD HEMATOLOGY ALYSSA KENDRICK [facility] [place] [address] * (ABNORMAL) Hemogram (01/20/2017 11:28 AM EDT) White Blood Cell 9.3 4.0 - 9.5 x10(3)/mc L [facility] Red Blood Cell 4.55(L) 4.58 - 5.54 x10(6)/mc L [facility] Hemoglobin 14.4 13.7 - 16.5 gm/dL [facility] Hematocrit 43.9 40.5 - 48.5 % [facility] Mean Cell Volume 96.5(H) 82.9 - 93.1 fL [facility] Mean Cell Hemoglobin 31.6 27.5 - 32.1 pg [facility] Mean Cell Hemoglobin Concentration 32.8 32.0 - 35.7 gm/dL [facility] Platelet 338 145 - 357 x10(3)/[facility] RDW Standard Deviation 41.5 36.0 - 45.0 [facility] RDW coefficient of variation 11.7 11.4 - 13.8 % [facility] Mean Platelet Volume 8.9 7.6 - 12.9 fL [facility] NRBC% auto 0.0 % [facility] NRBC Absolute 0.000 0.000 - 0.000 x10(3)/[facility] Blood specimen (specimen) 01/20/2017 11:28 AM EDT 01/20/2017 11:45 AM EDT Narrative Resulting Agency Comment Spec In Lab Jessica Yoder MD HEMATOLOGY ALYSSA KENDRICK [facility] [place] [address] * US Scrotum (01/19/2017 1:46 AM EDT) Anatomical Region Laterality Modality Pelvis Ultrasound Impressions 01/19/2017 2:42 AM EDT Large left scrotal hematoma with small LEFT testicular laceration and/or possible small hematoma although the capsule appears to be intact and no evidence of devascularization. Findings were discussed with Dr. Claudy Crockett at time of imaging (approximately 12:45 AM). I have personally reviewed the image(s) and the residents interpretation and agree with the findings, Oni Yuan at 01/19/2017 2:42 AM Narrative 01/19/2017 2:42 AM EDT EXAMINATION: ??US SCROTUM CLINICAL HISTORY: ??Pt was struck by wood 2x4 in left testicle, now with considerable swelling, pain, and ecchymosis. Pls eval blood flow TECHNIQUE: Ultrasound of the scrotum COMPARISON: ??None FINDINGS: The left testicle demonstrates normal size and blood flow, with intact tunica albuginea throughout. There is a linear/wedge-shaped hypoechoic region in the mid and inferior testicle, possibly due to fracture or hematoma. There is a nonspecific punctate calcification within the left testis. Left testicular size: 2.9 cm x 2.6 cm x 4.4 cm, 17 cc volume. Left epididymal head and body have normal morphology and blood flow. The epididymal tail is not well seen due to extensive surrounding hematoma. There is a small left hydrocele and extensive left scrotal hematoma. Marked skin thickening of the left scrotum. Right testicle demonstrates normal morphology and blood flow. Right testicular size: 3.2 x 2.5 x 4.6 cm, 19 cc volume. Right epididymis is normal. Procedure Note Oni Yuan MD - 01/19/2017 EXAMINATION: US SCROTUM CLINICAL HISTORY: Pt was struck by wood 2x4 in left testicle, now with considerable swelling, pain, and ecchymosis. Pls eval blood flow TECHNIQUE: Ultrasound of the scrotum COMPARISON: None FINDINGS: The left testicle demonstrates normal size and blood flow, with intacttunica albuginea throughout. There is a linear/wedge-shaped hypoechoic region inthe mid and inferior testicle, possibly due to fracture or hematoma. There kalyn nonspecific punctate calcification within the left testis. Left testicular size: 2.9 cm x 2.6 cm x 4.4 cm, 17 cc volume. Left epididymal head and body have normal morphology and blood flow. The epididymal tail is not well seen due to extensive surrounding hematoma. There is a small left hydrocele and extensive left scrotal hematoma.Marked skin thickening of the left scrotum. Right testicle demonstrates normal morphology and blood flow. Right testicular size: 3.2 x 2.5 x 4.6 cm, 19 cc volume. Right epididymis is normal. IMPRESSION Large left scrotal hematoma with small LEFT testicular laceration and/or possible small hematoma although the capsule appears to be intact and no evidence of devascularization. Findings were discussed with Dr. Claudy Crockett at time of imaging (approximately 12:45 AM). I have personally reviewed the image(s) and the residents interpretationand agree with the findings, Oni Yuan at 01/19/2017 2:42 AM Susi Valle MD IM US GEN ORDERABLE S * Urine Hold (01/19/2017 1:23 AM EDT) Hold, Urine Sample in lab. [facility] Urine specimen (specimen) Urine / Unknown 01/19/2017 1:23 AM EDT 01/19/2017 1:32 AM EDT Susi Valle MD URINE ORDERABLES [facility] [place] [address] * Urinalysis with reflex Culture (01/19/2017 1:23 AM EDT) Glucose, Urine Dipstick Negative Negative mg/dL [facility] Protein, Urine Dipstick Negative Negative mg/dL [facility] Bilirubin, Urine Dipstick Negative Negative mg/dL [facility] Comment: Clinical correlation required for positive Urine Bilirubin results as false positive may occur with some drugs and drug related products. If a false positive is suspected a serum total bilirubin should be considered if clinically indicated. Urobilinogen, Urine Dipstick Normal Normal mg/dL [facility] pH, Urn (dipstick) 7.0 5.0 - 8.0 [facility] Blood, Urine Dipstick Negative Negative mg/dL [facility] Ketone, Urine Dipstick Negative Negative mg/dL [facility] Nitrite, Urine Dipstick Negative Negative [facility] Leukocytes, Urine Dipstick Negative Negative [facility] Appearance, Urine Dipstick Clear Clear [facility] Specific [place] Urine Automated 1.003 1.002 - 1.030 [facility] Color, Urine Dipstick Straw Yellow [facility] RBC, Urine Not Present 0 - 3 /HPF [facility] WBC, Urine Not Present 0 - 3 /HPF [facility] Squamous Epithelial Cells Raw Data, Urine <1 <=4 /HPF [facility] Reflex to Culture No [facility] Urine specimen obtained by clean catch procedure (specimen) 01/19/2017 1:23 AM EDT 01/19/2017 1:31 AM EDT Narrative Resulting Agency Comment Spec In Lab Susi Valle MD URINE ORDERABLES [facility] [place] [address] * Basic Metabolic Panel (non-fasting) (01/19/2017 12:35 AM EDT) Glucose 118 65 - 199 mg/dL [facility] Comment:Diabetes: >=200 mg/d L plus symptoms Blood Urea Nitrogen 10 10 - 20 mg/dL [facility] Creatinine 1.04 0.80 - 1.50 mg/dL [facility] Comment: Please note that the pediatric reference intervals supplied above were not validated at [facility]. Results from pediatric patients should be interpreted in conjunction to the patient's age, height and muscle mass. Sodium 139 135 - 145 mmol/L [facility] Potassium 4.0 3.5 - 5.0 mmol/L [facility] Comment: Please note: ??Patients with WBC >100,000 may have falsely elevated Potassium levels. ??For accurate Potassium quantification in these patients send serum separator tube (gold top) for subsequent determinations. ??Contact the Clinical Chemistry Laboratory if there are any questions. Chloride 102 98 - 107 mmol/L [facility] Carbon Dioxide 22 22 - 31 mmol/L [facility] Anion Gap 15 5 - 15 mmol/L [facility] Calcium 8.7 8.5 - 10.5 mg/dL [facility] Est Glomerular Filtration Rate >60 >=60 [facility] Comment: This estimated GFR (eGFR) value was calculated using the MDRD equation which has been validated on patients between the ages of 18 and 70. The MDRD should not be used to assess kidney function in patients < 18 years of age or in patients with extremes of body mass, or in patients with acute kidney failure. This value should be multiplied by 1.2 for patients. For further information please copy and paste the following links into your internet browser. [email or web address]://[email or web address]/DHnkdep [email or web address] Blood specimen (specimen) Venous Draw / Unknown 01/19/2017 12:35 AM EDT 01/19/2017 1:14 AM EDT Narrative Resulting Agency Comment Spec In Lab Susi Valle MD CHEMISTRY ORDERABLES [facility] [place] [address] * Gold Tube HOLD (01/19/2017 12:35 AM EDT) Gold Hold Sample in lab. [facility] Blood specimen (specimen) Venous Draw / Unknown 01/19/2017 12:35 AM EDT 01/19/2017 12:48 AM EDT Susi Valle MD CHEMISTRY ORDERABLES [facility] [place] [address] * (ABNORMAL) Differential, Automated (01/19/2017 12:35 AM EDT) Neutrophil % 81.2 % [facility] Neutrophil Absolute 12.85(H) 1.70 - 6.10 x10(3)/[facility] Lymph % 11.3 % [facility] Lymphocytes Abs 1.8 0.9 - 3.2 x10(3)/[facility] Monocyte % 6.6 % [facility] Monocyte Abs 1.0(H) 0.3 - 0.9 x10(3)/[facility] Eos % 0.3 % [facility] Eosinophils Abs 0.0 0.0 - 0.4 x10(3)/[facility] Basophil % 0.3 % [facility] Baso Absolute 0.0 0.0 - 0.1 x10(3)/[facility] Immature Gran % 0.30 % [facility] Comment: Immature granulocytes(IG's)percentage and absolute count will include metamyelocytes, myelocytes, and promyelocytes. Blood smears from CBCs yielding IG's will be scanned manually for concordance. If this scan disagrees with the automated IG or if promyelocytes are noted, a manual differential will be performed. Immature Gran Absolute 0.05(H) 0.00 - 0.04 x10(3)/[facility] Blood specimen (specimen) 01/19/2017 12:35 AM EDT 01/19/2017 12:47 AM EDT Narrative Resulting Agency Comment Spec In Lab Susi Valle MD HEMATOLOGY ORDERABLE S [facility] [place] [address] * (ABNORMAL) Hemogram (01/19/2017 12:35 AM EDT) White Blood Cell 15.8(H) 4.0 - 9.5 x10(3)/[facility] Red Blood Cell 4.19(L) 4.58 - 5.54 x10(6)/mc L [facility] Hemoglobin 13.3(L) 13.7 - 16.5 gm/dL [facility] Hematocrit 38.5(L) 40.5 - 48.5 % [facility] Mean Cell Volume 91.9 82.9 - 93.1 fL [facility] Mean Cell Hemoglobin 31.7 27.5 - 32.1 pg [facility] Mean Cell Hemoglobin Concentration 34.5 32.0 - 35.7 gm/dL [facility] Platelet 316 145 - 357 x10(3)/mc L [facility] RDW Standard Deviation 39.6 36.0 - 45.0 fL [facility] RDW coefficient of variation 11.7 11.4 - 13.8 % [facility] Mean Platelet Volume 8.9 7.6 - 12.9 fL [facility] NRBC% auto 0.0 % [facility] NRBC Absolute 0.000 0.000 - 0.000 x10(3)/mc L [facility] Blood specimen (specimen) 01/19/2017 12:35 AM EDT 01/19/2017 12:47 AM EDT Narrative Resulting Agency Comment Spec In Lab Susi Valle MD HEMATOLOGY ORDERABLE S [facility] [place] [address] documented in this encounter Visit Diagnoses Diagnosis Scrotal hematoma 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 Scrotal hematoma 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 Scrotal hematoma 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 documented in this encounter Admitting Diagnoses Diagnosis Scrotal hematoma 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 documented in this encounter Administered Medications Inactive Administered Medications - up to 3 most recent administrations Medication Order MAR Action Action Date Dose Rate Site acetaminophen (TYLENOL) tablet 1,000 mg 1,000 mg, Oral, EVERY 6 HOURS SCHEDULED, First dose on 01/19/17 at 0600, Until Discontinued, Do not exceed 4,000 mg in 24 hours, Routine Given 01/20/2017 12:08 PM EDT 1,000 mg HYDROmorphone (DILAUDID) 1 mg/mL [employer] 50 mL Intravenous, [employer]EL[employer] ONLY, Starting on 01/19/17 at 0315, Until 01/20/17 at 0959, Recovery (Recovery-Hospital Unit) New Syringe/Cartridge 01/19/2017 3:49 AM EDT 50 mg HYDROmorphone (DILAUDID) injection 1 mg 1 mg, Intravenous, ONCE, 1 dose, On 01/19/17 at 0014, STAT Given 01/19/2017 12:35 AM EDT 1 mg HYDROmorphone (DILAUDID) injection 1 mg 1 mg, Intravenous, ONCE, 1 dose, On 01/19/17 at 0156, STAT Given 01/19/2017 1:58 AM EDT 1 mg HYDROmorphone (DILAUDID) tablet 2 mg 2 mg, Oral, EVERY 4 HOURS PRN, Starting on 01/19/17 at 1251, Until 01/20/17 at 1837, Pain, for mild pain (1-3), May give an additional 2 mg once if pain not relieved in 30-60 minutes., Routine Given 01/19/2017 1:52 PM EDT 2 mg HYDROmorphone (DILAUDID) tablet 4 mg 4 mg, Oral, EVERY 4 HOURS PRN, Starting on 01/19/17 at 1251, Until 01/20/17 at 1837, Pain, for moderate pain (4-6), May give an additional 2 mg once if pain not relieved in 30-60 minutes., Routine Given 01/20/2017 4:14 PM EDT 4 mg Given 01/20/2017 12:08 PM EDT 4 mg Given 01/20/2017 12:36 AM EDT 4 mg HYDROmorphone (DILAUDID) tablet 4 mg 4 mg, Oral, ONCE PRN, 1 dose, Starting on 01/19/17 at 1540, Until 01/19/17 at 1608, Pain, Routine Given 01/19/2017 4:08 PM EDT 4 mg HYDROmorphone (DILAUDID) tablet 6 mg 6 mg, Oral, EVERY 4 HOURS PRN, Starting on 01/19/17 at 1251, Until 01/20/17 at 1837, Pain, for severe pain (7-10), May give an additional 2 mg once if pain not relieved in 30-60 minutes., Routine Given 01/19/2017 6:06 PM EDT 6 mg ibuprofen (ADVIL;MOTRIN) tablet 600 mg 600 mg, Oral, EVERY 6 HOURS PRN, Starting on 01/19/17 at 0921, Until 01/20/17 at 1837, Pain, Administer orally with milk or food to minimize GI irritation. Maximum dose of 3200 mg from all sources in 24 hours, Routine Given 01/20/2017 9:54 AM EDT 600 mg Given 01/20/2017 12:36 AM EDT 600 mg Given 01/19/2017 6:48 PM EDT 600 mg lactated Ringers 1,000 mL IV bolus Intravenous, ONCE, 1 dose, On 01/19/17 at 0014 Given 01/19/2017 12:37 AM EDT nicotine (NICODERM CQ) 21 mg/24 hr patch 21 mg 21 mg, Transdermal, DAILY, First dose on 01/19/17 at 0500, Until Discontinued, STAT Patch Applied 01/19/2017 4:37 AM EDT 21 mg 09- Arm Upper (Left) nicotine (NICODERM CQ) 21 mg/24 hr patch 21 mg 21 mg, Transdermal, DAILY, First dose on 01/19/17 at 1400, Until Discontinued, Routine Patch Applied 01/20/2017 11:40 AM EDT 21 mg 11- Chest (Left) Patch Applied 01/19/2017 2:00 PM EDT 21 mg 09- Arm Upper (Left) nicotine (NICODERM CQ) 21 mg/24 hr patch Patch Removal Transdermal, DAILY, First dose on 01/20/17 at 0900, Until Discontinued, Remove nicotine 21 mg/24 hr patch nicotine (NICODERM CQ) 21 mg/24 hr patch Patch Verification Transdermal, 2 TIMES DAILY, First dose on 01/20/17 at 0145, Until Discontinued, Verify nicotine 21 mg/24 hr patch nicotine polacrilex (NICORETTE) gum 2 mg 2 mg, Buccal, EVERY 2 HOURS PRN, Starting on 01/19/17 at 1058, Until 01/20/17 at 1837, Smoking cessation, Chew gum slowly. Do not swallow. Maximum 48 mg/day., Routine ondansetron (ZOFRAN) injection 4 mg 4 mg, Intravenous, EVERY 8 HOURS PRN, Starting on 01/19/17 at 0257, Until 01/20/17 at 1837, Nausea, May repeat times one in 30 minutes if ineffective. If multiple antiemetics are ordered, give ondansetron first. ondansetron (ZOFRAN) tablet 4 mg 4 mg, Oral, EVERY 8 HOURS PRN, Starting on 01/19/17 at 0257, Until 01/20/17 at 1837, Nausea, Vomiting, If multiple antiemetics are ordered, use ondansetron first. PO Preferred. If patient unable to take PO, may give IV if ordered. May repeat times one in 45 minutes if ineffective. If unable to take PO, may give IV., Routine oxyCODONE (ROXICODONE) immediate release tablet 5 mg 5 mg, Oral, EVERY 4 HOURS PRN, Starting on 01/19/17 at 0257, Until 01/19/17 at 1251, Pain, mild to moderate pain (1-6), May give an additional 5 mg in 30 minutes once if pain not relieved., Routine Given 01/19/2017 12:00 PM EDT 5 mg sodium chloride 0.9 % flush 5 mL 5 mL, Intravenous, 2 TIMES DAILY, First dose on 01/19/17 at 0900, Until Discontinued, Recovery (Recovery-Hospital Unit), Routine Given 01/20/2017 9:46 AM EDT 1 0 mLs Given 01/19/2017 9:00 PM EDT 5 mLs Given 01/19/2017 9:00 AM EDT 5 mLs sodium chloride 0.9% infusion 1,000 mL, at 100 mL/hr, Intravenous, CONTINUOUS, Starting on 01/19/17 at 0315, Until 01/19/17 at 1000, Recovery (Recovery-Hospital Unit) Restarted 01/19/2017 7:41 AM EDT 1,000 mLs 100 mL /hr New Bag 01/19/2017 3:51 AM EDT 1,000 mLs 100 mL/hr documented in this encounter Active and Recently Administered Medications Times are shown in EDT. Scheduled Medication Order 01/18/2017 01/19/2017 01/20/2017 acetaminophen (TYLENOL) tablet 1,000 mg 1,000 mg, Oral, EVERY 6 HOURS SCHEDULED, First dose on 01/19/17 at 0600, Until Discontinued, Do not exceed 4,000 mg in 24 hours, Routine 0600 (Not Given - Provider: Anjel Cannon RN - Reason: Order parameters not met - Comment: pt sleeping)1200 (Not Given - Provider: Juanita Nicholas RN - Reason: Patient/family refused)1800 (Not Given - Provider: Juanita Nicholas RN - Reason: Patient/family refused) 0000 (Not Given - Provider: Santa Jo RN - Reason: Patient/family refused)0600 (Not Given - Provider: Santa Jo RN - Reason: Patient/family refused)1208 (Given - Provider: Delaney Rios RN) docusate sodium (COLACE) capsule 100 mg 100 mg, Oral, 2 TIMES DAILY, First dose on 01/19/17 at 0900, Until Discontinued, Routine 0900 (Not Given - Provider: Juanita Nicholas RN - Reason: Patient/family refused)2100 (Not Given - Provider: Santa Jo RN - Reason: Patient/family refused) 0945 (Not Given - Provider: Delaney Rios RN - Reason: Patient/family refused) HYDROmorphone (DILAUDID) injection 1 mg (COMPLETED) 1 mg, Intravenous, ONCE, 1 dose, On 01/19/17 at 0014, STAT 0035 (Given - Provider: Izabella Fernández, AMANUEL) HYDROmorphone (DILAUDID) injection 1 mg (COMPLETED) 1 mg, Intravenous, ONCE, 1 dose, On 01/19/17 at 0156, STAT 0158 (Given - Provider: Izabella Fernández, AMANUEL) lactated Ringers 1,000 mL IV bolus (COMPLETED) Intravenous, ONCE, 1 dose, On 01/19/17 at 0014 0037 (Given - Provider: Izabella Fernández RN) nicotine (NICODERM CQ) 21 mg/24 hr patch 21 mg (CANCELED)(Linked Group 1) 21 mg, Transdermal, DAILY, First dose on 01/19/17 at 0500, Until Discontinued, STAT 0437 (Patch Applied - Provider: Anjel Cannon RN) nicotine (NICODERM CQ) 21 mg/24 hr patch 21 mg(Linked Group 2) 21 mg, Transdermal, DAILY, First dose on 01/19/17 at 1400, Until Discontinued, Routine 1400 (Patch Applied - Provider: Juanita Nicholas RN) 1140 (Patch Applied - Provider: Delaney Rios, RN) nicotine (NICODERM CQ) 21 mg/24 hr patch Patch Removal(Linked Group 2) Transdermal, DAILY, First dose on 01/20/17 at 0900, Until Discontinued, Remove nicotine 21 mg/24 hr patch 0946 (Patch Removed - Provider: Delaney Rios, RN) nicotine (NICODERM CQ) 21 mg/24 hr patch Patch Verification(Linked Group 2) Transdermal, 2 TIMES DAILY, First dose on 01/20/17 at 0145, Until Discontinued, Verify nicotine 21 mg/24 hr patch 0145 (Patch (dose an d location) verified - Provider: Santa Jo, AMANUEL)0945 (Patch (dose and location) verified - Provider: Delaney Rios RN) sodium chloride 0.9 % flush 5 mL 5 mL, Intravenous, 2 TIMES DAILY, First dose on 01/19/17 at 0900, Until Discontinued, Recovery (Recovery-Hospital Unit), Routine 0900 (Given - Provider: Juanita Nicholas, AMANUEL)2100 (Given - Provider: Santa Jo, AMANUEL) 0946 (Given - Provider: Delaney Rios, RN) Continuous Medication Order 01/18/2017 01/19/2017 01/20/2017 HYDROmorphone (DILAUDID) 1 mg/mL SENIOR ORACLE SOA DEVELOPER 50 mL (CANCELED) Intravenous, SENIOR ORACLE SOA DEVELOPER ONLY, Starting on 01/19/17 at 0315, Until 01/20/17 at 0959, Recovery (Recovery-Hospital Unit) 0349 (New Syringe/Cartridge - Provider: Anjel Cannon RN) 0953 (Paused - Provider: Delaney Rios, RN)1015 (Stopped - Provider: Delaney Rios, AMANUEL - Comment: pt already disconnected fromPCA to take a shower) sodium chloride 0.9% infusion (CANCELED) 1,000 mL, at 100 mL/hr, Intravenous, CONTINUOUS, Starting on 01/19/17 at 0315, Until 01/19/17 at 1000, Recovery (Recovery-Hospital Unit) 0351 (New Bag - Provider: Anjel Cannon RN)0740 (Stopped - Provider: Juanita Nicholas RN)0741 (Restarted - Provider: Juanita Nicholas RN)1008 (Stopped - Provider: Juanita Nicholas RN) PRN Medication Order 01/18/2017 01/19/2017 01/20/2017 bisacodyl (DULCOLAX) suppository 10 mg 10 mg, Rectal, DAILY PRN, Starting on 01/19/17 at 0257, Until 01/20/17 at 1837, Constipation, Administer if needed per patient's routine or if no bowel movement within 48 hours to achieve: 1) One bowel movement at least every 48 hours, AND 2) Without straining. If multiple bowel medications ordered, consider adding if docusate or milk of magnesia not sufficient., Routine HYDROmorphone (DILAUDID) tablet 2 mg(Linked Group 3) 2 mg, Oral, EVERY 4 HOURS PRN, Starting on 01/19/17 at 1251, Until 01/20/17 at 1837, Pain, for mild pain (1-3), May give an additional 2 mg once if pain not relieved in 30-60 minutes., Routine 1352 (Given - Provider: Juanita Nicholas RN - Comment: MD hernandez giving patient lower dose than what instructed in [facility] based on pain level)1806 (See Alternative - Provider: Juanita Nicholas RN) 0036 (See Alternative - Provider: Santa Jo RN)1208 (See Alternative - Provider: Delaney Rios RN)1614 (See Alternative - Provider: Delaney Rios RN) HYDROmorphone (DILAUDID) tablet 4 mg(Linked Group 3) 4 mg, Oral, EVERY 4 HOURS PRN, Starting on 01/19/17 at 1251, Until 01/20/17 at 1837, Pain, for moderate pain (4-6), May give an additional 2 mg once if pain not relieved in 30-60 minutes., Routine 1352 (See Alternative - Provider: Juanita Nicholas RN)1806 (See Alternative - Provider: Juanita Nicholas RN) 0036 (Given - Provider: Santa Jo RN)1208 (Given - Provider: Delaney Rios RN)1614 (Given - Provider: Delaney Rios RN) HYDROmorphone (DILAUDID) tablet 4 mg (COMPLETED) 4 mg, Oral, ONCE PRN, 1 dose, Starting on 01/19/17 at 1540, Until 01/19/17 at 1608, Pain, Routine 1608 (Given - Provider: Juanita Nicholas RN) HYDROmorphone (DILAUDID) tablet 6 mg(Linked Group 3) 6 mg, Oral, EVERY 4 HOURS PRN, Starting on 01/19/17 at 1251, Until 01/20/17 at 1837, Pain, for severe pain (7-10), May give an additional 2 mg once if pain not relieved in 30-60 minutes., Routine 1352 (See Alternative - Provider: Juanita Nicholas RN)1806 (Given - Provider: Juanita Nicholas RN) 0036 (See Alternative - Provider: Santa Jo RN)1208 (See Alternative - Provider: Delaney Rios RN)1614 (See Alternative - Provider: Delaney Rios RN) ibuprofen (ADVIL;MOTRIN) tablet 600 mg 600 mg, Oral, EVERY 6 HOURS PRN, Starting on 01/19/17 at 0921, Until 01/20/17 at 1837, Pain, Administer orally with milk or food to minimize GI irritation. Maximum dose of 3200 mg from all sources in 24 hours, Routine 0943 (Given - Provider: Juanita Nicholas RN)1848 (Given - Provider: Juanita Nicholas RN) 0036 (Given - Provider: Santa Jo RN)0954 (Given - Provider: Delaney Rios RN) lidocaine (XYLOCAINE) 10 mg/mL (1 %) injection 3 mg 3 mg (0.3 mL), Subcutaneous, ONCE PRN, 1 dose, Starting on 01/19/17 at 0257, Until 01/20/17 at 1837, for discomfort with PIV insertion, Recovery (Recovery-Hospital Unit), Routine nicotine polacrilex (NICORETTE) gum 2 mg 2 mg, Buccal, EVERY 2 HOURS PRN, Starting on 7/1/17 at 1058, Until 01/20/17 at 1837, Smoking cessation, Chew gum slowly. Do not swallow. Maximum 48 mg/day., Routine ondansetron (ZOFRAN) injection 4 mg(Linked Group 4) 4 mg, Intravenous, EVERY 8 HOURS PRN, Starting on 01/19/17 at 0257, Until 01/20/17 at 1837, Nausea, May repeat times one in 30 minutes if ineffective. If multiple antiemetics are ordered, give ondansetron first. ondansetron (ZOFRAN) tablet 4 mg(Linked Group 4) 4 mg, Oral, EVERY 8 HOURS PRN, Starting on 01/19/17 at 0257, Until 01/20/17 at 1837, Nausea, Vomiting, If multiple antiemetics are ordered, use ondansetron first. PO Preferred. If patient unable to take PO, may give IV if ordered. May repeat times one in 45 minutes if ineffective. If unable to take PO, may give IV., Routine oxyCODONE (ROXICODONE) immediate release tablet 5 mg (CANCELED)(Linked Group 5) 5 mg, Oral, EVERY 4 HOURS PRN, Starting on 01/19/17 at 0257, Until 01/19/17 at 1251, Pain, mild to moderate pain (1-6), May give an additional 5 mg in 30 minutes once if pain not relieved., Routine 1200 (Given - Provider: Lianna Dias RN) sodium chloride 0.9 % flush 5-20 mL 5-20 mL, Intravenous, EVERY 1 MIN PRN, Starting on 01/19/17 at 0257, Until 01/20/17 at 1837, flush, Flush pertains to all indwelling lines. Flush per protocol found in the job aid using the link provided on this medication record., Recovery (Recovery-Hospital Unit), Routine Linked Groups Order Group 1: nicotine (NICODERM CQ) 21 mg/24 hr patch 21 mg (CANCELED)Jump to med 21 mg, Transdermal, DAILY, First dose on 01/19/17 at 0500, Until Discontinued, STAT And Patch Verification (CANCELED) Transdermal, 2 TIMES DAILY, First dose on 01/19/17 at 0900, Until Discontinued, Verify nicotine 21 mg/24 hr patch And nicotine (NICODERM CQ) patch REMOVAL (CANCELED) Transdermal, DAILY, First dose on 01/20/17 at 0900, Until Discontinued, Remove nicotine 21 mg/24 hr patch Group 2: nicotine (NICODERM CQ) 21 mg/24 hr patch 21 mgJump to med 21 mg, Transdermal, DAILY, First dose on 01/19/17 at 1400, Until Discontinued, Routine And nicotine (NICODERM CQ) 21 mg/24 hr patch Patch VerificationJump to med Transdermal, 2 TIMES DAILY, First dose on 01/20/17 at 0145, Until Discontinued, Verify nicotine 21 mg/24 hr patch And nicotine (NICODERM CQ) 21 mg/24 hr patch Patch RemovalJump to med Transdermal, DAILY, First dose on 01/20/17 at 0900, Until Discontinued, Remove nicotine 21 mg/24 hr patch Group 3: HYDROmorphone (DILAUDID) tablet 2 mgJump to med 2 mg, Oral, EVERY 4 HOURS PRN, Starting on 01/19/17 at 1251, Until 01/20/17 at 1837, Pain, for mild pain (1-3), May give an additional 2 mg once if pain not relieved in 30-60 minutes., Routine Or HYDROmorphone (DILAUDID) tablet 4 mgJump to med 4 mg, Oral, EVERY 4 HOURS PRN, Starting on 01/19/17 at 1251, Until 01/20/17 at 1837, Pain, for moderate pain (4-6), May give an additional 2 mg once if pain not relieved in 30-60 minutes., Routine Or HYDROmorphone (DILAUDID) tablet 6 mgJump to med 6 mg, Oral, EVERY 4 HOURS PRN, Starting on 01/19/17 at 1251, Until 01/20/17 at 1837, Pain, for severe pain (7-10), May give an additional 2 mg once if pain not relieved in 30-60 minutes., Routine Group 4: ondansetron (ZOFRAN) tablet 4 mgJump to med 4 mg, Oral, EVERY 8 HOURS PRN, Starting on 01/19/17 at 0257, Until 01/20/17 at 1837, Nausea, Vomiting, If multiple antiemetics are ordered, use ondansetron first. PO Preferred. If patient unable to take PO, may give IV if ordered. May repeat times one in 45 minutes if ineffective. If unable to take PO, may give IV., Routine Or ondansetron (ZOFRAN) injection 4 mgJump to med 4 mg, Intravenous, EVERY 8 HOURS PRN, Starting on 01/19/17 at 0257, Until 01/20/17 at 1837, Nausea, May repeat times one in 30 minutes if ineffective. If multiple antiemetics are ordered, give ondansetron first. Group 5: oxyCODONE (ROXICODONE) immediate release tablet 5 mg (CANCELED)Jump to med 5 mg, Oral, EVERY 4 HOURS PRN, Starting on 01/19/17 at 0257, Until 01/19/17 at 1251, Pain, mild to moderate pain (1-6), May give an additional 5 mg in 30 minutes once if pain not relieved., Routine Or oxyCODONE (ROXICODONE) immediate release tablet 10 mg (CANCELED) 10 mg, Oral, EVERY 4 HOURS PRN, Starting on 01/19/17 at 0257, Until 01/19/17 at 1251, Pain, severe pain (7-10), May give an additional 5 mg in 30 minutes once if pain not relieved., Routine documented in this encounter Care Teams Vault Mechanic Relationship Specialty Start Date End Date Philipp Mcrae MD PCP - General Family Medicine 01/18/17 08/12/17 documented as of this encounter
--- OUTSIDE RECORDS SUMMARY | 2024-07-03 00:33 | XMS_ITS | Encounter Summary ---
Author Organization [facility] [place] [address] Care Team Providers Care Ceramic Products Sales Engineer Name Role Phone Philipp Mcrae MD Primary Care Provider [phone] Encounter Details Date Type Department Care Team (Late st Contact Info) Description 04/22/2017 2:20 PM EDT [place] [address] Jessica Yoder MD [facility] [place] [address] Scrotal hematoma Social History Tobacco Use Types Packs/Day Years [...] on file documented as of this encounter Patient Instructions * Patient Instructions* Jessica Yoder MD - 04/22/2017 2:20 PM EDT To get rid of jock itch: Shower daily - blot the area dry with a clean towel each day. Apply an over the counter antifungal cream or powder, - like nystatin, tinactin,. The pharmacist can help you. Ideally you need this cleaned up prior to your surgery. documented in this encounter Progress Notes * Jessica Yoder MD - 04/22/2017 2:20 PM EDT HPI: Diallo Barker is a 36 y.o. year old male who suffered a direct blow (2x4) at work to his left scrotum on January 19 2017. This happened at about 3pm this afternoon. He originally felt pain but continued working. As the day went on he began to notice increasing pain and tremendous swelling. He waited for his ride to [facility] [place] to [facility] and they were concerned for rupture. They did not have U/S capabilities so he was sent to [facility]. He had imaging on arrival here: see below. Imaging: Scrotal Ultrasound 01/19/17 - this showed: both testicles are healthy, viable, tunica intact; large left sided scrotal hematoma. He was hospitalized for pain control and to ensure that the ble bleeding was not continued. He returns now for follow-up. He has noted it has continued to get smaller in size He has had more pain over the last few weeks. He also has Rt scrotal and groin pain. He is taking motrin for the pain He has beeen helping to paint a house. Of note prior hand surgery but otherwise has no medical or significant surgical history. ?? Past Medical History Past??Medical??History Past Medical History: Diagnosis Date ??? Depression ? Past Surgical History Past??Surgical??History Past Surgical History: Procedure Laterality Date ??? FINGER SURGERY ? 4th and 5th digit R hand ? Social History Social??History Social History ?? Social History ??? Marital status: Single ? Spouse name: N/A ??? Number of children: N/A ??? Years of education: N/A ?? Occupational History ??? Not on file. ?? Social History Main Topics ??? Smoking status: Current Every Day Smoker ? Packs/day: 2.00 ? Years: 15.00 ??? Smokeless tobacco: Not on file ??? Alcohol use Not on file ? Comment: occasionally ??? Drug use: Yes ? Special: Marijuana ??? Sexual activity: Not on file ?? Other Topics Concern ??? Not on file ?? Social History Narrative ??? No narrative on file ? Family History Family??History No family history on file. ?? Allergies No Known Allergies ?? Home Medications Nortriptyline ? Review of Systems: not repeated ?? EXAMINATION: ?? General: Oriented to person, place and time. NAD Abdomen: benign without masses, rebound, guarding, or tenderness Genitalia: Circumcised penis; right testicle and scrotum normal - testicle shifted due to significant mass of left brenna-scrotum; left brenna-scrotum slightly tender, Neurologic: grossly normal Renal ultrsound today I have reviewed these images and agree with the report. Complex collection seen lat/inf to left testicle measuring approx. 6.5 x 4.7 x 3.6 cm.? Assessment: Diallo Barker is a 36 y.o. male with blunt force trauma to the left brenna-scrotum resulting in a large hematoma but no testicular damage. ??3 months later he still has a significant hematocele. Recommendations: Look for a left scrotal exploration. I explained this to be done through a midlinescrotal incision. I did caution him that this may not in fact help his left scrotal pain and certainly do nothing to his right scrotal pain. I am planning to do this at this point because after 3 months this is still not completely resorbed. He tells me that it has not changed much over the last number of weeks to a month. He is booked for next week to have this done in the outpatient surgical center. His outpatient surgical center form was filled out. We also discussed other complications including bleeding further hematoma need for another procedure. He understands that he will need somebody to drive him to the outpatient surgical center. We also discussed that there is a small chance that the Lt testicle could be injured resulting in the need for us to remove it. 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
--- OUTSIDE RECORDS SUMMARY | 2024-07-03 00:33 | XMS_ITS | Encounter Summary ---
Author Organization [facility] [place] [address] Care Team Providers Care Tankage Grinder Operator Name Role Phone Melissa Gill APRN Primary Care Provider Reason for Visit * Consultation (Routine) - Closed Specialty Diagnoses / Procedures Referred By Oxana sewell Referred To Contact Urology Diagnoses Scrotal Hematoma Melissa Gill APRN [address] [place] [address] [facility] [place] [address] Referral ID Status Reason Start Date Expiration Date V isits Requested Visits Authorized [id number] Closed Consult, Test & Treat Connection Center 08/13/2017 08/13/2018 1 1 Encounter Details Date Type Department Care Team (Late Contact Info) Description 10/08/2017 10:20 AM EDT [place] [address] Jessica Yoder MD [facility] [address] Scrotal hematoma Social History Tobacco Use Types [...] Sign Reading Time Taken Comments Blood Pressure 129/83 10/08/2017 10:24 AM EDT Pulse 91 10/08/2017 10:24 AM EDT Temperature 36.6 ??C (97.9 ??F) 10/08/2017 10:24 AM E DT Respiratory Rate - - Oxygen Saturation - - Inhaled Oxygen Concentration - - Weight - - Height - - Body Mass Index - - documented in this encounter Progress Notes * Jessica Yoder MD - 10/08/2017 10:20 AM EDT HPI: Diallo Barker is a 37 y.o. year old male who suffered a direct blow (2x4) at work to his left scrotum on January 19 2017. He was last seen 04/22/17 And was booked for a scrotal exploration because of a persistent hematocele Our booking secretaries had called him a number of times and left messages to book his procedure. 05/02/17. Lola had left messages x3 then I have left message 05/09 and 06/20 and 07/09. He has phone issues and travel issues. From his original note: ?? This happened at about 3pm on 01/19/17. . He originally felt pain but continued working. As the day went on he began to notice increasing pain and tremendous swelling. He waited for his ride to take him to [facility] and they were concerned for rupture. They did not have U/S capabilities so he was sent to [place]. He had imaging on arrival here: see below. Imaging: Scrotal Ultrasound 01/19/17 - this showed: both testicles are healthy, viable, tunica intact; large left sided scrotal hematoma. He was hospitalized for pain control and to ensure that the bleeding was not continued. He returns now for follow-up. He has noted it has continued to get smaller in size He has a pulsating pain on either side on either side of the scrotum when he lays down. He does take 800 mg motrin for his shoulder which he takes prn. 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 Past Medical History Past??Medical??History Past Medical [...] penis; right testicle and scrotum normal - Left testicle normal there is well circumscribed 4x 2x2 cm mass lateral to the testicle. , Neurologic: grossly normal Renal ultrsound In Apr 2017 I have reviewed these images and agree with the report. Complex collection seen lat/inf to left testicle measuring approx. 6.5 x 4.7 x 3.6 cm.? Assessment: Diallo Barker is a 37 y.o. male with blunt force trauma to the left brenna-scrotum resulting in a large hematoma but no testicular damage. ??3 months later he still had a significant hematocele. Today 9 months later he has a smaller hematocele Recommendations: I discussed with him that he no longer needs to have an exploration. The hematocele continues to get smaller. 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
--- OUTSIDE RECORDS SUMMARY | 2024-07-03 00:33 | XMS_ITS | Encounter Summary ---
[place] [address] Care Team Providers Care Banquet Steward Name Role Phone Melissa Gill APRN Primary Care Provider [phone] Reason for Referral * Diagnostic Test (Routine) - Closed Specialty Diagnoses / Procedures Referred By Felipaac t Referred To Contact Radiology Diagnoses Thoracic outlet syndrome Procedures CT Angiogram Chest (Non-Coronary) CT Chest w Contrast Sterling Preston MD [facility] [place] [address] [place] [place] [address] Referral ID Status Reason Start Date Expiration Date V isits Requested Visits Authorized [id number] Closed Specialty Service Requested 06/11/2018 09/09/2018 1 1 Reason for Visit * Diagnostic Test (Routine) - Closed Specialty Diagnoses / Procedures Referred By Oxana t Referred To Contact Radiology Diagnoses Thoracic outlet syndrome Procedures CT Angiogram Chest (Non-Coronary) CT Chest w Contrast Sterling Preston MD [facility] [place] [address] [place] [place] [address] Referral ID Status Reason Start Date Expiration Date V isits Requested Visits Authorized [id number] Closed Specialty Service Requested 06/11/2018 09/09/2018 1 1 Encounter Details Date Type Department Care Team (Latest Contact Info) Description 06/23/2018 10:00 AM EST - 06/23/2018 11:59 PM EST Hospital Encounter CT Scan [place] [facility] [place] [address] Sterling Preston MD [facility] [place] [address] Thoracic outlet syndrome Discharge Disposition: Home Social [...] Procedure Name Priority Date/Time Associated Diagnosis Comments CT ANGIOGRAM OF CHEST (NON-CORONARY) W CONTRAST Routine 06/23/2018 11:14 AM EST Thoracic outlet syndrome documented in this encounter Results * CT Angiogram Chest [...] Brachial plexus lesions documented in this encounter Administered Medications Inactive Administered Medications - up to 3 most recent administrations Medication Order MAR Action Action Date Dose Rate Site iohexol (OMNIPAQUE) 350 mg/mL solution 0-200 mL 0-200 mL, Intravenous, ONCE PRN, 1 dose, Starting on Sat06/23/18 at 1050, Until Sat06/23/18 at 1104, Per Protocol, Warning Vesicant/Irritant Medication , Radiology Contrast, Routine Given 06/23/2018 11:04 AM EST 120 mLs documented in this encounter Care Teams Banquet Steward Relationship Specialty Start Date End Date Melissa Gill, PERSONAL FINANCIAL COUNSELOR [address] [place] [address] PCP - General Family Medicine 08/13/17 02/11/23 documented as of this encounter
--- OUTSIDE RECORDS SUMMARY | 2024-07-03 00:33 | XMS_ITS | Encounter Summary ---
[place] [address] Care Team Providers Care Banbury Mill Operator Name Role Phone Melissa Gill APRN Primary Care Provider [phone] Encounter Details Date Type Department Care Team (Late st Contact Info) Description 12/12/2017 Telephone [place] [id number] Twila Ashraf Social History Tobacco Use Types [...] * Telephone Encounter - Twila Ashraf - 12/12/2017 3:30 PM EDT [facility] called looking for imaging orders. I explained to him that his insurance has denied prior authorization, They are stating they would like him to have physical therapy. [facility] is in agreement and would like a referral locally documented in this encounter Plan of Treatment Not on file documented as of this encounter Visit Diagnoses Not on filedocumented in this encounter Care Teams Banbury Mill Operator Relationship Specialty Start Date End Date Melissa Gill APRN [address] [place], [place] [id number] PCP - General Family Medicine 08/13/17 02/11/23 documented as of this encounter
[2024-07-03] MEDS: Barium Sulfate 2% W/V-Creamy Vanilla Smoothie 450 ML BTL PO ×2 (10:43→10:44)
[2024-07-03] MEDS: Normal Saline - Diluent 50 ML VIAL IJ (12:49)
[2024-07-03] MEDS: Omnipaque 350 MG/ML 100 ML BTL 75 ML IJ (12:50)
== END 2024-07-03 00:48 ==
LOC: DI 00:28
PROVIDERS: PCP Nurse Practitioner Family; Visit Provider Nurse Practitioner Family
DX: R10.12 Left upper quadrant pain (principal)
CPT/HCPCS: 74177; J3490

== ENCOUNTER 2024-07-31 08:49 | Day surgery (SDC) | payer MEDICAID, SELFPAY ==
--- NOTE | 2024-07-30 21:07 | W.PM.ENDDOP ---
Date of service: 07/31/24 Time of Service: 11:05 Endoscopy Report DATE OF PROCEDURE: 07/31/24 PRE-OP DIAGNOSIS: Abdominal pain POST-OP DIAGNOSIS: other (Moderate esophagitis Grade B. Bile reflux gastritis) SURGEON: Alina Sotomayor ANESTHESIA TYPE: General:No Airway ESTIMATED BLOOD LOSS: 3 PATHOLOGY: other COMPLICATIONS: None DISPOSITION: same day PROCEDURE DESCRIPTION: Informed consent was obtained from the pt; explaining the benefits and Risks: bleeding, infections, perforations {which could require surgery or antibiotics and prolonged hospital stay}, or ostomy, and complications of anaesthesia, brandi aspiration). The patient was take to the procedure room and placed in a supine position. Monitors were applied and a time out was done. The patients name, date of , procedure type, allergies to medications and metal in their body was reviewed. A bite block was placed and the patient was sedated. Once sedated and comfortable an Olympus gastroscope (see RN notes for scope #) was advanced through the oropharynx which was grossly normal, and passed into the esophagus. The proximal and mid-esophagus were normal. The distal esophagus does not show any: dilation/strictures/varices or ulcers/bleeding noted. He does have moderate esophagitis noted w/ mild inflammation. THere are two areas thay have open breaks. 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 The scope was advanced into the stomach and through the pylorus into the proximal jejunum. A bx is taken for celiac Dx . The duodenum was noted to be . Biopsies were done of the duodenal bulb.. The scope was retracted back into the stomach and biopsies were taken of the antrum. There were no gastropathy/ ulcers/masses noted. He has moderate gastritis radiating from the antrum in a straight fashion. There is no ulcerations or new or old blood noted. The scope was retroflexed. The cardia and fundus were noted to be normal. There is no hiatal hernia noted. The scope was retracted back into the esophagus and biopsies were done of the GE junction (in all 4 quadrants) and distal esophagus (2cm above the GE junction) to rule out Davis's. All specimens are retrieved and no bleeding was noted. The Z line was i she does AccuBoost regular. The GE junction was at 38 cm. The scope was removed and the patient was woken up and taken back to [facility] in stable condition.
--- NOTE | 2024-07-30 21:25 | PDOC.DSDIS_ITS ---
Date of service: 07/31/24 Discharge Plan Disposition Patient Disposition: Home Condition: Good Discharge Details Reason For Visit: stomach scope Attending Provider: Alina Sotomayor Primary Care Provider: Delaney Kwok Home Meds and New Rx's Prescriptions: New sucralfate [Carafate] 1 gram tablet 1 g PO QACHS Qty: 120 12RF pantoprazole [Protonix] 40 mg tablet,delayed release (DR/EC) 40 mg PO DAILY Qty: 90 6RF Continued calcium carbonate 500 mg calcium (1,250 mg) tablet 1,000 mg PO DAILY Discharge Instructions Additional Instructions: Post EGD Instruction ?You had anesthesia for your EGD/stomach scope today.? For your safety, please do the following for the next twenty-four (24) hours: Do Not operate a motor vehicle (car, truck, motorcycle, etc.) Do Not drink alcoholic beverages or use any recreational drugs for the first 24 hours or while taking pain medications. The medications in your body may have a reaction that can be dangerous. Do Not make any important decisions or sign any important papers You have just had a gastroscopy (EGD) or upper GI tract examination. It is important for your smooth recovery that you carefully follow the recommendations below. Do not hesitate to call if any questions should arise about your anesthesia, condition, or care. -Symptoms you may experience during the next 24 hours: ?1. Mild abdominal pain or excessive gas or a bloated feeling which improves with rest, liquids, eating? slightly, and walking as tolerated. 2. Drowsiness and/or forgetfulness because of the medications you were given. 3. A sore throat which you can treat with throat lozenges or by gargling with salt water 4-5 times a day. 4. Redness at the site of your IV which you can treat with warm compresses. SPECIAL INSTRUCTIONS: 1. You may resume your previous diet in one hour. We recommend a light meal to start, then progress as tolerated. 2. Restart regular medications in one hour. 3. No aspirin or non-steroidal containing medication for 24 hrs. 4. No lifting over 20 pounds or strenuous activity for the first 24 hours after your procedure. After 24 hours there are no restrictions on your activity, but you may feel fatigued for a few days. -Findings: Bile reflux gastritis and esophagitis -Medications: Protonix and Carafate -Continue to follow lifestyle modifications: No alcohol, tobacco products, Aspirin or NSAID's (ibuprofen, Motrin, Naprosyn, aleve, etc).? Try to limit/avoid:? soda pop/any carbonated beverages, caffeine (including tea & chocolate), and acidic foods, (tomatoes, citrus, onions, peppermints) spicy or fried/fatty foods. Do not lie down for 30 minutes after eating, and do not eat 2 hours prior to bedtime. Avoid wearing tight fitting clothing/ belts. Follow up: -My office will send a letter with the results of your biopsy?s in 2-3wks time. Call the office at [phone] (Office) or [phone] (Hospital), or go to the ER right away if you notice any of the followin. Vomiting blood and /or ?coffee ground? material. ?2. Worsening of abdominal pain or cramping. ?3. Trouble with breathing, cough, and/or fever (temperature above 101.5 F). 4. Increasing pain with swallowing. ?5. Chest pain. 6. Any new symptoms. 7. Worsening of the redness at the IV site Stand Alone Forms: Anesthesia Discharge InstJoyce, Dana Garrido (DSU) Activity:: See above Diet:: See above Discharge Orders Discharge Orders: Discharge Order (Routine); Ordered 07/30/24 Ordered By: Alina Sotomayor DS: Diagnosis Discharge Diagnosis (1) Epigastric abdominal tenderness: Status: Deleted Asessment and Plan: Patient is seen and examined after they are endoscopy.? Patient has minimal sore throat.? They have been able to tolerate liquids.? They do not have any nausea vomiting.? They are not having any chest pain or shortness of breath.? They have been able to pass gas and are not having any abdominal pain or distention.? They have not vomited any blood.? The vital signs have been stable-see nursing notes. We discussed findings on their endoscopy. We reviewed the importance of lifestyle modification-see discharge instructions We reviewed any new medications that the patient may be prescribed-see discharge instructions Patient will either be sent a letter with the biopsy results or follow-up in the office-see discharge instructions. Patient was given explicit instructions to follow-up regarding post endoscopy- refer to discharge Patient verbalized understanding and discharged in stable and satisfactory condition.? See nursing notes. (2) Hematemesis: (3) Left upper quadrant pain: (4) History of neck surgery: (5) Bile reflux gastritis: Status: Acute (6) GERD with esophagitis: Status: Acute
[2024-07-31 09:42] VITALS: BP 123/91; PULSE 75; RESP 18; TEMP 36.8; O2SAT 98
[2024-07-31] MEDS: Lactated Ringers 1,000 ML 80 ML IV (09:58)
--- NOTE | 2024-07-31 10:38 | ANES.PREOP_ITS ---
General Info Date of Service Date Performed: 07/31/24 Height: 6 ft Weight: 88.5 kg Body Mass Index (BMI): 26.4 Surgical Procedure: Operation Date: 07/31/24 10:35 Proposed Procedure Side Surgeon p Gastroscopy Alina Sotomayor DO Meds Allergies and Home Medications Allergies Allergy/AdvReac Type Severity Reaction Status Date / Time Milk Containing Products Allergy Intermediate nausea/diarrhea/GI Verified 07/31/24 09:38 (Dairy) bleed Home Medication ?Medication ?Instructions ?Recorded calcium carbonate 1,000 mg PO DAILY 07/01/24 Current Visit Medications: Current Medications Generic Name Dose Route Start Last Admin Trade Name Freq PRN Reason Stop Dose Admin Hyoscyamine Sulfate 0.125 mg 07/31/24 09:06 Hyoscyamine 0.125 Mg Sl/Oral/Chew SL 08/30/24 09:05 DIRECTED PRN Ringer's Solution 1,000 mls @ 80 mls/hr 07/31/24 08:30 07/31/24 09:58 IV 08/30/24 08:29 80 mls/hr INFUSION SAMMY Administration IV Miscellaneous Supplies 1 each 07/31/24 06:00 Iv Access IV 07/31/24 23:59 DIRECTED SAMMY Ondansetron HCl 4 mg 07/31/24 09:06 Ondansetron 4 Mg/2 Ml Vial IVP 08/30/24 09:05 Q4H PRN PRN Nausea / Vomiting Sodium Chloride 0 ml 07/31/24 06:00 Normal Saline Flush 10 Ml Syr IV 07/31/24 23:59 PRN PRN Sodium Chloride 0 ml 07/31/24 06:00 Normal Saline 10 Ml Vial IJ 07/31/24 23:59 DIRECTED PRN Sterile Water 0 ml 07/31/24 06:00 Water,Injection,Sterile 10 Ml Vial IJ 07/31/24 23:59 DIRECTED PRN PFSH Active Problems Active Problems: Problem Status Onset Code Epigastric abdominal tenderness Acute R10.816 Medical History Medical History Left upper quadrant pain Cervical disc disorder with radiculopathy Joint pain Chronic pain Hematemesis Surgical History Surgical History History of neck surgery Bone fusion in neck Repair, Tendon or Muscle right little and ring fingers Tobacco Smoking/Tobacco Use Status: Former Tobacco Use Alcohol Alcohol Intake: current Alcohol intake frequency: 3 or more drinks per day Alcohol type: beer Substance Use Substance use: Occasionally Substance use type: marijuana Details: Smoked marijuana last night 07/30/24 Vital Signs and Lab Results Vital Signs Most Recent Vital Signs in EMR: Most Recent Vital Signs Temp Pulse Resp BP Pulse Ox 36.8 C 75 18 123/91 H 98 07/31/24 09:42 07/31/24 09:42 07/31/24 09:42 07/31/24 09:42 07/31/24 09:42 Lab Results Blood Type / Crossmatch: No Data to Display Complete Blood Count: No Data to Display Complete Metabolic Panel: No Data to Display Liver Function Panel: No Data to Display Coagulation Panel: No Data to Display Cardiac Panel: No Data to Display Arterial Blood Gas: No Data to Display Venous Blood Gas: No Data to Display Pancreas Panel: No Data to Display Thyroid Panel: No Data to Display Infectious Disease: No Data to Display Blood Cultures: 2 No Data to Display Toxicology Panel: No Data to Display Anesthesia Assessment and Plan Anesthesia History Personal History: No History of Anesthesia Complications Family History: No Family History of Anesthesia Complications Exercise Tolerance Exercise Tolerance: Metabolic Equivalents>4 Pertinent Negatives Pertinent Negatives: No Symptoms of GERD Cardiac & Pulmonary Exam Cardiac Exam: Normal S1/S2 Heart Sounds Pulmonary Exam: Clear Bilateral Breath Sounds Implantable Cardiac Device Does patient have a Pacemaker or an ICD?: No Airway Exam Known Difficult Airway: No Mallampati Class: 1 Mouth Opening: Normal (> 3cm) Thyromental Distance: Greater than 3 cm Neck Range of Motion: Limited ROM (neck fusion) Neck Circumference: Normal Teeth Condition: Generalized Poor Dentition ASA Classification ASA Score: ASA 2 Emergency Case?: No NPO Status NPO Status: NPO Clears >2 hours, Solids >8 hours Anesthesia Plan Resuscitation Status: Full Code Anesthesia Technique: General Anesthesia Airway Planned: Natural Airway Monitors Used: Standard Monitors
[2024-07-31 10:39] VITALS: BMI 26.4
--- NOTE | 2024-07-31 10:48 | STOM_PTH ---
PATIENT: Diallo Barker LOC: [facility] U#:[id number] AGE/SX: 44/M ROOM: RE07/31/[address]: Alina Sotomayor : 1980 BED: DIS: 07/31/2024 SPEC #: [id number] RECD: 07/31/24 13:11 STATUS: ALANNA RE #: [id number] LEONIE: 07/31/24 10:[address]: Alina Sotomayor DEPT: Surgical Specimen RECD BY: Promise Merrill ENTERED: 07/31/24 13:12 SP TYPE: STOMACH OTHR DR: Delaney Kwok Tissues: 1 - BIOPSY BOWEL 2 - BIOPSY BOWEL 3 - STOMACH BIOPSY 4 - STOMACH BIOPSY 5 - ESOPHAGUS BIOPSY 6 - ESOPHAGUS BIOPSY Procedures: GROSS AND MICRO LEVEL 4 Comments: [id number]
[2024-07-31 11:07] VITALS: BP 124/75; PULSE 90; RESP 16; TEMP 36.8; O2SAT 93
--- NOTE | 2024-07-31 11:12 | W.ANESPOSTOP ---
Postoperative Evaluation Date, Time and Location Date Performed: 07/31/24 Time Performed: 11:12 Patient Location: Day Surgery Unit Vital Signs Most Recent Imported Vital Signs: Most Recent Vital Signs Temp Pulse Resp BP Pulse Ox 36.8 C 75 18 123/91 H 98 07/31/24 09:42 07/31/24 09:42 07/31/24 09:42 07/31/24 09:42 07/31/24 09:42 Pain Score Most Recent Pain Score: Most Recent Pain Score Pain Level 0 07/31/24 09:42 Assessment Mental Status: Awake (Alert & Oriented to Patient Baseline) Airway and Respiratory Function: Patent airway with normal (patient baseline) respiratory exam Cardiovascular Function: Hemodynamically Stable Hydration Status: Adequately Hydrated Nausea & Vomiting: No Nausea or Vomiting Pain: Pt. Denies Any Pain Peripheral Nerve Block: Patient did not receive a nerve block
[2024-07-31 11:39] VITALS: BP 119/84; PULSE 79; RESP 16; TEMP 36.7; O2SAT 98
== END 2024-07-31 12:08 | disposition home or self-care (01) ==
LOC: SUR 08:49
PROVIDERS: PCP Nurse Practitioner Family; Visit Provider Surgery
PROC: 0DJ68ZZ Inspection of Stomach, Via Natural or Artificial Opening Endoscopic (ICD-10-PCS; CPT 43235; principal; 2024-07-31 10:30)
DX: R10.816 Epigastric abdominal tenderness (principal); K92.0 Hematemesis; R10.12 Left upper quadrant pain; K29.60 Other gastritis without bleeding; K21.00 Gastro-esophageal reflux disease with esophagitis, without bleeding; K31.89 Other diseases of stomach and duodenum; B96.81 Helicobacter pylori [H. pylori] as the cause of diseases classified elsewhere; K22.89 Other specified disease of esophagus
CPT/HCPCS: 43239; 88305; J2704